=== PATIENT | male | born 1940 | race Caucasian/White ===

== ENCOUNTER 2021-11-11 08:00 | Inpatient (IN) ==
[2021-11-03 13:43] LABS: Appearance,Urine CLEAR (Clear); Bilirubin,Urine Negative (Negative); Color,Urine YELLOW; Culture Indicated,Urine No; Glucose,Urine (UA) Negative (Negative); Ketones,Urine Negative (Negative); Leukocyte Esterase,Urine Negative /uL (Negative); Mucus,Urine FEW /hpf; Nitrate,Urine Negative (Negative); Protein,Urine Negative (Negative); Specific Gravity,Urine 1.006 (1.000-1.035); Urine Blood 0.03 mg/dL (Negative); Urine RBC 3 /hpf (0-3); Urine Squamous Epithelial Cell 0 /hpf (0-4); Urine Transitional Epi Cells < 1 /hpf (0-2); Urine WBC 2 /hpf (0-4); Urobilinogen,Urine Negative
[2021-11-03 14:18] LABS: Basophils # (Auto) 0.03 K/mcL (0.00-0.30); Basophils % (Auto) 0.5 % (0.0-2.0); Eosinophils # (Auto) 0.12 K/mcL (0.00-0.70); Eosinophils % (Auto) 1.8 % (0.0-7.0); Hematocrit 46.9 % (40.1-51.0); Hemoglobin 15.9 g/dL (13.7-17.5); Lymphocytes # (Auto) 1.51 K/mcL (1.50-4.80); Lymphocytes % (Auto) 22.9 % (15.5-49.0); Mean Cell Volume 91.6 fL (80.0-100.0); Mean Corpuscular HGB Conc 33.9 g/dL (31.0-36.0); Mean Platelet Volume 9.5 fL (7.4-10.4); Monocytes # (Auto) 0.73 K/mcL (0.10-0.90); Monocytes % (Auto) 11.1 % (1.0-12.0); Neutrophils % (Auto) 63.5 % (38.0-78.0); Platelet Count 174 K/mcL (140-440); RBC 5.12 M/mcL (4.63-6.08); Red Cell Distribution Width 13.3 % (11.5-14.5); WBC 6.6 K/mcL (4.5-11.0)
[2021-11-03 14:34] LABS: INR 1.2 (0.9-1.1); Partial Thromboplastin Time 41.6 sec (20.0-37.0)
[2021-11-03 14:41] LABS: Blood Urea Nitrogen 13 mg/dL (8-23); Calcium 9.4 mg/dL (8.6-10.4); Carbon Dioxide 27 mmol/L (22-30); Chloride 99 mmol/L (96-108); Glomerular Filtration Rate 62; Glucose 110 mg/dL (70-105)
--- NOTE | 2021-11-04 10:15 | EKG ---
[facility] Test Date: 2021-11-03 Pat Name: Jose Guadalupe Mims Department: MEDR Room: Gender: Male Rn Transport: : 1940 Requested By: Oscar Song Order Number: [id number] Reading MD: Judd Najera Measurements Intervals Froid Rate: 90 P: GA: QRS: -72 QRSD: 88 T: 5 QT: 493 QTc: 604 Interpretive Statements Atrial fibrillation Ventricular premature complex Inferior infarct, old Consider anterior infarct Prolonged QT interval Electronically Signed On 11-04-2021 10:15:18 PDT by Judd Najera /[id number]
[~2021-11-11 08:00] MED LIST: IPRATROPIUM/ALBUTEROL 3 ML AMPUL.NEB NEB PRN; SCOPOLAMINE 1 PATCH PATCH TOPICAL PRN; cefTRIAXone 1 GM VIAL IV SCH
--- OUTSIDE RECORDS SUMMARY | 2021-11-11 08:42 | External Medical Summary | Continuity of Care Document ---
:1940 Author Organization [facility] Care Team Providers Name Role Phone [facility] Unavailable Unavailable Problems Combined list of problems from Department of Defense and [facility] facilities. It does not include entries that were removed or entered in error. Problem Status Onset Problem Date of Comments Source Date Type Resolution Stricture of esophagus Active Condition May 21, [facility] 2020 Entered CLINIC By: EMILY LOPEZ Comment: 04/2020 yogi F/U 06/2020May 24, 2020 Entered By: EMILY LOPEZ Comment: esophageal erosions and yeast also treated , Allergic rhinitis Active Condition [facility] 020 CLINIC Cervical arthritis Active Condition [facility] 020 CLINIC Glaucoma Active Condition Feb 12, [facility] 2019 Entered CLINIC By: EMILY LOPEZ Comment: Dr Ferreira Hyperlipidemia [place] [facility]20 CLINIC Hypertension Active Condition [facility] [place] 020 CLINIC Obstructive sleep apnea Active Condition Feb 12, [facility] of adult 2019 Entered CLINIC By: EMILY LOPEZ Comment: C pap through [place] and equipment currently Chronic obstructive Active Condition [facility] lung disease 010 CLINIC Actinic keratosis Active Condition Am bulatory (SNOMED CT Pharmacy )(Confirmed) Allergic rhinitis * Active Condition Ambulatory (ICD-9-CM Pharmacy 477.9)(Confirmed) Bilateral hearing loss Active Condition Ambulatory (SNOMED CT Pharmacy [id number])(Confirmed) Degeneration of lumbar Active Condition Ambulatory intervertebral Pharm acy disc(Confirmed) Sebaceous Active Condition Ambulatory cyst(Confirmed) Phar parris Left hip Active Condition Ambulatory pain(Confirmed) Phar parris Hypercholesterolemia(Co Active Condition Ambulatory nfirmed) Pharmacy Hypertension(Confirmed) Active Condition Ambulatory Pharmacy Urethral Active Condition Ambulatory cancer(Confirmed) Ph armacy Osteoarthrosis Active Condition Ambul atory involving the knee P harmacy (ICD-9-CM 715.98)(Confirmed) Platelet count below Active Condition Ambulatory reference range (SNOMED Pharmacy [place] [id number])(Confirmed) COPD with Active Condition Ambulatory emphysema(Confirmed) Pharmacy Actinic keratosis Active Condition [facility] (SNOMED CT [id number]) [facility] Allergic rhinitis * Active Condition [facility] (ICD-9-CM 477.9) [facility] Atrial fibrillation Active Condition [facility] Bilateral hearing loss Active Condition [facility] (SNOMED CT [id number]) [facility] Cardiomyopathy Active Condition [facility] COPD Active Condition [facility] Degeneration of lumbar Active Condition [facility] intervertebral disc CLINIC Dysphagia Active Condition [facility] Health Maintenance Active Condition [facility] (ICD-9-CM V65.9) [facility] Hypercholesterolemia Active Condition [facility] Hypertension Active Condition [facility] Inguinal hernia [facility] Osteoarthritis Active Condition [facility] Osteoarthrosis Active Condition [facility] involving the knee [facility] (ICD-9-CM 715.98) Pain in right hip joint Active Condition [facility] Pain of left shoulder Active Condition [facility] joint [facility] Pain of right shoulder Active Condition [facility] joint [facility] Platelet count below Active Condition [facility] reference range (SNOMED AFF [facility] CT [id number]) Rash Active Condition [facility] Sebaceous cyst Active Condition [facility] Diagnosis: ICD-10-CM active Diagnosis [facility] Z71.9 Counseling, CL INIC unspecifiedwith Provider Comments: Counseling,Unspec Diagnosis: ICD-10-CM active Diagnosis MODESTA Zuñiga Z02.89 Encounter for [place] other administrative [facility] examinationswith Provider Comments: Encounter for other Administrative Examinations Diagnosis: ICD-10-CM active Diagnosis MODESTA Zuñiga I10 Essential (primary) [place] hypertensionwith [facility] C Provider Comments: Hypertension (SCT [id number]) Diagnosis: ICD-10-CM active Diagnosis [facility] M51.36 Other CLINIC intervertebral disc degeneration, lumbar regionwith Provider Comments: Degeneration of lumbar intervertebral disc (SCT [id number]) Diagnosis: ICD-10-CM active Diagnosis [facility] G62.9 Polyneuropathy, CLINIC unspecifiedwith Provider Comments: Polyneuropathy, unspecified Diagnosis: ICD-10-CM active Diagnosis MODESTA Zuñiga Z51.81 Encounter for [place] therapeutic drug level [facility] monitoringwith Provider Comments: Encounter for Therapeutic Drug Level Monitoring Diagnosis: ICD-10-CM active Diagnosis [facility] R68.89 Other general CLINIC symptoms and signswith Provider Comments: General Symptoms & Signs Diagnosis: ICD-10-CM active Diagnosis MODESTA Zuñiga G47.33 Obstructive W [place] sleep apnea (adult) [facility] (pediatric)with Provider Comments: Obstructive sleep apnea of adult (SCT [id number]) Diagnosis: ICD-10-CM active Diagnosis [facility] Z71.89 Other specified CLINIC counselingwith Provider Comments: Counseling,Oth Specified Diagnosis: ICD-10-CM active Diagnosis [facility] R21 Rash and other C LINIC nonspecific skin eruptionwith Provider Comments: Rash (SNOMED CT [id number]) Diagnosis: ICD-10-CM active Diagnosis MODESTA Zuñiga G47.30 Sleep apnea, [place] unspecifiedwith [facility] Provider Comments: Sleep Apnea, unspecified Diagnosis: ICD-10-CM active Diagnosis MODESTA Zuñiga M54.5 Low back painwith [place] Provider Comments: Low [facility] Back Pain Diagnosis: ICD-10-CM active Diagnosis [place] M25.551 Pain in right CLINIC hipwith Provider Comments: Pain in right hip joint ([facility] [id number]) Diagnosis: ICD-10-CM active Diagnosis [facility] I48.91 Unspecified C LINIC atrial fibrillationwith Provider Comments: Diagnosis: ICD-10-CM active Diagnosis [facility] [place] M25.512 Pain in left CLINIC shoulderwith Provider Comments: Pain of left shoulder joint ([facility] [id number]) Diagnosis: ICD-10-CM active Diagnosis [facility] I10 Essential (primary) CLINIC hypertensionwith Provider Comments: Essential (Primary) Hypertension Diagnosis: ICD-10-CM active Diagnosis [facility] K40.90 Unil inguinal CLINIC hernia, w/o obst or gangr, not spcf as recurwith Provider Comments: Inguinal hernia (SNOMED CT [id number]) Diagnosis: ICD-10-CM active Diagnosis [facility] R10.30 Lower abdominal CLINIC pain, unspecifiedwith Provider Comments: Lower Abdominal Pain, unspecified Medications Combined list of outpatient medications from Department of Defense and [facility] Affairs facilities. Medications provided include 1) outpatient medications from the last 15 months, and 2) patient-reported medications. Medication Details Route Status Patient Prescription Prescription Last Ordering Order Source Instructions Expires Number Dispense Provider Date Date albuterol Complet 05/18/2021 Amb ulat 90 mcg/inh See dose instructions in com ments, # 25.5 g, 2 total refill(s), Acute, BRANDI [Not filled] ed ory inhalation Pharmac aerosol y ALBUTEROL Inhala Complet 02/22/2020 Am bulat 90MCG Inhale, every 6 hr, INHALE 2 PUFFS BY MOUTH EVERY 6 HOURS NEEDED, 0 total refill(s) tion ed ory ([facility]-F) (breat Pharmac 200D ORAL he in) y INHL ALBUTEROL INHALE 2 INHALA 05/21/2021 [id number] S[facility] TH,JUN 24/ [place] SO4 PUFFS BY TION 1 ION E 2020 N [facility] 90MCG/ACTUA MOUTH CLINIC T ([facility]-F) FOUR INHL,ORAL,6 TIMES A .7GM DAY NEEDED FOR BREATHIN G, WHEEZING , SHORTNES S OF BREATH apixaban 5 Oral Ordered Ambulat mg oral 5 MG BY MOUTH TWICE A DAY, O ral, BID, # 180 tab(s), 3 total refill(s), Maintenance, 5 MG BY MOUTH TWICE A DAY Oral BID, Pharmacy: [facility] [Federal Rx: #180 last filled 10/04/21] (given ory tablet by Pharmac mouth) y apixaban 5 Discont 09/25/2021 Am bulat mg tablet 5 MG BY MOUTH TWICE A DAY, # 180 EA, 3 total refill(s), Hard Stop, BRANDI [Not active] inued ory Pharmac y APIXABAN TAKE ONE ORAL DISCONT 09/27/2021 [id number] [place] 09/26/ JONATHA 5MG TAB TABLET INUE 1 ,LOY 2020 N M. BY MOUTH MENA VAZQUEZ TWICE A PHARM D GHT DAY FOR [facility] STROKE PREVENTI ON APIXABAN TAKE ONE ORAL DISCONT 10/17/2020 [id number] ROBER CHAIDEZ 09/24/ JONATHA 5MG TAB TABLET INUE 1 KAREN 2020 N M. BY MOUTH GEORGE TWICE A GHT DAY FOR [facility] 21 DAYS TO PREVENT BLOOD CLOTS APIXABAN TAKE ONE ORAL DISCONT 10/19/2020 [id number] LOPEZKoby AR 09/20/ [place] 5MG TAB TABLET INUE 1 ION E 2020 N [facility] BY MOUTH CLINIC TWICE A DAY FOR STROKE PREVENTI ON APIXABAN TAKE ONE ORAL DISCONT 03/21/2022 [id number] CONNIEKoby AR 04/17/ [place] 5MG TAB TABLET INUED 1 ION E 2020 N [facility] BY MOUTH CLINIC TWICE A DAY FOR STROKE PREVENTI ON atorvastati Oral Discont 09/25/2021 A mbulat n 40 mg 40 MG, Oral, Daily, # 90 EA, 2 total ref ill(s), Acute, BRANDI [Not active] (given inued ory oral tablet by Pharmac mouth) y atorvastati Oral Ordered Ambula t n 40 mg 40 MG, Oral, Daily, # 90 tab (s), 3 total refill(s), Maintenance, 40 MG Oral Daily, Pharmacy: [facility] [Federal Rx: #90 last filled 10/01/21] (given ory oral tablet by Pharmac mouth) y atorvastati Complet 01/06/2021 A mbulat n 40 mg Legacy Prescription, # 90 EA , 2 total refill(s), Hard Stop, BRANDI [Federal Rx: #90 last filled 03/18/20] ed ory tablet Pharmac y ATORVASTATI TAKE ONE ORAL DISCONT 03/16/2021 [id number] [facility],JUL 05/ [place] N CA 40MG TABLET INUE 1 ION E 2019 N [facility] TAB BY MOUTH CLINIC EVERY DAY FOR CHOLESTE ROL ATORVASTATI TAKE ONE ORAL DISCONT 04/11/2022 [id number] DUSTIN LOPEZ 04/11/ [place] N CA 40MG TABLET INUED 2 ION E 2020 N VA TAB BY MOUTH CLINIC EVERY DAY FOR CHOLESTE ROL ATORVASTATI Oral Discont 01/08/2020 A mbulat N CALCIUM Oral, every day at bedtime, TAKE 1 TABLET BY MOUTH AT BEDTIME FOR CHOLESTEROL, 0 total refill(s), Physician Stop (given inued ory 40MG TAB by Pharmac mouth) y ATORVASTATI Oral Complet 02/22/2020 A mbulat N CALCIUM 40 mg, Oral, every day at be dtime, TAKE ONE-HALF TABLET BY MOUTH AT BEDTIME FOR CHOLESTEROL, 0 total refill(s) (given ed ory 80MG TAB by Pharmac mouth) y BETAMETHASO APPLY TOPICA DISCONT 02/19/2022 [id number] LOPEZ, JUL 03/ JUANITA NE THIN L INUED 1 ION E 2020 N VA DIPROPIONAT FILM TO CLINIC E 0.05% AFFECTED CREAM,TOP AREA TWICE A DAY TO LEG FOR RASH betamethaso Ordered 02/16/2022 A mbulat ne See dose instructions in com ments, # 45 g, 3 total refill(s), Acute, BRANDI [Federal Rx: #45 last filled 02/21/21] ory dipropionat Pharmac e 0.05% y topical cream BUDESONIDE INHALE 2 INHALA DISCONT 07/10/2022 [id number] [facility],JUN 26/ Departm 160/GLYCOPY INHALATI TION INUED 2 ION E 2021 ent o f R ONS BY 9/FORMOTER MOUTH s 4.8MCG/ACT TWICE A [facility] INHL,ORAL,1 DAY FOR 0.7GM BREATHIN G / COPD - REPLACES TRELEGY BUDESONIDE INHALE 2 INHALA DISCONT 07/10/2022 [id number] [facility],JUN 26/ JONATHA 160/GLYCOPY INHALATI TION INUED 2 ION E 2021 N M. R ONS BY GEORGE 9/FORMOTER MOUTH GHT 4.8MCG/ACT TWICE A [facility] INHL,ORAL,1 DAY FOR 0.7GM BREATHIN G/COPD - REPLACES TRELEGY BUDESONIDE Inhala Complet 02/22/2020 A mbulat 80/FORMOTER Inhale, every 12 hr, INHALE 2 PUFFS BY MOUTH EVERY 12 HOURS RINSE MOUTH WITH WATER AND SPIT AFTER EVERY DOSE. SHAKE WELL (5 SECONDS) BEFORE EACH USE., 0 total refill(s) tion ed ory 4.5MCG 120D (breat Pharmac INH he in) y budesonide/ Discont 09/25/2021 A mbulat formoterol/ See dose instructions in com ments, # 32.1 g, 3 total refill(s), Acute, BRANDI [Not active] inued ory glycopyrrol Pharmac ate 160 y mcg-4.8 mcg-9 mcg/inh inhalation aerosol CEPHALEXIN TAKE 3 ORAL DISCONT 10/24/2020 [id number] ZA RODRIGUEZ 09/26/ KYLER 250MG CAP CAPSULES INUED 1 REGINA NOEL 2020 N M. (750 MG) WAINWRI BY MOUTH GHT TWICE A [facility] DAY FOR INFECTIO N cetirizine Oral Ordered Ambulat 10 mg oral 10 MG, Oral, Daily, # 90 tab (s), 3 total refill(s), Maintenance, 10 MG Oral Daily, Pharmacy: [facility] [Federal Rx: #90 last filled 11/02/21] (given ory tablet by Pharmac mouth) y cetirizine Oral Discont 09/25/2021 Am bulat 10 mg 10 MG, Oral, Daily, # 90 EA, 2 total refill(s), Hard Stop, BRANDI [Not active] (given inued ory tablet by Pharmac mouth) y CETIRIZINE Oral Discont 01/11/2019 Am bulat HCL 10MG 10 mg, Oral, every day at [facility], TAKE ONE TABLET BY MOUTH AT BEDTIME, 0 total refill(s), Physician Stop (given inued ory TAB by Pharmac mouth) y CETIRIZINE TAKE ONE ORAL DISCONT 02/13/2021 [id number] DUSTIN LOPEZ 02/12/ [place] HCL 10MG TABLET INUE 1 ION E 2019 N [facility] TAB BY MOUTH CLINIC EVERY DAY FOR ALLERGIE S CETIRIZINE TAKE ONE ORAL DISCONT 01/11/2022 [id number] S MITDUSTIN Ellis 01/28/ [place] HCL 10MG TABLET INUED 2 ION E 2020 N [facility] TAB BY MOUTH CLINIC EVERY DAY FOR ALLERGIE S CHOLECALCIF TAKE ONE ORAL ACTIVE DUSTIN LOPEZ 05/13/ [place] SAM 25MCG TABLET ION E 2020 N [facility] (1,000UNIT) BY MOUTH CLINI C TAB EVERY DAY CLOTRIMAZOL APPLY TOPICA ACTIVE CONNIEJUL 03/ L [place] E 1% THIN L ION E 2020 N [facility] CREAM,TOP FILM TO CLINIC AFFECTED AREA TWICE A DAY CLOTRIMAZOL APPLY TOPICA DISCONT 02/19/2022 [id number] LOPEZ, JUL 03/ [place] E 1% SPARINGL L INUED 1 ION E 2020 N [facility] CREAM,TOP Y TO CLINIC AFFECTED AREA TWICE A DAY FOR FUNGAL RASH clotrimazol Discont 09/25/2021 A mbulat e 1% See dose instructions in com ments, # 90 g, 3 total refill(s), Acute, BRANDI [Not active] inued ory topical Pharmac cream y ezetimibe Oral Ordered Ambulat 10 mg oral 1 tab(s), Oral, Daily, # 90 tab(s), 3 total refill(s), Maintenance, 1 tab(s) Oral Daily, Pharmacy: [facility] [Federal Rx: #90 last filled 11/02/21] (given ory tablet by Pharmac mouth) y ezetimibe Discont 09/25/2021 Amb ulat 10 mg See dose instructions in com ments, # 90 EA, 2 total refill(s), Hard Stop, BRANDI [Not active] inued ory tablet Pharmac y EZETIMIBE TAKE ONE ORAL DISCONT 02/19/2022 [id number] LOPEZ, JUL 03/ [place] 10MG TAB TABLET INUED 2 ION E 2020 N [facility] BY MOUTH CLINIC EVERY DAY FOR TRIGLYCE RIDES flutic/umec Inhala Ordered 09/30/2022 Ambulat lid/vilant See Rx Instructions, # 60 EA , 3 total refill(s), Hard Stop, BRANDI [Federal Rx: #60 last filled 10/01/21] tion ory 100-62.5-25 (breat Pharmac mcg inh he in) y (60EA) FLUTICASONE INHALE INHALA 06/27/[id number] [facility] TH,JUN 26/ [place] 100/UMECLID ONE TION 2 ION E 2020 N [facility] INIUM INHALATI CLINIC 62.5/VILANT ON BY SAM MOUTH 25MCG/ACTUA EVERY T INH,30 MORNING FOR COPD. RINSE MOUTH AFTER USE fluticasone Complet 06/24/2021 A mbulat /umeclidini See dose instructions in [employer], # 180 EA, 0 total refill(s), Acute, BRANDI [Not filled] ed ory um/vilanter Pharmac ol 100 y mcg-62.5 mcg-25 mcg/inh inhalation powder gabapentin Discont 09/23/2021 Am bulat 100 mg oral See dose instructions in com ments, # 102 EA, 3 total refill(s), Acute, BRANDI [Not active] inued ory capsule Pharmac y GABAPENTIN TAKE ONE ORAL DISCONT 02/23/2022 [id number] LOPEZ ,JUL 04/ [place] 100MG CAP CAPSULE INUED 1 ION E 2020 N [facility] BY MOUTH CLINIC TWICE A DAY FOR 7 DAYS, THEN TAKE TWO CAPSULES TWICE A DAY FOR 7 DAYS, THEN TAKE THREE CAPSULES TWICE A DAY - INCREASE TOLERATE D DAY AND OR NIGHT FOR NERVE PAIN GABAPENTIN TAKE ONE ORAL DISCONT 03/15/2022 [id number] LOPEZ ,JUL 04/ [place] 100MG CAP CAPSULE INUED 1 ION E 2020 N [facility] BY MOUTH CLINIC AT BEDTIME FOR 3 DAYS, THEN TAKE ONE CAPSULE TWICE A DAY FOR 3 DAYS, THEN TAKE TWO CAPSULES AT BEDTIME FOR 3 DAYS, AND TAKE ONE CAPSULE EVERY DAY FOR 3 DAYS, THEN TAKE TWO CAPSULES TWICE A DAY - INCREASE TOLERATE D DAY AND OR NIGHT FOR NERVE PAIN hydroCHLORO Oral Ordered Ambula t thiazide 25 25 MG, Oral, Daily, # 90 tab (s), 3 total refill(s), Maintenance, 25 MG Oral Daily, Pharmacy: [facility] [Federal Rx: #90 last filled 11/05/21] (given ory mg oral by Pharmac tablet mouth) y hydroCHLORO Oral Discont 09/25/2021 A mbulat thiazide 25 25 MG, Oral, Daily, # 90 EA, 3 total refill(s), Hard Stop, BRANDI [Not active] (given inued ory mg tablet by Pharmac mouth) y HYDROCHLORO Oral Discont 01/27/2019 A mbulat THIAZIDE 25 mg, Oral, Daily, TAKE ONE TABLET BY MOUTH EVERY DAY, 0 total refill(s), Physician Stop (given inued ory 25MG TAB by Pharmac mouth) y HYDROCHLORO Oral Complet 02/22/2020 A mbulat THIAZIDE 25 mg, Oral, Daily, TAKE ONE TABLET BY MOUTH EVERY DAY (CHOICE), 0 total refill(s) (given ed ory 25MG TAB by Pharmac mouth) y HYDROCHLORO TAKE ONE ORAL DISCONT 05/10/2021 [id number] S MITH,JUN 24/ [place] THIAZIDE TABLET INUE 1 ION E 2020 N [facility] 25MG TAB BY MOUTH CLINIC EVERY DAY (WATER PILL) HYDROCHLORO TAKE ONE ORAL DISCONT 04/15/2022 [id number] LOPEZ,DUSTIN 05/10/ [place] THIAZIDE TABLET INUED 2 ION E 2021 N VA 25MG TAB BY MOUTH CLINIC EVERY DAY (WATER PILL) inhaler Complet 08/18/2020 Ambul at spacer See dose instructions in com ments, # 1 EA, 0 total refill(s), Acute, BRANDI [Not filled] ed ory ([facility] r plus z y stat av) LIDOCAINE APPLY 1 TRANSD DISCONT 11/10/2021 [id number] LOPEZ, JUN 30/ [place] 5% PATCH PATCH TO ERMAL INUED 1 ION E 2020 N [facility] SKIN CLINIC EVERY DAY (FOR 12 HOURS ON, FOLLOWED BY 12 HOURS OFF) FOR PAIN lidocaine Complet 11/07/2021 Amb ulat 5% topical 1 PATCH TO SKIN, Daily, # 60 EA, 3 total refill(s), Acute, BRANDI [Federal Rx: #60 last filled 11/15/20] ed ory film Pharmac y losartan 50 Oral Discont 08/15/2021 A mbulat mg oral 50 MG, Oral, Daily, # 90 tab (s), 3 total refill(s), Maintenance, 50 MG Oral Daily, Pharmacy: [facility] [Not active] (given inued ory tablet by Pharmac mouth) y losartan 50 Oral Ordered Ambula t mg oral 50 MG, Oral, Daily, take one tablet by mouth every day., # 90 tab(s), 3 total refill(s), Maintenance, 50 MG Oral Daily,Instr:take one tablet by mouth every day., Pharmacy: [facility] [Federal Rx: #90 last filled 10/18/21] (given ory tablet by Pharmac mouth) y losartan 50 Oral Discont 08/13/2021 A mbulat mg tablet 50 MG, Oral, Daily, # 90 EA, 1 total refill(s), Hard Stop, BRANDI [Not active] (given inued ory by Pharmac mouth) y LOSARTAN TAKE ONE ORAL DISCONT 11/07/2021 [id number] CONNIE,Koby AR 11/07/ [place] 50MG TAB TABLET INUED 2 ION E 2020 N [facility] BY MOUTH CLINIC EVERY DAY MAGNESIUM TAKE ONE ORAL ACTIVE LOPEZ,JUL 03/ L [place] OXIDE 420MG TABLET ION E 2019 N VA TAB BY MOUTH CLINIC EVERY DAY MULTIVITAMI TAKE ONE ORAL ACTIVE LOPEZ,JUL 03/ [place] NS CAP/TAB TABLET ION E 2019 N [facility] BY MOUTH CLINIC EVERY DAY OMEPRAZOLE TAKE ONE ORAL DISCONT 07/25/2021 [id number] CONNIE ,JUN 27/ [place] 20MG CAP,EC CAPSULE INUED 2 ION E 2020 N [facility] BY MOUTH CLINIC EVERY DAY FOR STOMACH ACID, TAKE ONE-HALF HOUR PRIOR TO BREAKFAS T OMEPRAZOLE TAKE ONE ORAL DISCONT 07/02/2022 [id number] S MITRhonda,JUN 27/ JONATHA 20MG CAP,EC CAPSULE INUED 2 ION E 2021 N M. BY MOUTH GEORGE EVERY GHT DAY FOR [facility] STOMACH ACID, TAKE ONE-HALF HOUR PRIOR TO BREAKFAS T OMEPRAZOLE TAKE 1 ORAL ACTIVE CONNIE,JUL 04/ RON [place] 40MG CAP,EC CAPSULE ION E 2020 N [facility] BY MOUTH CLINIC TWICE A DAY omeprazole Oral Ordered 06/29/2022 Am richard DODD 20 mg 20 MG, Oral, Daily, # 90 EA, 3 total refill(s), Hard Stop, BRANDI [Federal Rx: #90 last filled 11/04/21] (given ory capsule by Pharmac mouth) y POTASSIUM TAKE ONE ORAL ACTIVE [facility] ONATHA 99MG TAB TABLET ,LOY 2020 N M. BY MOUTH MENA VAZQUEZ EVERY PHARM D GHT DAY [facility] SPIRONOLACT Oral Complet 02/22/2020 A mbulat ONE 25MG 25 mg, Oral, TAKE ONE TABLET BY MOUTH TWICE WEEKLY TAKE WITH FOOD OR MILK(CHOICE), 0 total refill(s) (given ed ory TAB by Pharmac mouth) y SPIRONOLACT Oral Discont 11/20/2016 A mbulat ONE 25MG 25 mg, Oral, Daily, TAKE ONE TABLET BY MOUTH EVERY DAY TAKE WITH FOOD OR MILK(CHOICE), 0 total refill(s), Physician Stop (given inued ory TAB by Pharmac mouth) y tamsulosin Discont 09/25/2021 Am bulat 0.4 mg oral 30 EA, TAKE 1 CAPSULE BY NATASHA TH ONCE DAILY AT BEDTIME, 0 total refill(s), Soft Stop, Combat [place] inued ory capsule Pharmac y tamsulosin Oral Ordered Ambulat 0.4 mg oral 1 cap(s), Oral, Daily, 30 EA , TAKE 1 CAPSULE BY MOUTH ONCE DAILY AT BEDTIME, # 90 cap(s), 3 total refill(s), Maintenance, 1 cap(s) Oral Daily,Instr:30 EA, TAKE 1 CAPSULE BY MOUTH ONCE DAILY AT BEDTIME, (given ory capsule Pharmacy: [facility] [Federal Rx: #90 by Pharmac mouth) y terazosin 5 Complet 01/06/2021 A mbulat mg capsule [facility] Prescription, # 90 EA , 2 total refill(s), Hard Stop, BRANDI [Federal Rx: #90 last filled 03/18/20] ed ory Pharmac y TERAZOSIN Oral Discont 01/08/2020 Amb ulat HCL 5MG CAP 5 mg, Oral, every day at bed time, TAKE ONE CAPSULE BY MOUTH AT BEDTIME, 0 total refill(s), Physician Stop (given inued ory by Pharmac mouth) y TERAZOSIN Oral Complet 02/22/2020 Amb ulat HCL 5MG CAP 5 mg, Oral, every day at bed time, TAKE ONE CAPSULE BY MOUTH AT BEDTIME (CHOICE), 0 total refill(s) (given ed ory by Pharmac mouth) y Timolol Ordered Ambulat Maleate 15 mL, INSTILL 1 DROP INTO E ACH EYE IN THE MORNING, 0 total refill(s), Soft Stop, Combat Call[place] ory (Eqv-Timopt Pharmac ic) 0.5% y ophthalmic solution TIMOLOL INSTILL EACH ACTIVE LOPEZ,DUSTIN 02/12/ JC STO MALEATE 1 DROP EYE ION E 2020 N [facility] 0.5% IN EACH CLINIC SOLN,OPH EYE EVERY DAY TIMOLOL INSTILL RIGHT ACTIVE ADRIANA HUSSEIN 10/08/ [facility]NSON -GR MALEATE 1 DROP EYE JUAN RAMON C 2010 ANDSTAF 0.5% IN RIGHT F [facility] SOLN,OPH EYE TWICE A DAY TIOTROPIUM Inhala Discont 08/19/2018 A mbulat 18MCG INHL 18 mcg, Inhale, Daily, INHAL E ONE CAPSULE BY MOUTH EVERY DAY (INHALE CONTENTS OF 1 CAPSULE VIA 2 ORAL INHALATIONS; DO NOT SWALLOW CAPSULE: MAX 1 CAPSULE IN 24 HOURS)., 0 total refill(s), Physician Stop tion inued ory CAP 30 (breat Pharmac he in) y TIOTROPIUM Inhala Complet 02/22/2020 A mbulat 18MCG INHL 18 mcg, Inhale, Daily, INHAL E ONE CAPSULE BY MOUTH EVERY DAY (INHALE CONTENTS OF 1 CAPSULE VIA 2 ORAL INHALATIONS; DO NOT SWALLOW CAPSULE: MAX 1 CAPSULE IN 24 HOURS).(CHOICE), 0 total refill(s) tion ed ory CAP 30 (breat Pharmac he in) y traMADol 50 Oral Ordered Ambula t mg oral 2 tab(s), Oral, BID, # 112 t ab(s), 3 total refill(s), Maintenance, 2 tab(s) Oral BID, Pharmacy: [facility] [Federal Rx: #112 last filled 10/01/21] (given ory tablet by Pharmac mouth) y traMADol 50 Complet 09/12/2021 A mbulat mg oral See dose instructions in com ments, # 112 EA, 2 total refill(s), Acute, BRANDI [Federal Rx: #112 last filled 07/14/21] ed ory tablet Pharmac y traMADol 50 Oral Discont 09/28/2021 A mbulat mg oral 2 tab(s), Oral, BID, # 112 t ab(s), 3 total refill(s), Maintenance, 2 tab(s) Oral BID, Pharmacy: [facility] [Not active] (given inued ory tablet by Pharmac mouth) y TRAMADOL TAKE TWO ORAL DISCONT 03/20/2021 [id number] Koby LOPEZ AR 02/19/ [place] HCL 50MG TABLETS INUE 1 ION E 2020 N [facility] TAB BY MOUTH CLINIC FOUR TIMES A DAY NEEDED SHORT FILL FOR PAIN TRAMADOL TAKE TWO ORAL DISCONT 09/18/2021 [id number] Koby LOPEZ AR 03/19/ [place] HCL 50MG TABLETS INUED 2 ION E 2020 N [facility] TAB BY MOUTH CLINIC TWICE A DAY NEEDED FOR PAIN TRELEGY Oral Discont 01/27/2019 Ambul at [facility] Oral, every morning, INHALE 1 INHALATION BY MOUTH EVERY MORNING (AFTER EACH DOSE, RINSE MOUTH WITH WATER AND SPIT OUT WITHOUT SWALLOWING)(MARIE/ELIZABETH 11/11), 0 total refill(s), Physician Stop (given inued ory 100/62.5/25 by Pharmac MCG INH 30D mouth) y valsartan Complet 07/26/2020 Amb ulat 160 mg oral [facility], # 90 EA , 3 total refill(s), Acute, BRANDI [Federal Rx: #90 last filled 07/28/19] ed ory tablet Pharmac y VALSARTAN Oral Discont 09/23/2017 Amb ulat 160MG TAB 80 mg, Oral, Daily, TAKE ONE -HALF TABLET BY MOUTH EVERY DAY (RU/KS 12/04) (CHOICE), 0 total refill(s), Physician Stop (given inued ory by Pharmac mouth) y VALSARTAN Oral Discont 07/07/2018 Amb ulat 320MG TAB 320 mg, Oral, Daily, TAKE ON E TABLET BY ORALLY EVERY DAY, 0 total refill(s), Physician Stop (given inued ory by Pharmac mouth) y zzMOMETASON Inhala Complet 02/22/2020 Ambulat E TWISTHALR Inhale, BID, INHALE 1 PUFF B Y MOUTH TWICE A DAY INHALE RAPIDLY AND DEEPLY. RINSE MOUTH AFTER USE.DISCARD 45 DAYS AFTER OPENING(CHOICE), 0 total refill(s) tion ed ory 0.24GM 60 (breat Pharmac DOSE he in) y Allergies, Adverse Reactions, Alerts Combined list of allergies from Department of Defense and Veterans Affairs facilities. It does not include entries that were removed or entered in error. Substance Category Reaction Severity Reaction Status Date Comments S ource type Reported ATROVENT Propensity Propensity active MODESTA to adverse to adverse 0 M. reactions reactions WAIN [place] to drug to drug T [facility] (finding) (finding) FLONASE Propensity Propensity active MODESTA to adverse to adverse 0 M. reactions reactions [place] to drug to drug T [facility] (finding) (finding) LISINOPRIL Propensity Propensity active JOHNSON-GRAN to adverse to adverse 1 DS TAFF reactions reactions [facility] to drug to drug (finding) (finding) lisinopril Drug <not Drug Active Ambul ator allergy entered> allergy y Pharmacy Immunizations Combined list of available immunizations from the Department of Defense and Veterans Affairs facilities. Immunization Series Date Administered Site Reaction Lot CVX Drug St atus Comments Source Given By Number Code Drop Board Man COVID-19 3 complet MUNIR NATHA (PFIZER), 2020 ed N M. MRNA, LNP-S, W AINWRI PF, 30 GHT MCG/0.3 ML VAM C DOSE INFLUENZA, complet JONATHA UNSPECIFIED 2020 ed N M. FORMULATION WA INWRI GHT [facility] COVID-19 2 complet MUNIR NATHA (PFIZER), 2020 ed N M. MRNA, LNP-S, W AINWRI PF, 30 GHT MCG/0.3 ML VAM C DOSE COVID-19 1 complet MUNIR NATHA ([employer]ocity), 2020 ed N M. MRNA, LNP-S, W AINWRI PF, 30 GHT MCG/0.3 ML VAM C DOSE INFLUENZA, complet JONATHA UNSPECIFIED 2019 ed N M. FORMULATION WA INWRI GHT [facility] FLU,3 YRS complet M DANIELLE-GR (HISTORICAL) 2010 ed A NDSTAF F [facility] INFLUENZA, complet JOHNSON-GR SEASONAL, 2010 ed ANDS TAF INJECTABLE, F [facility] PRESERVATIVE FREE influenza, complet influe nza Ambulat seasonal, 2010 ed , ory injectable-pf season al, Pharmac injectabl y e-pf influenza complet influen za Ambulat virus 2010 ed virus ory vaccine, vaccine, Ph [facility] inactivated inactiva t y ed FLU,3 YRS complet [facility] e JOHNSON-GR (HISTORICAL) 2009 ed A NDSTAF F [facility] influenza complet Result Ambulat virus 2009 ed Comment: ory vaccine, [facility] Ph armac inactivated y FLU,3 YRS complet [facility] JOHNSON-GR (HISTORICAL) 2009 ed A NDSTAF F [facility] Td(adult) complet Td(adul t) Ambulat unspecified 2009 ed unspecif i ory formulation ed Ph [facility] formulati y on TD(ADULT) 11/22/ 139 complet M DANIELLE-GR UNSPECIFIED 2009 ed AN DSTAF FORMULATION F [facility] pneumococcal complet pneu mococ Ambulat vaccine, 2009 ed memo ory unspecified vaccine, Pharmac unspecifi y ed PNEUMOCOCCAL complet JOHNSON-GR (HISTORICAL) 2009 ed A NDSTAF F [facility] Results Combined list of recent chemistry, hematology and other laboratory results from Department of Defense and Veterans Affairs, ranging from 15 months to all on record, depending upon the facility. Order Results Value Reference Date Interpretation Specimen Commen ts Source Name Range Hematolo Neutrophil 63.9 % 44.0 - 06/08 N Ambu lator gy % Auto 74.0 /2021 y Pharmacy Hematolo Lymphocyte 22.1 % 15.0 - 06/08 N Ambu lator gy % Auto 42.0 /2021 y Pharmacy Hematolo Monocyte % 12.0 % 4.0 - 13.0 06/08 N A mbulator gy Auto /2021 y Pharmacy Hematolo Eosinophil 1.5 % 0.0 - 7.0 06/08 N Am bulator gy % Auto /2021 y Pharmacy Hematolo Basophil % 0.3 % 0.0 - 2.0 06/08 N Am bulator gy Auto /2021 y Pharmacy Hematolo Imm. 0.2 % 0.0 - 0.9 06/08 N Ambul ator gy Granulocyt /2021 y e % Pharmacy Hematolo Neutro 3.88 1.20 - 06/08 N Ambulat or gy Absolute K/mcL 7.00 /2021 y Pharmacy Hematolo Lymph 1.34 0.60 - 06/08 N Ambulat or gy Absolute K/mcL 3.40 /2021 y Pharmacy Hematolo [place] 0.73 0.20 - 06/08 N Ambulat or gy Absolute K/mcL 1.00 /2021 y Pharmacy Hematolo Eos 0.09 0.00 - 06/08 N Ambulat or gy Absolute K/mcL 0.50 /2021 y Pharmacy Hematolo Baso 0.02 0.00 - 06/08 N Ambulat or gy Absolute K/mcL 0.20 /2021 y Pharmacy Hematolo Imm. 0.01 0.00 - 06/08 N Ambulat or gy Granulocyt 10^3/uL 0.15964 /2022 y e Absolute Pharm acy Chemistr LDL Direct 79 mg/dL 0 - 129 06/08 N Amb ulator y /2021 y Pharmacy Chemistr ProBNP 428 0 - 124 06/08 H Result Ambulat or y pg/mL /2021 Comment: y High doses Pharm acy of Biotin supplements (>5 mg/day) may falsely decrease result. Test specimens should be collected at least 8 hours after the last ingestion of high dose biotin. Chemistr Vitamin 474 232 - 1245 06/08 N Result Ambu lator y B12 pg/mL /2021 Comment: y High doses Pharm acy of Biotin supplements (>5 mg/day) may falsely increase result. Test specimens should be collected at least 8 hrs after last ingestion of high dose biotin. Hematolo WBC 6.1 3.0 - 10.6 06/08 N Ambu lator gy K/mcL /2021 y Pharmacy Hematolo RBC 4.94 3.86 - 06/08 N Ambulat or gy x10^6/mc 5.72850 /2021 y L Pharmacy Hematolo Hemoglobin 16.0 11.8 - 06/08 N Ambu lator gy g/dL 17.1 /2021 y Pharmacy Hematolo Hematocrit 45.5 % 36.0 - 06/08 N Ambu lator gy 51.0 /2021 y Pharmacy Hematolo MCV 92.1 fL 81.0 - 06/08 N Ambulat or gy 102.0 /2021 y Pharmacy Hematolo MCH 32.4 pg 27.0 - 06/08 H Ambulat or gy 31.0 /2021 y Pharmacy Hematolo MCHC 35.2 32.0 - 06/08 N Ambulat or gy g/dL 36.0 /2021 y Pharmacy Hematolo RDW CV 12.8 % 11.2 - 06/08 N Ambulat or gy 16.2 /2021 y Pharmacy Hematolo Platelets 171 150 - 400 06/08 N Amb ulator gy K/mcL /2021 y Pharmacy Chemistr Hemoglobin 6.2 % 0.0 - 5.6 06/08 H Am bulator y A1c /2021 y Pharmacy Chemistr Cholestero 160 06/08 N Ambu lator y l Total mg/dL /2021 y Pharmacy Chemistr HDL 45 mg/dL 06/08 N Ambula tor y Cholestero /2021 y l Pharmacy Chemistr Triglyceri 239 06/08 H Ambu lator y chadwick mg/dL /2021 y Pharmacy Chemistr Non-HDL 115 06/08 N Ambulat or y Cholestero mg/dL /2021 y l Pharmacy Chemistr Ur Creat 34.0 40.0 - / L Ambula tor y mg/dL 278.0 /2021 y Pharmacy Chemistr Ur 1.3 06/08 Ambulat or y Microalbum mg/dL /2021 y in Pharmacy Chemistr Ur 38.2 0.0 - 30.0 06/08 H Ambu lator y Microalb/U mg/gCr /2021 y r Creat Pharmacy Ratio Chemistr Vitamin D 34 ng/mL 30 - 100 /08 N Result Amb ulator y 25 [place] /2021 Comment: y High doses Pharm acy of Biotin supplements (>5 mg/day) may falsely increase result. Test specimens should be collected at least 8 hrs after last ingestion of high dose biotin. Chemistr PSA Total 1.030 0.000 - 08 N Ambul ator y ng/mL 4.000 /2021 y Pharmacy Chemistr TSH 4.170 0.300 - /08 N Ambulat or y m[iU]/mL 4.250 /2021 y Pharmacy Urinalys UA Glucose Negative 10/01 N Amb ulator is (10/01/21 8:11 AM) /2021 Pharmacy Urinalys UA Protein Negative 10/01 N Amb ulator is (10/01/21 8:11 AM) /2021 y Pharmacy [facility] UA Bili Negative 10/01 N Ambula tor is (10/01/21 8:11 AM) /2021 y Pharmacy Ur[facility]ys UA Normal 10/01 N Ambulat or is Urobilinog (10/01/21 8:11 AM) /2021 en Pharmacy Urinalys UA pH 6.5 10/01 N Ambulat or is (10/01/21 8:11 AM) /2021 y Pharmacy Urinalys UA Blood Negative 10/01 N Ambul ator is (10/01/21 8:11 AM) /2021 y Pharmacy Ur[facility] UA Ketones Negative 10/01 N Amb ulator is (10/01/21 8:11 AM) /2021 y Pharmacy Ur[facility] UA Nitrite Negative 10/01 N Amb ulator is (10/01/21 8:11 AM) /2021 Pharmacy Ur[facility] UA Leuk Negative 10/01 N Ambula tor is Esterase (10/01/21 8:11 AM) /2021 Pharmacy [facility] UA Clarity Clear 10/01 N Ambu lator is (10/01/21 8:11 AM) /2021 Pharmacy Ur[facility] UA Spec 1.005 1.003 - 10/01 N Ambulat or is Central 1.030 /2021 Pharmacy Urinalys UA Color Colorless 10/01 N Ambu lator is (10/01/21 8:11 AM) /2021 Pharmacy Ur[facility]ys UA RBC 1 /HPF 0 - 3 08 N Ambulat or is /2021 Pharmacy Urinalys UA WBC 3 /HPF 0 - 4 08 N Ambulat or is /2021 Pharmacy Urinalys UA None 10/01 N Ambulat or is Bacteria (10/01/21 8:11 AM) /2021 Pharmacy Urinalys UA Epi <1 /HPF 0 - 4 10/01 N Ambulat or is Squam /2021 Pharmacy [place] CODEINE <25 0 - 24 04/11 Specimen Type: U RINE LEWISTON OPIATE [MASS/VOLU /2020 Comment: 711 7 [facility]IN[facility] PANEL ME] IN Ordering Provid er: EMILY LOPEZ WITH URINE Report Released Date/Time: Mar 18, 2021 10:09 PM NALOXONE Reporting Lab: MODESTA Zuñiga [address] [address] Performing Lab: MDOESTA Zuñiga [facility] ; [place] [address] GA MORPHINE <25 0 - 24 04/11 Specimen Type: URINE LEWISTON OPIATE [PRESENCE] /2020 Comment: 711 7 [facility] PANEL IN URINE Ordering Provi tate: EMILY LOPEZ WITH Report Released Date/Time: Mar 18, 2021 10:09 PM NALOXONE Reporting Lab: MODESTA Zuñiga [address] [address] Performing Lab: MODESTA Zuñiga [facility] ; [place] [address] GA OXYCODONE <25 0 - 24 04/11 Specimen Type: URINE LEWISTON OPIATE [PRESENCE] /2020 Comment: 711 7 [facility] PANEL IN URINE Ordering Provi tate: EMILY LOPEZ WITH Report Released Date/Time: Mar 18, 2021 10:09 PM NALOXONE Reporting Lab: MODESTA KobyYaquelin [address] CENTER[facility] [address] Performing Lab: MODESTA KobyYaquelin [facility] ; [place] [address] GA OXYMORPHON <25 0 - 24 04/11 Specimen Type : URINE LEWISTON OPIATE E /2020 Comment: 7117 V A CLINIC PANEL [MASS/VOLU Ordering Pro vider: EMILY LOPEZ WITH ME] IN Report Released Date/Time: Mar 18, 2021 10:09 PM NALOXONE URINE BY Reporting Lab : MODESTA KobyYaquelin [address] [address] RY METHOD Performing La b: MODESTA Zuñiga [facility] ; [place] [address] GA HYDROCODON <25 0 - 24 04/11 Specimen Type : URINE LEWISTON OPIATE E /2020 Comment: 71 V A CLINIC PANEL [PRESENCE] Ordering Pro vider: EMILY LOPEZ WITH IN URINE Report Release d Date/Time: Mar 18, 2021 10:09 PM NALOXONE Reporting Lab: MODESTA KobyYaquelin [address] [address] Performing Lab: MODESTA KobyYaquelin [facility] ; [place] [address] GA HYDROMORPH <25 0 - 24 04/11 Specimen Type : URINE LEWISTON OPIATE ONE /2020 Comment: 71 V A CLINIC PANEL [PRESENCE] Ordering Pro vider: EMILY LOPEZ WITH IN URINE Report Release d Date/Time: Mar 18, 2021 10:09 PM NALOXONE Reporting Lab: MODESTA KobyYaquelin [address] [address] Performing Lab: MODESTA Zuñiga [facility] ; [place] [address] GA NALOXONE <10 0 - 9 04/11 Specimen Type: URINE LEWISTON OPIATE [MASS/VOLU /2020 Comment: 711 7 [facility] CLINIC PANEL ME] IN Ordering Provid er: EMILY LOPEZ WITH URINE BY Report Release d Date/Time: Mar 18, 2021 10:09 PM NALOXONE CONFIRMATO Reporting L ab: MODESTA Zuñiga [facility] RY METHOD [address] [facility] [address] Performing Lab: MODESTA Zuñiga [facility] ; [place] [address] GA 6-MONOACET <10 0 - 9 04/11 Specimen Type : URINE LEWISTON OPIATE YLMORPHINE /2020 Comment: 71 7 [facility] CLINIC PANEL (6-CURTIS) Ordering Provid er: EMILY LOPEZ WITH [MASS/VOLU Report Relea sed Date/Time: Mar 18, 2021 10:09 PM NALOXONE ME] IN Reporting Lab: MODESTA Zuñiga [facility] URINE BY [address] [facility] [address] CONFIRMATO Performing L ab: MODESTA Zuñiga [facility] RY METHOD ; [place] [address] GA NOROXYCODO <25 0 - 24 04/11 Specimen Type : URINE LEWISTON OPIATE NE /2020 Comment: 7117 V A CLINIC PANEL [MASS/VOLU Ordering Pro vider: EMILY LOPEZ WITH ME] IN Report Released Date/Time: Mar 18, 2021 10:09 PM NALOXONE URINE BY Reporting Lab : MODESTA Zuñiga [facility] CONFIRMATO [address] [facility] [address] RY METHOD Performing La b: MODESTA Zuñiga [facility] ; [place] [address] GA NORHYDROCO <50 0 - 49 04/11 Specimen Type : URINE LEWISTON OPIATE DONE /2020 Comment: 7117 V A CLINIC PANEL [MASS/VOLU Ordering Pro vider: EMILY LOPEZ WITH ME] IN Report Released Date/Time: Mar 18, 2021 10:09 PM NALOXONE URINE BY Reporting Lab : MODESTA Zuñiga [facility] CONFIRMATO [address] [facility] [address] RY METHOD Performing La b: MODESTA Zuñiga [facility] ; [place] [address] VA TRAMADOL 249 0 - 99 12/17 H Specimen Type: URINE LEWISTON OPIATE [MASS/VOLU /2020 Comment: 711 7 [facility] CLINIC PANEL ME] IN Ordering Provid er: EMILY LOPEZ WITH URINE Report Released Date/Time: Mar 18, 2021 10:09 PM NALOXONE Reporting Lab: MODESTA Zuñiga [address]WRTALLAHAS[facility] MEM[facility]ALTHCAREZeynep [facility] [address] Performing Lab: MODESTA Zuñiga [facility] ; [place] [address] VA MEPERIDINE <100 0 - 99 12/ Specimen Type : URINE LEWISTON OPIATE [MASS/VOLU /2020 Comment: 711 7 GA CLINIC PANEL ME] IN Ordering Provid er: EMILY LOPEZ WITH URINE BY Report Release d Date/Time: Mar 18, 2021 10:09 PM NALOXONE CONFIRMATO Reporting L ab: MODESTA Zuñiga [facility] RY METHOD [address] [facility] [address] Performing Lab: MODESTA Zuñiga [facility] ; [place] [address] VA NOROXYMORP <50 0 - 49 12/17 Specimen Type : URINE LEWISTON OPIATE Comment: 7117 V A CLINIC PANEL [MASS/VOLU Ordering Pro vider: EMILY LOPEZ WITH ME] IN Report Released Date/Time: Mar 18, 2021 10:09 PM NALOXONE URINE BY Reporting Lab : MODESTA Zuñiga [facility] CONFIRMATO [address] [facility] [address] RY METHOD Performing La b: MODESTA Zuñiga [facility] ; [place] [address] VA TAPENTADOL <50 0 - 49 12 Specimen Type : URINE LEWISTON OPIATE [MASS/VOLU /2020 Comment: 711 7 GA CLINIC PANEL ME] IN Ordering Provid er: EMILY LOPEZ WITH URINE BY Report Release d Date/Time: Mar 18, 2021 10:09 PM NALOXONE CONFIRMATO Reporting L ab: MODESTA KobyYaquelin [facility] RY METHOD [address] [facility] [address] Performing Lab: MODESTA Zuñiga [facility] ; [place] [address] GA TAPENTADOL <100 0 - 99 04/11 Specimen Type : URINE LEWISTON OPIATE -S /2020 Comment: 7117 V A CLINIC PANEL Ordering Provid er: EMILY LOPEZ WITH Report Released Date/Time: Mar 18, 2021 10:09 PM NALOXONE Reporting Lab: MODESTA Zuñiga [address] [address] Performing Lab: MODESTA Zuñiga [facility] ; [place] [address] GA ZOLPIDEM <20 0 - 19 04/11 Specimen Type: URINE LEWISTON OPIATE [MASS/VOLU /2020 Comment: 711 7 [place] CLINIC PANEL ME] IN Ordering Provid er: EMILY LOPEZ WITH URINE BY Report Release d Date/Time: Mar 18, 2021 10:09 PM NALOXONE CONFIRMATO Reporting L ab: MODESTA Zuñiga [facility] RY METHOD [address] [place] [address] Performing Lab: MODESTA Zuñiga [facility] ; [place] [address] EXPANDED CREATININE 44.2 40 - 278 04/11 Specimen Ty pe: URINE LEWISTON URINE [MASS/VOLU /2020 Comment: The se drug screen results are presumptive only. For unexpected results, confirmatory testing is available if requested in a timely manner. Results are to be used for medical purposes only. Uri [facility] DRUG ME] IN ne creatinine de lues <20 mg/dL should be considered a dilute sample. CREATININE, URINE reference ranges apply to first morning void. SCREEN URINE Ordering Provid er: EMILY LOPEZ Report Released Date/Time: Mar 18, 2021 10:09 PM Reporting Lab: MODESTA Zuñiga [address] [address] Performing Lab: MODESTA Zuñiga [address] [place] [facility] [address] EXPANDED AMPHETAMIN 0 04/11 Specimen Typ e: URINE LEWISTON URINE ES Comment: These drug screen results are presumptive only. For unexpected results, confirmatory testing is available if requested in a timely manner. Results are to be used for medical purposes only. Uri [facility] DRUG [PRESENCE] ne creatinine values <20 mg/dL should be considered a dilute sample. CREATININE, URINE reference ranges apply to first morning void. SCREEN IN URINE Ordering Provi tate: EMILY LOPEZ BY SCREEN Report [facility] ed Date/Time: Mar 18, 2021 10:09 PM METHOD Reporting Lab: MODESTA Zuñiga [address] [place] [facility] [address] Performing Lab: MODESTA Zuñiga [address] [place] [facility] [address] EXPANDED BARBITURAT 0 04/11 Specimen Typ e: URINE LEWISTON URINE Comment: These drug screen results are presumptive only. For unexpected results, confirmatory testing is available if requested in a timely manner. Results are to be used for medical purposes only. Uri [facility] DRUG [PRESENCE] ne creatinine values <20 mg/dL should be considered a dilute sample. CREATININE, URINE reference ranges apply to first morning void. SCREEN IN URINE Ordering Provi tate: EMILY LOPEZ BY SCREEN Report [facility] ed Date/Time: Mar 18, 2021 10:09 PM METHOD Reporting Lab: MODESTA Zuñiga [address] [place] [facility] [address] Performing Lab: MODESTA WhalenYaquelin [address] [place] [facility] [address] EXPANDED BENZODIAZE 0 04/11 Specimen Typ e: URINE [place] URINE [place] Comment: These drug screen results are presumptive only. For unexpected results, confirmatory testing is available if requested in a timely manner. Results are to be used for medical purposes only. Uri [facility] DRUG [PRESENCE] ne creatinine values <20 mg/dL should be considered a dilute sample. CREATININE, URINE reference ranges apply to first morning void. SCREEN IN URINE Ordering Provi tate: EMILY LOPEZ Zeynep BY SCREEN Report Rele ed Date/Time: Mar 18, 2021 10:09 PM METHOD Reporting Lab: MODESTA [address]Yaquelin [address] [place] [facility] [address] Performing Lab: MODESTA WhalenYaquelin [address] [place] [id number] EXPANDED CANNABINOI 18 04/11 Specimen Typ e: URINE LEWISTON URINE DS Comment: These drug screen results are presumptive only. For unexpected results, confirmatory testing is available if requested in a timely manner. Results are to be used for medical purposes only. Uri [facility] [PRESENCE] ne creatinine values <20 mg/dL should be considered a dilute sample. CREATININE, URINE reference ranges apply to first morning void. SCREEN IN URINE Ordering Provi tate: EMILY LOPEZ Zeynep BY SCREEN Report [facility] ed Date/Time: Mar 18, 2021 10:09 PM METHOD Reporting Lab: MODESTA MYaquelin [address] [place] [facility] [address] Performing Lab: MODESTA MYaquelin [address] [place] [facility] [address] EXPANDED BENZOYLECG 10 04/11 Specimen Typ e: URINE [place]ON URINE ONINE Comment: These drug screen results are presumptive only. For unexpected results, confirmatory testing is available if requested in a timely manner. Results are to be used for medical purposes only. Uri [facility] DRUG [PRESENCE] ne creatinine values <20 mg/dL should be considered a dilute sample. CREATININE, URINE reference ranges apply to first morning void. SCREEN IN URINE Ordering Provi tate: EMILY LOPEZ Zeynep BY SCREEN Report [facility] ed Date/Time: Mar 18, 2021 10:09 PM METHOD Reporting Lab: MODESTA KobyYaquelin [address] [place] [phone] Performing Lab: MODESTA KobyYaquelin [address] [place] [phone] EXPANDED METHADONE 0 04/11 Specimen Type : URINE LEWISTON URINE [PRESENCE] /2020 Comment: The se drug screen results are presumptive only. For unexpected results, confirmatory testing is available if requested in a timely manner. Results are to be used for medical purposes only. Uri [facility] IN URINE ne creatinine v alues <20 mg/dL should be considered a dilute sample. CREATININE, URINE reference ranges apply to first morning void. SCREEN BY SCREEN Ordering Prov ider: EMILY LOPEZ Report Released Date/Time: Mar 18, 2021 10:09 PM Reporting Lab: MODESTA [address]Yaquelin [address] [place] [facility] [address] Performing Lab: MODESTA KobyYaquelin [address] [place] [facility] [address] EXPANDED 2-ETHYLIDE 0 04/11 Specimen Typ e: URINE AC URINE NE-1,5-DIM /2020 Comment: The se drug screen results are presumptive only. For unexpected results, confirmatory testing is available if requested in a timely manner. Results are to be used for medical purposes only. Uri [facility] DRUG ETHYL-3,3- ne creatinine values <20 mg/dL should be considered a dilute sample. CREATININE, URINE reference ranges apply to first morning void. SCREEN DIPHENYLPY Ordering Pro vider: EMILY LOPEZ RROLIDINE Report Releas ed Date/Time: Mar 18, 2021 10:09 PM (EDDP) Reporting Lab: MODESTA KobyYaquelin [facility] [[facility]] [address] [place] [address] [place] [facility] [address] IN URINE Performing Lab : MODESTA KobyYaquelin [address] [place] [facility] [address] EXPANDED OPIATES 32 04/11 Specimen Type: URINE AC URINE [PRESENCE] /2020 Comment: The se drug screen results are presumptive only. For unexpected results, confirmatory testing is available if requested in a timely manner. Results are to be used for medical purposes only. Uri [facility] IN URINE ne creatinine v alues <20 mg/dL should be considered a dilute sample. CREATININE, URINE reference ranges apply to first morning void. SCREEN BY SCREEN Ordering Prov ider: EMILY LOPEZ Report Released Date/Time: Mar 18, 2021 10:09 PM Reporting Lab: MODESTA KobyYaquelin [address] [place] [facility] [address] Performing Lab: MODESTA Zuñiga [address] [place] [facility] [address] EXPANDED OXYCODONE 0 04/11 Specimen Type : URINE LEWISTON URINE [PRESENCE] /2020 Comment: The se drug screen results are presumptive only. For unexpected results, confirmatory testing is available if requested in a timely manner. Results are to be used for medical purposes only. Uri [facility] DRUG IN URINE ne creatinine v alues <20 mg/dL should be considered a dilute sample. CREATININE, URINE reference ranges apply to first morning void. SCREEN BY SCREEN Ordering Prov ider: EMILY LOPEZ METHOD Report Released Date/Time: Mar 18, 2021 10:09 PM Reporting Lab: MODESTA KobyYaquelin [address] [place] [facility] [address] Performing Lab: MODESTA [address]Yaquelin [address] [facility] [address] EXPANDED PHENCYCLID 0 04/11 Specimen Typ e: URINE LEWISTON URINE INE /2020 Comment: These drug screen results are presumptive only. For unexpected results, confirmatory testing is available if requested in a timely manner. Results are to be used for medical purposes only. Uri [facility] DRUG [PRESENCE] ne creatinine values <20 mg/dL should be considered a dilute sample. CREATININE, URINE reference ranges apply to first morning void. SCREEN IN URINE Ordering Provi tate: EMILY LOPEZ BY SCREEN Report [facility] Date/Time: Mar 18, 2021 10:09 PM METHOD Reporting Lab: MODESTA KobyYaquelin [address] [place] [facility] [address] Performing Lab: MODESTA Zuñiga [address] [facility] [address] HEMOGLOB HEMOGLOBIN 5.9 0 - 5.6 10 H Specimen Typ e: BLOOD LEWISTON IN A1C A1C/HEMOGL /2020 Comment: Tar get A1C values should be individualized. Better understanding of A1C test result accuracy is essential if clinicians are to interpret results for Veterans, and discuss treatment options thr [facility] OBIN.TOTAL ough the proc ess of Shared Decision Making. For questions regarding the performance characteristics of this test, providers should contact the main laboratory. Patients should contact their healthcare provider. IN BLOOD Ordering Provi tate: EMILY LOPEZ Report Released Date/Time: Feb 05, 2021 04:30 PM Reporting Lab: MODESTA KobyYaquelin [address] [place] [phone] Performing Lab: MODESTA KobyYaquelin [address] [place] [phone] MAGNESIU MAGNESIUM 1.8 1.6 - 2.6 02/11 Specimen Ty pe: BLOOD LEWISTON M [MASS/VOLU /2020 No comment en tered. [facility] ME] IN Ordering Provid er: EMILY LOPEZ SERUM OR Report Release d Date/Time: Feb 05, 2021 04:30 PM PLASMA Reporting Lab: MODESTA KobyYaquelin [address] [place] [phone] Performing Lab: MODESTA KobyYaquelin [address] [place] [phone] VITAMIN 25-HYDROXY 37.9 30.0 - 100 02/11 Specimen T ype: SERUM LEWISTON D VITAMIN D3 /2020 Comment: Hig h doses of Biotin supplements (>5 mg/day) may falsely increase Vitamin B-12, Vitamin D (25OH), Free T4, and Folate results. Test specimens should be collected at least 8 hrs after [facility] (25-HYDR [MASS/VOLU st ingestion of high dose biotin. LDL Direct Adult Reference Range: Optimal <100 mg/dL Near optimal/above optimal 100-129 mg/dL Borderline high 130-159 mg/dL High 160-189 mg/dL Very High 190 mg/d OXY) ME] IN L Note that non- fasting results may be slightly lower than fasting results. SERUM OR Ordering Provi tate: EMILY LOEPZ PLASMA Report Released Date/Time: Feb 05, 2021 04:30 PM Reporting Lab: MODESTA KobyYaquelin [address] [place] [phone] Performing Lab: MODESTA Zuñiga [address] [place] [phone] COMPREHE GLUCOSE 111 71 - 109 02/11 H Specimen Type: SERUM LEWISTON NSIVE [MASS/VOLU /2020 Comment: Hig h doses of Biotin supplements (>5 mg/day) may falsely increase Vitamin B-12, Vitamin D (25OH), Free T4, and Folate results. Test specimens should be collected at least 8 hrs after la [facility] METABOLI ME] IN st ingestion of high dose biotin. LDL Direct Adult Reference Range: Optimal <100 mg/dL Near optimal/above optimal 100-129 mg/dL Borderline high 130-159 mg/dL High 160-189 mg/dL Very High 190 mg/d C PANEL SERUM OR L Note that non -fasting results may be slightly lower than fasting results. PLASMA Ordering Provid er: EMILY LOPEZ Report Released Date/Time: Feb 05, 2021 04:30 PM Reporting Lab: MODESTA Zuñiga [address] [place] [phone] Performing Lab: MODESTA Zuñiga [address] [place] [phone] COMPREHE UREA 12 7 - 23 02/11 Specimen Type: SERUM LEWISTON NSIVE NITROGEN Comment: High doses of Biotin supplements (>5 mg/day) may falsely increase Vitamin B-12, Vitamin D (25OH), Free T4, and Folate results. Test specimens should be collected at least 8 hrs after [facility] METABOLI [MASS/VOLU st ingestion of high dose biotin. LDL Direct Adult Reference Range: Optimal <100 mg/dL Near optimal/above optimal 100-129 mg/dL Borderline high 130-159 mg/dL High 160-189 mg/dL Very High 190 mg/d C PANEL ME] IN L Note that non- fasting results may be slightly lower than fasting results. SERUM OR Ordering Provi tate: EMILY LOPEZ PLASMA Report Released Date/Time: Feb 05, 2021 04:30 PM Reporting Lab: MODESTA Zuñiga [address] [place] [phone] Performing Lab: MODESTA Zuñiga [address] [place] [phone] COMPREHE CREATININE 1.1 .7 - 1.2 02/11 Specimen Ty pe: SERUM LEWISTON NSIVE [MASS/VOLU /2020 Comment: Hig h doses of Biotin supplements (>5 mg/day) may falsely increase Vitamin B-12, Vitamin D (25OH), Free T4, and Folate results. Test specimens should be collected at least 8 hrs after [facility] METABOLI ME] IN st ingestion of high dose biotin. LDL Direct Adult Reference Range: Optimal <100 mg/dL Near optimal/above optimal 100-129 mg/dL Borderline high 130-159 mg/dL High 160-189 mg/dL Very High 190 mg/d C PANEL SERUM OR L Note that non -fasting results may be slightly lower than fasting results. PLASMA Ordering Provid er: EMILY LOPEZ Report Released Date/Time: Feb 05, 2021 04:30 PM Reporting Lab: MODESTA Zuñiga [address] [place] [phone] Performing Lab: MODESTA Zuñiga [address] [place] [phone] COMPREHE SODIUM 141 131 - 142 02/11 Specimen Type : SERUM LEWISTON NSIVE [MOLES/VOL /2020 Comment: Hig h doses of Biotin supplements (>5 mg/day) may falsely increase Vitamin B-12, Vitamin D (25OH), Free T4, and Folate results. Test specimens should be collected at least [facility] st ingestion of high dose biotin. LDL Direct Adult Reference Range: Optimal <100 mg/dL Near optimal/above optimal 100-129 mg/dL Borderline high 130-159 mg/dL High 160-189 mg/dL Very High 190 mg/d C PANEL SERUM OR L Note that non -fasting results may be slightly lower than fasting results. PLASMA Ordering Provid er: EMILY LOPEZ Report Released Date/Time: Feb 05, 2021 04:30 PM Reporting Lab: MODESTA Zuñiga [address]eban [place] [phone] Performing Lab: MODESTA Zuñiga [address] [place] [phone] COMPREHE POTASSIUM 3.8 3.6 - 5.4 02/11 Specimen Ty pe: SERUM LEWISTON NSIVE [MOLES/VOL /2020 Comment: Hig h doses of Biotin supplements (>5 mg/day) may falsely increase Vitamin B-12, Vitamin D (25OH), Free T4, and Folate results. Test specimens should be collected at least 8 hrs after la [facility] METABOLI UME] IN st ingestion of high dose biotin. LDL Direct Adult Reference Range: Optimal <100 mg/dL Near optimal/above optimal 100-129 mg/dL Borderline high 130-159 mg/dL High 160-189 mg/dL Very High 190 mg/d C PANEL SERUM OR L Note that non -fasting results may be slightly lower than fasting results. PLASMA Ordering Provid er: EMILY LOPEZ Report Released Date/Time: Feb 05, 2021 04:30 PM Reporting Lab: MODESTA [place]INWRELIZAB[place] [address] [address] [place] [phone] Performing Lab: MODESTA Zuñiga [address] [place] [phone] COMPREHE CHLORIDE 100 95 - 108 02/11 Specimen Type : SERUM LEWISTON NSIVE [MOLES/VOL /2020 Comment: Hig h doses of Biotin supplements (>5 mg/day) may falsely increase Vitamin B-12, Vitamin D (25OH), Free T4, and Folate results. Test specimens should be collected at least 8 hrs after [facility] METABOLI UME] IN st ingestion of high dose biotin. LDL Direct Adult Reference Range: Optimal <100 mg/dL Near optimal/above optimal 100-129 mg/dL Borderline high 130-159 mg/dL High 160-189 mg/dL Very High 190 mg/d C PANEL SERUM OR L Note that non -fasting results may be slightly lower than fasting results. PLASMA Ordering Provid er: EMILY LOPEZ Report Released Date/Time: Feb 05, 2021 04:30 PM Reporting Lab: MOEDSTA [place]KAYLA [place] [address] [place] [phone] Performing Lab: MODESTA Zuñiga [address] [place] [phone] COMPREHE CARBON 30 21 - 32 02/11 Specimen Type: SERUM LEWISKAYLENE NSIVE DIOXIDE, /2020 Comment: High doses of Biotin supplements (>5 mg/day) may falsely increase Vitamin B-12, Vitamin D (25OH), Free T4, and Folate results. Test specimens should be collected at least 8 hrs after [facility] METABOL TOTAL st ingestion of high dose biotin. LDL Direct Adult Reference Range: Optimal <100 mg/dL Near optimal/above optimal 100-129 mg/dL Borderline high 130-159 mg/dL High 160-189 mg/dL Very High 190 mg/d C PANEL [MOLES/VOL L Note that n on-fasting results may be slightly lower than fasting results. UME] IN Ordering Provid er: EMILY LOPEZ SERUM OR Report Release d Date/Time: Feb 05, 2021 04:30 PM PLASMA Reporting Lab: MODESTA BARRETO[address] [place] [phone] Performing Lab: MODESTA Zuñiga [address] [place] [phone] COMPREHE CALCIUM 8.9 8.4 - 10.5 02/11 Specimen Typ e: SERUM AC NSIVE [MASS/VOLU /2020 Comment: Hig h doses of Biotin supplements (>5 mg/day) may falsely increase Vitamin B-12, Vitamin D (25OH), Free T4, and Folate results. Test specimens should be collected at least 8 hrs after [facility] METABOLI ME] IN st ingestion of high dose biotin. LDL Direct Adult Reference Range: Optimal <100 mg/dL Near optimal/above optimal 100-129 mg/dL Borderline high 130-159 mg/dL High 160-189 mg/dL Very High 190 mg/d C PANEL SERUM OR L Note that non -fasting results may be slightly lower than fasting results. PLASMA Ordering Provid er: EMILY LOPEZ Report Released Date/Time: Feb 05, 2021 04:30 PM Reporting Lab: MODESTA [address] [place] [phone] Performing Lab: MODESTA Zuñiga [address] [place] [phone] COMPREHE PROTEIN 7.0 5.8 - 7.9 02/11 Specimen Type : SERUM LEWISTON NSIVE [MASS/VOLU /2020 Comment: Hig h doses of Biotin supplements (>5 mg/day) may falsely increase Vitamin B-12, Vitamin D (25OH), Free T4, and Folate results. Test specimens should be collected at least 8 hrs after [facility] METABOLI ME] IN st ingestion of high dose biotin. LDL Direct Adult Reference Range: Optimal <100 mg/dL Near optimal/above optimal 100-129 mg/dL Borderline high 130-159 mg/dL High 160-189 mg/dL Very High 190 mg/d C PANEL SERUM OR L Note that non -fasting results may be slightly lower than fasting results. PLASMA Ordering Provid er: EMILY LOPEZ Report Released Date/Time: Feb 05, 2021 04:30 PM Reporting Lab: MODESTA [address]RETO[address] [place] [phone] Performing Lab: MODESTA Zuñiga [address] [place] [phone] COMPREHE ALBUMIN 4.4 3.8 - 5.2 02/11 Specimen Type : SERUM LEWISTON NSIVE [MASS/VOLU /2020 Comment: Hig h doses of Biotin supplements (>5 mg/day) may falsely increase Vitamin B-12, Vitamin D (25OH), Free T4, and Folate results. Test specimens should be collected at least 8 hrs [facility] IN st ingestion of high dose biotin. LDL Direct Adult Reference Range: Optimal <100 mg/dL Near optimal/above optimal 100-129 mg/dL Borderline high 130-159 mg/dL High 160-189 mg/dL Very High 190 mg/d C PANEL SERUM OR L Note that non -fasting results may be slightly lower than fasting results. PLASMA Ordering Provid er: EMILY LOPEZ Report Released Date/Time: Feb 05, 2021 04:30 PM Reporting Lab: MODESTA [address] [place] [phone] Performing Lab: MODESTA Zuñiga [address] [phone] COMPREHE GLOBULIN 2.6 1.5 - 3.2 02/11 Specimen Typ e: SERUM LEWISTON NSIVE [MASS/VOLU /2020 Comment: Hig h doses of Biotin supplements (>5 mg/day) may falsely increase Vitamin B-12, Vitamin D (25OH), Free T4, and Folate results. Test specimens should be collected at least 8 hrs after [facility] METABOLI ME] IN st ingestion of high dose biotin. LDL Direct Adult Reference Range: Optimal <100 mg/dL Near optimal/above optimal 100-129 mg/dL Borderline high 130-159 mg/dL High 160-189 mg/dL Very High 190 mg/d C PANEL SERUM L Note that non- fasting results may be slightly lower than fasting results. Ordering Provid er: EMILY LOPEZ Report Released Date/Time: Feb 05, 2021 04:30 PM Reporting Lab: MODESTA Zuñiga [address] MOIRAZeynep [facility] [phone] Performing Lab: MODESTA Zuñiga [address] [place] [phone] COMPREHE ASPARTATE 24 14 - 44 02/11 Specimen Type : SERUM LEWISTON NSIVE AMINOTRANS /2020 Comment: Hig h doses of Biotin supplements (>5 mg/day) may falsely increase Vitamin B-12, Vitamin D (25OH), Free T4, and Folate results. Test specimens should be collected at least 8 hrs after [facility] METABOLI FERASE st ingestion of high dose biotin. LDL Direct Adult Reference Range: Optimal <100 mg/dL Near optimal/above optimal 100-129 mg/dL Borderline high 130-159 mg/dL High 160-189 mg/dL Very High 190 mg/d C PANEL [ENZYMATIC L Note that n on-fasting results may be slightly lower than fasting results. ACTIVITY/V Ordering Pro vider: EMILY LOPEZ] IN Report Releas ed Date/Time: Feb 05, 2021 04:30 PM SERUM OR Reporting Lab: MODESTA Zuñiga [address] [facility] AILYN [facility] [phone] Performing Lab: MODESTA Zuñiga [address] [facility] [place] [phone] COMPREHE ALANINE 36 9 - 57 02/11 Specimen Type: SERUM LEWISTON NSIVE AMINOTRANS /2020 Comment: Hig h doses of Biotin supplements (>5 mg/day) may falsely increase Vitamin B-12, Vitamin D (25OH), Free T4, and Folate results. Test specimens should be collected at least 8 hrs after [facility] METABOLI FERASE st ingestion of high dose biotin. LDL Direct Adult Reference Range: Optimal <100 mg/dL Near optimal/above optimal 100-129 mg/dL Borderline high 130-159 mg/dL High 160-189 mg/dL Very High 190 mg/d C PANEL [ENZYMATIC L Note that n on-fasting results may be slightly lower than fasting results. ACTIVITY/V Ordering Pro vider: EMILY LOPEZ] IN Report Releas ed Date/Time: Feb 05, 2021 04:30 PM SERUM OR Reporting Lab: MODESTA Zuñiga [facility] PLASMA [facility] [phone] Performing Lab: MODESTA Zuñiga [address] [place] [phone] COMPREHE ALKALINE 148 45 - 129 02/11 H Specimen Type : SERUM AC NSIVE PHOSPHATAS /2020 Comment: Hig h doses of Biotin supplements (>5 mg/day) may falsely increase Vitamin B-12, Vitamin D (25OH), Free T4, and Folate results. Test specimens should be collected at least 8 hrs after [facility] METABOLI E st ingestion of high dose biotin. LDL Direct Adult Reference Range: Optimal <100 mg/dL Near optimal/above optimal 100-129 mg/dL Borderline high 130-159 mg/dL High 160-189 mg/dL Very High 190 mg/d C PANEL [ENZYMATIC L Note that n on-fasting results may be slightly lower than fasting results. ACTIVITY/V Ordering Pro vider: EMILY LOPEZ] IN Report Releas ed Date/Time: Feb 05, 2021 04:30 PM SERUM OR Reporting Lab: MODESTA Zuñiga [facility] PLAS[place] [phone] Performing Lab: MODESTA Zuñiga [address] [place] [phone] COMPREHE BILIRUBIN. 0.9 0.2 - 1.3 02/11 Specimen T ype: SERUM AC NSIVE TOTAL /2020 Comment: High d oses of Biotin supplements (>5 mg/day) may falsely increase Vitamin B-12, Vitamin D (25OH), Free T4, and Folate results. Test specimens should be collected at least 8 hrs after [facility] METABOLI [MASS/VOLU st ingestion of high dose biotin. LDL Direct Adult Reference Range: Optimal <100 mg/dL Near optimal/above optimal 100-129 mg/dL Borderline high 130-159 mg/dL High 160-189 mg/dL Very High 190 mg/d C PANEL ME] IN L Note that non- fasting results may be slightly lower than fasting results. SERUM OR Ordering Provi tate: EMILY LOPEZ Report Released Date/Time: Feb 05, 2021 04:30 PM Reporting Lab: MODESTA Zuñiga [address] BaccaratZeynep [employer] [facility] [phone] Performing Lab: MODESTA Zuñiga [address] [place] [facility] [phone] COMPREHE GLOMERULAR 64.2 60 02/11 Specimen Typ e: SERUM AC NSIVE FILTRATION /2020 Comment: Hig h doses of Biotin supplements (>5 mg/day) may falsely increase Vitamin B-12, Vitamin D (25OH), Free T4, and Folate results. Test specimens should be collected at least 8 hrs after [facility] METABOLI RATE/1.73 st ingestion of high dose biotin. LDL Direct Adult Reference Range: Optimal <100 mg/dL Near optimal/above optimal 100-129 mg/dL Borderline high 130-159 mg/dL High 160-189 mg/dL Very High 190 mg/d C PANEL SQ L Note that non- fasting results may be slightly lower than fasting results. CLIFF Ordering Pro vider: EMILY LOPEZ [VOLUME Report Releas ed Date/Time: Feb 05, 2021 04:30 PM RATE/AREA] Reporting La b: MODESTA Zuñiga [facility] IN SERUM [facility] [address] [facility] [phone] OR PLASMA Performing La b: MODESTA Zuñiga [facility] BY [facility] D [employer] [facility] [phone] CREATININE -BASED FORMULA (MDRD) COMPREHE ANION GAP 15 7 - 21 02/11 Specimen Type : SERUM LEWISTON NSIVE 4 IN SERUM /2020 Comment: Hig h doses of Biotin supplements (>5 mg/day) may falsely increase Vitamin B-12, Vitamin D (25OH), Free T4, and Folate results. Test specimens should be collected at least 8 hrs after [facility] OR PLASMA st ingestion of high dose biotin. LDL Direct Adult Reference Range: Optimal <100 mg/dL Near optimal/above optimal 100-129 mg/dL Borderline high 130-159 mg/dL High 160-189 mg/dL Very High 190 mg/d C PANEL L Note that non- fasting results may be slightly lower than fasting results. Ordering Provid er: EMILY LOPEZ Report Released Date/Time: Feb 05, 2021 04:30 PM Reporting Lab: MODESTA Zuñiga [address] [place] [facility] [phone] Performing Lab: MODESTA Zuñiga [address] [place] [facility] [phone] COMPREHE GLOMERULAR 63 90 02/11 L Specimen Typ e: SERUM LEWISKAYLENE NSIVE FILTRATION /2020 Comment: Hig h doses of Biotin supplements (>5 mg/day) may falsely increase Vitamin B-12, Vitamin D (25OH), Free T4, and Folate results. Test specimens should be collected at least 8 hrs after [facility] METABOLI RATE/1.73 st ingestion of high dose biotin. LDL Direct Adult Reference Range: Optimal <100 mg/dL Near optimal/above optimal 100-129 mg/dL Borderline high 130-159 mg/dL High 160-189 mg/dL Very High 190 mg/d C PANEL SQ L Note that non- fasting results may be slightly lower than fasting results. CLIFF Ordering Pro vider: EMILY LOPEZ [VOLUME Report Releas ed Date/Time: Feb 05, 2021 04:30 PM RATE/AREA] Reporting La b: MODESTA Zuñiga [facility] IN SERUM, [address] [place] [phone] PLASMA OR Performing La b: MODESTA Zuñiga [facility] BLOOD BY [address] [place] [phone] CREATININE -BASED FORMULA (CKD-EPI) CBC & LEUKOCYTES 6.9 3.0 - 10.6 02/11 Specimen T ype: BLOOD AC ORDONEZOLO [#/VOLUME] /2020 No comment e ntered. [facility] GY (WITH IN BLOOD Ordering Prov ider: EMILY LOPEZ) BY Report Released Date/Time: Feb 05, 2021 04:30 PM AUTOMATED Reporting Lab : MODESTA Zuñiga [facility] COUNT [address] [place] [facility] [address] Performing Lab: MODESTA Zuñiga [address] [facility] AILYN F[place]ER [facility] [phone] CBC & ERYTHROCYT 5.17 3.86 - 02/11 Specimen Type : BLOOD LEWISKAYLENE MORPHOLO ES 5.70 /2020 No comment ente red. [facility] GY (WITH [#/VOLUME] Ordering Pr ovider: EMILY LOPEZ) IN BLOOD Report Release d Date/Time: Feb 05, 2021 04:30 PM BY Reporting Lab: MODESTA Zuñiga [facility] AUTOMATED [address] [facility] [address] COUNT Performing Lab: MODESTA Zuñiga [address] [place] [facility] [phone] CBC & HEMOGLOBIN 16.7 11.8 - 02/11 Specimen Type : BLOOD AC MORPHOLO [MASS/VOLU 17.1 /2020 No comment e ntered. [facility] GY (WITH ME] IN Ordering Provi tate: EMILY LOPEZ) BLOOD Report Released Date/Time: Feb 05, 2021 04:30 PM Reporting Lab: MODESTA Zuñiga [address] [facility] [address] Performing Lab: MODESTA Zuñiga [address] [facility] AILYN FOSTER [facility] [address] CBC & HEMATOCRIT 47.0 36 - 51 02/11 Specimen Type : BLOOD LEWISTON MORPHOLO [VOLUME /2020 No comment ente red. [facility] GY (WITH FRACTION] Ordering Pro vider: EMILY LOPEZ DIFF) OF BLOOD Report Release d Date/Time: Feb 05, 2021 04:30 PM BY Reporting Lab: MODESTA Zuñiga [place] [address] [place] [phone] COUNT Performing Lab: MODESTA Zuñiga [place] [address] [place] [phone] CBC & MCV 90.9 81 - 102 02/11 Specimen Type: BLOOD AC ORDONEZOLO [ENTITIC /2020 No comment ent ered. [facility] GY (WITH VOLUME] BY Ordering Pr ovider: EMILY LOPEZ DIFF) AUTOMATED Report Releas ed Date/Time: Feb 05, 2021 04:30 PM COUNT Reporting Lab: MODESTA Zuñiga [address] [place] [phone] Performing Lab: MODESTA Zuñiga [address] [place] [phone] CBC & MCH 32.3 27 - 31 02/11 H Specimen Type: B WILNER ORDONEZOLO [ENTITIC /2020 No comment ent ered. [facility] GY (WITH MASS] BY Ordering Prov ider: EMILY LOPEZ E DIFF) AUTOMATED Report Releas ed Date/Time: Feb 05, 2021 04:30 PM COUNT Reporting Lab: MODESTA Zuñiga [address] [place] [phone] Performing Lab: MODESTA Zuñiga [address] [place] [phone] CBC & MCHC 35.5 32 - 36 02/11 Specimen Type: B WILNER ORDONEZOLO [MASS/VOLU /2020 No comment e ntered. [facility] GY (WITH ME] BY Ordering Provi tate: NIKOLE LOPEZON E DIFF) AUTOMATED Report Releas ed Date/Time: Feb 05, 2021 04:30 PM COUNT Reporting Lab: MODESTA Zuñiga [address] [place] [phone] Performing Lab: MODESTA Zuñiga [address] [place] [phone] CBC & PLATELETS 187 150 - 400 02/11 Specimen Typ e: BLOOD AC ALLAN [#/VOLUME] No comment e ntered. [facility] GY (WITH IN BLOOD Ordering Prov ider: EMILY LOPEZ DIFF) BY Report Released Date/Time: Feb 05, 2021 04:30 PM AUTOMATED Reporting Lab : MODESTA Zuñiga [facility] COUNT [address] [facility] [facility] [address] Performing Lab: MODESTA Zuñiga [address] [facility] [phone] CBC & ERYTHROCYT 13.3 11.2 - 02/11 Specimen Type : BLOOD AC MORPHOLO E 16.2 No comment ente red. [facility] GY (WITH DISTRIBUTI Ordering Pr ovider: EMILY LOPEZ DIFF) ON WIDTH Report Release d Date/Time: Feb 05, 2021 04:30 PM [RATIO] BY Reporting La b: MODESTA Zuñiga [facility] AUTOMATED [address] [facility] [facility] [place] [address] COUNT Performing Lab: MODESTA Zuñiga [address]ASCENS[address] [facility] [place] [address] CBC & NEUTROPHIL 68.3 44 - 74 02/11 Specimen Type : BLOOD AC MORPHOLO S/ No comment ente red. [facility] GY (WITH LEUKOCYTES Ordering Pr ovider: EMILY LOPEZ DIFF) IN BLOOD Report Release d Date/Time: Feb 05, 2021 04:30 PM BY Reporting Lab: MODESTA Zuñiga [facility] AUTOMATED [address] [facility] [address] COUNT Performing Lab: MODESTA Zuñiga [address]ASCENS[address] [facility] [place] [address] CBC & LYMPHOCYTE 19.3 15 - 42 02/11 Specimen Type : BLOOD AC MORPHOLO S/ No comment ente red. [facility] GY (WITH LEUKOCYTES Ordering Pr ovider: EMILY LOPEZ DIFF) IN BLOOD Report Release d Date/Time: Feb 05, 2021 04:30 PM BY Reporting Lab: MODESTA Zuñiga [facility] AUTOMATED [address] [place] [phone] COUNT Performing Lab: MODESTA uZñiga [address] [phone] CBC & MONOCYTES/ 10.1 4 - 13 02/11 Specimen Type : BLOOD LEWISTON MORPHOLO No comment ente red. [facility] GY (WITH LEUKOCYTES Ordering Pr ovider: EMILY LOPEZ DIFF) IN BLOOD Report Release d Date/Time: Feb 05, 2021 04:30 PM BY Reporting Lab: MODESTA Zuñiga [facility] AUTOMATED [address] [place] [phone] COUNT Performing Lab: MODESTA Zuñiga [address] [address] CBC & EOSINOPHIL 1.6 0 - 7 02/11 Specimen Type : BLOOD [place] MORPHOLO S/ No comment ente red. [facility] GY (WITH LEUKOCYTES Ordering Pr ovider: EMILY LOPEZ DIFF) IN BLOOD Report Release d Date/Time: Feb 05, 2021 04:30 PM BY Reporting Lab: MODESTA Zuñiga [facility] AUTOMATED [address] [place] [phone] COUNT Performing Lab: MODESTA Zuñiga [address] [address] CBC & BASOPHILS/ 0.4 0 - 2 02/11 Specimen Type : BLOOD [place] MORPHOLO No comment ente red. [facility] GY (WITH LEUKOCYTES Ordering Pr ovider: EMILY LOPEZ DIFF) IN BLOOD Report Release d Date/Time: Feb 05, 2021 04:30 PM BY Reporting Lab: MODESTA Zuñiga [facility] AUTOMATED [facility] [address] COUNT Performing Lab: MODESTA Zuñiga [address] [facility] [address] CBC & NEUTROPHIL 4.7 1.2 - 7.0 02/11 Specimen Ty pe: BLOOD [place] MORPHOLO No comment ente red. [facility] GY (WITH [#/VOLUME] Ordering Pr ovider: LOPEZEMILY DIFF) IN BLOOD Report Release d Date/Time: Feb 05, 2021 04:30 PM BY Reporting Lab: MODESTA Zuñiga [facility] AUTOMATED [address] [place] [phone] COUNT Performing Lab: MODESTA Zuñiga [address] [facility] AILYN FOSTER [facility] [phone] CBC & LYMPHOCYTE 1.3 0.6 - 3.4 02/11 Specimen Ty pe: BLOOD [place] MORPHOLO S No comment ente red. [facility] GY (WITH [#/VOLUME] Ordering Pr ovider: EMILY LOPEZ E DIFF) IN BLOOD Report Release d Date/Time: Feb 05, 2021 04:30 PM BY Reporting Lab: MODESTA Zuñiga [facility] AUTOMATED [address] [place] [phone] COUNT Performing Lab: MODESTA Zuñiga [address] [facility] [address] CBC & MONOCYTES 0.7 0.2 - 1.0 02/11 Specimen Typ e: BLOOD [place] MORPHOLO [#/VOLUME] /2020 No comment e ntered. [facility] GY (WITH IN BLOOD Ordering Prov ider: EMILY LOPEZ DIFF) BY Report Released Date/Time: Feb 05, 2021 04:30 PM AUTOMATED Reporting Lab : MODESTA Zuñiga [address] [facility] [address] Performing Lab: MODESTA Zuñiga [address] [facility] [address] CBC & EOSINOPHIL 0.1 0.0 - 0.5 02/11 Specimen Ty pe: BLOOD [place] MORPHOLO S No comment ente red. [facility] GY (WITH [#/VOLUME] Ordering Pr ovider: EMILY LOPEZ DIFF) IN BLOOD Report Release d Date/Time: Feb 05, 2021 04:30 PM BY Reporting Lab: MODESTA Zuñiga [facility] AUTOMATED [facility] [address] COUNT Performing Lab: MODESTA Zuñiga [address] [place] [id number] CBC & BASOPHILS 0.0 0.0 - 0.2 02/11 Specimen Typ e: BLOOD AC MORPHOLO [#/VOLUME] /2020 No comment e ntered. [facility] GY (WITH IN BLOOD Ordering Prov ider: LOPEZNIKOLEEMILY E DIFF) BY Report Released Date/Time: Feb 05, 2021 04:30 PM AUTOMATED Reporting Lab : MODESTA Zuñiga [facility] COUNT [address] [place] [id number] Performing Lab: MODESTA Zuñiga [facility] [address] [place] [phone] CBC & IMMATURE 0.3 0 - 0.9 02/11 Specimen Type: BLOOD AC MORPHOLO GRANULOCYT /2020 No comment e ntered. [facility] GY (WITH ES/100 Ordering Provi tate: LOPEZEMILY E DIFF) LEUKOCYTES Report Relea sed Date/Time: Feb 05, 2021 04:30 PM IN BLOOD Reporting Lab: MODESTA Zuñiga [facility] BY [address] [place] [id number] AUTOMATED Performing La b: MODESTA Zuñiga [facility] COUNT [address] [place] [phone] CBC & IMMATURE 0.02 0 - 0.07 02/11 Specimen Type: BLOOD AC MORPHOLO GRANULOCYT /2020 No comment e ntered. [facility] GY (WITH ES Ordering Provi tate: LOPEZ,EMILY E DIFF) [#/VOLUME] Report Relea sed Date/Time: Feb 05, 2021 04:30 PM IN BLOOD Reporting Lab: MODESTA Zuñiga [facility] BY [address] [place] [phone] AUTOMATED Performing La b: MODESTA Zuñiga [facility] COUNT [address] [place] [phone] THYROID THYROTROPI 3.77 0.300 - 02/11 Specimen Type : SERUM [place] STIMULAT N 4.25 Comment: High doses of Biotin supplements (>5 mg/day) may falsely increase Vitamin B-12, Vitamin D (25OH), Free T4, and Folate results. Test specimens should be collected at least 8 hrs after [facility] ING [UNITS/VOL st ingestion of high dose biotin. LDL Direct Adult Reference Range: Optimal <100 mg/dL Near optimal/above optimal 100-129 mg/dL Borderline high 130-159 mg/dL High 160-189 mg/dL Very High 190 mg/d HORMONE UME] IN L Note that non- fasting results may be slightly lower than fasting results. SERUM OR Ordering Provi tate: EMILY LOPEZ PLASMA Report Released Date/Time: Feb 05, 2021 04:30 PM Reporting Lab: MODESTA GARCES[address] [place] [id number] Performing Lab: MODESTA ANN[address] [place] [id number] LIPID CHOLESTERO 188 <199 - 199 02/11 Specimen T ype: SERUM [place] PANEL L Comment: High d oses of Biotin supplements (>5 mg/day) may falsely increase Vitamin B-12, Vitamin D (25OH), Free T4, and Folate results. Test specimens should be collected at least 8 hrs after [facility] [MASS/VOLU st ingestion of high dose biotin. LDL Direct Adult Reference Range: Optimal <100 mg/dL Near optimal/above optimal 100-129 mg/dL Borderline high 130-159 mg/dL High 160-189 mg/dL Very High 190 mg/d ME] IN L Note that non- fasting results may be slightly lower than fasting results. SERUM OR Ordering Provi tate: EMILY LOPEZ PLASMA Report Released Date/Time: Feb 05, 2021 04:30 PM Reporting Lab: MODESTA [address] [place] [id number] Performing Lab: MODESTA [address] [phone] LIPID TRIGLYCERI 238 <149 - 149 10 H Specimen T ype: SERUM [place] PANEL DE Comment: High d oses of Biotin supplements (>5 mg/day) may falsely increase Vitamin B-12, Vitamin D (25OH), Free T4, and Folate results. Test specimens [facility] ingestion of high dose biotin. LDL Direct Adult Reference Range: Optimal <100 mg/dL Near optimal/above optimal 100-129 mg/dL Borderline high 130-159 mg/dL High 160-189 mg/dL Very High 190 mg/d ME] IN L Note that non- fasting results may be slightly lower than fasting results. SERUM OR Ordering Provi tate: EMILY LOPEZ PLASMA Report Released Date/Time: Feb 05, 2021 04:30 PM Reporting Lab: MODESTA Zuñiga [address] [place] [phone] Performing Lab: MODESTA Zuñiga [address] [place] [id number] LIPID CHOLESTERO 47 40 02/11 Specimen Type : SERUM [place] PANEL L IN HDL Comment: High doses of Biotin supplements (>5 mg/day) may falsely increase Vitamin B-12, Vitamin D (25OH), Free T4, and Folate results. Test specimens should be collected at least [facility] [[facility]VOLU st ingestion of high dose biotin. LDL Direct Adult Reference Range: Optimal <100 mg/dL Near optimal/above optimal 100-129 mg/dL Borderline high 130-159 mg/dL High 160-189 mg/dL Very High 190 mg/d ME] IN L Note that non- fasting results may be slightly lower than fasting results. SERUM OR Ordering Provi tate: EMILY LOPEZ PLASMA Report Released Date/Time: Feb 05, 2021 04:30 PM Reporting Lab: MOEDSTA Zuñiga [address] [place] [phone] Performing Lab: MODESTA Zuñiga [address] [place] [phone] LIPID CHOLESTERO 141 <130 - 130 02/11 Specimen T ype: SERUM [place] PANEL L NON HDL Comment: High doses of Biotin supplements (>5 mg/day) may falsely increase Vitamin B-12, Vitamin D (25OH), Free T4, and Folate results. Test specimens should be collected at least [facility] [[facility]VOLU st ingestion of high dose biotin. LDL Direct Adult Reference Range: Optimal <100 mg/dL Near optimal/above optimal 100-129 mg/dL Borderline high 130-159 mg/dL High 160-189 mg/dL Very High 190 mg/d ME] IN L Note that non- fasting results may be slightly lower than fasting results. SERUM OR Ordering Provi tate: EMILY LOPEZ Report Released Date/Time: Feb 05, 2021 04:30 PM Reporting Lab: MODESTA Zuñiga [address] AILYN [facility] [address] Performing Lab: MODESTA Zuñiga [address] [facility] [address] LIPID CHOLESTERO 94 0 - 129 02/11 Specimen Type : SERUM [place] PANEL L IN LDL /2020 Comment: High doses of Biotin supplements (>5 mg/day) may falsely increase Vitamin B-12, Vitamin D (25OH), Free T4, and Folate results. Test specimens should be collected at least 8 hrs after [facility] [MASS/VOLU st ingestion of high dose biotin. LDL Direct Adult Reference Range: Optimal <100 mg/dL Near optimal/above optimal 100-129 mg/dL Borderline high 130-159 mg/dL High 160-189 mg/dL Very High 190 mg/d ME] IN L Note that non- fasting results may be slightly lower than fasting results. SERUM OR Ordering Provi tate: EMILY LOPEZ PLASMA BY Report Releas ed Date/Time: Feb 05, 2021 04:30 PM DIRECT Reporting Lab: MODESTA Zuñiga [address] AILYN [facility] [address] Performing Lab: MODESTA Zuñiga [address] [facility] [address] VITAMIN COBALAMIN 694 232 - 1245 02/11 Specimen Ty pe: SERUM [place] B-12 (VITAMIN /2020 Comment: High doses of Biotin supplements (>5 mg/day) may falsely increase Vitamin B-12, Vitamin D (25OH), Free T4, and Folate results. Test specimens should be collected at least 8 hrs after last ingestion of high dose biotin. [facility] B12) Ordering Provid er: EMILY LOPEZ [MASS/VOLU Report Relea sed Date/Time: Feb 05, 2021 04:30 PM PR] IN Reporting Lab: MODESTA Zuñiga [facility] SERUM OR [address] KRISTIN [facility] [phone] PLASMA Performing Lab: MODESTA Zuñiga [facility] [address] RIVZeynep [place]ER [facility] [phone] Vital Signs Combined list of inpatient and outpatient Vital Signs from Department of Defense and Veterans Affairs, ranging from 12 months to all on record, depending upon the facility. Vital Sign Value Date Comments Source Systolic Blood Pressure 100mm[Hg] 10/12/2013 [facility] 14:51:56 Diastolic Blood Pressure 64mm[Hg] 10/12/2013 [facility] 14:51:56 Systolic Blood Pressure 118mm[Hg] 10/12/2011 [facility] 16:49:26 Diastolic Blood Pressure 70mm[Hg] 10/12/2011 [facility] 16:49:26 Systolic Blood Pressure 146mm[Hg] 06/26/2020 [facility] 19:42:01 Diastolic Blood Pressure 80mm[Hg] 06/26/2020 [facility] 19:42:01 Systolic Blood Pressure 186mm[Hg] 12/07/2013 [facility] 22:30:55 Diastolic Blood Pressure 102mm[Hg] 12/07/2013 [facility] 22:30:55 Systolic Blood Pressure 110mm[Hg] 10/12/2012 [facility] 15:43:01 Diastolic Blood Pressure 70mm[Hg] 10/12/2012 [facility] 15:43:01 Systolic Blood Pressure 126mm[Hg] 09/10/2014 [facility] 15:23:14 Diastolic Blood Pressure 80mm[Hg] 09/10/2014 [facility] 15:23:14 Systolic Blood Pressure 121mm[Hg] 09/25/2021 [facility] 18:35:00 Diastolic Blood Pressure 80mm[Hg] 09/25/2021 [facility] 18:35:00 Mean Arterial Pressure, 94mm[Hg] 09/25/2021 [facility] Cuff 18:35:00 Peripheral Pulse Rate 92bpm 09/25/2021 [facility] 18:35:00 Respiratory Rate 16br/min 09/25/2021 [facility] 18:35:00 Temperature Temporal 36.8Cel 09/25/2021 [facility] Ar[facility] 18:35:00 BP Site 09/25/2021 [facility] 18:35:00 Blood Pressure Manual 09/25/2021 [facility] 18:35:00 Systolic Blood Pressure 154mm[Hg] 06/26/2020 [facility] 19:35:16 Diastolic Blood Pressure 88mm[Hg] 06/26/2020 [facility] 19:35:16 Systolic Blood Pressure 130mm[Hg] 06/26/2020 [facility] 20:34:22 Diastolic Blood Pressure 80mm[Hg] 06/26/2020 [facility] 20:34:22 Systolic Blood Pressure 147mm[Hg] 02/13/2020 [facility] 15:49:49 Diastolic Blood Pressure 77mm[Hg] 02/13/2020 [facility] 15:49:49 SYSTOLIC BLOOD PRESSURE 128 02/18/2021 [facility] 14:14:38 DIASTOLIC BLOOD PRESSURE 87 02/18/2021 [facility] 14:14:38 PULSE OXIMETRY 93% 02/18/2021 [facility] 14:14:38 WEIGHT 195 02/18/2021 [facility] 14:14:38 BMI 32kg/m2 02/18/2021 [facility] 14:14:38 PAIN 4 02/18/2021 [facility] 14:14:38 HEIGHT 66 02/18/2021 [facility] 14:14:38 TEMPERATURE 97.9 02/18/2021 [facility] 14:14:38 PULSE 87 02/18/2021 [facility] 14:14:38 RESPIRATION 16 02/18/2021 [facility] 14:14:38 Encounters Combined list of: 1) Encounters from Department of Veterans Affairs facilities going back up to the last 18 months, not all VA inpatient encounters are included; 2) Encounters from the Department of Defense facilities going back up to 280 months. Location Location Encounter Encounter Reason Attending ADM DC Stat us Disposition Source Details Type Number For Provider Date Date Visit Outpatient 32209-805/14 ADDY VESTA Encounter [id number] N Yogesh VAZQUEZ [facility] Outpatient 13910-705/14 [facility] Encounter [id number] N Yogesh [facility] Outpatient 47447-8 NIKOLE Marroquin 05/20 [place] Encounter [id number] is: ON N [place] 4 ICD-10- CLINIC CM I10 Essenti al (primar y) hyperte nsion<b r/>with Provide r Comment s: Hyperte nsion ([facility] [id number] 3) Outpatient 11659-3.05/29 ADDY [facility] Encounter [id number] N Yogesh [facility] Outpatient 21224-606/04 ADDY [facility] Encounter [id number] /2021 N Yogesh [facility] Outpatient 47907-206/14 [facility]DY [facility] Encounter [id number] N Yogesh [facility] Outpatient 86187-5 RADHA ANDERSON 06/14 JONATHA Encounter [id number] LD C [facility] 773[facility]6 MARGARETH [place] 06/14 J ONATHA PHONE CALL [id number] is: N N M. 5-10 MIN ICD-10- IDINWRI [facility] G47.33 [facility] Obstruc tive sleep apnea (adult) (pediat virgil)
with Provide r Comment s: Obstruc tive sleep apnea of adult ([facility] [id number]) Outpatient 68999-0.06/19 ADDY [facility] Encounter [id number] N Yogesh [facility] Outpatient 91491-1.06/20 [facility] Encounter [id number] N Yogesh [facility] Outpatient 13416-706/20 [facility] Encounter [id number] N Yogesh [facility] OFFICE O/P 25768-4 NIKOLE Marroquin 06/26 [facility] [id number] is: ON N [place] 20-29 MIN 6 ICD-10- CLINIC CM R10.30 Lower abdomin al pain, unspeci fied
with Provide r Comment s: Lower Abdomin al Pain, unspeci fied Outpatient 46280-9.07/02 ADDY [facility] Encounter [id number] N Yogesh [facility] Outpatient 77187-2.07/02 ADDY [facility] Encounter [id number] N Yogesh [facility] Outpatient 41332-5.07/03 ADDY [facility] Encounter [id number] N Yogesh ANNMAINEIzzy [facility] Outpatient 17179-5.07/03 [facility] Encounter [id number] N Yogesh BARRETOJAROCHO [facility] Outpatient 84626-2.07/03 [facility]DY [facility] Encounter [id number] /2021 N Yogesh ANNMAINEIzzy [facility] Outpatient 99421-8.07/03 [facility] Encounter [id number] N Yogesh [facility] Outpatient 64194-3.07/05 ADDY [facility] Encounter [id number] N Yogesh [facility] HC PRO 11709-3. Diagnos MARGARETH LIANG 07/08 J ONATHA PHONE CALL [id number] is: N N M. 5-10 MIN ICD-10- WAINWRI CM T G47.33 [facility] Obstruc tive sleep apnea (adult) (pediat virgil)
with Provide r Comment s: Obstruc tive sleep apnea of adult ([facility] 2830417 144117) Outpatient 38112-3.68 07/11 ADDY VE[facility] Encounter [id number] N Yogesh BARRETOJAROCHO T [facility] Outpatient 11564-0.07/12 ADDY [facility] Encounter [id number] N Yogesh BAR[facility]TOJAROCHO [facility] Outpatient 08402-707/18 ADDY [facility] Encounter [id number] N Yogesh [facility]Z [facility] Outpatient 82345-207/19 ADDY [facility] Encounter [id number] N Yogesh [facility] CPAP FULL Sen CONNIENIKOLE 07/22 JONATHA FACE MASK [id number] is: ON N Yogesh ICD-10- WAINWRI CM T G47.30 [facility] Sleep apnea, unspeci fied
with Provide r Comment s: Sleep Apnea, unspeci fied Outpatient 27513-307/22 ADDY [facility] Encounter [id number] N Yogesh [facility] Outpatient 45568-9 NIKOLE Marroquin 07/24 [place] Encounter [id number] is: [place] N [place] 0 ICD-10- CLINIC CM K40.90 Unil inguina l hernia, w/o obst or gangr, not spcf as recur<b r/>with Provide r Comment s: Inguina l hernia ([facility]OMED CT 1411812 00) [id number] N Yogesh [facility] OFFICE O/P NIKOLE Marroquin 08/07 [place] EST MOD [id number] is: ON N [place] 30-39 MIN 1 ICD-10- CLINIC CM I10 Essenti al (primar y) hyperte nsion<b r/>with Provide r Comment s: Essenti al (Primar y) Hyperte nsion Outpatient 04124-408/16 ADDY [facility] Encounter [id number] N Yogesh VAZQUEZ T [facility] Outpatient 28059-708/21 ADDY [facility] Encounter [id number] N Yogesh [facility] Outpatient 26591-308/30 [facility] Encounter [id number] N Yogesh [facility] Outpatient 91164-1 NIKOLE Marroquin 09/02 [place] Encounter [id number] is: ON N [place] 0 ICD-10- CLINIC CM M25.512 Pain in left shoulde r
w ith Provide r Comment s: Pain of left shoulde r joint ([facility] [id number]) Outpatient 58916-6.09/05 ADDY [facility] Encounter [id number] N Yogesh BARRETOJAROCHO [facility] HC PRO 97691-3. Diagnos RUCHERT,SH 09/05 [place] PHONE CALL [id number] is: ANE R /2020 N [place] 5-10 MIN 7 ICD-10- CLINIC CM R68.89 Other general symptom s and signs<b r/>with Provide r Comment s: General Symptom s & Signs Outpatient 99975-409/06 ADDY [facility] Encounter [id number] /2021 N Yogesh BARRETOJAROCHO [facility] Outpatient 08497-509/13 ADDY [facility] Encounter [id number] Suri [facility] 06056-309/13 [facility]DY [facility] Encounter [id number] [facility] Out[facility] 07799-7.68 09/16 ADDY [facility] Encounter [id number] [facility] Out[facility] 66828-9..9 09/17 PATH [facility] Encounter [id number] [facility] Outpatient 84812-0.09/17 ADDY [facility] Encounter [id number] Suri Yogesh BARRETOJAROCHO [facility] Outpatient 23635-7.09/17 ADDY [facility] Encounter [id number] Suri [facility] Out[facility] 42939-4.09/17 ADDY [facility] Encounter [id number] /2021 Suri Yogesh [facility] Outpatient 45510-209/17 ADDY [facility] Encounter [id number] Suri [facility]og[facility] Out[facility] 04582-6.09/17 [facility] Encounter [id number] Suri KobyYaquelin [facility] 20651-5 FAWN, 09/17 JONATHA Encounter [id number] MARITO R /2020 N Yogesh [facility] Outpatient 84615-0.09/18 [facility] Encounter [id number] N Yogesh BARRETOJAROCHO [facility] OFFICE O/P 24128-0.68 Diagnos NIKOLE LOPEZ 09/19 [place] EST LOW [id number] is: ON E /2020 N [place] 20-29 MIN 6 ICD-10- CLINIC CM I48.91 Unspeci fied atrial fibrill ation<b r/>with Provide r Comment s: Outpatient 21597-109/24 ADDY [facility] Encounter [id number] N Yogesh [facility] Outpatient 43882-3.09/24 ADDY [facility] Encounter [id number] N Yogesh [facility] Outpatient 68811-209/24 ADDY [facility] Encounter [id number] N Yogesh BARRETOJAROCHO [facility] OFFICE O/P 62112-7. 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
with Provide r Comment s: Hedge Fund Manager ing,Uns pec HC PRO 55420-8. Diagnos DOUGLAS, 09/24 J ONATHA PHONE CALL [id number] is: LOY /2020 N M . 21-30 MIN ICD-10- MENA [facility] CM [facility] D [facility] Z51.81 [facility]<br/ >with Provide r Comment s: Encount er for Therape utic Drug Level Monitor ing Outpatient 95158-009/24 ADDY [facility] Encounter [id number] N Yogesh [facility] HC PRO 84743-4. Diagnos AZUL,MARGARETH 09/26 J ONATHA PHONE CALL [id number] is: N M N M. 5-10 MIN ICD-10- ESTEVANINESAU [facility] G47.33 [facility] Obstruc tive sleep apnea (adult) (pediat virgil)
with Provide r Comment s: Obstruc tive sleep apnea of adult ([facility]CT 7752921 200889) [facility] 48222-209/[facility] [id number] N Yogesh ANNMAINEIzzy T [facility] Outpatient 98214-910/08 [facility] [id number] N Yogesh [facility] CPAP FULL NIKOLE Marroquin 10/09 JONATHA FACE MASK [id number] is: ON N M. ICD-10- WAINWRI [facility] G47.30 [facility] Sleep apnea, unspeci fied
with Provide r Comment s: Sleep Apnea, unspeci fied Outpatient 39400-910/12 [facility] Encounter [id number] N Yogesh [facility] 11/[facility] [id number] N Yogesh MILIIzzy [facility] PRO DEEPA Gonzalez 11/05 Zane BUCIO PHONE CALL [id number] is: LAUREN N M . 11-20 MIN ICD-10- WAINWRI [facility] Z51.81 [facility] Encount er for therape utic drug level monitor ing<br/ >with Provide r Comment s: Encount er for Therape utic Drug Level Monitor ing Outpatient 11/05 [facility] Encounter [id number] N Ygoesh BARRETOEMANUELIzzy [facility] OFFICE O/P NIKOLE Marroquin 11/06 [place] EST MOD [id number] is: ON N [place] 30-39 MIN 03 ICD-10- CLINIC CM M25.551 Pain in right hip<br/ >with Provide r Comment s: Pain in right hip joint (SCT 6645460 [id number] 2) Outpatient 11/07 [facility] Encounter [id number] /2021 N Yogesh [facility]Z [facility] Outpatient 69521-8.68 11/12 [facility] Encounter [id number] N Yogesh [facility] TENS FOUR 36543-8. NIKOLE Marroquin 11/12 KYLER LEAD [id number] is: ON Suri Zuñiga ICD-10- ESTEVANINWRI [place] M54.5 [facility] Low back pain
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
with Provide r Comment s: Hedge Fund Manager ing,Uns pec Outpatient 70187-8.11/13 ADDY VESTA Encounter [id number] N Yogesh [facility] Outpatient 94144-3.11/15 ADDY VESTA Encounter [id number] /2021 N Yogesh [facility] Outpatient 06354-9.11/27 ADDY VESTA Encounter [id number] N Yogesh [facility] HC PRO 30276-1. Diagnos SABAS ARECHIGA 11/27 L [place] PHONE CALL [id number] is: I S /2020 N [facility] 5-10 MIN 72 ICD-10- CLINIC CM Z71.89 Other specifi ed general counselor ing<br/ >with Provide r Comment s: Hedge Fund Manager ing,Oth Specifi ed Outpatient 63702-0.11/27 ADDY VESTA Encounter [id number] N Yogesh [facility] Outpatient 13009-5.12/02 ADDY VESTA Encounter [id number] N Yogesh [facility] Outpatient 44110-312/02 ADDY VESTA Encounter [id number] N Yogesh GARCESI T [facility] HC PRO 74797-5 Diagnos SABAS ARECHIGA 12/02 L [place] PHONE CALL [id number] is: I S /2020 N [facility] 5-10 MIN 17 ICD-10- CLINIC CM Z71.89 Other specifi ed general counselor ing<br/ >with Provide r Comment s: Hedge Fund Manager ing,Oth Specifi ed Outpatient 26313-412/02 ADDY VESTA Encounter [id number] N Yogesh [facility] HC PRO Diagnos MARGARETH LIANG 12/04 J ONATHA PHONE CALL [id number] is: N M /2020 N M. 5-10 MIN ICD-10- WAINWRI CM GHT G47.33 [facility] Obstruc tive sleep apnea (adult) (pediat virgil)
with Provide r Comment s: Obstruc tive sleep apnea of adult ([facility] [id number]) CPAP FULL NIKOLE Marroquin 12/09 JONATHA FACE MASK [id number] is: ON E N M. ICD-10- WAINWRI CM GHT G47.30 [facility] Sleep apnea, unspeci fied
with Provide r Comment s: Sleep Apnea, unspeci fied Outpatient 09944-112/11 [facility]DY [facility] Encounter [id number] N Yogesh [facility] Outpatient 75335-612/11 ADDY [facility] Encounter [id number] N Yogesh GARCESI T [facility] Outpatient 20972-312/16 ADDY [facility] Encounter [id number] N Yogesh [facility] Outpatient 20669-212/16 ADDY [facility] Encounter [id number] N Yogesh VAZQUEZ T [facility] Outpatient 27697-612/17 ADDY [facility] Encounter [id number] N Yogesh [facility] Outpatient 98059-3.68 12/21 ADDY [facility] Encounter [id number] Suri [facility] Outpatient 93745-2.68 12/23 ADDY [facility] Encounter [id number] Suri [facility] Outpatient 39180-6.68 12/25 ADDY [facility] Encounter [id number] Suri [facility] Outpatient 51498-9.68 01/06 ADDY [facility] Encounter [id number] Suri [facility] Outpatient 79883-5.68 01/06 ADDY [facility] Encounter [id number] Suri [facility] Outpatient 44325-9.68 01/08 ADDY [facility] Encounter [id number] Suri [facility] Outpatient 72515-6. 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 (SCT 5911164 6) Outpatient 87324-9.68 01/13 ADDY [facility] Encounter [id number] Suri [facility] Outpatient 67710-6.68 01/24 ADDY [facility] Encounter [id number] Suri [facility] Outpatient 57868-8.68 01/28 ADDY [facility] Encounter [id number] Suri [facility] Outpatient 63959-9.68 01/29 ADDY [facility] Encounter [id number] Suri [facility] Outpatient 49848-6.68 01/29 ADDY [facility] Encounter [id number] Suri [facility] Outpatient 92760-1.68 02/06 ADDY [facility] Encounter [id number] Suri [facility] OFFICE O/P Diagnos NIKOLE LOPEZ 02/18 [place] EST MOD [id number] is: ON E N [place] 30-39 MIN 13 ICD-10- CLINIC CM R21 Rash and other nonspec ific skin eruptio n
w ith Provide r Comment s: Rash (SNOMED CT 4743879 03) Outpatient 14777-102/24 ADDY [facility] Encounter [id number] N Yogesh [facility]patient 60266-702/28 [id number] [facility] SABAS ARECHIGA 03/03 [place] PHONE CALL [id number] is: I S /2020 N [place] 11-20 MIN 12 ICD-10- CLINIC CM Z71.89 Other specifi ed general counselor ing<br/ >with Provide r Comment s: Hedge Fund Manager ing,Oth Specifi ed [facility]patient 03[facility] [id number] N Yogesh [facility] Outpatient 88388-603/14 ADDY [facility] Encounter [id number] N Yogesh [facility] HC PRO Diagnos MAIRALexi,SH 03/14 [place] PHONE CALL [id number] is: ANE R /2020 N [place] 5-10 MIN 98 ICD-10- CLINIC CM R68.89 Other general symptom s and signs<b r/>with Provide r Comment s: General Symptom s & Signs Outpatient 54268-003/14 ADDY [facility] Encounter [id number] N Yogesh [facility] Outpatient 58478-903/14 ADDY [facility] Encounter [id number] N Yogesh [facility] Outpatient 90743-803/18 ADDY [facility] Encounter [id number] N Yogesh [facility] HC PRO 60761-2 Diagnos MARGARETH LIANG 04/01 J ONATHA PHONE CALL [id number] is: N M /2020 N M. 5-10 MIN ICD-10- WAINWRI CM GHT G47.33 [facility] Obstruc tive sleep apnea (adult) (pediat virgil)
with Provide r Comment s: Obstruc tive sleep apnea of adult (SCT 7222915 721037) Outpatient 91057-904/04 ADDY [facility] Encounter [id number] /2021 N Yogesh GEORGE T [facility] Outpatient 49714-904/09 ADDY [facility] Encounter [id number] /2021 N Yogesh GEORGE T [facility] HC PRO 65546-9 Diagnos YUVAL HART 04/09 L JEREMIAHISTDarin PHONE CALL [id number] is: FANY A N [place] 11-20 MIN 74 ICD-10- CLINIC CM R68.89 Other general symptom s and signs<b r/>with Provide r Comment s: General Symptom s & [place] [address]-7 Diagnos DEEPA QUINONEZ 04/10 JONATHA DIG [id number] is: HLEY N N M. ASSMT&MGMT ICD-10- WAINWRI 5-10 CM GHT Z51.81 [facility] Encount er for therape utic drug level monitor ing<br/ >with Provide r Comment s: Encount er for Therape utic Drug Level Monitor ing Outpatient 99296-4 Diagnos NIKOLE LOPEZ 04/14 [place] Encounter [id number] is: ON E N [place] 09 ICD-10- CLINIC CM G62.9 Polyneu ropathy , unspeci fied
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 30-39 MIN ICD-10- WAINWRI CM [facility] al (primar y) hyperte nsion<b r/>with Provide r Comment s: Hyperte nsion (SCT 3412758 3) Outpatient Sen EGANKoby 06/04 JONATHA Encounter [id number] is: UNEQUITA M N M. ICD-10- WAINWRI CM T Z02.89 [facility]<b r/>[facility] Provide r 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
with Provide r Comment s: Hedge Fund Manager ing,Uns pec Outpatient 07/09 ADDY [facility] Encounter [id number] /2022 Suri CONRAD [facility] Outside [id number] 08/11 08/11 68 Documentat /2021 Jonatha ion Only suri saavedra [facility] Outside [id number] 08/26 08/26 687 Documentat /2021 Jonatha ion Only suri saavedra [facility] Outside [id number] 09/24 09/24 687 Documentat /2021 Jonatha ion Only suri saavedra [facility] Between [id number] 09/27 09/26 Discharge 687 Visit /2021 Disposition: Jonatha Home or Self suri conrad [facility] [id number] 10/03 [employer] Case Managem ent Procedures Combined list of: 1) Procedures from [facility] facilities going back up to the last 18 months, not all [place] non-surgical procedures are included; 2) All procedures from the Department of [facility] facilities. Procedure Procedure Type Code Date Perfomer Comments Sourc e COLONOSCOPY, Colonoscopy, 20[address] NEG Ambu latory FLEXIBLE; flexible, proximal 9 P harmacy DIAGNOSTIC, to splenic INCLUDING flexure; COLLECTION OF diagnostic, with SPECIMEN(S) BY or without BRUSHING OR collection of WASHING, WHEN specimen(s) by PERFORMED brushing or (SEPARATE washing, with or PROCEDURE) without colon decompression (separate procedure) Social History Combined list of available smoking, tobacco, and other social [facility] Social History Type Response Date Comment Source Tobacco smoking status VA-TOBACCO FORMER 02/18/2021 [facility] NHIS USER History of tobacco use [place]-TOBACCO QUIT 15 02/18/2021 [facility] YRS OR MORE History of tobacco use [place]-TOBACCO FORMER 02/13/2020 [facility] USER History of tobacco use TOBACCO SCREEN 09/10/2014 [facility] COMPLETED History of tobacco use LIFETIME NON-USER OF 10/12/2011 [facility] TOBACCO History of tobacco use TOBACCO SCREEN 11/22/2009 [facility] COMPLE[facility]ED Former-cigarette user Former-cigarette user Ambulatory Pharmacy Cigarette use:. 42 Cigarette use:. 42 Stopped cigarettes Stopped cigarettes age:. Never-other age:. Never-other tobacco user (not tobacco user (not cigarettes) Other cigarettes) Other Tobacco use:. Tobacco use:. Assessment and Plan Combined list of future care activities from [facility] and [facility] facilities (e.g., assessment and plan notes, appointments, orders, and referrals). Additional future care activities may be listed in the Plan of Care section. Result Assessment and Plan Date Source Assessment and Plan Extracted from:Title: Office Clinic Note Ambulatory Pharmacy Author: Emily Lopez NP Date: 09/25/21 1.Urethral cancer surgery 11/11/2021 2.COPD with emphysema Continue current meds 3.Left hip pain tramadol refill mild OA and effusion, ortho re ferred to pain clinic 4.Degeneration of lumbar intervertebral disc spacer and decompression L2-3surgery by pain clinic pain improved 08/03 [facility] - [facility] - Ordered -- 09/25/2021 11:23:29 PDT , 09/25/2021 11:23:29 PDT, ER/Urology Mass FU pid 09/25/21 per Callao Extracted from:Title: NESSU Float PCP - right ur eteral mass Author: Meredith Lopez PA-C Date: 08/14/21 1.Ureteral mass - Urgent urology consult ap proved with Dr. Lu. He has an appt with Dr. Maier on 08/26/2021 at 11:15am who works in Dr. Lu's office - EGD/colonoscopy orders gonzáles bmitted on 08/13/2021. Pt is waiting for orders to be processed to get them scheduled - ER precautions given 2.Abnormal finding on imaging - see #1 -Callao was appreciative of call and verbalize d understanding of plan. (X) Medication reconciliati on completed and current list of medication includes new, existing and discontinued orders. ( ) The /caregiver/family member general counselor ed regarding reason for new medication prescribed, risks/benefits, and pote ntial side effects. The [place]ao/caregiver/family member indicated under standing and was given an opportunity to ask questions ( ) Medication reconciliation was not completed /no medication changes Actual time spent interacting with the patient: 15 min Time spent on medical decision making and coord ination of care: 5 min Future Appointments Appointment Date: 01/12/2022 10:15:00 AM Scheduled Provider: Location: [address] [place] [address] Appointment Type: Community Care - Outpatient Appointment Date: 03/20/2022 10:15:00 AM Scheduled Provider: Location: [facility] Lab Appointment Type: Lab Visit Appointment Date: 03/27/2022 01:00:00 PM Scheduled Provider: Emily Lopez NP Location: [facility] PC Appointment Type: PC Established Patient Future Scheduled TestsLabora toryVitamin D 25 Hydroxy Level 10/02/21Vitamin D 25 Hydroxy Level 10/02/21Hemoglobin A1c 10/02/21Hemoglobin A1c 10/02/21Pro B-Type Natriuretic Peptide (ProBNP) 10/02/21Pro B-Type Natri uretic Peptide (ProBNP) Urinalysis with Microscopic and Culture if Indicated 10/02/21Prostate Specific Antigen 10/02/21Prostate Specific Antigen 10/02/21Microalbumin Panel, Urine 10/02/21Microalbumin Pane l, Urine 10/02/21CBC w/ Diff CBC w/ Diff 10/02/21Comprehensive Metabolic Panel 10/02/21Comprehensive Metabolic Panel 10/02/21Comprehensive Metabolic Panel 10/02/21Lipid Panel 10/02/21Lipid Panel 10/02/21Magnesi um Level 10/02/21Magnesium Lev el 10/02/21Thyroid Stimulating Hormone 10/02/21Vitamin B12 Level 10/02/21Vitamin B12 Level 10/02/21Patient CareFollow Up - [facility] 02/23/22Follow Up - [facility] 03/27/22ReferralAmbulatory Referral - [place] 08/17/21Ambulatory Referral - [place] 08/17/21 Plan of Care List of future care activities from [facility] Veterans Affairs facilities. Additional future care activities may be listed in the Assessment and Plan section. Date/Time Care Activity Care Activity Detail Facility 02/16/2022 AMBULATORY - MEDICINE AMBULATORY - MEDICINE [facility] Functional Status Combined list of recent functional and cognitive assessments recorded at [facility] ([place] Functional [place] Measurement (FIM) Scale: 1 = Total Assistance (Subject = 0% +), 2 = Maximal Assistance (Subject = 25% +), 3 = Moderate Assistance (Subject = 50% +), 4 = Mi nimal Assistance (Subject = 75% +), 5 = Supervision, 6 = Modified [place] (Device), 7 = Complete [place] (Timely, Safely). Assessment Source Assessment Type Assessment Assessment Assessmen t Date/Time Skill Score Details No data available for this section
--- OUTSIDE RECORDS SUMMARY | 2021-11-11 08:44 | External Medical Summary | Encounter Summary ---
:[address] [facility] Address [address] [place] [id number] Care Team Providers Name Role Phone EMILY ROSALES Primary Care Provider Unavailable Insurance Providers: All historical and current Section Date Range: From patient's date of to the date document was created.This section includes the names of all active insurance providers for the patient. Insurance Type of Plan Start of End of Group Member Insurance Policy P atient's Provider Coverage Name Policy Policy Number ID Provider's Shanks's Relationship Coverage Coverage Telephone Name to Policy Number Shanks BC OF PREFERRED UNIVE Jan 24, [id number] [phone] DEREK NN, PATIENT [place] [facility] [id number] JAYLA ORGANIZAT OF ION (PPO) [place] [id number] Oct 24, [id number] MARILYNNALEX, PATIENT [facility] [id number] JAYLA CAREMARK PRESCRIPT [id number] Apr 26, [id number] [phone] MARILYNNKoby SANTOS, PATIENT [id number] ION 9 [phone] JAYLA CAREMARK PRESCRIPT [id number] Apr 26, [id number] [phone] MARILYNNKoby SANTOS, PATIENT [id number] ION 9 [phone] JAYLA MEDICARE MEDICARE PART Jun 24, PART A [id number] [phone] TOBI, PATIENT (WNR) (M) A 2004 [id number] JAYLA MEDICARE MEDICARE PART Jun 24, PART B [id number] [phone] TOBI, PATIENT (WNR) (M) B [id number] [facility] MEDICARE MEDICARE PART Jun 24, PART A [id number] TOBI, PATIENT (WNR) (M) A 2004 64A [id number] JAYLA MEDICARE MEDICARE PART Jun 24, PART B [id number] TOBI, PATIENT (WNR) (M) B 2004 64A [id number] JAYLA MARTINS RETIREE TANK Oct 24, [id number] TOBI, PATIENT BS UDWW [facility] 2002 [id number] [facility] [place] ST RX PRESCRIPT [id number] Apr 26, [id number] [phone] MARILYNN JOHNSON, PATIENT SERVICES [place] [address] [phone] [id number] [facility] Selected Encounter This section includes the information on record at [place] for the Encounter. Date/Time Encounter Type Encounter Reason Provider Source Description Apr 14, 2021 Outpatient TELEPHONE PRIMARY ICD-10-CM G62.9 DARSHAN ROSALES 09:00 AM Encounter CARE Polyneuropathy, E unspecified with Provider Comments: Polyneuropathy, unspecified IHE Encounter Template Text not used by [place] Assessments - Encounter Diagnoses This section includes the primary and secondary diagnoses documented for the Encounter. Date/Time Primary/Secondary Diagnosis Name Provider Source Diagnosis Apr 14, 2021 PRIMARY Polyneuropathy, EMILY ROSALES A 09:00 AM unspecified CLINIC Apr 14, 2021 SECONDARY Essential EMILY ROSALES [place] 09:00 AM (primary) CLINIC hypertension Plan of Treatment: Future Appointments (+ 6 months) and Future Tests (+/- 45 days) The Plan of Treatment section includes future care activities for the patient from all [place] treatmentfacilities. This section includes future appointments and future orders which are active, pending orscheduled.Future Appointments This section includes appointments that were scheduled to occur 6 months from the date of the Encounter, up to a maximum of 20 appointments. The data comes from all [place] treatment facilities. Appointment Date/Time Appointment Type Appointment Facili ty Name May 15, 2021 12:30 PM AMBULATORY - MEDICINE [facility] Jun 19, 2021 07:30 AM AMBULATORY - NONE [facility] Jul 07, 2021 09:00 AM AMBULATORY - NONE [facility] Jul 07, 2021 03:00 PM AMBULATORY - MEDICINE [facility] Jul 22, 2021 03:00 PM AMBULATORY - NONE [facility] Sep 29, 2021 09:00 AM AMBULATORY - NONE [facility] Active, Pending, and Scheduled Orders This section includes a listing of several types of active, pending, and scheduled orders, including clinic medications orders, diagnostic test orders, procedure orders and consult orders; where the start date of the order is 45 days before the date of the Encounter or 45 days after the date of the Encounter. The data comes from all [place] treatment facilities. Test Date/Time Test Type Test Details Facility Name Mar 18, 2021 09:53 PM Consult Order [facility] Hadoop Analyst's Choice Lab Results: +/- 30 days of the encounter This section includes the Chemistry and Hematology Lab Results on record with [facility] for the patient. Radiology Reports and Pathology Reports are provided separately, in subsequent sections.Lab Results This section contains the Chemistry/Hematology Results that were resulted 30 days before or 30 daysafter the date of the Encounter. Date/Time Source Result Type Result - Unit Interpretation Reference Range Comment Apr 11, 2021 10:53 [facility] OPIATE PANEL WITH Spec imen Type: URINE AM NALOXONE Comment: [id number] Ordering Provid er: EMILY ROSALES Report Released Date/Time: Mar 18, 2021 10:09 PM Reporting Lab: [facility] [address] [place] [address] Performing Lab: [facility] ; [place] [id number] CODEINE <25 ng/mL 0-24 MORPHINE <25 ng/mL 0-24 OXYCODONE <25 ng/mL 0-24 OXYMORPHONE <25 ng/mL 0-24 HYDROCODONE <25 ng/mL 0-24 HYDROMORPHONE <25 ng/mL 0-24 NALOXONE,URINE <10 ng/mL 0-9 6-ACETYLMORPHINE <10 ng/mL 0-9 NOROXYCODONE <25 ng/mL 0-24 NORHYDROCODONE <50 ng/mL 0-49 TRAMADOL 249 ng/mL H 0-99 MEPERIDINE <100 ng/mL 0-99 NOROXYMORPHONE <50 ng/mL 0-49 TAPENTADOL <50 ng/mL 0-49 TAPENTADOL-S <100 ng/mL 0-99 ZOLPIDEM <20 ng/mL 0-19 Apr 11, 2021 10:53 [facility] EXPANDED URINE DRUG Speci men Type: URINE AM SCREEN Comment: These drug screen results are presumptive only. For unexpected results, confirmatory testing is available if requested in a timely manner. Results are to be used for medical purposes only. Uri ne creatinine va lues <20 mg/dL should be considered a dilute sample. CREATININE, URINE reference ranges apply to first morning void. Ordering Provid er: EMILY ROSALES Report Released Date/Time: Mar 18, 2021 10:09 PM Reporting Lab: [facility] [address] [place] [address] Performing Lab: [facility] [address] [place] [address] CREATININE, URINE 44.2 mg/dL 40-278 AMPHETAMINES/METHAMPHETAMINES SCREEN 0 NEG BARBITURATES SCREEN 0 NEG BENZODIAZEPINES SCREEN 0 NEG CANNABINOIDS SCREEN 18 NEG COCAINE SCREEN 10 NEG METHADONE SCREEN 0 NEG METHADONE METABOLITE (EDDP) SCREEN 0 NEG OPIATES SCREEN 32 NEG OXYCODONE SCREEN 0 NEG PHENCYCLIDINE (PCP) SCREEN 0 NEG Social History: Smoking Status (Most current) and Tobacco Use (All prior to encounter date) This section includes the most current, and the historical, smoking and tobacco-related health factors from the [place] facility where the Encounter took place.Current Smoking Status This section includes the most current smoking, or tobacco-related health factor, from the [place] facility where the Encounter took place. Date/Time Current Smoking Status Comment Facility Feb 18, 2021 02:00 PM VA-TOBACCO FORMER USER [facility] Tobacco Use History This section includes a history of the smoking, or tobacco- related health factors, that were collected on or before the date of the Encounter. The data comes from the [place] facility where the Encounter took place. Date/Time Smoking Status/Tobacco Use Comment [facility] Feb 18, 2021 02:00 PM MI-TOBACCO QUIT 15 YRS OR MORE [facility] Feb 13, 2020 09:00 AM MI-TOBACCO FORMER USER [facility] Feb 13, 2020 09:00 AM VA-TOBACCO QUIT 15 YRS OR MORE [facility] Encounter Notes: All associated encounter notes This section contains the clinical notes associated to the Encounter. Date/Time Encounter Note(s) Provider Source Apr 14, 2021 09:00 AM TELEPHONE ENCOUNTER NOTE: EMILY ROSALES [facility] LOCAL TITLE: TELEPHONE NOTE STANDARD TITLE: TELEPHONE ENCOUNTER NOTE DATE OF NOTE: APR 14, 2021@09:00 ENTRY DATE: APR 16, 2021@21:13:08 AUTHOR: EMILY ROSALES EXP COSIGNER: URGENCY: STATUS: COMPLETED TELEPHONE NOTE Has ADDENDA JAYLA BRITTON is a 80 year old MALE. Patient identification is confirmed by full name , date of and social security number prior to interview and examinati on. tele visit Allergies: ATROVENT, FLONASE CC: Telephone visit HPI/PMH: 80 year old MALE [place] C/O Past Surgical History: C/O dizzyness after taking tramadol and gabapentin together after having seond steriond injeciton for back with leg numbness an d pain following, but overall has helped pain. The combination may have caused the dizzyness. BP 124 P 89 during episode. sensitive to gabapentin in past during day even low dose but helps neuropathy pain most at hs. BPs today 163/118 and 148/103 1 hr after meds 13 0 /98 153/109 P 88 today. Noted increased anxiety toda y on phone which can elevate BP. Having mild dyspnea with COPD Bps losartan 50mg and HCTZ 25mg. BPs usually controlled 120s Active Outpatient Medications (including Suppli es): Active Outpatient Medications Status 1) ALBUTEROL 90MCG (CFC-F) 200D ORAL INHL INHALE 2 PUFFS ACTIVE BY MOUTH FOUR TIMES A DAY NEEDED FOR BREATHI NG, WHEEZING, SHORTNESS OF BREATH 2) APIXABAN 5MG TAB TAKE ONE TABLET BY MOUTH TWI CE A DAY ACTIVE FOR STROKE PREVENTION 3) ATORVASTATIN CALCIUM 40MG TAB TAKE ONE TABLET BY ACTIVE MOUTH EVERY DAY FOR CHOLESTEROL 4) BETAMETHASONE DIPROPIONATE 0.05% CREAM APPLY THIN ACTIVE FILM TO AFFECTED AREA TWICE A DAY TO LEG FOR RA SH 5) CETIRIZINE HCL 10MG TAB TAKE ONE TABLET BY MO UT ACTIVE EVERY DAY FOR ALLERGIES 6) CLOTRIMAZOLE 1% TOP CREAM APPLY SPARINGLY TO AFFECTED ACTIVE AREA TWICE A DAY FOR FUNGAL RASH 7) EZETIMIBE 10MG TAB TAKE ONE TABLET BY MOUTH E VERY DAY ACTIVE FOR TRIGLYCERIDES 8) GABAPENTIN 100MG CAP TAKE ONE CAPSULE BY MOUT H AT HOLD BEDTIME FOR 3 DAYS, THEN TAKE ONE CAPSULE TWICE A DAY FOR 3 DAYS, THEN TAKE TWO CAPSULES AT BEDTI ME FOR 3 DAYS, AND TAKE ONE CAPSULE EVERY DAY FOR 3 DAYS, THEN TAKE TWO CAPSULES TWICE A DAY - INCR EASE TOLERATED DAY AND OR NIGHT FOR NERVE PAIN 9) HYDROCHLOROTHIAZIDE 25MG TAB TAKE ONE TABLET BY MOUTH ACTIVE (S) EVERY DAY (WATER PILL) 10) LIDOCAINE 5% PATCH APPLY 1 PATCH TO SKIN EMRE RY DAY ACTIVE (FOR 12 HOURS ON, FOLLOWED BY 12 HOURS OFF) FOR PAIN 11) LOSARTAN POTASSIUM 50MG TAB TAKE ONE TABLET BY MOUTH ACTIVE EVERY DAY 12) OMEPRAZOLE 20MG EC CAP TAKE ONE CAPSULE BY M OUTH ACTIVE EVERY DAY FOR STOMACH ACID, TAKE ONE-HALF HOUR PRIOR TO BREAKFAST 13) TRAMADOL HCL 50MG TAB TAKE TWO TABLETS BY MO [facility] TWICE ACTIVE A DAY NEEDED FOR PAIN 14) TRELEGY ELLIPTA 100/62.5/25MCG INH 30D INHAL E ONE ACTIVE INHALATION BY MOUTH EVERY MORNING FOR COPD. RIN SE MOUTH AFTER USE Active Non-VA Medications Status 1) Non-VA CHOLECALCIF 25MCG (D3-1,000UNIT) TAB 2 5MCG BY ACTIVE MOUTH EVERY DAY 2) Non-VA CLOTRIMAZOLE 1% TOP CREAM THIN FILM TO ACTIVE AFFECTED AREA TWICE A DAY 3) Non-VA MAGNESIUM OXIDE 420MG TAB 420MG BY NATASHA TH EVERY ACTIVE DAY 4) Non-VA MULTIVITAMIN CAP/TAB 1 TABLET BY MOUTH EVERY ACTIVE DAY 5) Non-VA OMEPRAZOLE 40MG EC CAP 40MG BY MOUTH T GIANCARLO A ACTIVE DAY 6) Non-VA POTASSIUM CITRATE 99MG 99MG BY MOUTH E VERY DAY ACTIVE 7) Non-VA TIMOLOL MALEATE 0.5% OPH SOLN 1 DROP E ACH EYE ACTIVE EVERY DAY 21 Total Medications Notes: Medication reconciliation was completed at this visit. Active Problem Rash R21. 02/22/2021 EMILY ROSALES Rash R21. 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, Onset 05/24/2020 S EMILY OCHOA Pain of right shoulder joint M25.51 05/13/2020 S EMILY OCHOA Dysphagia R13.10 02/15/2020 EMILY ROSALES Chronic obstructive lung disease J4 02/13/2020 S EMILY OCHOA Cervical arthritis M54.2, Onset 02/15/2020 S EMILY OCHOA Obstructive sleep apnea of adult G4 02/13/2020 S EMILY OCHOA Hyperlipidemia E78.5, Onset 02/13/2020 S EMILY OCHOA Allergic rhinitis J30.9, Onset 02/13/2020 S EMILY OCHOA Hypertension I10., Onset 04/26/2019 02/13/2020 S EMILY OCHOA Glaucoma R69., Onset 04/26/2019 02/13/2020 EMILY ROSALES ROS: Constitutional: No fever, chills, sweats or jules ght loss. HEENT: No changes in vision or hearing, no head aches. MINIATURE SET BUILDER: No chronic headaches, dizziness of faintin g spells. CVS: No chest pain, no orthopnea or leg edema Resp: No SOB, no chronic cough or phlegm, no he moptysis GI: No chronic diarrhea or constipation, colono scopy: see reminder : No frequency, urgency, hesitancy, dysuria, hematuria or incontinence. MUSK:neuropathy burning pain lower legs and fee t Neuro: No loss of sensation, numbness, tremors or weakness. Psychiatric: anxiety. Assessment and Plan: Lower leg neuropathy gabapen tin 200mg at HS only not day. Can decrease to 100mg at hs if SE dizzyness. HTN take BP /P 2 hr after meds I reviewed patient's plan of care with p atfranny who verbalized understanding of recommendations and any/all changes as detailed in plan above. I have reviewed all imported/copied information, recent labs and radiology reports and it is up to date, accurate and relev ant to today's visit. I reviewed medication list with patient, it is u p to date as of this appointment, The above was discussed with the who states understanding and agreement with current plan. Questions sought and answered . Total time in direct care/ counseling Patient F/U 1 months pain mgt /martha/ Emily FIGUEROA Nurse Practitioner Signed: 04/16/2021 21:29 04/16/2021 ADDENDUM STATUS: COMPLETED 30 min visit /martha/ Emily FIGUEROA Nurse Practitioner Signed: 04/16/2021 21:30 Receipt Acknowledged By: 04/17/2021 11:26 /es/ Carlito SHIPLEY ADVANCED INSPECTOR MATERIALS AND PROCESSES 04/17/2021 ADDENDUM STATUS: COMPLETED Call placed to . Appointment scheduled. /martha/ Carlito SHIPLEY ADVANCED INSPECTOR MATERIALS AND PROCESSES Signed: 04/17/2021 11:30
--- OUTSIDE RECORDS SUMMARY | 2021-11-11 08:44 | External Medical Summary | Encounter Summary ---
:1940 Author Organization [facility] Address [address] [place] [address] Care Team Providers Name Role Phone EMILY [...] Shanks BC OF PREFERRED UNIVE Jan 24, [id number] [phone] DEREK NN, PATIENT [place] PROVIDER RSITY [id number] JAYLA ORGANIZAT OF ION (PPO) [place] [id number] Oct 24, [id number] MARILYNNALEX, PATIENT [facility] [id number] 5258 JAYLA CAREMARK PRESCRIPT [id number] Apr 26, [id number] [phone] MARILYNNKoby SANTOS, PATIENT [id number] ION 9 [phone] JAYLA CAREMARK PRESCRIPT [id number] Apr 26, [id number] [phone] KITTY SANTOS, PATIENT [id number] ION 9 [phone] JAYLA MEDICARE MEDICARE PART Jun 24, PART A [id number] TOBI, PATIENT (WNR) (M) A 2004 [id number] JAYLA MEDICARE MEDICARE PART Jun 24, PART B [id number] TOBI, PATIENT (WNR) (M) B 2004 [id number] JAYLA MEDICARE MEDICARE PART Jun 24, PART A [id number] TOBI, PATIENT (WNR) (M) A 2004 64A 8431 JAYLA MEDICARE MEDICARE PART Jun 24, PART B [id number] TOBI, PATIENT (WNR) (M) B 2004 64A 8431 JAYLA MARTINS RETIREE WASHI Oct 24, [id number] [phone] TOBI, PATIENT BS UDWW [facility] 2002 7 [id number] [facility] [place] ST RX PRESCRIPT [id number] Apr 26, [id number] [phone] MARILYNN JOHNSON, PATIENT SERVICES [place] [address] [phone] JAYLA Selected Encounter This section includes the information on record at [place] for the Encounter. Date/Time Encounter Type Encounter Description Reason Provider Source Apr 09, 2021 09:28 Outpatient Encounter [facility] AM CONSULT IHE Encounter Template Text not used by PA Plan of Treatment: Future Appointments (+ 6 months) and Future Tests (+/- 45 days) The Plan of Treatment section includes future care activities for the patient from all [place] treatmentfacilities. This section includes future appointments and future orders which are active, pending orscheduled.Future Appointments This section includes appointments that were scheduled to occur 6 months from the date of the Encounter, up to a maximum of 20 appointments. The data comes from all [place] treatment facilities. Appointment Date/Time Appointment Type Appointment Facili ty Name Apr 11, 2021 11:00 AM AMBULATORY - MEDICINE [facility] Apr 14, 2021 09:00 AM AMBULATORY - MEDICINE [facility] May 15, 2021 12:30 PM AMBULATORY - MEDICINE [facility] Jun 19, 2021 07:30 AM AMBULATORY - NONE [facility] Jul 07, 2021 09:00 AM AMBULATORY - NONE [facility] Jul 07, 2021 03:00 PM AMBULATORY - MEDICINE [facility] Jul 22, 2021 03:00 PM AMBULATORY - NONE [facility] Sep 29, 2021 09:00 AM AMBULATORY - NONE [facility] Active, Pending, and Scheduled Orders This section includes a listing of several types of active, pending, and scheduled orders, including clinic medications orders, diagnostic test orders, procedure orders and consult orders; where the start date of the order is 45 days before the date of the Encounter or 45 days after the date of the Encounter. The data comes from all [place] treatment facilities. Test Date/Time Test Type Test Details Facility Name Mar 18, 2021 09:53 PM Consult Order [facility] Hvac Design Engineer's Choice Lab Results: +/- 30 days of the encounter This section includes the Chemistry and Hematology Lab Results on record with [place] for the patient. Radiology Reports and Pathology Reports are provided separately, in subsequent sections.Lab Results This section contains the Chemistry/Hematology Results that were resulted 30 days before or 30 daysafter the date of the Encounter. Date/Time Source Result Type Result - Unit Interpretation Reference Range Comment Apr 11, 2021 10:53 [facility] OPIATE PANEL WITH Spec imen Type: URINE AM NALOXONE Comment: [id number] Ordering Provid er: EMILY ROSALES Report Released Date/Time: Mar 18, 2021 10:09 PM Reporting Lab: [facility] [address] [address] Performing Lab: [facility] Zu[facility] ; [place] [id number] CODEINE <25 ng/mL 0-24 MORPHINE <25 ng/mL [...] <20 ng/mL 0-19 Apr 11, 2021 10:53 [facility] EXPANDED URINE DRUG Speci men Type: URINE [...] 2021 10:09 PM Reporting Lab: [facility] [address] [place] [address] Performing Lab: [facility] [address] [place] [address] CREATININE, URINE 44.2 mg/dL 40-278 AMPHETAMINES/METHAMPHETAMINES SCREEN 0 NEG BARBITURATES SCREEN 0 NEG BENZODIAZEPINES SCREEN 0 NEG CANNABINOIDS SCREEN 18 NEG COCAINE SCREEN 10 NEG METHADONE SCREEN 0 NEG METHADONE METABOLITE (EDDP) SCREEN 0 NEG OPIATES SCREEN 32 NEG OXYCODONE SCREEN 0 NEG PHENCYCLIDINE (PCP) SCREEN 0 NEG Encounter Notes: All associated encounter notes This section contains the clinical notes associated to the Encounter. Date/Time Encounter Note(s) Provider Source Apr 09, 2021 09:28 AM ADMINISTRATIVE NOTE: EMY MALIN [facility] TITLE: ADMINISTRATIVE NOTE [facility] STANDARD TITLE: ADMINISTRATIVE NOTE DATE OF NOTE: APR 09, 2021@09:28 ENTRY DATE: APR 09, 2021@09:28:18 AUTHOR: EMY MALIN EXP COSIGNER: URGENCY: STATUS: COMPLETED [place]hall is having elevated b lood pressure and dizziness. It was 167/120 today at 9am. He is requesting a c/b from nurse . /martha/ EMY MALIN ADVANCED LABOR UNION BUSINESS REPRESENTATIVE Signed: 04/09/2021 09:31 Receipt Acknowledged By: * AWAITING SIGNATURE * DAVID HART
--- OUTSIDE RECORDS SUMMARY | 2021-11-11 08:44 | External Medical Summary | Encounter Summary ---
:1940 Author Organization [facility] Address [address] [place] [address] Care Team Providers Name Role Phone EMILY [...] Shanks BC OF PREFERRED UNIVE Jan 24, [id number] [phone] DEREK NN, PATIENT [place] PROVIDER RSITY [id number] [phone] JAYLA ORGANIZAT OF ION (PPO) [place] [id number] Oct 24, [id number] [phone] MARILYNNALEX, PATIENT [facility] 200256 5258 JAYLA CAREMARK PRESCRIPT [id number] Apr 26, [id number] [phone] MARILYNNKoby SANTOS, PATIENT [id number] ION 9 [id number] JAYLA CAREMARK PRESCRIPT [id number] Apr 26, [id number] [phone] KITTY SANTOS, PATIENT [id number] ION 9 2013 82 550 JAYLA MEDICARE MEDICARE PART Jun 24, PART A [id number] [phone] TOBI, PATIENT (WNR) (M) A 2004 [id number] JAYLA MEDICARE MEDICARE PART Jun 24, PART B [id number] TOBI, PATIENT (WNR) (M) B 2004 [id number] 1213 JAYLA MEDICARE MEDICARE PART Jun 24, PART A [id number] TOBI, PATIENT (WNR) (M) A 2004 64A 8431 JAYLA MEDICARE MEDICARE PART Jun 24, PART B [id number] TOBI, PATIENT (WNR) (M) B 2004 64A 8431 JAYLA MARTINS RETIREE WASHI Oct 24, [id number] [phone] TOBI, PATIENT BS UDWW [facility] 2002 7 [id number] [facility] ME [facility] RX PRESCRIPT [id number] Apr 26, [id number] [phone] MARILYNN JOHNSON, PATIENT SERVICES [place] [address] 2012 [id number] [phone] JAYLA Selected Encounter This section includes the information on record at [place] for the Encounter. Date/Time Encounter Type Encounter Description Reason Provider Source Apr 23, 2021 12:00 Outpatient Encounter COMMUNITY CARE PM CONSULT IHE Encounter Template Text not used by [place] Plan of Treatment: Future Appointments (+ 6 months) and Future Tests (+/- 45 days) The Plan of Treatment section includes future care activities for the patient from all [place] treatmentfacilities. This section includes future appointments and future orders which are active, pending orscheduled.Future Appointments This section includes appointments that were scheduled to occur 6 months from the date of the Encounter, up to a maximum of 20 appointments. The data comes from all [place] treatment facilities. Appointment Date/Time Appointment Type Appointment Facili ty Name May 15, 2021 12:30 PM AMBULATORY - MEDICINE [facility] Jun 19, 2021 07:30 AM AMBULATORY - NONE [facility] GARCES [facility] Jul 07, 2021 09:00 AM AMBULATORY - NONE [facility] Jul 07, 2021 03:00 PM AMBULATORY - MEDICINE [facility] Jul 22, 2021 03:00 PM AMBULATORY - NONE [facility] Sep 29, 2021 09:00 AM AMBULATORY - NONE [facility] Active, Pending, and Scheduled Orders This section includes a listing of several types of active, pending, and scheduled orders, including clinic medications orders, diagnostic test orders, procedure orders and consult orders; where the start date of the order is 45 days before the date of the Encounter or 45 days after the date of the Encounter. The data comes from all [place] treatment facilities. Test Date/Time Test Type Test Details Facility Name Mar 18, 2021 09:53 PM Consult Order COMMUNITY CARE-WW [facility] Cons [employer] [facility] Lab Results: +/- 30 days of [...] Reference Range Comment Apr 11, 2021 10:53 [facility] OPIATE PANEL WITH Spec imen Type: URINE AM NALOXONE Comment: [id number] Ordering Provid er: EMILY ROSALES Report Released Date/Time: Mar 18, 2021 10:09 PM Reporting Lab: [facility] [address]ARCES[address] [address] Performing [facility]: [facility] ; [place] [address] CODEINE <25 ng/mL 0-24 MORPHINE <25 ng/mL [...] <20 ng/mL 0-19 Apr 11, 2021 10:53 [facility] EXPANDED URINE DRUG Speci men Type: URINE [...] 2021 10:09 PM Reporting Lab: MODESTA VIVEROS [address] [place] [address] Performing Lab: MODESTA VIVEROS [address] [place] [address] CREATININE, URINE 44.2 mg/dL 40-278 AMPHETAMINES/METHAMPHETAMINES SCREEN [...] Encounter. Date/Time Encounter Note(s) Provider Source Apr 23, 2021 12:00 PM NONVA CONSULT: [place] KOEHLER [place] LOCAL TITLE: COMMUNITY CARE-CONSULT RESULT NOTE [facility] STANDARD TITLE: NONVA CONSULT DATE OF NOTE: APR 23, 2021@12:00 ENTRY DATE: JUN 05, 2021@16:58:52 AUTHOR: C[place]AND KOEHLER EXP COSIGNER: URGENCY: STATUS: COMPLETED The following Non VA Care consult has been compl eted. See scanned document for report. NON VA Care Consult Results [facility] EVALUATION SKYLER GRACE MD DOS: 04/23/2021 /martha/ [place] KOEHLER CONTRACT SCANNER-ISSU Signed: 06/05/2021 16:59
--- OUTSIDE RECORDS SUMMARY | 2021-11-11 08:44 | External Medical Summary | Encounter Summary ---
:1940 Author Organization [facility] Address [address] [place] [address] Care Team Providers Name Role Phone EMILY [...] Shanks BC OF PREFERRED UNIVE Jan 24, [id number] [phone] MARILYNNADRIANA NN, PATIENT [place] [facility] 2017 [id number] [phone] JAYLA ORGANIZAT OF ION (PPO) [facility] [place] [id number] Oct 24, [id number] [phone] MARILYNNALEX, PATIENT [facility] 200256 5258 JAYLA CAREMARK PRESCRIPT [id number] Apr 26, [id number] [phone] KITTY SANTOS, PATIENT [id number] ION 9 [id number] JAYLA CAREMARK PRESCRIPT [id number] Apr 26, [id number] [phone] KITTY SANTOS, PATIENT [id number] ION 9 2013 82 550 JAYLA MEDICARE MEDICARE PART Jun 24, PART A [id number] [phone] TOBI, PATIENT (WNR) (M) A 2004 [id number] 1213 JAYLA MEDICARE MEDICARE PART Jun 24, PART B [id number] [phone] TOBI, PATIENT (WNR) (M) B 2004 [id number] 1213 JAYLA MEDICARE MEDICARE PART Jun 24, PART A [id number] TOBI, PATIENT (WNR) (M) A 2004 64A 8431 JAYLA MEDICARE MEDICARE PART Jun 24, PART B [id number] TOBI, PATIENT (WNR) (M) B 2004 64A 8431 JAYLA MARTINS RETIREE WASHI Oct 24, [id number] [phone] TOBI, PATIENT BS UDWW [facility] 2002 7 [id number] [facility] RX PRESCRIPT [id number] Apr 26, [id number] [phone] MARILYNN JOHNSON, PATIENT SERVICES [place] [address] 2012 [id number] [place] Selected Encounter This section includes the information on record at [place] for the Encounter. Date/Time Encounter Type Encounter Reason Provider Source Description May 18, 2021 OFFICE O/P EST PRIMARY ICD-10-CM I10 EMILY ROSALES 03:27 PM MOD 30-39 MIN CARE/MEDICINE Essential E (primary) hypertension with Provider Comments: Hypertension ([facility] [id number]) IHE Encounter Template Text not used by [place] Assessments - Encounter Diagnoses This section includes the primary and secondary diagnoses documented for the Encounter. Date/Time Primary/Secondary Diagnosis Name Provider Source Diagnosis May 18, 2021 PRIMARY Essential (primary) EMILY ROSALES. 03:27 PM hypertension E [facility] May 18, 2021 SECONDARY Other EMILY ROSALES. 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 This section includes future appointments and future orders which are active, pending orscheduled.Future Appointments This section includes appointments that were scheduled to occur 6 months from the date of the Encounter, up to a maximum of 20 appointments. The data comes from all [place] treatment facilities. Appointment Date/Time Appointment Type Appointment Facili ty Name Jun 19, 2021 07:30 AM AMBULATORY - NONE [facility] Jul 07, 2021 09:00 AM AMBULATORY - NONE [facility] Jul 07, 2021 03:00 PM AMBULATORY - MEDICINE [facility] Jul 22, 2021 03:00 PM AMBULATORY - NONE [facility] G[facility] Sep 29, 2021 09:00 AM AMBULATORY - NONE [facility] Encounter Notes: All associated encounter notes This section contains the clinical notes associated to the Encounter. Date/Time Encounter Note(s) Provider Source May 15, 2021 12:30 PM TELEPHONE ENCOUNTER NOTE: EMILY ROSALES [facility] LOCAL TITLE: TELEPHONE NOTE STANDARD TITLE: TELEPHONE ENCOUNTER NOTE DATE OF NOTE: MAY 15, 2021@12:30 ENTRY DATE: MAY 18, 2021@15:29:27 AUTHOR: EMILY ROSALES EXP COSIGNER: URGENCY: STATUS: COMPLETED TELEPHONE NOTE Has ADDENDA JAYLA BRITTON is a 80 year old MALE. Patient identification is confirmed by full name , date of and social security number prior to interview and examinati on. Hand washing is completed prior to interview and examination. Allergies: ATROVENT, FLONASE CC: Follow-up, Telephone visit HPI/PMH: 80 year old MALE C/O Hypertension blood pressure pulse 120/83, 96 143/86, 74 121/8467 127/94, 90 118/83, 64 Lumbar degeneration surgery planned by Dr. Enciso ers for spacer 05/29/2021 Pain 5/10 sleeping better with gabapentin 100mg at hs past week complains of tingling in legs wt jan 2021 195 now 191 Active Outpatient Medications (including Supplie s): Active Outpatient Medications Status 1) ALBUTEROL 90MCG [...] ONE TABLET BY MOUTH ACTIVE EVERY DAY (WATER PILL) 10) LIDOCAINE 5% PATCH APPLY 1 PATCH TO SKIN EMRE RY DAY ACTIVE (FOR 12 HOURS ON, FOLLOWED BY 12 HOURS OFF) FOR PAIN 11) [place]AN POTASSIUM 50MG TAB TAKE ONE TABLET BY MOUTH ACTIVE EVERY DAY 12) OMEPRAZOLE 20MG EC CAP TAKE ONE CAPSULE BY M OUT ACTIVE EVERY DAY FOR STOMACH ACID, TAKE ONE-HALF HOUR PRIOR TO BREAKFAST 13) TRAMADOL HCL 50MG TAB TAKE TWO TABLETS BY MO [facility] TWICE ACTIVE A DAY NEEDED FOR PAIN [...] 40MG EC CAP 40MG BY MOUTH T WICE A ACTIVE DAY 6) Non-VA POTASSIUM CITRATE [...] in vision or hearing, no head aches. [employer]: No chronic headaches, dizziness of faintin g spells. CVS: No chest pain, no orthopnea or leg edema Resp: No SOB, no chronic cough or phlegm, no he moptysis GI: No chronic diarrhea or constipation, colono scopy: see reminder : No frequency, urgency, hesitancy, dysuria, hematuria or incontinence. MUSK: Lumbar degeneration Neuro: No loss of sensation, numbness, tremors or weakness. Psychiatric: No changes in mood, depression or anxiety. Reproductive: ED, penile lesions, masses or discharge,testicu lar or scrotal tenderness or masses, hernia or STDs Assessment and Plan: Hypertension controlled continue current meds Lumbar degeneration lumbar surgery 05/29/2021 Dr. Schultz F/U 01/2022 I reviewed patient's plan of care with p jeremy who verbalized understanding of recommendations and any/all changes as detailed in plan above. I have reviewed all imported/copied information, recent labs and radiology reports and it is up to date, accurate and relev ant to today's visit. I reviewed medication list with patient, it is u p to date as of this appointment, a printed copy will be givento the patient/caregiver and the patient/caregiver understood my instructions. The above was discussed with the who states understanding and agreement with current plan. Questions sought and answered . Total time in direct care/ counseling Patient /martha/ Emily FIGUEROA Nurse Practitioner Signed: 05/18/2021 15:41 05/18/2021 ADDENDUM STATUS: COMPLETED 30-minute visit /martha/ Emily FIGUEROA Nurse Practitioner Signed: 05/18/2021 15:42 Receipt Acknowledged By: * AWAITING SIGNATURE * GAURI SHIPLEY
--- OUTSIDE RECORDS SUMMARY | 2021-11-11 08:44 | External Medical Summary | Encounter Summary ---
:1940 Author Organization [facility] Address [address] [place] [address] Support Name Relationship Address Phone ERNIE BRITTON Unavailable [address] [facility] [phone] [place] [address] ERNIE BRITTON Unavailable [address] [place] [phone] [place] [address] Insurance Providers: All historical and current Section [...] Name to Policy Number Shanks BC OF [facility] Jan 24, [id number] [phone] DEREK NN, PATIENT [place] PROVIDER [facility] [id number] JAYLA ORGANIZAT OF ION (PPO) [facility] [place] [id number] Oct 24, [id number] TOBI, PATIENT [facility] 2002 7 [id number] JAYLA CAREMARK PRESCRIPT [id number] Apr 26, [id number] [phone] MARILYNNKoby SANTOS, PATIENT [id number] ION 9 [id number] JAYLA CAREMARK PRESCRIPT [id number] Apr 26, [id number] [phone] MARILYNNKoby SANTOS, PATIENT [id number] ION 9 2013 82 550 JAYLA MEDICARE MEDICARE PART Jun 24, PART A [id number] TOBI, PATIENT (WNR) (M) A 2004 [id number] JAYLA MEDICARE MEDICARE PART Jun 24, PART B [id number] MARILYNNALEX, PATIENT (WNR) (M) B 2004 [id number] 1213 [place] MEDICARE MEDICARE PART Jun 24, PART A [id number] TOBI, PATIENT (WNR) (M) A 2004 64A 8431 JAYLA MEDICARE MEDICARE PART Jun 24, PART B [id number] TOBI, PATIENT (WNR) (M) B 2004 64A 8431 JAYLA MARTINS RETIREE TANK Oct 24, [id number] TOBI, PATIENT BS UDWW [facility] 2002 7 [id number] [facility] RE* [place] ST RX PRESCRIPT [id number] Apr 26, [id number] [phone] MARILYNN JOHNSON, PATIENT SERVICES [place] [address] 2012 7 [id number] 1 JAYLA Selected Encounter This section includes the information on record at [place] for the Encounter. Date/Time Encounter Type Encounter Description Reason Provider Source May 09, 2021 10:04 Outpatient Encounter COMMUNITY CARE AM CONSULT IHE Encounter Template Text not used by [place] Plan of Treatment: Future Appointments (+ 6 months) and Future Tests (+/- 45 days) The Plan of Treatment section includes future care activities for the patient from all [place] treatmentfacilities. This section includes future appointments and future orders which are active, pending orscheduled.Future Appointments This section includes appointments that were scheduled to occur 6 months from the date of the Encounter, up to a maximum of 20 appointments. The data comes from all [place] treatment facilities. Appointment Date/Time Appointment Type Appointment Facili ty Name May 15, 2021 12:30 PM AMBULATORY - MEDICINE [facility] Jun 19, 2021 07:30 AM AMBULATORY - NONE [facility] Jul 07, 2021 09:00 AM AMBULATORY - NONE [facility] Jul 07, 2021 03:00 PM AMBULATORY - MEDICINE [facility] Jul 22, 2021 03:00 PM AMBULATORY - NONE [facility] G[facility] Sep 29, 2021 09:00 AM AMBULATORY - NONE [facility] Lab Results: +/- 30 days of the encounter This section includes the Chemistry and Hematology Lab Results on record with [place] for the patient. Radiology Reports and Pathology Reports are provided separately, in subsequent sections.Lab Results This section contains the Chemistry/Hematology Results that were resulted 30 days before or 30 daysafter the date of the Encounter. Date/Time Source Result Type Result - Unit Interpretation Reference Range Comment Apr 11, 2021 10:53 [facility] OPIATE PANEL WITH Spec imen Type: URINE AM NALOXONE Comment: [id number] Ordering Provid er: EMILY ROSALES Report Released Date/Time: Mar 18, 2021 10:09 PM Reporting Lab: MODESTA Zuñiga [address] [place] [address] Performing Lab: MODESTA Zuñiga [facility] ; [place] [address] CODEINE <25 0-24 MORPHINE <25 0-24 OXYCODONE <25 0-24 OXYMORPHONE <25 0-24 HYDROCODONE <25 0-24 HYDROMORPHONE <25 0-24 NALOXONE,URINE <10 0-9 6-ACETYLMORPHINE <10 0-9 NOROXYCODONE <25 0-24 NORHYDROCODONE <50 0-49 TRAMADOL 249 H 0-99 MEPERIDINE <100 0-99 NOROXYMORPHONE <50 0-49 TAPENTADOL <50 0-49 TAPENTADOL-S <100 0-99 ZOLPIDEM <20 0-19 Apr 11, 2021 10:53 [facility] EXPANDED URINE DRUG Speci men [...] 18, 2021 10:09 PM Reporting Lab: MODESTA GARCES[address] [place] [address] Performing Lab: MODESTA ANN[address] [place] [address] CREATININE, URINE 44.2 40-278 AMPHETAMINES/METHAMPHETAMINES SCREEN 0 NEG BARBITURATES SCREEN [...] Encounter. Date/Time Encounter Note(s) Provider Source May 09, 2021 10:04 AM INFECTIOUS DISEASE RISK ASSESSMENT SCR EENING NOTE: GUSTAVO ROGERS LOCAL TITLE: SCREENING COVID [facility] STANDARD TITLE: INFECTIOUS DISEASE RISK ASSESSME NT SCREENING NOT DATE OF NOTE: MAY 09, 2021@10:04 ENTRY DATE: MAY 09, 2021@10:04:44 AUTHOR: GUSTAVO ROGERS EXP COSIGNER: URGENCY: STATUS: COMPLETED Coronavirus Disease 2019 (COVID-19) Screen The patient was asked if in the last 14 days the y have had new onset of any COVID-19 symptoms. They report the following: No symptoms Within the past 14 days, the patient reports no exposure to someone with a febrile/respiratory illness or someone with a kn own or suspected case of COVID-19 (within 6 feet for > 15 minutes). Result: Screen is negative. /martha/ GUSTAVO ROGERS MSA Signed: 05/09/2021 10:05
--- OUTSIDE RECORDS SUMMARY | 2021-11-11 08:44 | External Medical Summary | Encounter Summary ---
:1940 Author Organization [facility] Address [address] [place] [address] Care Team Providers Name Role Phone EMILY [...] Shanks BC OF PREFERRED UNIVE Jan 24, [id number] [phone] DEREK NN, PATIENT [place] PROVIDER RSITY [id number] [phone] JAYLA ORGANIZAT OF ION (PPO) [place] BC OF [place] [address] Oct 24, [id number] MARILYNNALEX, PATIENT [facility] 200256 5258 JAYLA CAREMARK PRESCRIPT [id number] Apr 26, [id number] [phone] MARILYNNKoby SANOTS, PATIENT [id number] ION 9 [id number] JAYLA CAREMARK PRESCRIPT [id number] Apr 26, [id number] [phone] KITTY SANTOS, PATIENT [id number] ION 9 2013 82 550 JAYLA MEDICARE MEDICARE PART Jun 24, PART A [id number] TOBI, PATIENT (WNR) (M) A 2004 [id number] 1213 JAYLA MEDICARE MEDICARE PART Jun 24, PART B [id number] TOBI, PATIENT (WNR) (M) B 2004 [id number] 1213 JAYLA MEDICARE MEDICARE PART Jun 24, PART A [id number] TOBI, PATIENT (WNR) (M) A 2004 64A 8431 JAYLA MEDICARE MEDICARE PART Jun 24, PART B [id number] TOBI, PATIENT (WNR) (M) B 2004 64A 8431 JAYLA MARTINS RETIREE WASHI Oct 24, [id number] TOBI, PATIENT BS UDWW [facility] [id number] [facility] [place] [facility] RX PRESCRIPT Apr 26, [id number] [phone] MARILYNN JOHNSON, PATIENT SERVICES [place] [address] 2012 7 [id number] 1 JAYLA Selected Encounter This section includes the information on record at [place] for the Encounter. Date/Time Encounter Type Encounter Description Reason Provider Source Jan 08, 2021 09:35 Outpatient Encounter COMMUNITY CARE AM CONSULT IHE Encounter Template Text not used by [place] Plan of Treatment: Future Appointments (+ 6 months) and Future Tests (+/- 45 days) The Plan of Treatment section includes future care activities for the patient from all [place] treatmentfacilities. This section includes future appointments and future orders which are active, pending orscheduled.Future Appointments This section includes appointments that were scheduled to occur 6 months from the date of the Encounter, up to a maximum of 20 appointments. The data comes from all [place] treatment facilities. Appointment Date/Time Appointment Type Appointment Facili ty Name Feb 11, 2021 08:30 AM AMBULATORY - MEDICINE [facility] Feb 18, 2021 02:00 PM AMBULATORY - MEDICINE [facility] Feb 26, 2021 10:10 AM AMBULATORY - NONE [facility] GARCES [facility] Mar 03, 2021 11:15 AM AMBULATORY - MEDICINE [facility] Mar 05, 2021 02:30 PM AMBULATORY - NONE [facility]STA GARCES [facility] Mar 14, 2021 03:45 PM AMBULATORY - MEDICINE [facility] Apr 09, 2021 11:00 AM AMBULATORY - MEDICINE [facility] Apr 11, 2021 11:00 AM AMBULATORY - MEDICINE [facility] Apr 14, 2021 09:00 AM AMBULATORY - MEDICINE [facility] May 15, 2021 12:30 PM AMBULATORY - MEDICINE [facility] Jun 19, 2021 07:30 AM AMBULATORY - NONE MODE[facility] GARCES [facility] Jul 07, 2021 09:00 AM AMBULATORY - NONE MO[facility]STA GARCES [facility] Jul 07, 2021 03:00 PM AMBULATORY - MEDICINE [facility] IC Encounter Notes: All associated encounter notes This section contains the clinical notes associated to the Encounter. Date/Time Encounter Note(s) Provider Source Jan 08, 2021 09:35 AM ADMINISTRATIVE NOTE: RONN SWEENEY LOCAL TITLE: ADMINISTRATIVE NOTE [facility] STANDARD TITLE: ADMINISTRATIVE NOTE DATE OF NOTE: JAN 08, 2021@09:35 ENTRY DATE: JAN 08, 2021@09:35:34 AUTHOR: RONN SWEENEY EXP COSIGNER: URGENCY: STATUS: COMPLETED Spoke to scheduled tele lab and 6mnth fo llow up /es/ RONN SWEENEY MSA Signed: 01/08/2021 09:36
--- OUTSIDE RECORDS SUMMARY | 2021-11-11 08:44 | External Medical Summary | Encounter Summary ---
:[address] [facility] Address [address] [place] [address] Care Team Providers Name Role Phone EMILY [...] Shanks BC OF PREFERRED UNIVE Jan 24, [id number] [phone] DEREK NN, PATIENT [place] PROVIDER RSITY [id number] [phone] JAYLA ORGANIZAT OF ION (PPO) [place] [id number] Oct 24, [id number] [phone] MARILYNNALEX, PATIENT [facility] 200256 5258 JAYLA CAREMARK PRESCRIPT [id number] Apr 26, [id number] [phone] MARILYNNKoby SANTOS, PATIENT [id number] ION 9 2013 520 550 JAYLA CAREMARK PRESCRIPT [id number] Apr 26, [id number] [phone] KITTY SANTOS, PATIENT [id number] ION 9 2013 82 550 JAYLA MEDICARE MEDICARE PART Jun 24, PART A [id number] TOBI, PATIENT (WNR) (M) A 2004 [id number] 1213 JAYLA MEDICARE MEDICARE PART Jun 24, PART B [id number] [phone] TOBI, PATIENT (WNR) (M) B 2004 [id number] 1213 JAYLA MEDICARE MEDICARE PART Jun 24, PART A [id number] TOBI, PATIENT (WNR) (M) A 2004 64A 8431 JAYLA MEDICARE MEDICARE PART Jun 24, PART B [id number] TOBI, PATIENT (WNR) (M) B 2004 64A 8431 JAYLA MARTINS RETIREE WASHI Oct 24, [id number] [phone] TOBI, PATIENT BS UDWW [facility] 2002 7 [id number] [facility] [place] ST RX PRESCRIPT [id number] Apr 26, [id number] [phone] MARILYNN JOHNSON, PATIENT SERVICES [place] [address] 2012 7 [id number] 1 JAYLA Selected Encounter This section includes the information on record at [place] for the Encounter. Date/Time Encounter Type Encounter Reason Provider Source Description Jun 04, 2021 Outpatient TELEPHONE/MEDICI ICD-10-CM Z02.89 BEN EGAN 01:05 PM Encounter NE Encounter for other PRECIOUS [place] administrative examinations with Provider Comments: Encounter for other Administrative Examinations IHE Encounter Template Text not used by [place] Assessments - Encounter Diagnoses This section includes the primary and secondary diagnoses documented for the Encounter. Date/Time Primary/Secondary Diagnosis Name Provider Source Diagnosis Jun 04, 2021 PRIMARY Encounter for other JESSICA EGAN 01:05 PM administrative PRECIOUS [facility] examinations Plan of Treatment: Future Appointments (+ 6 months) and Future Tests (+/- 45 days) The Plan of Treatment section includes future care activities for the patient from all [place] treatmentfacilities. This section includes future appointments and future orders which are active, pending orscheduled.Future Appointments This section includes appointments that were scheduled to occur 6 months from the date of the Encounter, up to a maximum of 20 appointments. The data comes from all [place] treatment facilities. Appointment Date/Time Appointment Type Appointment Facili ty Name Jun 19, 2021 07:30 AM AMBULATORY - NONE [facility] Jul 07, 2021 09:00 AM AMBULATORY - NONE [facility] Jul 07, 2021 03:00 PM AMBULAT[facility] - MEDICINE [facility] Jul 22, 2021 03:00 PM AMBULATORY - NONE [facility] Sep 29, 2021 09:00 AM AMBULATORY - NONE [facility] Active, Pending, and Scheduled Orders This section includes a listing of several types of active, pending, and scheduled orders, including clinic medications orders, diagnostic test orders, procedure orders and consult orders; where the start date of the order is 45 days before the date of the Encounter or 45 days after the date of the Encounter. The data comes from all [place] treatment facilities. Test Date/Time Test Type Test Details Facility Name Jul 07, 2021 11:09 PM Consult Order [facility] Cons Handkerchief Folder[facility] Choice [facility] Encounter Notes: All associated encounter notes This section contains the clinical notes associated to the Encounter. Date/Time Encounter Note(s) Provider Source Jun 04, 2021 01:05 PM PULMONARY NOTE: EVELIO EGAN LOCAL TITLE: SLEEP CLINIC NOTE M [facility] STANDARD TITLE: PULMONARY NOTE DATE OF NOTE: JUN 04, 2021@13:05 ENTRY DATE: JUN 04, 2021@13:05:21 AUTHOR: EVELIO EGAN EXP COSIGNER: URGENCY: STATUS: COMPLETED SUBJECT: TENISHA Patient left a message with concerns of his C pa p card needing to be read. I called back the patient to get clarity on his co ncern. Patient states he normally gets a printout and would like one teodoro use he had neck surgery and feels his mask is making his head hurt. I asked when the last time was, he had a new mask because it sounds like maybe he has ove r tightened it. he states his mask is new and then shared the information about undergoing neck surgery. So, I verified with him that he wo uld like a printout because he wants to make sure he is getting adequate therapy after this s urgery. patient then asked if he could also get a new mask just in case this is an issu e I sent in the request for a new mask and to have his c pap reading mailed to his [place] address on file. /martha/ EVELIO EGAN Medical Director [employer] ([employer] ) Signed: 06/04/2021 13:13
--- OUTSIDE RECORDS SUMMARY | 2021-11-11 08:44 | External Medical Summary | Encounter Summary ---
:1940 Author Organization [facility] Address [address] [place] [address] Care Team Providers Name Role Phone EMILY [...] Shanks BC OF PREFERRED UNIVE Jan 24, [id number] [phone] DEREK NN, PATIENT [place] PROVIDER [facility] [id number] JAYLA ORGANIZAT OF ION (PPO) [place] [id number] Oct 24, [id number] [phone] MARILYNNALEX, PATIENT [facility] [phone] JAYLA CAREMARK PRESCRIPT [id number] Apr 26, [id number] [phone] MARILYNNKoby SANTOS, PATIENT [id number] ION 9 2013 [id number] 550 JAYLA CAREMARK PRESCRIPT [id number] Apr 26, [id number] [phone] MARILYNNKoby SANTOS, PATIENT [id number] ION 9 2013 82 550 JAYLA MEDICARE MEDICARE PART Jun 24, PART A [id number] [phone] TOBI, PATIENT (WNR) (M) A 2004 [id number] 1213 JAYLA MEDICARE MEDICARE PART Jun 24, PART B [id number] [phone] TOBI, PATIENT (WNR) (M) B 2004 [id number] 1213 [place] MEDICARE MEDICARE PART Jun 24, PART A [id number] TOBI, PATIENT (WNR) (M) A 2004 64A 8431 JAYLA MEDICARE MEDICARE PART Jun 24, PART B [id number] TOBI, PATIENT (WNR) (M) B 2004 64A 8431 JAYLA MARTINS RETIREE MICHELEI Oct 24, [id number] [phone] TOBI, PATIENT BS UDWW [facility] 2002 7 [id number] [facility]* [place] ST RX PRESCRIPT [id number] Apr 26, [id number] [phone] MARILYNN JOHNSON, PATIENT SERVICES [place] [address] 2012 7 [id number] 1 [place] Selected Encounter This section includes the information on record at [place] for the Encounter. Date/Time Encounter Type Encounter Reason Provider Source Description May 15, 2021 Outpatient TELEPHONE ICD-10-CM M51.36 EMILY ROSALES 12:30 PM Encounter PRIMARY CARE Other E intervertebral disc degeneration, lumbar region with Provider Comments: Degeneration of lumbar intervertebral disc (SCT [id number]) IHE Encounter Template Text not used by [place] Assessments - Encounter Diagnoses This section includes the primary and secondary diagnoses documented for the Encounter. Date/Time Primary/Secondary Diagnosis Name Provider Source Diagnosis May 15, 2021 PRIMARY Other intervertebral EMILY ROSALES [facility] 12:30 PM disc degeneration, CLINIC lumbar region May 15, 2021 SECONDARY Essential (primary) EMILY ROSALES ON [place] 12:30 PM hypertension CLINIC Plan of Treatment: Future Appointments (+ 6 months) and Future Tests (+/- 45 days) The Plan of Treatment section includes future care activities for the patient from all [place] treatmentfacilities. This section includes future appointments and future orders which are active, pending orscheduled.Future Appointments This section includes appointments that were scheduled to occur 6 months from the date of the Encounter, up to a maximum of 20 appointments. The data comes from all [place] treatment facilities. Appointment Date/Time Appointment Type Appointment Facili ty Name Jun 19, 2021 07:30 AM AMBULATORY - NONE [facility] Jul 07, 2021 09:00 AM AMBULATORY - NONE [facility] Jul 07, 2021 03:00 PM AMBULATORY - MEDICINE [facility] Jul 22, 2021 03:00 PM AMBULATORY - NONE [facility] Sep 29, 2021 09:00 AM AMBULATORY - NONE [facility] Social History: Smoking Status (Most current) and Tobacco Use (All prior to encounter date) This section includes the most current, and the historical, smoking and tobacco-related health factors from the [place] facility where the Encounter took place.Current Smoking Status This section includes the most current smoking, or tobacco-related health factor, from the [place] facility where the Encounter took place. Date/Time Current Smoking Status Comment Facility Feb 18, 2021 02:00 PM VA-TOBACCO FORMER USER [facility] Tobacco Use History This section includes a history of the smoking, or tobacco- related health factors, that were collected on or before the date of the Encounter. The data comes from the [place] facility where the Encounter took place. Date/Time Smoking Status/Tobacco Use Comment Diamond mathew Feb 18, 2021 02:00 PM [place]-TOBACCO QUIT 15 YRS OR MORE [facility] Feb 13, 2020 09:00 AM VA-TOBACCO FORMER USER [facility] Feb 13, 2020 09:00 AM AR-TOBACCO QUIT 15 YRS OR MORE [facility]
--- OUTSIDE RECORDS SUMMARY | 2021-11-11 08:44 | External Medical Summary | Encounter Summary ---
:1940 Author Organization Department [facility] Address [address] [place] [address] Care Team Providers Name Role Phone EMILY [...] Shanks BC OF PREFERRED UNIVE Jan 24, [id number] [phone] DEREK NN, PATIENT [place] PROVIDER RSITY [phone] JAYLA ORGANIZAT OF ION (PPO) [place] [id number] Oct 24, [id number] [phone] MARILYNNALEX, PATIENT [facility] 200256 5258 JAYLA CAREMARK PRESCRIPT [id number] Apr 26, [id number] [phone] MARILYNNKoby SANTOS, PATIENT [id number] ION 9 2013 520 550 JAYLA CAREMARK PRESCRIPT [id number] Apr 26, [id number] [phone] MARILYNNKoby SANTOS, PATIENT [id number] ION 9 2013 82 550 JAYLA MEDICARE MEDICARE PART Jun 24, PART A [id number] [phone] TOBI, PATIENT (WNR) (M) A 2004 [id number] 1213 JAYLA MEDICARE MEDICARE PART Jun 24, PART B [id number] [phone] TOBI, PATIENT (WNR) (M) B 2004 [id number] 1213 JAYLA MEDICARE MEDICARE PART Jun 24, PART A [id number] TOBI, PATIENT (WNR) (M) A 2004 64A 8431 JAYLA MEDICARE MEDICARE PART Jun 24, PART B [id number] TOBI, PATIENT (WNR) (M) B 2004 64A 8431 JAYLA MARTINS RETIREE WASHI Oct 24, [id number] [phone] TOBI, PATIENT BS UDWW [facility] 2002 7 [id number] [facility] RX PRESCRIPT [id number] Apr 26, [id number] [phone] MARILYNN JOHNSON, PATIENT SERVICES [place] [address] 2012 7 [id number] 1 JAYLA Selected Encounter This section includes the information on record at [place] for the Encounter. Date/Time Encounter Type Encounter Description Reason Provider Source Apr 28, 2021 09:24 Outpatient Encounter PRIMARY CARE/MEDICINE AM IHE Encounter Template Text not used by [place] Plan of Treatment: Future Appointments (+ 6 months) and Future Tests (+/- 45 days) The Plan of Treatment section includes future care activities for the patient from all [place] treatmentfacilities. This section includes future appointments and future orders which are active, pending orscheduled.Future Appointments This section includes appointments that were scheduled to occur 6 months from the date of the Encounter, up to a maximum of 20 appointments. The data comes from all [place] treatment facilities. Appointment Date/Time Appointment Type Appointment Facili ty Name May 15, 2021 12:30 PM AMBULATORY - MEDICINE [facility] Jun 19, 2021 07:30 AM AMBULATORY - NONE [facility] Jul 07, 2021 09:00 AM AMBULATORY - NONE [facility] Jul 07, 2021 03:00 PM AMBULATORY - MEDICINE [facility] Jul 22, 2021 03:00 PM AMBULATORY - NONE [facility] Sep 29, 2021 09:00 AM AMBULATORY - NONE [facility] Active, Pending, and Scheduled Orders This section includes a listing of several types of active, pending, and scheduled orders, including clinic medications orders, diagnostic test orders, procedure orders and consult orders; where the start date of the order is 45 days before the date of the Encounter or 45 days after the date of the Encounter. The data comes from all [place] treatment facilities. Test Date/Time Test Type Test Details Facility Name Mar 18, 2021 09:53 PM Consult Order [facility] Cons [facility] Production Line As[employer] Choice Lab Results: +/- 30 days of [...] Reference Range Comment Apr 11, 2021 10:53 [facility] OPIATE PANEL WITH Spec imen Type: URINE AM NALOXONE Comment: [id number] Ordering Provid er: EMILY ROSALES Report Released Date/Time: Mar 18, 2021 10:09 PM Reporting Lab: [facility] [address] [place] [address] Performing Lab: [facility] ; [place] [address] CODEINE <25 ng/mL 0-24 MORPHINE <25 ng/mL [...] <20 ng/mL 0-19 Apr 11, 2021 10:53 [facility] EXPANDED URINE DRUG Speci men Type: URINE AM SCREEN Comment: These drug screen results are presumptive only. For unexpected results, confirmatory testing is available if requested in a timely manner. Results are to be used for medical purposes only. Uri ne creatinine sd lues <20 mg/dL should be considered a dilute sample. CREATININE, URINE reference ranges apply to first morning void. Ordering Provid er: EMILY ROSALES Report Released Date/Time: Mar 18, 2021 10:09 PM Reporting Lab: [facility] GARCES[address] [place] [address] Performing Lab: [facility] Zuñiga [place] [place] [address] CREATININE, URINE 44.2 mg/dL 40-278 AMPHETAMINES/METHAMPHETAMINES SCREEN [...] Encounter. Date/Time Encounter Note(s) Provider Source Apr 28, 2021 09:24 AM NONVA RE[facility] LOC[facility] TITLE: NON-VA REPORT OTHER STANDARD TITLE: NONVA REPORT DATE OF NOTE: APR 28, 2021@09:24 ENTRY DATE: APR 28, 2021@09:25:03 AUTHOR: GEORGI JACK EXP COSIGNER: URGENCY: STATUS: COMPLETED [place] Disability License Plates and Placard form completed by Team Jordan Provider. Original mailed to Patient. Copy kept on file. /martha/ GEORGI JACK LPN Signed: 04/28/2021 09:26
--- OUTSIDE RECORDS SUMMARY | 2021-11-11 08:44 | External Medical Summary | Encounter Summary ---
:1940 Author Organization [facility] Address [address] [place] [address] Care Team Providers Name Role Phone EMILY [...] Shanks BC OF PREFERRED UNIVE Jan 24, [id number] [phone] DEREK NN, PATIENT [place] [facility] [phone] JAYLA ORGANIZAT OF ION (PPO) [place] 16397 Oct 24, [id number] [phone] MARILYNNALEX, PATIENT [facility] 200256 5258 JAYLA CAREMARK PRESCRIPT [id number] Apr 26, [id number] [phone] MARILYNNKoby SANTOS, PATIENT [id number] ION 9 2013 520 550 JAYLA CAREMARK PRESCRIPT [id number] Apr 26, [id number] [phone] MARILYNNKoby SANTOS, PATIENT [id number] ION 9 2013 82 550 JAYLA MEDICARE MEDICARE PART Jun 24, PART A [id number] TOBI, PATIENT (WNR) (M) A 2004 [id number] 1213 JAYLA MEDICARE MEDICARE PART Jun 24, PART B [id number] TOBI, PATIENT (WNR) (M) B 2004 [id number] 1213 [place] MEDICARE MEDICARE PART Jun 24, PART A [id number] TOBI, PATIENT (WNR) (M) A 2004 64A 8431 JAYLA MEDICARE MEDICARE PART Jun 24, PART B [id number] TOBI, PATIENT (WNR) (M) B 2004 64A 8431 JAYLA MARTINS RETIREE MICHELEI Oct 24, [id number] TOBI, PATIENT BS UDWW [facility] 2002 7 [id number] [facility] [place] ST RX PRESCRIPT [id number] Apr 26, [id number] [phone] MARILYNN JOHNSON, PATIENT SERVICES [place] [address] 2012 7 [id number] 1 [place] Selected Encounter This section includes the information on record at [place] for the Encounter. Date/Time Encounter Type Encounter Reason Provider Source Description Apr 09, 2021 HC PRO PHONE TELEPHONE PRIMARY ICD-10-CM DAVID HART 11:00 AM CALL 11-20 MIN CARE R68.89 Other A general symptoms and signs with Provider Comments: General Symptoms & Signs IHE Encounter Template Text not used by [place] Assessments - Encounter Diagnoses This section includes the primary and secondary diagnoses documented for the Encounter. Date/Time Primary/Secondary Diagnosis Name Provider Source Diagnosis Apr 09, 2021 PRIMARY Other general DAVID HART [facility] 11:00 AM symptoms and signs A CLINIC Apr 09, 2021 SECONDARY Persons DAVID HART [facility] 11:00 AM encountering health A CLINIC services in oth circumstances Plan of Treatment: Future Appointments (+ 6 months) and Future Tests (+/- 45 days) The Plan of Treatment section includes future care activities for the patient from all [place] treatmentfacilities. This section includes future appointments and future orders which are active, pending orscheduled.Future Appointments This section includes appointments that were scheduled to occur 6 months from the date of the Encounter, up to a maximum of 20 appointments. The data comes from all [place] treatment facilities. Appointment Date/Time Appointment Type Appointment Facili ty Name Apr 11, 2021 11:00 AM AMBULATORY - MEDICINE [facility] Apr 14, 2021 09:00 AM AMBULATORY - MEDICINE [facility] May 15, 2021 12:30 PM AMBULATORY - MEDICINE [facility] Jun 19, 2021 07:30 AM AMBULATORY - NONE [facility] Jul 07, 2021 09:00 AM AMBULATORY - NONE [facility] Jul 07, 2021 03:00 PM AMBULATORY - MEDICINE [facility] IC Jul 22, 2021 03:00 PM [facility] Sep 29, 2021 09:00 AM [facility] Active, Pending, and Scheduled Orders This section includes a listing of several types of active, pending, and scheduled orders, including clinic medications orders, diagnostic test orders, procedure orders and consult orders; where the start date of the order is 45 days before the date of the Encounter or 45 days after the date of the Encounter. The data comes from all [place] treatment facilities. Test Date/Time Test Type Test Details Facility Name Mar 18, 2021 09:53 PM Consult Order [facility] Leather [facility] Lab Results: +/- 30 days of [...] Range Comment Apr 11, 2021 10:53 [facility] OPIATE PANEL WITH Spec imen Type: URINE AM NALOXONE Comment: [id number] Ordering Provid er: EMILY ROSALES Report Released Date/Time: Mar 18, 2021 10:09 PM Reporting Lab: [facility] Zuñiga [address] [place] [address] Performing Lab: [facility] Zuñiga [facility] ; [place] [id number] CODEINE <25 ng/mL 0-24 MORPHINE <25 ng/mL [...] <20 ng/mL 0-19 Apr 11, 2021 10:53 [facility] EXPANDED URINE DRUG Speci men Type: [...] 2021 10:09 PM Reporting Lab: [facility] [address] [place] [address] Performing Lab: [facility] [address] [place] [address] CREATININE, URINE 44.2 mg/dL 40-278 AMPHETAMINES/METHAMPHETAMINES SCREEN [...] smoking and tobacco-related health factors from the [place] facility where the Encounter took place.Current Smoking Status This section includes the most current smoking, or tobacco-related health factor, from the [place] facility where the Encounter took place. Date/Time Current Smoking Status Comment Facility Feb 18, 2021 02:00 PM [place]-TOBACCO FORMER USER [facility] Tobacco Use History This section includes a history of the smoking, or tobacco- related health factors, that were collected on or before the date of the Encounter. The data comes from the [place] facility where the Encounter took place. Date/Time Smoking Status/Tobacco Use Comment [facility] Feb 18, 2021 02:00 PM VA-TOBACCO QUIT 15 YRS OR MORE [facility] Feb 13, 2020 09:00 AM VA-TOBACCO FORMER USER [facility] Feb 13, 2020 09:00 AM [place]-TOBACCO QUIT 15 YRS OR MORE [facility] Encounter Notes: All associated encounter notes This section contains the clinical notes associated to the Encounter. Date/Time Encounter Note(s) Provider Source Apr 09, 2021 11:28 AM TEAM TELEPHONE ENCOUNTER NOTE: ANH HART [facility] LOCAL TITLE: CARE MANAGEMENT TELEPHONE NOTE STANDARD TITLE: TEAM TELEPHONE ENCOUNTER NOTE DATE OF NOTE: APR 09, 2021@11:28 ENTRY DATE: APR 09, 2021@11:28:41 AUTHOR: DAVID HART EXP COSIGNER: URGENCY: STATUS: COMPLETED S: See Administrative note B: Called back. Lorimor identified by kj henderson name and . A: Asked to recheck his blood pressure w martin I had him on the phone, and it was 124/98 with a heart rate of 89. Veter an states that the dizziness had subsided. Lorimor denies black/bloody stools , fever, nausea, vomiting, diarrhea, weakness arms or legs, facial droop, s lurred speech. states that he had received two inj ections in his back for pain. The pain is now almost completely gone, but last night he had some numb ness in his leg so he took gabapentin and tramadol whic he has not taken in a while, and he feels that taking both of those togethe r caused the dizziness. would like Emily to be aware of the above. R: Forwarding to [facility] provider for natalie mcfarlane /martha/ DAVID HART RN Signed: 04/09/2021 11:32 Receipt Acknowledged By: * AWAITING SIGNATURE * EMILY ROSALES
--- OUTSIDE RECORDS SUMMARY | 2021-11-11 08:44 | External Medical Summary | Encounter Summary ---
:1940 Author Organization Department [facility] rs Address [address] [place] [address] Care Team Providers Name Role Phone EMILY [...] Shanks BC OF PREFERRED UNIVE Jan 24, [id number] [phone] MARILYNNADRIANA NN, PATIENT [place] PROVIDER RSITY [phone] [id number] [phone] JAYLA ORGANIZAT OF ION (PPO) [place] [id number] Oct 24, [id number] [phone] MARILYNNALEX, PATIENT [facility] 200256 5258 JAYLA CAREMARK PRESCRIPT [id number] Apr 26, [id number] [phone] MARILYNNKoby SANTOS, PATIENT [id number] ION 9 [phone] JAYLA CAREMARK PRESCRIPT [id number] Apr 26, [id number] [phone] KITTY SANTOS, PATIENT [id number] ION 9 2013 [id number] 550 JAYLA MEDICARE MEDICARE PART Jun 24, PART A [id number] TOBI, PATIENT (WNR) (M) A 2004 [id number] 1213 JAYLA MEDICARE MEDICARE PART Jun 24, PART B [id number] [phone] TOBI, PATIENT (WNR) (M) B 2004 [id number] 1213 JAYLA MEDICARE MEDICARE PART Jun 24, PART A [id number] TOBI, PATIENT (WNR) (M) A 2004 64A 8431 JAYLA MEDICARE MEDICARE PART Jun 24, PART B [id number] TOBI, PATIENT (WNR) (M) B 2004 64A 8431 JAYLA MARTINS RETIREE WASHI Oct 24, [id number] TOBI, PATIENT BS UDWW [facility] 2002 [id number] [facility] [place] [facility] RX PRESCRIPT [id number] Apr 26, [id number] [phone] MARILYNN JOHNSON, PATIENT SERVICES [place] [address] 2012 [id number] [place] Selected Encounter This section includes the information on record at [place] for the Encounter. Date/Time Encounter Type Encounter Reason Provider Source Description Apr 10, 2021 [facility]P [facility] ICD-10-CM Z51.81 Zofia QUINONEZ 11:50 AM ASSMT&MGMT 5-10 Encounter for N therapeutic drug level monitoring with Provider Comments: Encounter for Therapeutic Drug Level Monitoring IHE Encounter Template Text not used by [place] Assessments - Encounter Diagnoses This section includes the primary and secondary diagnoses documented for the Encounter. Date/Time Primary/Secondary Diagnosis Name Provider Source Diagnosis Apr 10, 2021 PRIMARY Encounter for CHRISTIN QUINONEZ 11:57 AM therapeutic drug [facility] level monitoring Apr 10, 2021 SECONDARY computer terminal operator (current) CHRISTIN QUINONEZ 11:57 AM use of [facility] anticoagulants Apr 10, 2021 SECONDARY Unspecified atrial CHRISTIN QUINONEZ 11:57 AM fibrillation Y [facility] Plan of Treatment: Future Appointments (+ 6 months) and Future Tests (+/- 45 days) The Plan of Treatment section includes future care activities for the patient from all [place] treatmentfacilities. This section includes future appointments and future orders which are active, pending orscheduled.Future Appointments This section includes appointments that were scheduled to occur 6 months from the date of the Encounter, up to a maximum of 20 appointments. The data comes from all [place] treatment facilities. Appointment Date/Time Appointment Type Appointment Facili ty Name Apr 11, 2021 11:00 AM AMBULATORY - MEDICINE [facility] Apr 14, 2021 09:00 AM AMBULATORY - MEDICINE [facility] May 15, 2021 12:30 PM AMBULATORY - MEDICINE [facility] Jun 19, 2021 07:30 AM AMBULATORY - NONE MODESTA Zuñiga [facility] Jul 07, 2021 09:00 AM AMBULATORY - NONE MODESTA GARCES [facility] Jul 07, 2021 03:00 PM AMBULATORY - MEDICINE [facility] Jul 22, 2021 03:00 PM AMBULATORY - NONE MODESTA Zuñiga [facility] Sep 29, 2021 09:00 AM AMBULATORY - NONE MODESTA Zuñiga [facility] Active, Pending, and Scheduled Orders This section includes a listing of several types of active, pending, and scheduled orders, including clinic medications orders, diagnostic test orders, procedure orders and consult orders; where the start date of the order is 45 days before the date of the Encounter or 45 days after the date of the Encounter. The data comes from all [place] treatment facilities. Test Date/Time Test Type Test Details Facility Name Mar 18, 2021 09:53 PM Consult Order [facility] Outside Medical Sales Representative's Choice Lab Results: +/- 30 days of [...] Reference Range Comment Apr 11, 2021 10:53 [facility] OPIATE PANEL WITH Spec imen Type: URINE AM NALOXONE Comment: [id number] Ordering Provid er: EMILY ROSALES Report Released Date/Time: Mar 18, 2021 10:09 PM Reporting Lab: [facility] [address] [address] Performing Lab: MODESTA VIVEROS [facility] ; [place] [id number] CODEINE <25 ng/mL 0-24 MORPHINE <25 ng/mL [...] <20 ng/mL 0-19 Apr 11, 2021 10:53 [facility] EXPANDED URINE DRUG Speci [...] 18, 2021 10:09 PM Reporting Lab: MODESTA GARCES[address] [address] Performing Lab: MODESTA Zuñiga [address] [address] CREATININE, URINE 44.2 mg/dL 40-278 AMPHETAMINES/METHAMPHETAMINES SCREEN [...] Encounter. Date/Time Encounter Note(s) Provider Source Apr 10, 2021 11:50 AM E & M OF ANTICOAGULATION NOTE: INNA QUINONEZ LOCAL TITLE: ANTICOAGULATION NOTE [facility] STANDARD TITLE: E & M OF ANTICOAGULATION NOTE DATE OF NOTE: APR 10, 2021@11:50 ENTRY DATE: APR 10, 2021@11:50:48 AUTHOR: GUTSAVO QUINONEZ EXP COSIGNER: URGENCY: STATUS: COMPLETED CHART REVIEW: DOAC MONITORING - RISK BENEFIT ASS ESSMENT SUBJECTIVE: Drug: Apixaban 5 mg twice daily Indication: Atrial Fibrillation/Flutter Hypertension ------ 1 point Age greater than 75 ------ 2 points CHADS2-VASc Score (range 0-9): 3 HAS-BLED Age > 65 -------1 point Score: 1 Anticipated duration of anticoagulant therapy: Indefinite/extended (no anticipated stop date) Patient identified as needing review for the fernanda mejiasing: Risk/benefit assessment OBJECTIVE: Active VA and non-VA medication lists, perti nent laboratory tests (i.e., H/H, Plts, SCr, LFTs, Anti-Xa, etc), rec ent progress notes, and other pertinent objective data were sarah lovett Height: 66 in [167.6 cm] (02/18/2021 14:14) Weight: 195 lb [88.6 kg] (02/18/2021 14:14) BMI: 31* ==CBC LAST 3== Collection DT Spec WBC RBC HGB HCT MCV MCH MCHC 02/11/2021 08:20 BLOOD 6.9 5.17 16.7 47.0 90.9 32.3 H 35.5 02/01/2020 11:32 BLOOD 8.1 4.90 15.5 46.4 94.7 31.6 H 33.4 Collection DT Spec PLT RDW % NEUT % LYMPH % MONO % EOS % BASO 02/11/2021 08:20 BLOOD 187 13.3 68.3 19.3 10.1 1.6 0.4 02/01/2020 11:32 BLOOD 144 L 13.7 72.9 16.3 9.1 1.4 0.1 ==CREATININE LAST 3== Collection DT Spec CREAT,S a 02/11/2021 08:20 SERUM 1.1 b 02/01/2020 11:32 SERUM 1.0 ==LIVER PROFILE LAST 3== Collection DT Spec AST ALT ALP TBIL a 02/11/2021 08:20 SERUM 24 36 148 H 0.9 b 02/01/2020 11:32 SERUM 20 47 107 1.0 ASSESSMENT/PLAN: - Anticoagulation indicated for stroke prevention secondary to AF in accordance with AHA/ACC AF 2019 guidance and [facility] PB DOAC CFU - Labs: HGB/HCT/PLT, renal/hepatic function stab le. - Labs due: Creatinine 07/2021 and CBC 01/2022 - Drug Interaction: no clinically significant in teractions with apixaban - Alcohol use screen Mental Health Test: Alcohol Use Disorders Identification Test - Consumption 02/18/2021@14:00 scale: Tota l - raw score: 0, - Fall risk screen negative 02/18/21 - Adherence: 30-day supply last refilled 1 Anticoagulant periodic risk/benefit assessment: A periodic assessment of perceived risk and rosy efit of anticoagulation therapy will include (at a minimum) a review of adherence to therapy and monitoring (with an evaluation of time in thera peutic range (TTR) for patients prescribed warfarin); risk of bleeding and thrombosis including any significant changes to these risks; rev iew for changes in parameters that may affect agent selection or dosing (i.e., renal a nd/or liver function); and changes in general health, frailty, fall risk, and other possibly relevant considerations. Periodic risk/benefit assessment performed: The benefits of continued anticoagulation thera py are felt to outweigh the risks. For ongoing monitoring, a population-based appro ach will be used to ensure safety, adherence to therapy, and appropriatenes s of prescribing. Periodic risk/benefit assessments will be performed as ne cessary. Chart review: 7 minutes Clinical Reminders Done Today PBM PharmD Pharmacotherapy Rem V8: ASSESSMENT AND PLAN: ANTICOAGULATION THERAPY DIRECT ORAL ANTICOAGULANT (DOAC) MANAGEMENT Medication monitoring, no dosage change require d, continue to monitor and assess /martha/ GUSTAVO QUINONEZ ANTICOAGULATION CLINICAL PHARMACIST PROVIDER Signed: 04/10/2021 11:57
--- OUTSIDE RECORDS SUMMARY | 2021-11-11 08:45 | External Medical Summary | Encounter Summary ---
:1940 Author Organization Department [facility] Address [address] [place] [address] Care Team Providers Name Role Phone EMILY LOPEZ Primary Care Provider Unavailable Insurance Providers: All [...] Shanks BC OF PREFERRED UNIVE Jan 24, [id number] [phone] DEREK NN, PATIENT [place] PROVIDER RSITY [id number] [phone] JAYLA ORGANIZAT OF ION (PPO) [place] [id number] Oct 24, [id number] [phone] MARILYNNALEX, PATIENT [facility] [phone] JAYLA CAREMARK PRESCRIPT [id number] Apr 26, [id number] [phone] MARILYNNKoby SANOTS, PATIENT [id number] ION 9 [phone] JAYLA CAREMARK PRESCRIPT [id number] Apr 26, [id number] [phone] MARILYNNKoby SANTOS, PATIENT [id number] ION 9 2013 [id number] 550 JAYLA MEDICARE MEDICARE PART Jun 24, PART A [id number] [phone] TOBI, PATIENT (WNR) (M) A 2004 [id number] 1213 JAYLA MEDICARE MEDICARE PART Jun 24, PART B [id number] [phone] TOBI, PATIENT (WNR) (M) B 2004 [id number] 1213 JAYLA MEDICARE MEDICARE PART Jun 24, PART A [id number] TOBI, PATIENT (WNR) (M) A 2004 64A 8431 JAYLA MEDICARE MEDICARE PART Jun 24, PART B [id number] TOBI, PATIENT (WNR) (M) B 2004 64A 8431 JAYLA MARTINS RETIREE WASHI Oct 24, [id number] [phone] TOBI, PATIENT BS UDWW [facility] 2002 7 [id number] [facility] [address] RX PRESCRIPT Apr 26, [id number] [phone] MARILYNN JOHNSON, PATIENT SERVICES [place] [address] 2012 [phone] [id number] JAYLA Selected Encounter This section includes the information on record at [place] for the Encounter. Date/Time Encounter Type Encounter Description Reason Provider Source Mar 18, 2021 09:53 Outpatient Encounter PRIMARY CARE/MEDICINE PM IHE Encounter Template Text not used by [...] Appointment Type Appointment Facili ty Name Apr 09, 2021 11:00 AM AMBULATORY - MEDICINE [facility] Apr 11, 2021 11:00 AM AMBULATORY - MEDICINE [facility] Apr 14, 2021 09:00 AM AMBULATORY - MEDICINE [facility] May 15, 2021 12:30 PM AMBULATORY - MEDICINE [facility] Jun 19, 2021 07:30 AM AMBULATORY - NONE MODESTA GARCES [facility] Jul 07, 2021 09:00 AM AMBULATORY - NONE MODESTA GARCES [facility] Jul 07, 2021 03:00 PM AMBULATORY - MEDICINE [facility] Jul 22, 2021 03:00 PM AMBULATORY - NONE MODESTA GARCES [facility] Active, Pending, and Scheduled Orders This section includes a listing of several types of active, pending, and scheduled orders, including clinic medications orders, diagnostic test orders, procedure orders and consult orders; where the start date of the order is 45 days before the date of the Encounter or 45 days after the date of the Encounter. The data comes from all [place] treatment facilities. Test Date/Time Test Type Test Details Facility Name Mar 18, 2021 09:53 PM Consult Order [facility] Cons [facility] Aviation Tactical Readiness Officer's Choice Lab Results: +/- 30 days of [...] Reference Range Comment Apr 11, 2021 10:53 [facility] OPIATE PANEL WITH Spec imen Type: URINE AM NALOXONE Comment: [id number] Ordering Provid er: EMILY LOPEZ Report Released Date/Time: Mar 18, 2021 10:09 PM Reporting Lab: MODESTA VIVEROS [address] [place] [address] Performing Lab: MODESTA Zuñiga [facility] ; [place] [address] CODEINE <25 ng/mL 0-24 MORPHINE <25 ng/mL [...] ng/mL 0-19 Apr 11, 2021 10:53 [facility] EXPANDED URINE DRUG Speci men Type: [...] first morning void. Ordering Provid er: EMILY LOPEZ Report Released Date/Time: Mar 18, 2021 10:09 PM Reporting Lab: MODESTA Zuñiga [address] [place] [address] Performing Lab: MODESTA Zuñiga [address] [address] CREATININE, URINE 44.2 mg/dL 40-278 AMPHETAMINES/METHAMPHETAMINES SCREEN [...] the Encounter. Date/Time Encounter Note(s) Provider Source Mar 18, 2021 09:57 PM ACCOUNTING OF DISCLOSURES NOTE: NIKOLE LOPEZ [facility] LOCAL TITLE: [facility] PRESCRIPTION DRUG MONITORING PROGRAM NOTE STANDARD TITLE: ACCOUNTING OF DISCLOSURES NOTE DATE OF NOTE: MAR 18, 2021@21:57:48 ENTRY DATE: MAR 18, 2021@21:57:48 AUTHOR: EMILY LOPEZ EXP COSIGNER: URGENCY: STATUS: COMPLETED This PDMP query was submitted by Emily Lopez. The clinical justification for this PDMP query i s to review controlled substances prescribed outside of the [place], and any additional information that may become available, as an important compo nent of standard clinical care, and in accordance with [facility] policy. Patient information was shared with the PDMP [employer]. No prescription(s) for controlled substances out side the [facility] were found in the last 90 days. /martha/ Emily Lopez ELEVATOR DISPATCHER Nurse Practitioner Signed: 03/18/2021 21:59 Mar 18, 2021 09:56 PM ACCOUNTING OF DISCLOSURES NOTE: NIKOLE LOPEZ [facility] LOCAL TITLE: [facility] PRESCRIPTION DRUG MONITORING PROGRAM NOTE STANDARD TITLE: ACCOUNTING OF DISCLOSURES NOTE DATE OF NOTE: MAR 18, 2021@21:56:10 ENTRY DATE: MAR 18, 2021@21:56:10 AUTHOR: EMILY LOPEZ EXP COSIGNER: URGENCY: STATUS: COMPLETED This PDMP query was submitted by Emily Lopez. The clinical justification for this PDMP query i s to review controlled substances prescribed outside of the [facility], and any additional information that may become available, as an important compo nent of standard clinical care, and in accordance with [facility] policy. Patient information was shared with the PDMP [employer]olfo [employer] Robert Lee. No prescription(s) for controlled substances out side the [facility] were found in the last 90 days. /martha/ Emily Lopez ELEVATOR DISPATCHER Nurse Practitioner Signed: 03/18/2021 21:58
--- OUTSIDE RECORDS SUMMARY | 2021-11-11 08:45 | External Medical Summary | Encounter Summary ---
:1940 Author Organization [facility] Address [address] [place] [address] Support Name Relationship Address Phone ERNIE BRITTON Unavailable [address] [facility] [phone] [place] [address] ERNIE BRITTON Unavailable [address] [place] [phone] [place] [address] Insurance Providers: All historical and current Section Date Range: From patient's date of to the date document was created.This section includes the names of all active insurance providers for the patient. Insurance Type of Plan Start of End of Group Member Insurance Policy P atient's Provider Coverage Name Policy Policy Number ID Provider's Shansk's Relationship Coverage Coverage Telephone Name to Policy Number Shanks BC OF [facility] UNIVE Jan 24, [id number] [phone] DEREK NN, PATIENT [place] PROVIDER [facility] [id number] JAYLA ORGANIZAT OF ION (PPO) [facility] [place]IREE [id number] Oct 24, [id number] TOBI, PATIENT [facility] 2002 7 [id number] JAYLA CAREMARK PRESCRIPT [id number] Apr 26, [id number] [phone] MARILYNNKoby SANTOS, PATIENT [id number] ION 9 [phone] JAYLA CAREMARK PRESCRIPT [id number] Apr 26, [id number] [phone] MARILYNNKoby SANTOS, PATIENT [id number] ION 9 2013 82 550 JAYLA MEDICARE MEDICARE PART Jun 24, PART A [id number] TOBI, PATIENT (WNR) (M) A 2004 [id number] JAYLA MEDICARE MEDICARE PART Jun 24, PART B [id number] MARILYNNALEX, PATIENT (WNR) (M) B 2004 [id number] [id number] [place] MEDICARE MEDICARE PART Jun 24, PART A [id number] TOBI, PATIENT (WNR) (M) A 2004 64A 8431 JAYLA MEDICARE MEDICARE PART Jun 24, PART B [id number] TOBI, PATIENT (WNR) (M) B 2004 64A 8431 JAYLA MARTINS RETIREE TANK Oct 24, [id number] TOBI, PATIENT BS UDWW [facility] 2002 7 [id number] [facility] RE* [facility] RX PRESCRIPT [id number] Apr 26, [id number] [phone] MARILYNN JOHNSON, PATIENT SERVICES [place] [address] 2012 [id number] JAYLA Selected Encounter This section includes the information on record at [place] for the Encounter. Date/Time Encounter Type Encounter Reason Provider Source Description Apr 01, 2021 HC PRO PHONE TELEPHONE/MEDICIN ICD-10-CM G47.33 JOSE ANGEL LIANG 10:01 AM CALL 5-10 MIN E Obstructive sleep apnea (adult) (pediatric) with Provider Comments: Obstructive sleep apnea of adult ([facility] [phone]) IHE Encounter Template Text not used by [place] Assessments - Encounter Diagnoses This section includes the primary and secondary diagnoses documented for the Encounter. Date/Time Primary/Secondary Diagnosis Name Provider Source Diagnosis Apr 01, 2021 PRIMARY Obstructive sleep NATIVIDAD LIANG 10:01 AM apnea (adult) [facility] (pediatric) Plan of Treatment: Future Appointments (+ 6 months) and Future Tests (+/- 45 days) The Plan of Treatment section includes future care activities for the patient from all [place] treatmentfacilities. This section includes future appointments and future orders which are active, pending orscheduled.Future Appointments This section includes appointments that were scheduled to occur 6 months from the date of the Encounter, up to a maximum of 20 appointments. The data comes from all [place] treatment facilities. Appointment Date/Time Appointment Type Appointment Facili ty Name Apr 09, 2021 11:00 AM AMBULATORY - MEDICINE [facility] IC Apr 11, 2021 11:00 AM AMBULATORY - MEDICINE [facility] IC Apr 14, 2021 09:00 AM AMBULATORY - MEDICINE [facility] IC May 15, 2021 12:30 PM AMBULATORY - MEDICINE [facility] IC Jun 19, 2021 07:30 AM AMBULATORY - NONE MODESTA GARCES [facility] Jul 07, 2021 09:00 AM AMBULATORY - NONE MODESTA M. MILI [facility] Jul 07, 2021 03:00 PM AMBULATORY - MEDICINE [facility] IC Jul 22, 2021 03:00 PM AMBULATORY - NONE MODESTA M. MILI [facility] Sep 29, 2021 09:00 AM AMBULATORY - NONE MODESTA Yogesh GARCES [facility] Active, Pending, and Scheduled Orders This section includes a listing of several types of active, pending, and scheduled orders, including clinic medications orders, diagnostic test orders, procedure orders and consult orders; where the start date of the order is 45 days before the date of the Encounter or 45 days after the date of the Encounter. The data comes from all [place] treatment facilities. Test Date/Time Test Type Test Details Facility Name Mar 18, 2021 09:53 PM Consult Order [facility] Senior It Auditor's Choice Lab Results: +/- 30 days of [...] Reference Range Comment Apr 11, 2021 10:53 [facility] OPIATE PANEL WITH Spec imen Type: URINE AM NALOXONE Comment: [id number] Ordering Provid er: EMILY ROSALES Report Released Date/Time: Mar 18, 2021 10:09 PM Reporting Lab: MODESTA [address] [address] Performing Lab: MODESTA [facility]EN [place] ; [place] [address] CODEINE <25 0-24 MORPHINE <25 0-24 OXYCODONE <25 0-24 OXYMORPHONE <25 0-24 HYDROCODONE <25 0-24 HYDROMORPHONE <25 0-24 NALOXONE,URINE <10 0-9 6-ACETYLMORPHINE <10 0-9 NOROXYCODONE <25 0-24 NORHYDROCODONE <50 0-49 TRAMADOL 249 H 0-99 MEPERIDINE <100 0-99 NOROXYMORPHONE <50 0-49 TAPENTADOL <50 0-49 TAPENTADOL-S <100 0-99 ZOLPIDEM <20 0-19 Apr 11, 2021 10:53 [facility] EXPANDED URINE DRUG Speci men Type: [...] 2021 10:09 PM Reporting Lab: MODESTA VIVEROS [place] [address] [place] [address] Performing Lab: MODESTA VIVEROS [place] [address] [place] [address] CREATININE, URINE 44.2 40-278 AMPHETAMINES/METHAMPHETAMINES SCREEN 0 [...] Encounter. Date/Time Encounter Note(s) Provider Source Apr 01, 2021 10:01 AM RESPIRATORY THERAPY EDUCATION NOTE: NATIVIDAD LIANG LOCAL TITLE: RESPIRATORY SUPPLIES [facility] STANDARD TITLE: RESPIRATORY THERAPY EDUCATION NO TE DATE OF NOTE: APR 01, 2021@10:01 ENTRY DATE: APR 01, 2021@10:01:58 AUTHOR: NATIVIDAD LIANG EXP COSIGNER: URGENCY: STATUS: COMPLETED Airtouch FFM and humidair tub sent via [facility] /martha/ NATIVIDAD LIANG COMMUNITY EDUCATION SPECIALIST Registered Respiratory Therapist Signed: 04/01/2021 10:02
--- OUTSIDE RECORDS SUMMARY | 2021-11-11 08:45 | External Medical Summary | Encounter Summary ---
:1940 Author Organization Department [facility] Address [address] [place] [address] Care Team Providers Name Role Phone EMILY [...] Shanks BC OF PREFERRED UNIVE Jan 24, [id number] [phone] DEREK NN, PATIENT [place] PROVIDER RSITY [id number] [phone] JAYLA ORGANIZAT OF ION (PPO) [place] 6[address]93 Oct 24, [id number] [phone] MARILYNNALEX, PATIENT [facility] 200256 5258 JAYLA CAREMARK PRESCRIPT [id number] Apr 26, [id number] [phone] MARILYNNKoby SANTOS, PATIENT [id number] ION 9 2013 520 550 JAYLA CAREMARK PRESCRIPT [id number] Apr 26, [id number] [phone] MARILYNNKoby SANTOS, PATIENT [id number] ION 9 2013 82 550 JAYLA MEDICARE MEDICARE PART Jun 24, PART A [id number] TOBI, PATIENT (WNR) (M) A 2004 [id number] 1213 JAYLA MEDICARE MEDICARE PART Jun 24, PART B [id number] TOBI, PATIENT (WNR) (M) B 2004 [id number] 1213 JAYLA MEDICARE MEDICARE PART Jun 24, PART A [id number] TOBI, PATIENT (WNR) (M) A 2004 64A 8431 JAYLA MEDICARE MEDICARE PART Jun 24, PART B [id number] TOBI, PATIENT (WNR) (M) B 2004 64A 8431 JAYLA MARTINS RETIREE WASHI Oct 24, [id number] OTBI, PATIENT BS UDWW [facility] [id number] [facility]* ID ST RX PRESCRIPT Apr 26, [id number] [phone] MARILYNN JOHNSON, PATIENT SERVICES [place] [address] 2012 7 [id number] 1 JAYLA Selected Encounter This section includes the information on record at [place] for the Encounter. Date/Time Encounter Type Encounter Description Reason Provider Source Apr 04, 2021 08:37 Outpatient Encounter PRIMARY CARE/MEDICINE AM IHE Encounter Template Text not used by [place] Plan of Treatment: Future Appointments (+ 6 months) and Future Tests (+/- 45 days) The Plan of Treatment section includes future care activities for the patient from all [place] treatmentfacilities. This section includes future appointments and future orders which are active, pending orscheduled.Future Appointments This section includes appointments that were scheduled to occur 6 months from the date of the Encounter, up to a maximum of 20 appointments. The data comes from all [place] treatment facilities. Appointment Date/Time Appointment Type Appointment Facili ty Name Apr 09, 2021 11:00 AM AMBULATORY - MEDICINE [facility] Apr 11, 2021 11:00 AM AMBULATORY - MEDICINE [facility] Apr 14, 2021 09:00 AM AMBULATORY - MEDICINE [facility] May 15, 2021 12:30 PM AMBULATORY - MEDICINE [facility] Jun 19, 2021 07:30 AM AMBULATORY - NONE [facility] Jul 07, 2021 09:00 AM AMBULATORY - NONE [facility] Jul 07, 2021 03:00 PM AMBULATORY - MEDICINE [facility] Jul 22, 2021 03:00 PM AMBULATORY - NONE [facility] Sep 29, 2021 09:00 AM AMBULATORY - NONE [facility] Active, Pending, and Scheduled Orders This section includes a listing of several types of active, pending, and scheduled orders, including clinic medications orders, diagnostic test orders, procedure orders and consult orders; where the start date of the order is 45 days before the date of the Encounter or 45 days after the date of the Encounter. The data comes from all [place] treatment facilities. Test Date/Time Test Type Test Details Facility Name Mar 18, 2021 09:53 PM Consult Order [facility] [employer] [place] Business Analyst's Choice Lab Results: +/- 30 days of the encounter This section includes the Chemistry and Hematology Lab Results on record with [place] for the patient. Radiology Reports and Pathology Reports are provided separately, in subsequent sections.Lab Results This section contains the Chemistry/Hematology Results that were resulted 30 days before or 30 daysafter the date of the Encounter. Date/Time Source Result Type Result - Unit Interpretation Reference Range Comment Apr 11, 2021 10:53 [facility] OPIATE PANEL WITH Spec imen Type: URINE AM NALOXONE Comment: [id number] Ordering Provid er: EMILY ROSALES Report Released Date/Time: Mar 18, 2021 10:09 PM Reporting Lab: MODESTA VIVEROS [address] [place] [id number] Performing Lab: MODESTA Zuñiga [facility] ; [place] [address] CODEINE <25 ng/mL 0-24 MORPHINE <25 ng/mL [...] <20 ng/mL 0-19 Apr 11, 2021 10:53 [facility] EXPANDED URINE DRUG Speci men Type: [...] 18, 2021 10:09 PM Reporting Lab: MODESTA GARCES[address] [place] [id number] Performing Lab: MODESTA GARCES[address] [place] [id number] CREATININE, URINE 44.2 mg/dL 40-278 AMPHETAMINES/METHAMPHETAMINES SCREEN [...] Encounter. Date/Time Encounter Note(s) Provider Source Apr 04, 2021 08:37 AM TELEPHONE ENCOUNTER NOTE: LUDWIG LEUNG [facility] LOCAL TITLE: TELEPHONE NOTE STANDARD TITLE: TELEPHONE ENCOUNTER NOTE DATE OF NOTE: APR 04, 2021@08:37 ENTRY DATE: APR 04, 2021@08:37:25 AUTHOR: LUDWIG LEUNG EXP COSIGNER: URGENCY: STATUS: COMPLETED TELEPHONE NOTE Has ADDENDA Patient Generic Voicemail left on ce phone for pt to pickle pumper signed disability papers. Envelope left at restaurant front manager for pt to pickle pumper. /martha/ LUDWIG GONZALES/Silvio Signed: 04/04/2021 08:38 04/04/2021 ADDENDUM STATUS: COMPLETED presented to [facility] to pickle pumper paperwork and he states that [facility] will be submitting a RFS to continue physical th erapy. /martha/ EMY MALIN ADVANCED DOOR CLAMPER Signed: 04/04/2021 09:06 Receipt Acknowledged By: * AWAITING SIGNATURE * LINN ARECHIGA * AWAITING SIGNATURE * LUDWIG LEUNG
--- OUTSIDE RECORDS SUMMARY | 2021-11-11 08:45 | External Medical Summary | Encounter Summary ---
:1940 Author Organization [facility] Address [address] [place] [address] Care Team Providers Name Role Phone EMILY [...] Shanks BC OF PREFERRED UNIVE Jan 24, [id number] [phone] DEREK NN, PATIENT [place] PROVIDER RSITY [phone] 0 JAYLA ORGANIZAT OF ION (PPO) [place] 30240 Oct 24, [id number] [phone] MARILYNNALEX, PATIENT [facility] 200256 5258 JAYLA CAREMARK PRESCRIPT [id number] Apr 26, [id number] [phone] MARILYNNKoby SANTOS, PATIENT [id number] ION 9 2013 [id number] 550 JAYLA CAREMARK PRESCRIPT [id number] Apr 26, [id number] [phone] KITTY SANTOS, PATIENT [id number] ION 9 2013 82 550 JAYLA MEDICARE MEDICARE PART Jun 24, PART A [id number] TOBI, PATIENT (WNR) (M) A 2004 [id number] 1213 JAYLA MEDICARE MEDICARE PART Jun 24, PART B [id number] TOBI, PATIENT (WNR) (M) B 2004 [id number] 1213 JAYLA MEDICARE MEDICARE PART Jun 24, PART A [id number] TOBI, PATIENT (WNR) (M) A 2004 64A 8431 JAYLA MEDICARE MEDICARE PART Jun 24, PART B [id number] TOBI, PATIENT (WNR) (M) B 2004 64A 8431 JAYLA MARTINS RETIREE WASHI Oct 24, [id number] TOBI, PATIENT BS UDWW [facility] 2002 7 [id number] [facility]* [place] ST RX PRESCRIPT [id number] Apr 26, [id number] [phone] MARILYNN JOHNSON, PATIENT SERVICES [place] [address] 2012 7 [id number] 1 JAYLA Selected Encounter This section includes the information on record at [place] for the Encounter. Date/Time Encounter Type Encounter Description Reason Provider Source Mar 14, 2021 09:22 Outpatient Encounter COMMUNITY CARE AM CONSULT IHE Encounter Template Text not used by [place] Plan of Treatment: Future Appointments (+ 6 months) and Future Tests (+/- 45 days) The Plan of Treatment section includes future care activities for the patient from all [place] treatmentfacilities. This section includes future appointments and future orders which are active, pending orscheduled.Future Appointments This section includes appointments that were scheduled to occur 6 months from the date of the Encounter, up to a maximum of 20 appointments. The data comes from all [place] treatment facilities. Appointment Date/Time Appointment Type Appointment Facili ty Name Apr 09, 2021 11:00 AM AMBULATORY - MEDICINE [facility] Apr 11, 2021 11:00 AM AMBULATORY - MEDICINE [facility] Apr 14, 2021 09:00 AM AMBULATORY - MEDICINE [facility] May 15, 2021 12:30 PM AMBULATORY - MEDICINE [facility] Jun 19, 2021 07:30 AM AMBULATORY - NONE MODESTA GARCES [facility] Jul 07, 2021 09:00 AM AMBULATORY - NONE MODESTA GARCES [facility] Jul 07, 2021 03:00 PM AMBULATORY - MEDICINE [facility] Jul 22, 2021 03:00 PM AMBULATORY - NONE MODESTA GARCES [facility] Active, Pending, and Scheduled Orders This section includes a listing of several types of active, pending, and scheduled orders, including clinic medications orders, diagnostic test orders, procedure orders and consult orders; where the start date of the order is 45 days before the date of the Encounter or 45 days after the date of the Encounter. The data comes from all [place] treatment facilities. Test Date/Time Test Type Test Details Facility Name Mar 18, 2021 09:53 PM Consult Order [facility] Real Property Evaluator's Choice Lab Results: +/- 30 days of [...] Reference Range Comment Apr 11, 2021 10:53 [facility] OPIATE PANEL WITH Spec imen Type: URINE AM NALOXONE Comment: [id number] Ordering Provid er: EMILY ROSALES Report Released Date/Time: Mar 18, 2021 10:09 PM Reporting Lab: MODESTA VIVEROS [address] [place] [address] Performing Lab: MODESTA Zuñiga [facility] ; [place] [address] CODEINE <25 ng/mL 0-24 MORPHINE <25 ng/mL [...] <20 ng/mL 0-19 Apr 11, 2021 10:53 [facility] EXPANDED URINE DRUG Speci men Type: URINE [...] 2021 10:09 PM Reporting Lab: MODESTA VIVEROS [address] [place] [address] Performing Lab: MODESTA VIVEROS [address] [place] [address] CREATININE, URINE 44.2 mg/dL 40-278 AMPHETAMINES/METHAMPHETAMINES SCREEN [...] Encounter. Date/Time Encounter Note(s) Provider Source Mar 14, 2021 09:22 AM ADMINISTRATIVE NOTE: RAINE DEE [facility] LOCAL TITLE: TELEPHONE CONTACT CALL CENTER [facility] STANDARD TITLE: ADMINISTRATIVE NOTE DATE OF NOTE: MAR 14, 2021@09:22:55 ENTRY DATE: MAR 14, 2021@09:25:48 AUTHOR: RAINE DEE EXP COSIGNER: URGENCY: STATUS: COMPLETED The following identifiers were used to verify th is patient: . SSN. The patient, JAYLA BRITTON ([id number] ) called the call center. Contact Type of call: V20 PACT MSG. Comments: The is requesting a call back to discuss "anxiety and a nervous stomach that I am having about all the pain I am experie ncing and whether or not to take GABAPENTIN." Author: RAINE DEE Evaluation/Management Code: HC PRO PHONE CALL 5- 10 MIN ([phone]). Starting at: 03/14/2021 @ 9:22:55 AM Ending at: 03/14/2021 @ 9:24:36 AM Length: 1 minutes. Caller Area: V20 [address] [place] [address] Chief Complaint: Not applicable to call. Caller Response: V20 RETURN CALL Caller/ verbalize understanding; leonor dgmartha message. Patient's Email Address: Class Code: Other specified counseling. /martha/ RAINE DEE/EDUARDO Glue Reel Operator Signed: 03/14/2021 09:25 Receipt Acknowledged By: * AWAITING SIGNATURE * LINN ARECHIGA
--- OUTSIDE RECORDS SUMMARY | 2021-11-11 08:45 | External Medical Summary | Encounter Summary ---
:1940 Author Organization [facility] Address [address] [place] [address] Care Team Providers Name Role Phone EMILY [...] Shanks BC OF PREFERRED UNIVE Jan 24, [id number] [phone] DEREK NN, PATIENT [place] [facility] [phone] 0 JAYLA ORGANIZAT OF ION (PPO) [place] 83673 Oct 24, [id number] [phone] MARILYNNALEX, PATIENT [facility] 200256 5258 JAYLA CAREMARK PRESCRIPT [id number] Apr 26, [id number] [phone] MARILYNNKoby SANTOS, PATIENT [id number] ION 9 2013 520 550 JAYLA CAREMARK PRESCRIPT [id number] Apr 26, [id number] [phone] MARILYNNKoby SANTOS, PATIENT [id number] ION 9 2013 82 550 JAYLA MEDICARE MEDICARE PART Jun 24, PART A [id number] TOBI, PATIENT (WNR) (M) A 2004 [id number] 1213 JAYLA MEDICARE MEDICARE PART Jun 24, PART B [id number] TOBI, PATIENT (WNR) (M) B 2004 [id number] 1213 [place] MEDICARE MEDICARE PART Jun 24, PART A [id number] TOBI, PATIENT (WNR) (M) A 2004 64A 8431 JAYLA MEDICARE MEDICARE PART Jun 24, PART B [id number] TOBI, PATIENT (WNR) (M) B 2004 64A 8431 JAYLA MARTINS RETIREZeynep FU Oct 24, [id number] TOBI, PATIENT BS UDWW [facility] 2002 7 [id number] [facility]* [place] ST RX PRESCRIPT [id number] Apr 26, [id number] [phone] MARILYNN JOHNSON, PATIENT SERVICES [place] [address] 2012 7 [id number] 1 [place] Selected Encounter This section includes the information on record at [place] for the Encounter. Date/Time Encounter Type Encounter Reason Provider Source Description Mar 14, 2021 PRO PHONE TELEPHONE PRIMARY ICD-10-CM [facility] 03:45 PM CALL 5-10 MIN CARE R68.89 Other R general symptoms and signs with Provider Comments: General Symptoms & Signs IHE Encounter Template Text not used by [place] Assessments - Encounter Diagnoses This section includes the primary and secondary diagnoses documented for the Encounter. Date/Time Primary/Secondary Diagnosis Name Provider Source Diagnosis Mar 14, 2021 PRIMARY Other general ANGELA VILLEDA [facility] 03:45 PM symptoms and CLINIC signs Plan of Treatment: Future Appointments (+ 6 months) and Future Tests (+/- 45 days) The Plan of Treatment section includes future care activities for the patient from all [place] treatmentfacilities. This section includes future appointments and future orders which are active, pending orscheduled.Future Appointments This section includes appointments that were scheduled to occur 6 months from the date of the Encounter, up to a maximum of 20 appointments. The data comes from all [place] treatment facilities. Appointment Date/Time Appointment Type Appointment Facili ty Name Apr 09, 2021 11:00 AM AMBULATORY - MEDICINE [facility] Apr 11, 2021 11:00 AM AMBULATORY - MEDICINE [facility] Apr 14, 2021 09:00 AM AMBULATORY - MEDICINE [facility] May 15, 2021 12:30 PM AMBULATORY - MEDICINE [facility] Jun 19, 2021 07:30 AM AMBULATORY - NONE [facility] GARCES [facility] Jul 07, 2021 09:00 AM AMBULATORY - NONE [facility] GARC[facility] Jul 07, 2021 03:00 PM AMBULATORY - MEDICINE [facility] Jul 22, 2021 03:00 PM AMBULATORY - NONE [facility] GARCES [facility] Active, Pending, and Scheduled Orders This section includes a listing of several types of active, pending, and scheduled orders, including clinic medications orders, diagnostic test orders, procedure orders and consult orders; where the start date of the order is 45 days before the date of the Encounter or 45 days after the date of the Encounter. The data comes from all [place] treatment facilities. Test Date/Time Test Type Test Details Facility Name Mar 18, 2021 09:53 PM Consult Order [facility] Coat Operator Insulator's Choice Lab Results: +/- 30 days of the encounter This section includes the Chemistry and Hematology Lab Results on record with [place] for the patient. Radiology Reports and Pathology [...] 2021 10:09 PM Reporting Lab: MODESTA VIVEROS [address] [place] [address] Performing Lab: MODESTA Zuñiga [facility] ; [place] [address] CODEINE <25 ng/mL 0-24 MORPHINE <25 ng/mL [...] <20 ng/mL 0-19 Apr 11, 2021 10:53 [facility] EXPANDED URINE DRUG Speci men [...] 2021 10:09 PM Reporting Lab: MODESTA VIVEROS [place] [address] [place] [address] Performing Lab: MODESTA VIVEROS [address] [place] [address] CREATININE, URINE 44.2 mg/dL 40-278 AMPHETAMINES/METHAMPHETAMINES SCREEN [...] smoking and tobacco-related health factors from the [place] facility where the Encounter took place.Current Smoking Status This section includes the most current smoking, or tobacco-related health factor, from the [place] facility where the Encounter took place. Date/Time Current Smoking Status Comment Facility Feb 18, 2021 02:00 PM [place]-TOBAC[place] FORMER USER [facility] Tobacco Use History This section includes a history of the smoking, or tobacco- related health factors, that were collected on or before the date of the Encounter. The data comes from the [place] facility where the Encounter took place. Date/Time Smoking Status/Tobacco Use Comment [facility] Feb 18, 2021 02:00 PM [place] [address] [facility] Feb 13, 2020 09:00 AM [place] FORMER USER [facility] Feb 13, 2020 09:00 AM [place]-TOBACCO QUIT [address] [facility] Encounter Notes: All associated encounter notes This section contains the clinical notes associated to the Encounter. Date/Time Encounter Note(s) Provider Source Mar 14, 2021 03:44 PM TEAM TELEPHONE ENCOUNTER NOTE: YUVAL VILLEDA [facility] LOCAL TITLE: CARE MANAGEMENT TELEPHONE NOTE STANDARD TITLE: TEAM TELEPHONE ENCOUNTER NOTE DATE OF NOTE: MAR 14, 2021@15:44 ENTRY DATE: MAR 14, 2021@15:44:22 AUTHOR: ANGELA VILLEDA EXP COSIGNER: URGENCY: STATUS: COMPLETED CARE MANAGEMENT TELEPHONE NOTE Has ADDENDA S: call to pt and identified by name and . B: see Telephone contact note 03/14/21. A: Pt c/o ongoing nerve pain and stomach ache fo r a couple weeks. R: collaborated with PCP who advises pt to take prescribed gabapentin. Pt also request refill of tramadol. PCP notified via IM. PCP states via IM that she will call the pt to discuss today. Pt verbalizes unde rstanding and expresses appreciation. /martha/ ANGELA VILLEDA RN Signed: 03/14/2021 15:45 03/14/2021 ADDENDUM STATUS: COMPLETED T/C to vet ID name BD abd pa in mid upper abdomen intermittent and Low back pain with radiculopathy intermittent. Did not start g abapentin with concern SE. Lumbar degneration stenosis. Out of tramadol but is getting steriod injection wednesday [facility]. Told by ortho has bi lateral carpal tunnel and requsted EMG NCS worse on left numbness and pain to hands lower ext. Plan Lumbar deg Pain contract tramadol 100mg BID prn mail Gabapentin trial start night 100mg then 100mg BI D titrate up every 3 day to 300mg max BID. Can take night only if SE titrate for comfort without sedation. GERD 10 days omeprazole 40mg BID the resume 20mg and maalox prn Carpal tunnel NCS EMG /martha/ Emily FIGUEROA Nurse Practitioner Signed: 03/14/2021 16:19 03/18/2021 ADDENDUM STATUS: COMPLETED please set up lab for requried UDS with narcotic use /martha/ Emily FIGUEROA Nurse Practitioner Signed: 03/18/2021 22:11 Receipt Acknowledged By: 03/26/2021 14:30 /es/ D ALEC SHIPLEY MSA 03/26/2021 ADDENDUM STATUS: COMPLETED Call placed to . Non fasting lab appointm ent scheduled. /es/ D ALEC SHIPLEY MSA Signed: 03/26/2021 14:30
--- OUTSIDE RECORDS SUMMARY | 2021-11-11 08:46 | External Medical Summary | Encounter Summary ---
:[address] [facility] Address [address] [place] [id number] Care Team Providers Name Role Phone EMILY [...] Shanks BC OF PREFERRED UNIVE Jan 24, [id number] [phone] DEREK NN, PATIENT [place] PROVIDER RSITY [phone] 0 JAYLA ORGANIZAT OF ION (PPO) [place] [id number] Oct 24, [id number] [phone] MARILYNNALEX, PATIENT [facility] 200256 5258 JAYLA CAREMARK PRESCRIPT [id number] Apr 26, [id number] [phone] MARILYNNKoby SANTOS, PATIENT [id number] ION 9 2013 520 550 JAYLA CAREMARK PRESCRIPT [id number] Apr 26, [id number] [phone] MARILYNNKoby SANTOS, PATIENT [id number] ION 9 2013 82 550 JAYLA MEDICARE MEDICARE PART Jun 24, PART A [id number] TOBI, PATIENT (WNR) (M) A 2004 [id number] 1213 JAYLA MEDICARE MEDICARE PART Jun 24, PART B [id number] TOBI, PATIENT (WNR) (M) B 2004 [id number] 1213 JAYLA MEDICARE MEDICARE PART Jun 24, PART A [id number] TOBI, PATIENT (WNR) (M) A 2004 64A 8431 JAYLA MEDICARE MEDICARE PART Jun 24, PART B [id number] TOBI, PATIENT (WNR) (M) B 2004 64A 8431 JAYLA MARTINS RETIREE WASHI Oct 24, [id number] TOBI, PATIENT BS UDWW [facility] 2002 7 [id number] [facility]* [place] ST RX PRESCRIPT Apr 26, [id number] [phone] MARILYNN JOHNSON, PATIENT SERVICES [place] [address] 2012 7 [id number] 1 JAYLA Selected Encounter This section includes the information on record at [place] for the Encounter. Date/Time Encounter Type Encounter Description Reason Provider Source Mar 14, 2021 04:09 Outpatient Encounter EVENT (HISTORICAL) PM IHE Encounter Template Text not used by [place] Plan of Treatment: Future Appointments (+ 6 [...] 09, 2021 11:00 AM AMBULATORY - MEDICINE [facility] Apr 11, 2021 11:00 AM AMBULATORY - MEDICINE [facility] Apr 14, 2021 09:00 AM AMBULATORY - MEDICINE [facility] May 15, 2021 12:30 PM AMBULATORY - MEDICINE [facility] Jun 19, 2021 07:30 AM AMBULATORY - NONE [facility] Jul 07, 2021 09:00 AM AMBULATORY - NONE [facility]STA GARCES [facility] Jul 07, 2021 03:00 PM AMBULATORY - MEDICINE [facility] Jul 22, 2021 03:00 PM AMBULATORY - NONE MODESTA GARCES [facility] Active, Pending, and Scheduled Orders This [...] Mar 18, 2021 09:53 PM Consult Order [facility] [place] [place] Cons [facility] Office Agent's Choice Lab Results: +/- 30 days of [...] Reference Range Comment Apr 11, 2021 10:53 [facility] OPIATE PANEL WITH Spec imen Type: URINE AM NALOXONE Comment: [id number] Ordering Provid er: EMILY ROSALES Report Released Date/Time: Mar 18, 2021 10:09 PM Reporting Lab: MODESTA VIVEROS [address] [place] [address] Performing Lab: MODESTA Zuñiga [facility] ; [place] [address] CODEINE <25 ng/mL 0-24 MORPHINE <25 ng/mL [...] ng/mL 0-19 Apr 11, 2021 10:53 [facility] EXPANDED URINE DRUG Speci men Type: [...] 18, 2021 10:09 PM Reporting Lab: MODESTA GARCES[address] [address] Performing Lab: MODESTA VIVEROS [address] [address] CREATININE, URINE 44.2 mg/dL 40-278 AMPHETAMINES/METHAMPHETAMINES SCREEN 0 NEG BARBITURATES SCREEN 0 NEG BENZODIAZEPINES SCREEN 0 NEG CANNABINOIDS SCREEN 18 NEG COCAINE SCREEN 10 NEG METHADONE SCREEN 0 NEG METHADONE METABOLITE (EDDP) SCREEN 0 NEG OPIATES SCREEN 32 NEG OXYCODONE SCREEN 0 NEG PHENCYCLIDINE (PCP) SCREEN 0 NEG
--- OUTSIDE RECORDS SUMMARY | 2021-11-11 08:46 | External Medical Summary | Encounter Summary ---
:1940 Author Organization [facility] Address [address] [place] [address] Care Team Providers Name Role Phone EMILY ARNOLD Primary Care Provider Unavailable Insurance Providers: All [...] Shanks BC OF PREFERRED UNIVE Jan 24, [id number] [phone] DEREK NN, PATIENT [place] PROVIDER RSITY [id number] [phone] JAYLA ORGANIZAT OF ION (PPO) [place] [id number] Oct 24, [id number] [phone] MARILYNNALEX, PATIENT [facility] [phone] JAYLA CAREMARK PRESCRIPT [id number] Apr 26, [id number] [phone] MARILYNNKoby SANTOS, PATIENT [id number] ION 9 [id number] JAYLA CAREMARK PRESCRIPT [id number] Apr 26, [id number] [phone] KITTY SANTOS, PATIENT [id number] ION 9 2013 [id number] 550 JAYLA MEDICARE MEDICARE PART Jun 24, PART A [id number] [phone] TOBI, PATIENT (WNR) (M) A 2004 [id number] JAYLA MEDICARE MEDICARE PART Jun 24, PART B [id number] [phone] TOBI, PATIENT (WNR) (M) B 2004 [id number] JAYLA MEDICARE MEDICARE PART Jun 24, PART A [id number] [phone] TOBI, PATIENT (WNR) (M) A 2004 64A 8431 JAYLA MEDICARE MEDICARE PART Jun 24, PART B [id number] [phone] TOBI, PATIENT (WNR) (M) B 2004 64A [id number] JAYLA MARTINS RETIREE WASHI Oct 24, [id number] [phone] TOBI, PATIENT BS UDWW [facility] 2002 7 [id number] [facility] [place] [facility] RX PRESCRIPT [id number] Apr 26, [id number] [phone] MARILYNN JOHNSON, PATIENT SERVICES [place] [address] 2012 [id number] JAYLA Selected Encounter This section includes the information on record at [place] for the Encounter. Date/Time Encounter Type Encounter Description Reason Provider Source Feb 06, 2021 10:40 Outpatient Encounter [facility] AM CONSULT IHE Encounter Template Text not used by [place] Plan of Treatment: Future Appointments (+ 6 months) and Future Tests (+/- 45 days) The Plan of Treatment section includes future care activities for the patient from all [place] treatmentfacilities. This section includes future appointments and future orders which are active, pending orscheduled.Future Appointments This section includes appointments that were scheduled to occur 6 months from the date of the Encounter, up to a maximum of 20 appointments. The data comes from all [place] treatment facilities. Appointment Date/Time Appointment Type Appointment Facili ty Name Feb 11, 2021 08:30 AM AMBULATORY - MEDICINE [facility] Feb 18, 2021 02:00 PM AMBULATORY - MEDICINE [facility] Feb 26, 2021 10:10 AM AMBULATORY - NONE MODESTA GARCES [facility] Mar 03, 2021 11:15 AM AMBULATORY - MEDICINE [facility] Mar 05, 2021 02:30 PM AMBULATORY - NONE MODESTA GARCES [facility] Mar 14, 2021 03:45 PM AMBULATORY - MEDICINE [facility] Apr 09, 2021 11:00 AM AMBULATORY - MEDICINE [facility] Apr 11, 2021 11:00 AM AMBULATORY - MEDICINE [facility] Apr 14, 2021 09:00 AM AMBULATORY - MEDICINE [facility] May 15, 2021 12:30 PM AMBULATORY - MEDICINE [facility] Jun 19, 2021 07:30 AM AMBULATORY - NONE MODESTA Yogesh MILI [facility] Jul 07, 2021 09:00 AM AMBULATORY - NONE MODESTA GARCES [facility] Jul 07, 2021 03:00 PM AMBULATORY - MEDICINE [facility] Jul 22, 2021 03:00 PM AMBULATORY - NONE MODESTADINESH BARRETOESEMAINE [facility] Active, Pending, and Scheduled Orders This section includes a listing of several types of active, pending, and scheduled orders, including clinic medications orders, diagnostic test orders, procedure orders and consult orders; where the start date of the order is 45 days before the date of the Encounter or 45 days after the date of the Encounter. The data comes from all [place] treatment facilities. Test Date/Time Test Type Test Details Facility Name Mar 18, 2021 09:53 PM Consult Order [facility] Line Installation Supervisor's Choice Lab Results: +/- 30 days of the encounter This section includes the Chemistry and Hematology Lab Results on record with [place] for the patient. Radiology Reports and Pathology Reports are provided separately, in subsequent sections.Lab Results This section contains the Chemistry/Hematology Results that were resulted 30 days before or 30 daysafter the date of the Encounter. Date/Time Source Result Type Result - Unit Interpretation Reference Range Comment Feb 11, 2021 08:20 AM [facility] HEMOGLOBIN A1C Specim en Type: BLOOD Comment: Target A1C values should be individualized. Better understanding of A1C test result accuracy is essential if clinicians are to interpret results for Veterans, and discuss treatment options thr ough the process of Shared Decision Making. For questions regarding the performance characteristics of this test, providers should contact the main laboratory. Patients should contact their healthcare provider. Ordering Provid er: EMILY ARNOLD Report Released Date/Time: Feb 05, 2021 04:30 PM Reporting Lab: MODESTA VIVEROS [place] [address] [address] [address] Performing Lab: [facility] [place] [address] [address] [address] [address] HEMOGLOBIN A1C 5.9 H 0-5.6 Feb 11, 2021 08:20 AM [facility] MAGNESIUM Specim en Type: BLOOD No comment enter ed. Ordering Provid er: EMILY ARNOLD Report Released Date/Time: Feb 05, 2021 04:30 PM Reporting Lab: [place] [place] [address] [place] [address] Performing Lab: [place] [place] [address] [address] [address] MAGNESIUM 1.8 mg/dL 1.6-2.6 Feb 11, 2021 08:20 [facility] VITAMIN D (25-HYDROXY) Sp ecimen Type: SERUM AM Comment: High d oses of Biotin supplements (>5 mg/day) may falsely increase Vitamin B-12, Vitamin D (25OH), Free T4, and Folate results. Test specimens should be collected at least 8 hrs after last i ngestion of high dose biotin. LDL Direct Adult Reference Range: Optimal <100 mg/dL Near optimal/above optimal 100-129 mg/dL Borderline high 130-159 mg/dL High 160-189 mg/dL Very High 190 mg/dL Note t hat non-fasting results may be slightly lower than fasting results. Ordering Provid er: EMILY ARNOLD Report Released Date/Time: Feb 05, 2021 04:30 PM Reporting Lab: [facility] [place] [address] [address] [address] Performing Lab: MODESTA GARCES[address] [place] [address] VITAMIN D (25-HYDROXY) 37.9 ng/mL 30.0-1 00 Feb 11, 2021 [facility] COMPREHENSIVE METABOLIC Spec imen Type: SERUM 08:20 AM PANEL Comment: High d oses of Biotin supplements (>5 mg/day) may falsely increase Vitamin B-12, Vitamin D (25OH), Free T4, and Folate results. Test specimens should be collected at least 8 hrs after last i ngestion of high dose biotin. LDL Direct Adult Reference Range: Optimal <100 mg/dL Near optimal/above optimal 100-129 mg/dL Borderline high 130-159 mg/dL High 160-189 mg/dL Very High 190 mg/dL Note t hat non-fasting results may be slightly lower than fasting results. Ordering Provid er: EMILY ARNOLD Report Released Date/Time: Feb 05, 2021 04:30 PM Reporting Lab: MODESTA VIVEROS [place] [address] [place] [address] Performing Lab: MODESTA GARCES[address] [place] [address] GLUCOSE 111 mg/dL H 71-109 BUN/UREA (BLOOD UREA NITROGEN) 12 mg/dL 7-23 CREATININE, SERUM 1.1 mg/dL .7-1.2 SODIUM 141 mmol/L 131-142 POTASSIUM 3.8 mmol/L 3.6-5.4 CHLORIDE 100 mmol/L 95-108 CARBON DIOXIDE 30 mmol/L 21-32 CALCIUM 8.9 mg/dL 8.4-10.5 TOTAL PROTEIN 7.0 g/dL 5.8-7.9 ALBUMIN 4.4 g/dL 3.8-5.2 GLOBULIN 2.6 g/dL 1.5-3.2 AST/SGOT 24 U/L 14-44 ALT/SGPT 36 U/L 9-57 ALKALINE PHOSPHATASE 148 U/L H 45-129 TOTAL BILIRUBIN 0.9 mg/dL 0.2-1.3 GFR ESTIMATION 64.2 mL/min/{1.73_m2} >60 ANION GAP 15 mmol/L 7-21 GFR ESTIMATION (CKD-EPI) 63 mL/min/{1.73_m2} L >90 Feb 11, 2021 08:20 [facility] CBC & MORPHOLOGY (WITH Sp ecimen Type: BLOOD AM DIFF) No comment enter ed. Ordering Provid er: EMILY ARNOLD Report Released Date/Time: Feb 05, 2021 04:30 PM Reporting Lab: MODESTA GARCES[address] [place] [address] Performing Lab: [place] [place] [address] [place] [address] WBC (TOTAL WBC COUNT) 6.9 3.0-10.6 RBC 5.17 3.86-5.70 HEMOGLOBIN 16.7 g/dL 11.8-17.1 HCT 47.0 36-51 MCV 90.9 fL 81-102 MCH 32.3 pg H 27-31 MCHC 35.5 g/dL 32-36 PLT 187 150-400 RDW 13.3 11.2-16.2 NEUT % 68.3 44-74 LYMP % 19.3 15-42 MONO % 10.1 4-13 EOS % 1.6 0-7 BASO % 0.4 0-2 NEUTROPHILS, ABSOLUTE 4.7 1.2-7.0 LYMPHOCYTES, ABSOLUTE 1.3 0.6-3.4 MONOCYTES, ABSOLUTE 0.7 0.2-1.0 EOSINOPHILS, ABSOLUTE 0.1 0.0-0.5 BASOPHILS, ABSOLUTE 0.0 0.0-0.2 IMMATURE GRANULOCYTE % 0.3 0-0.9 IMMATURE GRANULOCYTES, ABSOLUTE 0.02 0-0.07 Feb 11, 2021 08:20 [facility] THYROID STIMULATING Speci men Type: SERUM AM HORMONE Comment: High d oses of Biotin supplements (>5 mg/day) may falsely increase Vitamin B-12, Vitamin D (25OH), Free T4, and Folate results. Test specimens should be collected at least 8 hrs after last i ngestion of high dose biotin. LDL Direct Adult Reference Range: Optimal <100 mg/dL Near optimal/above optimal 100-129 mg/dL Borderline high 130-159 mg/dL High 160-189 mg/dL Very High 190 mg/dL Note t hat non-fasting results may be slightly lower than fasting results. Ordering Provid er: EMILY ARNOLD Report Released Date/Time: Feb 05, 2021 04:30 PM Reporting Lab: MODESTA VIVEROS [address] [place] [address] Performing Lab: MODESTA GARCES[address] [place] [address] THYROID STIMULATING HORMONE 3.77 0. 300-4.25 Feb 11, 2021 08:20 AM [facility] LIPID PANEL Specim en Type: SERUM Comment: High d oses of Biotin supplements (>5 mg/day) may falsely increase Vitamin B-12, Vitamin D (25OH), Free T4, and Folate results. Test specimens should be collected at least 8 hrs after last i ngestion of high dose biotin. LDL Direct Adult Reference Range: Optimal <100 mg/dL Near optimal/above optimal 100-129 mg/dL Borderline high 130-159 mg/dL High 160-189 mg/dL Very High 190 mg/dL Note t hat non-fasting results may be slightly lower than fasting results. Ordering Provid er: EMILY ARNOLD Report Released Date/Time: Feb 05, 2021 04:30 PM Reporting Lab: MODESTA Zuñiga [address] [place] [address] Performing Lab: MODESTA Zuñiga [address] [address] CHOLESTEROL 188 mg/dL <199 TRIGLYCERIDE 238 mg/dL H <149 HDL CHOLESTEROL 47 mg/dL >40 NON-HDL CHOLESTEROL 141 mg/dL <130 LDL, DIRECT 94 mg/dL 0-129 Feb 11, 2021 08:20 AM [facility] VITAMIN B-12 Specim en Type: SERUM Comment: High d oses of Biotin supplements (>5 mg/day) may falsely increase Vitamin B-12, Vitamin D (25OH), Free T4, and Folate results. Test specimens should be collected at least 8 hrs after last ingestion of high dose biotin. Ordering Provid er: EMILY ARNOLD Report Released Date/Time: Feb 05, 2021 04:30 PM Reporting Lab: MODESTA Zuñiga [address] [address] Performing Lab: MODESTA Zuñiga [address] [address] VITAMIN B-12 694 pg/mL [phone] Encounter Notes: All associated encounter notes This section contains the clinical notes associated to the Encounter. Date/Time Encounter Note(s) Provider Source Feb 06, 2021 10:40 ADMINISTRATIVE NOTE: BETSEY CHAMBERS AM LOCAL TITLE: TELEPHONE CONTACT CALL CENTER [facility] [place] [facility] STANDARD TITLE: ADMINISTRATIVE NOTE DATE OF NOTE: FEB 06, 2021@10:40:32 ENTRY DATE: FEB 06, 2021@10:44:40 AUTHOR: BETSEY CHAMBERS EXP COSIGNER: URGENCY: STATUS: COMPLETED TELEPHONE CONTACT CALL CENTER ADMIN Has ADD ENDA The following identifiers were used to verify th is patient: . SSN. The patient, JAYLA BRITTON ([id number] ) called the call center. Contact Type of call: V20 PACT MSG. Comments: is requesting a c/b to discuss fatigue,Decrease of appetite, back pain. Decline NT. Thank You. Author: TELMA CHAMBERS Evaluation/Management Code: HC PRO PHONE CALL 5- 10 MIN ([id number]). Starting at: 02/06/2021 @ 10:40:32 AM Ending at: 02/06/2021 @ 10:42:44 AM Length: 2 minutes. Caller Area: [address] Chief Complaint: Not applicable to call. Caller Response: V20 RETURN CALL Caller/[place] verbalize understanding; acknowle dges message. Patient's Email Address: Class Code: Other specified counseling. /martha/ [facility] Signed: 02/06/2021 10:44 Receipt Acknowledged By: 02/06/2021 16:01 /martha/ LINN ARECHIGA RN 02/06/2021 ADDENDUM STATUS: COMPLETED call to vet states has had his 2 covid vaccines and just got his 3rd x 2 weeks ago and has had covid. has been having increased sto mach upset but its getting better. vet also states has noticed a rash on his legs advised to vet he is scheduled for an appt with yajaira arnold in about a week. vet states that will be fine and will come to inic then, will go to ER or urgent care if symptoms get worse. /martha/ LINN ARECHIGA RN Signed: 02/06/2021 16:07
--- OUTSIDE RECORDS SUMMARY | 2021-11-11 08:46 | External Medical Summary | Encounter Summary ---
:1939 Author Organization [facility] rs Address [address] [place] [address] Support Name Relationship Address Phone ERNIE BRITTON Unavailable [address] [facility] [phone] [facility] [place] [facility] [place] [address] ERNIE BRITTON Unavailable [address] [facility] [phone] [place] [address] Insurance Providers: All historical and current Section [...] Name to Policy Number Shanks BC OF [facility] UNIVE Jan 24, [id number] [phone] DEREK NN, PATIENT [place] PROVIDER [facility] [id number] JAYLA ORGANIZAT OF ION (PPO) [facility] [place] [id number] Oct 24, [id number] TOBI, PATIENT [facility] 2002 [id number] JAYLA CAREMARK PRESCRIPT [id number] Apr 26, [id number] [phone] KITTY SANTOS, PATIENT [id number] ION 9 2013 [id number] [phone] JAYLA CAREMARK PRESCRIPT [id number] Apr 26, [id number] [phone] MARILYNNKoby SANTOS, PATIENT [id number] ION 9 2013 [id number] JAYLA MEDICARE MEDICARE PART Jun 24, PART A [id number] TOBI, PATIENT (WNR) (M) A 2004 [id number] JAYLA MEDICARE MEDICARE PART Jun 24, PART B [id number] [phone] TOBI, PATIENT (WNR) (M) B 2004 [id number] [place] MEDICARE MEDICARE PART Jun 24, PART A [id number] TOBI, PATIENT (WNR) (M) A 2004 64A 8431 JAYLA MEDICARE MEDICARE PART Jun 24, PART B [id number] TOBI, PATIENT (WNR) (M) B 2004 64A 8431 JAYLA MARTINS RETIREE TANK Oct 24, [id number] TOBI, PATIENT BS UDWW [facility] 2002 7 [id number] [facility] RX PRESCRIPT [id number] Apr 26, [id number] [phone] MARILYNN JOHNSON, PATIENT SERVICES [place] [address] 2012 [id number] JAYLA Selected Encounter This section includes the information on record at [place] for the Encounter. Date/Time Encounter Type Encounter Description Reason Provider Source Jan 29, 2021 12:00 Outpatient Encounter EVENT (HISTORICAL) AM IHE Encounter Template Text not used [...] 11, 2021 08:30 AM AMBULATORY - MEDICINE [facility] Feb 18, 2021 02:00 PM AMBULATORY - MEDICINE [facility] Feb 26, 2021 10:10 AM AMBULATORY - NONE MODESTA GARCES [facility] Mar 03, 2021 11:15 AM AMBULATORY - MEDICINE [facility] Mar 05, 2021 02:30 PM AMBULATORY - NONE MODESTA GARCES [facility] Mar 14, 2021 03:45 PM AMBULATORY - MEDICINE [facility] Apr 09, 2021 11:00 AM AMBULATORY - MEDICINE [facility] Apr 11, 2021 11:00 AM AMBULATORY - MEDICINE [facility] Apr 14, 2021 09:00 AM AMBULATORY - MEDICINE [facility] May 15, 2021 12:30 PM AMBULATORY - MEDICINE [facility] Jun 19, 2021 07:30 AM AMBULATORY - NONE MODESTA GARCES [facility] Jul 07, 2021 09:00 AM AMBULATORY - NONE MODESTA GARCES [facility] Jul 07, 2021 03:00 PM AMBULATORY - MEDICINE [facility] Jul 22, 2021 03:00 PM AMBULATORY - NONE MODESTADINESH ANNMCLAREN [place] Lab Results: +/- 30 days of the [...] Range Comment Feb 11, 2021 08:20 AM [facility] HEMOGLOBIN A1C Specim en Type: BLOOD Comment: [...] their healthcare provider. Ordering Provid er: EMILY ROSALES Report Released Date/Time: Feb 05, 2021 04:30 PM Reporting Lab: MODESTA [address]ARCES[address] [place] [address] Performing Lab: MODESTA GARCES[address] [place] [address] HEMOGLOBIN A1C 5.9 H 0-5.6 Feb 11, 2021 08:20 AM [facility] MAGNESIUM Specim en Type: BLOOD No comment enter ed. Ordering Provid er: EMILY ROSALES Report Released Date/Time: Feb 05, 2021 04:30 PM Reporting Lab: MODESTA VIVEROS [address] [address] Performing Lab: MO[place]STA [place] [address] [place] [address] MAGNESIUM 1.8 1.6-2.6 Feb 11, 2021 08:20 [facility] VITAMIN D (25-HYDROXY) Sp ecimen Type: SERUM [...] than fasting results. Ordering Provid er: EMILY ROSALES Report Released Date/Time: Feb 05, 2021 04:30 PM Reporting Lab: MODESTA VIVEROS [place] [address] [address] [address] [address] Performing Lab: MODESTA VIVEROS [place] [address] [place] [address] VITAMIN D (25-HYDROXY) 37.9 30.0-10 0 Feb 11, 2021 [facility] COMPREHENSIVE METABOLIC Spec imen Type: SERUM 08:20 [...] than fasting results. Ordering Provid er: EMILY ROSALES Report Released Date/Time: Feb 05, 2021 04:30 PM Reporting Lab: MODESTA VIVEROS [place] [address] [place] [address] Performing Lab: MODESTA VIVEROS [place] [address] [place] [address] GLUCOSE 111 H 71-109 BUN/UREA (BLOOD UREA NITROGEN) 12 7-23 CREATININE, SERUM 1.1 .7-1.2 SODIUM 141 131-142 POTASSIUM 3.8 3.6-5.4 CHLORIDE 100 95-108 CARBON DIOXIDE 30 21-32 CALCIUM 8.9 8.4-10.5 TOTAL PROTEIN 7.0 5.8-7.9 ALBUMIN 4.4 3.8-5.2 GLOBULIN 2.6 1.5-3.2 AST/SGOT 24 14-44 ALT/SGPT 36 9-57 ALKALINE PHOSPHATASE 148 H 45-129 TOTAL BILIRUBIN 0.9 0.2-1.3 GFR ESTIMATION 64.2 >60 ANION GAP 15 7-21 GFR ESTIMATION (CKD-EPI) 63 L >90 Feb 11, 2021 08:20 [facility] CBC & MORPHOLOGY (WITH Sp ecimen Type: BLOOD AM DIFF) No comment enter ed. Ordering Provid er: EMILY ROSALES Report Released Date/Time: Feb 05, 2021 04:30 PM Reporting Lab: MODESTA VIVEROS [address] [address] Performing Lab: MODESTA VIVEROS [address] [address] WBC (TOTAL WBC COUNT) 6.9 3.0-10.6 RBC 5.17 3.86-5.70 HEMOGLOBIN 16.7 11.8-17.1 HCT 47.0 36-51 MCV 90.9 81-102 MCH 32.3 H 27-31 MCHC 35.5 32-36 PLT 187 150-400 RDW 13.3 11.2-16.2 NEUT % 68.3 44-74 LYMP % 19.3 15-42 MONO % 10.1 4-13 EOS % 1.6 0-7 BASO % 0.4 0-2 NEUTROPHILS, ABSOLUTE 4.7 1.2-7.0 LYMPHOCYTES, ABSOLUTE 1.3 0.6-3.4 MONOCYTES, ABSOLUTE 0.7 0.2-1.0 EOSINOPHILS, ABSOLUTE 0.1 0.0-0.5 BASOPHILS, ABSOLUTE 0.0 0.0-0.2 IMMATURE GRANULOCYTE % 0.3 0-0.9 IMMATURE GRANULOCYTES, ABSOLUTE 0.02 0-0.07 Feb 11, 2021 08:20 [facility] THYROID STIMULATING Speci men Type: SERUM AM [...] than fasting results. Ordering Provid er: EMILY ROSALES Report Released Date/Time: Feb 05, 2021 04:30 PM Reporting Lab: MODESTA VIVEROS [place] [address] [address] [address] Performing Lab: MODESTA VIVEROS [place] [address] [address] [address] THYROID STIMULATING HORMONE 3.77 0. 300-4.25 Feb 11, 2021 08:20 AM [facility] LIPID PANEL Specim en Type: SERUM Comment: [...] than fasting results. Ordering Provid er: EMILY ROSALES Report Released Date/Time: Feb 05, 2021 04:30 PM Reporting Lab: MODESTA VIVEROS [place] [address] [address] [address] Performing Lab: MODESTA VIVEROS [place] [address] [address] [address] CHOLESTEROL 188 <199 TRIGLYCERIDE 238 H <149 HDL CHOLESTEROL 47 >40 NON-HDL CHOLESTEROL 141 <130 LDL, DIRECT 94 0-129 Feb 11, 2021 08:20 AM [facility] VITAMIN B-12 Specim en Type: SERUM Comment: High d oses of Biotin supplements (>5 mg/day) may falsely increase Vitamin B-12, Vitamin D (25OH), Free T4, and Folate results. Test specimens should be collected at least 8 hrs after last ingestion of high dose biotin. Ordering Provid er: EMILY ROSALES Report Released Date/Time: Feb 05, 2021 04:30 PM Reporting Lab: MODESTA VIVEROS [address] [place] [address] Performing Lab: MODESTA VIVEROS [address] [place] [address] VITAMIN B-12 [phone]
--- OUTSIDE RECORDS SUMMARY | 2021-11-11 08:46 | External Medical Summary | Encounter Summary ---
:[address] [facility] Address [address] [place] [address] Care Team Providers Name Role Phone EMILY [...] Shanks BC OF PREFERRED UNIVE Jan 24, [id number] [phone] DEREK NN, [place]IENT [place] PROVIDER RSITY [phone] JAYLA ORGANIZAT OF ION (PPO) [place]REE [id number] Oct 24, [id number] [phone] MARILYNNALEX, PATIENT [facility] [id number] JAYLA CAREMARK PRESCRIPT [id number] Apr 26, [id number] [phone] MARILYNNKoby SANTOS, PATIENT [id number] ION 9 [phone] JAYLA CAREMARK PRESCRIPT [id number] Apr 26, [id number] [phone] MARILYNNKoby SANTSO, PATIENT [id number] ION 9 [phone] JAYLA MEDICARE MEDICARE PART Jun 24, PART A [id number] TOBI, PATIENT (WNR) (M) A [id number] JAYLA MEDICARE MEDICARE PART Jun 24, PART B [id number] TOBI, PATIENT (WNR) (M) B 2004 [id number] JAYLA MEDICARE MEDICARE PART Jun 24, PART A [id number] TOBI, PATIENT (WNR) (M) A 2004 [id number] [id number] JAYLA MEDICARE MEDICARE PART Jun 24, PART B [id number] TOBI, PATIENT (WNR) (M) B 2004 [id number] [id number] JAYLA MARTINS RETIREE WASHI Oct 24, [id number] TOBI, PATIENT BS UDWW [facility] 2002 [id number] [facility] [place] ST RX PRESCRIPT [id number] Apr 26, [id number] [phone] MARILYNN JOHNSON, PATIENT SERVICES [place] [id number] [phone] [place] Selected Encounter This section includes the information on record at [place] for the Encounter. Date/Time Encounter Type Encounter Reason Provider Source Description Feb 18, 2021 OFFICE O/P EST PRIMARY ICD-10-CM R21 EMILY LOPEZ 02:00 PM MOD 30-39 MIN CARE/MEDICINE Rash and other nonspecific skin eruption with Provider Comments: Rash (SNOMED CT [id number]) IHE Encounter Template Text not used by [place] Assessments - Encounter Diagnoses This section includes the primary and secondary diagnoses documented for the Encounter. 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, E CLIN[facility] lumbar region Feb 18, 2021 SECONDARY Pure hyperglyceridemia EMILY LOPEZ [place] 03:07 PM E CLINIC Plan of Treatment: Future Appointments (+ [...] Appointment Type Appointment Facili ty Name Feb 26, 2021 10:10 AM AMBULATORY - NONE MODESTA GARCES [facility] Mar 03, 2021 11:15 AM AMBULATORY - MEDICINE [facility] Mar 05, 2021 02:30 PM AMBULATORY - NONE MODESTA GARCES [facility] Mar 14, 2021 03:45 PM AMBULATORY - MEDICINE [facility] Apr 09, 2021 11:00 AM AMBULATORY - MEDICINE [facility] Apr 11, 2021 11:00 AM AMBULATORY - MEDICINE [facility] Apr 14, 2021 09:00 AM AMBULATORY - MEDICINE [facility] May 15, 2021 12:30 PM AMBULATORY - MEDICINE [facility] Jun 19, 2021 07:30 AM AMBULATORY - NONE MODESTA Zuñiga [facility] Jul 07, 2021 09:00 AM AMBULATORY - NONE MODESTA Zuñiga [facility] Jul 07, 2021 03:00 PM AMBULATORY - MEDICINE [facility] Jul 22, 2021 03:00 PM AMBULATORY - NONE MODESTA Zuñiga [facility] Active, Pending, and Scheduled Orders This [...] Mar 18, 2021 09:53 PM Consult Order [facility] Assistant Dean Of Students's Choice Lab Results: +/- 30 days of the encounter This section includes the Chemistry and Hematology Lab Results on record with [place] for the patient. Radiology Reports and Pathology Reports are provided separately, in subsequent sections.Lab Results This section contains the Chemistry/Hematology Results that were resulted 30 days before or 30 daysafter the date of the Encounter. Date/Time Source Result Type Result - Unit Interpretation Reference Range Comment Feb 11, 2021 08:20 AM [facility] HEMOGLOBIN A1C Specim en Type: BLOOD Comment: [...] their healthcare provider. Ordering Provid er: EMILY LOPEZ Report Released Date/Time: Feb 05, 2021 04:30 PM Reporting Lab: MODESTA VIVEROS [place] [address] [address] [address] Performing Lab: MO[facility] VIVEROS [place] [address] [address] [address] HEMOGLOBIN A1C 5.9 H 0-5.6 Feb 11, 2021 08:20 AM [facility] MAGNESIUM Specim en Type: BLOOD No comment enter ed. Ordering Provid er: EMILY LOPEZ Report Released Date/Time: Feb 05, 2021 04:30 PM Reporting Lab: [facility] VIVER[facility] [place] [address] [address] [address] Performing Lab: [place] [address] [address] [address] MAGNESIUM 1.8 mg/dL 1.6-2.6 Feb 11, 2021 08:20 [facility] VITAMIN D (25-HYDROXY) Sp ecimen Type: SERUM [...] 2021 04:30 PM Reporting Lab: MO[facility] VIVEROS [place] [address] [address] [address] Performing Lab: [place] [address] [address] [address] VITAMIN D (25-HYDROXY) 37.9 ng/mL 30.0-1 00 Feb 11, 2021 [facility] COMPREHENSIVE METABOLIC Spec imen Type: SERUM 08:20 [...] 2021 04:30 PM Reporting Lab: MODESTA VIVEROS [address] [place] [address] Performing Lab: MODESTA VIVEROS [address] [place] [address] GLUCOSE 111 mg/dL H 71-109 BUN/UREA (BLOOD [...] mL/min/{1.73_m2} L >90 Feb 11, 2021 08:20 [facility] CBC & MORPHOLOGY (WITH Sp ecimen Type: BLOOD AM DIFF) No comment enter ed. Ordering Provid er: EMILY LOPEZ Report Released Date/Time: Feb 05, 2021 04:30 PM Reporting Lab: [facility] [address] [place] [place] [address] Performing Lab: MODESTA BARRETO[address] [place] [address] WBC (TOTAL WBC COUNT) 6.9 3.0-10.6 RBC [...] ABSOLUTE 0.02 0-0.07 Feb 11, 2021 08:20 [facility] THYROID STIMULATING Speci men Type: SERUM AM [...] 05, 2021 04:30 PM Reporting Lab: MODESTA [address] [place] [address] Performing Lab: MODESTA Zuñiga [place] [facility] [address] [address] THYROID STIMULATING HORMONE 3.77 0. 300-4.25 Feb 11, 2021 08:20 AM [facility] LIPID PANEL Specim en Type: SERUM Comment: [...] 2021 04:30 PM Reporting Lab: MODESTA VIVEROS [place] [address] [address] [address] Performing Lab: [place] [address] [address] [address] CHOLESTEROL 188 mg/dL <199 TRIGLYCERIDE 238 mg/dL H <149 HDL CHOLESTEROL 47 mg/dL >40 NON-HDL CHOLESTEROL 141 mg/dL <130 LDL, DIRECT 94 mg/dL 0-129 Feb 11, 2021 08:20 AM [facility] VITAMIN B-12 Specim en Type: SERUM Comment: High d oses of Biotin supplements (>5 mg/day) may falsely increase Vitamin B-12, Vitamin D (25OH), Free T4, and Folate results. Test specimens should be collected at least 8 hrs after last ingestion of high dose biotin. Ordering Provid er: EMILY LOPEZ Report Released Date/Time: Feb 05, 2021 04:30 PM Reporting Lab: MODESTA VIVEROS [place] [address] [address] [address] Performing Lab: [place] [address] [address] [address] VITAMIN B-12 694 pg/mL 232-1245 Vital Signs: All taken on the encounter date This section contains inpatient and outpatient Vital Signs collected on the date of the Encounter. Date/Time Temperature Pulse Blood Respiratory SP02 Pain Height Weight Gallo dy Source Pressure Rate Mass Index Feb 18, 97.9 F 87 128/87 16 /min 93 % 4 66 in 195 lb 32 [facility] 2020 02:14 /min mm[Hg] [facility] Social History: Smoking Status (Most current) and Tobacco Use (All prior to encounter date) This section includes the most current, and the historical, smoking and tobacco-related health factors from the [place] facility where the Encounter took place.Current Smoking Status This section includes the most current smoking, or tobacco-related health factor, from the [place] facility where the Encounter took place. Date/Time Current Smoking Status Comment Facility Feb 18, 2021 02:00 PM [place]-TOBACCO FORMER USER [facility] Tobacco Use History This section includes a history of the smoking, or tobacco- related health factors, that were collected on or before the date of the Encounter. The data comes from the [facility] where the Encounter took place. Date/Time Smoking Status/Tobacco Use Comment [facility] Feb 18, 2021 02:00 PM [place]-TOBACCO QUIT 15 YRS OR MORE [facility] Feb 13, 2020 09:00 AM [place]-TOBACCO FORMER USER [facility] Feb 13, 2020 09:00 [facility] Encounter Notes: All associated encounter notes This section contains the clinical notes associated to the Encounter. Date/Time Encounter Note(s) Provider Source Feb 18, 2021 03:06 MEDICATION MGT NOTE: EMILY LOPEZ [facility] LOCAL TITLE: NON-VA MEDICATION - [place] STANDARD TITLE: MEDICATION MGT NOTE DATE OF NOTE: FEB 18, 2021@15:06 ENTRY DATE: FEB 18, 2021@15:06:32 AUTHOR: EMILY LOPEZ EXP COSIGNER: URGENCY: STATUS: COMPLETED [facility] [address] [place] [address] Today's Date: FEB 18, 2021 Name: MARILYNNTURNER JOHNSONOY Gabby : Jun Address: [address] [address] Allergy/ADR: ATROVENT, FLONASE CLOTRIMAZOLE 1% TOP CREAM Sig: APPLY THIN FILM TO AFFECTED AREA TWICE A D AY for rash antifungal Quantity:_30 Refills:__none ____yes ____ Substitution Permitted Dispense as Written /es/ Emily FIGUEROA Nurse Practitioner Signed: 02/18/2021 15:07 Feb 18, 2021 03:05 ADMINISTRATIVE NOTE: [facility] LOCAL TITLE: AFTER VISIT SUMMARY STANDARD TITLE: ADMINISTRATIVE NOTE DICT DATE: FEB 18, 2021@15:05:23 ENTRY DATE: OC T 2020@15:05:25 DICTATED BY: EMILY LOPEZ EXP COSIGNER: URGENCY: STATUS: COMPLETED The patient was provided with a copy of an after -visit summary at the conclusion of the visit. The after-visit summary includes information per taining to the patient's encounter, including diagnoses, vital signs, med ications, and new orders, as well as a list of any any upcoming appointmen ts and information regarding the patient's ongoing care. The patient's medications were reviewed with the patient by the provider and were provided to the patient as an updated l ist of medications. The patient was instructed to inform the provider of any medication changes or discrepancies that were noted. Otherwise, the patient was instructed to continue the medications as prescribed. A copy of the after-visit summary provided to [facility] patient is available in [employer]. SCANNED DOCUMENT SIGNATURE NOT REQUIRED Electronically Filed: 02/18/2021 by: Emily FIGUEROA Nurse Practitioner Feb 18, 2021 02:46 PRIMARY CARE E & M NOTE: EMILY LOPEZ [facility] PM LOCAL TITLE: PRIMARY CARE PROVIDER NOTE STANDARD TITLE: PRIMARY CARE E & M NOTE DATE OF NOTE: FEB 18, 2021@14:46 ENTRY DATE: FEB 18, 2021@14:46:05 AUTHOR: EMILY LOPEZ EXP COSIGNER: URGENCY: STATUS: COMPLETED FEB 18, 2021 Patient identification is confirmed by full name , date of and social security number prior to interview and examinati on. Hand washing is completed prior to interview and examination CC/HPI SUBJECTIVE: Alg[place] is a 80 year old MALE who pr esents with rash left lower leg stated 2 month ago now most of lower leg itchy trying mostly antiitch cream without benefit Left shoulder injection improved pain Keny 03/18/2021 for lumbar degeneration mild left lower back and bilteral thigh and right hip pain REVIEW OF SYSTEMS Constitutional: Denies: Fever, unexplained weight loss, chills, swollen gland, fatigue, weakness, or trouble sleeping. Cardiovascular: Denies: Chest pain, dyspnea, orthopnea, paroxys mal nocturnal dyspnea, palpitations, syncope, dizziness, or edema. Respiratory: Denies: shortness of breath, cough, hemoptysis, sputum production, painful breathing or wheezing. Gastrointestinal: Denies: Abdominal pain, nausea, vomiting, dysph agia, heartburn, diarrhea, constipation, changes in bowel habits, melena, o r hematochezia Genitourinary: Denies: Burning, frequency, hesitency, urgency, incontinence, or blood in urine. Musculoskeletal: C/O: pain 5-6/10 bilateral thigh and left low ba ck Skin: Denies: C/O: left lower leg rash Psychiatric: Denies: Depression, nervousness, stress, memory loss, SI/HI or mood swings Endocrine: Denies: Temperature intolerance, polyuria, poly dipsia, polyphagia, excessive sweating, or changes in hair or nails Hematologic: Denies: Bleeding, bruising, lymphadenopathy. 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, Onset 05/24/2020 S EMILY OCHOA Pain of right shoulder joint M25.51 05/13/2020 S EMILY OCHOA Dysphagia R13.10 02/15/2020 EMILY LOPEZ Chronic obstructive lung disease J4 02/13/2020 S EMILY OCHOA Cervical arthritis M54.2, Onset 02/15/2020 S EMILY OCHOA Obstructive sleep apnea of adult G4 02/13/2020 S EMILY OCHOA Hyperlipidemia E78.5, Onset 02/13/2020 S EMILY OCHOA Allergic rhinitis J30.9, Onset 02/13/2020 S EMILY OCHOA Hypertension I10., Onset 04/26/2019 02/13/2020 S EMILY OCHOA Glaucoma R69., Onset 04/26/2019 02/13/2020 EMILY LOPEZ Social History: Marital Status: Sexual Partners: Sexual Preference: ETOH:No Type & Frequency: Quit: Tobacco:No Type & Amount: Quit: OBJECTIVE: CURRENT VITAL: Temperature: 97.9 F [36.6 C] (02/18/2021 14:14) Respirations: 16 (02/18/2021 14:14) Pulse: 87 (02/18/2021 14:14) Blood Pressure: 128/87 (02/18/2021 14:14) Weight: 195 lb [88.6 kg] (02/18/2021 14:14) Height: 66 in [167.6 cm] (02/18/2021 14:14) BMI: BMI: 32 SAO2: 93% DATE: Jan@14:15:39 Pain: 4 (02/18/2021 14:14) GENERAL: Alert & oriented x 3, Well-developed, well-nour ished, and in no acute distress. RESPIRATORY: Clear to auscultation bilaterally. Normal respi ratory effort. No rales, rhonchi or wheezing. HEART: Regular rate and rhythm. Normal S1 and S2. No m urmurs, gallops, thrills, or rubs. ABDOMEN: Bowel sounds normal. No masses, organomegaly, g uarding or rigidity. Soft, non-tender, non-distended. No hernia. Negative for abdominal bruit. MUSCOLOSKELETAL Lower Extremity: Hip: Significant findings:bilateral pain right hip th ighs bilateral Back: Significant findings:low back pain with palp NEURO: Cranial nerves II-XII grossly intact. Strength equal and adequate bilaterally. Sensation to light touch intact. G ait normal. Deep tendon reflexes bilaterally symmetrical. PSYCH: Oriented to person, place, and time. Mood & aff ect normal. Recent and remote memory normal, judgment normal. SKIN: left lower leg pink round large circular rash d ry slight scaley diffuse red pink color MEDICATION RECONCILIATION: Active Outpatient Medications (including Supplie s): Active [...] ACTIVE MOUTH EVERY DAY FOR CHOLESTEROL 4) CETIRIZINE HCL 10MG TAB TAKE ONE TABLET BY MO [facility] ACTIVE EVERY DAY FOR ALLERGIES 5) HYDROCHLOROTHIAZIDE 25MG TAB TAKE ONE TABLET BY MOUTH ACTIVE EVERY DAY (WATER PILL) 6) LIDOCAINE 5% PATCH APPLY 1 PATCH TO SKIN EVER Y DAY ACTIVE (FOR 12 HOURS ON, FOLLOWED BY 12 HOURS OFF) FOR PAIN 7) [place]AN POTASSIUM 50MG TAB TAKE ONE TABLET B Y MOUTH ACTIVE EVERY DAY 8) OMEPRAZOLE 20MG EC CAP TAKE ONE CAPSULE BY MO UTH ACTIVE EVERY DAY FOR STOMACH ACID, TAKE ONE-HALF HOUR PRIOR TO BREAKFAST 9) TRELEGY ELLIPTA 100/62.5/25MCG INH 30D INHALE ONE ACTIVE INHALATION BY MOUTH EVERY MORNING FOR COPD. RIN SE MOUTH AFTER USE Pending Outpatient Medications Status 1) BETAMETHASONE DIPROPIONATE 0.05% CREAM APPLY THIN PENDING FILM TO AFFECTED AREA TWICE A DAY Active Non-VA Medications Status 1) Non-VA CHOLECALCIF 25MCG (D3-1,000UNIT) TAB 2 5MCG BY ACTIVE MOUTH EVERY DAY 2) Non-VA CLOTRIMAZOLE 1% TOP CREAM THIN FILM TO ACTIVE AFFECTED AREA TWICE A DAY 3) Non-VA MAGNESIUM OXIDE 420MG TAB 420MG BY NATASHA TH EVERY ACTIVE DAY 4) Non-VA MULTIVITAMIN CAP/TAB 1 TABLET BY MOUTH EVERY ACTIVE DAY 5) Non-VA POTASSIUM CITRATE 99MG 99MG BY MOUTH E VERY DAY ACTIVE 6) Non-VA TIMOLOL MALEATE 0.5% OPH SOLN 1 DROP E ACH EYE ACTIVE EVERY DAY 7) Non-VA TRAMADOL HCL 50MG TAB 100MG BY MOUTH F OUR ACTIVE TIMES A DAY NEEDED 17 Total Medications ALLERGIES: ATROVENT, FLONASE ASSESSMENT: Medication Reconciliation done and Med list/teac moshe document given to patient All recent labs and radiology reports were revie wed with the patient, copy of all labs provided and all questions answ ered. Patient demonstrated good understanding. Reviewed patient's life goals. Visit Diagnoses/Plan: rash clotrimazole cream trial betamethasone sterioid cream to be mailed sterio d cream add to fungal cream if not improving elevated tryglyceride exetamibe lumbar deg F/U [place] 03/18/2021 tylenol an short fill tramadol Ibprofen OTC 200 -400mg daily or twice daily Follow-up visit in 12 mo 35 min /es/ Emily FIGUEROA Nurse Practitioner Signed: 02/22/2021 11:46 Feb 18, 2021 02:15 PRIMARY CARE NURSING NOTE: LUDWIG LEUNG [facility] TITLE: BILLPOSTING SUPERVISOR NURSING NOTE (T) STANDARD TITLE: PRIMARY CARE NURSING NOTE DATE OF NOTE: FEB 18, 2021@14:15 ENTRY DATE: FEB 18, 2021@14:16 AUTHOR: LUDWIG LEUNG EXP COSIGNER: URGENCY: STATUS: COMPLETED Patient identification is confirmed by full name , date of and social security number prior to interview and examinati on. Hand washing is completed prior to interview and examination. Age:80 Height:66 in [167.6 cm] (02/18/2021 14:14) Weight:195 lb [88.6 kg] (02/18/2021 14:14) VITALS Temperature:97.9 F [36.6 C] (02/18/2021 14:14) BP:128/87 (02/18/2021 14:14) Pulse:87 (02/18/2021 14:14) Resp:16 (02/18/2021 14:14) SpO2:93% DATE: Jan@14:15:39; [X]On room air [ ]On L/min. 02 BMI:31* PAIN (scale 0-10):4 (02/18/2021 14:14) Is this pain level tolerable? Yes Pain Location:lower back, radiating down legs CC:annual visit, Koby Lopez is PCP Allergies/ADR: ATROVENT, FLONASE Allergy list correct (if no, update)? Yes Clinical Reminders Done Today COVID-19 Immunization: Pfizer COVID-19 Vaccine given previously Patient received a prior dose of the Pfizer COV ID-19 Vaccine. Date: January 24, 2021 Series: Series 3 Location: [facility] Advance Directive Education: Patient does not have advance directive. Forms given and instructed to fill out and return. Alcohol Use Screen (AUDIT-C): Alcohol Screen: SCREEN FOR ALCOHOL (AUDIT-C) An alcohol screening test (AUDIT-C) was negativ e (score=0). 1. How often did you have a drink containing al cohol in the past year? Never 2. How many drinks containing alcohol did you h ave on a typical day when you were drinking in the past year? Response not required due to responses to other questions. 3. How often did you have six or more drinks on one occasion in the past year? Response not required due to responses to other questions. Depression Screening: Perform PHQ-2 A PHQ-2 screen was performed. The score was 0 w hich is a negative screen for depression. Over the past two weeks, how often have you bee n bothered by the following problems? 1. Little interest or pleasure in doing things Not at all 2. Feeling down, depressed, or hopeless Not at all Fall Risk Screen and Evaluation: Have you fallen in the last year? No. Are you or your family concerned that you may f all? No. Does the patient appear to have gait, balance o r strength problems? No. The patient has screened negative for fall risk . Patient and family were educated on fall prevention. No other intervent ions needed at this time. Get Up & Go Normal. Has NOT had three or more f alls in a year OR one fall with emergency room visit. COMMENT: Healthy Living Discussion: Importance of healthy living for better health, especially being physically active and eating wisely, was communicated to romero Pazan. Not interested in any topic at this time. Veter an informed that these topics can be discussed at any time. Herpes Zoster (Shingles) Vaccine: Prior Herpes Zoster vaccination The patient has been vaccinated in the past but written documentation of vaccination is not available today. Patient instructed to obtain a written record o f the prior vaccine and bring it to the next appointment. Homelessness/Food Insecurity Screen: In the past 2 months, have you been living in s table housing that you own, rent, or stay in as part of a household? Y es - Living in stable housing. Are you worried or concerned that in the next 2 months you may NOT have stable housing that you own, rent, or stay in a s part of a household? No - Not worried about housing near future The reports the following: Within the past 12 months, you worried whether your food would run out before you got money to buy more. Never true Within the past 12 months, the food you bought just didn't last and you didn't have money to get more. Never true Influenza Immunization: The patient has received the seasonal influenza vaccine for the current season at another location. Date: January 24, 2021 Location: [facility] Learning Assessment: Ability to Learn: Patient indicates interest in learning. Learning Preferences/Potential Barriers: Patient prefers learning in a one to one, direc t instruction method. Patient is able to use the internet for learnin g/information. Are you registered for [employer]? No - Are you interested in registering? No If ' yes' please hand [employer] brochure. Degree of Understanding: /caregiver verbalized understanding of i nformation given. Primary Language and Language Preference: Maori Pneumococcal PPSV23 (Pneumovax): Prior pneumococcal vaccination The patient has been vaccinated in the past but written documentation of vaccination is not available today. Patient instructed to obtain a written record o f the prior vaccine and bring it to the next appointment. Relationship Health & Safety Screen: RELATIONSHIP HEALTH & SAFETY SCREEN ENVIRONMENTAL SAFETY CHECK: Screening is not completed at this time due to: Another adult is present. Tobacco Use Screening: The patient is a former tobacco user. The patient quit fifteen or more years ago. Travel and Symptom Screen: The patient indicated that they and their close contacts have not traveled outside of the [place] in the past 21 day s. The patient reports the following symptoms: No symptoms present The patient is not immunocompromised. The patient does not report having a history of Multi Drug Resistant Organism (MDRO) within the last five years. The patient does not report having been exposed to measles, chickenpox, or zoster in last 30 days. /martha/ LUDWIG GONZALES/Silvio Signed: 02/18/2021 14:21
--- OUTSIDE RECORDS SUMMARY | 2021-11-11 08:46 | External Medical Summary | Encounter Summary ---
:1940 [facility] [address] [place] [address] Care Team Providers Name Role Phone EMILY [...] Shanks BC OF PREFERRED UNIVE Jan 24, [id number] [phone] DEREK NN, PATIENT [place] PROVIDER RSITY [id number] [phone] JAYLA ORGANIZAT OF ION (PPO) [place]REE [id number] Oct 24, [id number] [phone] MARILYNNALEX, PATIENT [facility] [phone] JAYLA CAREMARK PRESCRIPT [id number] Apr 26, [id number] [phone] MARILYNNKoby SANTOS, PATIENT [id number] ION 9 [phone] JAYLA CAREMARK PRESCRIPT [id number] Apr 26, [id number] [phone] KITTY SANTOS, PATIENT [id number] ION 9 2013 [id number] JAYLA MEDICARE MEDICARE PART Jun 24, PART A [id number] [phone] TOBI, PATIENT (WNR) (M) A 2004 [id number] JAYLA MEDICARE MEDICARE PART Jun 24, PART B [id number] TOBI, PATIENT (WNR) (M) B 2004 [id number] JAYLA MEDICARE MEDICARE PART Jun 24, PART A [id number] TOBI, PATIENT (WNR) (M) A 2004 64A 8431 JAYLA MEDICARE MEDICARE PART Jun 24, PART B [id number] TOBI, PATIENT (WNR) (M) B 2004 64A [id number] JAYLA MARTINS RETIREE WASHI Oct 24, [id number] TOBI, PATIENT BS [facility] 2002 7 [id number] [facility] RX PRESCRIPT Apr 26, [id number] [phone] MARILYNN JOHNSON, PATIENT SERVICES [place] [id number] 2012 [id number] JAYLA Selected Encounter This section includes the information on record at [place] for the Encounter. Date/Time Encounter Type Encounter Description Reason Provider Source Feb 28, 2021 03:29 Outpatient Encounter COMMUNITY CARE PM CONSULT IHE Encounter Template Text not used by [place] Plan of Treatment: Future Appointments (+ 6 months) and Future Tests (+/- 45 days) The Plan of Treatment section includes future care activities for the patient from all [place] treatmentfacilities. This section includes future appointments and future orders which are active, pending orscheduled.Future Appointments This section includes appointments that were scheduled to occur 6 months from the date of the Encounter, up to a maximum of 20 appointments. The data comes from all [place] treatment facilities. Appointment Date/Time Appointment Type Appointment Facili ty Name Mar 03, 2021 11:15 AM AMBULATORY - MEDICINE [facility] Mar 05, 2021 02:30 PM AMBULATORY - NONE [facility] Mar 14, 2021 03:45 PM AMBULATORY - MEDICINE [facility] Apr 09, 2021 11:00 AM AMBULATORY - MEDICINE [facility] Apr 11, 2021 11:00 AM AMBULATORY - MEDICINE [facility] Apr 14, 2021 09:00 AM AMBULATORY - MEDICINE [facility] May 15, 2021 12:30 PM AMBULATORY - MEDICINE [facility] Jun 19, 2021 07:30 AM AMBULATORY - NONE [facility] Jul 07, 2021 09:00 AM AMBULATORY - NONE [facility] Jul 07, 2021 03:00 PM AMBULATORY - MEDICINE [facility] Jul 22, 2021 03:00 PM AMBULATORY - NONE [facility] Active, Pending, and Scheduled [...] the Encounter. The data comes from all [place] treatment facilities. Test Date/Time Test Type Test Details Facility Name Mar 18, 2021 09:53 PM Consult Order COMMUNITY CARE-EMG Cons [facility] Tie In Hand's Choice Lab Results: +/- 30 days of the encounter This section includes the Chemistry and Hematology Lab Results on record with [place] for the patient. Radiology Reports and Pathology Reports are provided separately, in subsequent sections.Lab Results This section contains the Chemistry/Hematology Results that were resulted 30 days before or 30 daysafter the date of the Encounter. Date/Time Source Result Type Result - Unit Interpretation Reference Range Comment Feb 11, 2021 08:20 AM [facility] HEMOGLOBIN A1C Specim en Type: BLOOD [...] 2021 04:30 PM Reporting Lab: [facility] [address] [place] [address] Performing Lab: [facility] [address] [place] [address] HEMOGLOBIN A1C 5.9 H 0-5.6 Feb 11, 2021 08:20 AM [facility] MAGNESIUM Specim en Type: BLOOD No comment enter ed. Ordering Provid er: EMILY ROSALES Report Released Date/Time: Feb 05, 2021 04:30 PM Reporting Lab: [facility] [place] [address] Performing Lab: [facility] [address] [place] [address] MAGNESIUM 1.8 mg/dL 1.6-2.6 Feb 11, 2021 08:20 [facility] VITAMIN D (25-HYDROXY) Sp ecimen Type: [...] 05, 2021 04:30 PM Reporting Lab: [place] [address] [address] [place] [address] Performing Lab: [facility] [place] [address] VITAMIN D (25-HYDROXY) 37.9 ng/mL 30.0-1 00 Feb 11, 2021 [facility] COMPREHENSIVE METABOLIC Spec imen Type: SERUM [...] 05, 2021 04:30 PM Reporting Lab: [place] [address] [address] [place] [address] Performing Lab: [facility] [place] [address] [place] [address] GLUCOSE 111 mg/dL H 71-109 BUN/UREA (BLOOD [...] mL/min/{1.73_m2} L >90 Feb 11, 2021 08:20 [facility] CBC & MORPHOLOGY (WITH Sp ecimen Type: BLOOD AM DIFF) No comment enter ed. Ordering Provid er: EMILY ROSALES Report Released Date/Time: Feb 05, 2021 04:30 PM Reporting Lab: [facility] [address] [place] [address] Performing Lab: [facility] [address] [address] WBC (TOTAL WBC COUNT) 6.9 3.0-10.6 RBC [...] ABSOLUTE 0.02 0-0.07 Feb 11, 2021 08:20 [facility] THYROID STIMULATING Speci men Type: SERUM [...] Feb 05, 2021 04:30 PM Reporting Lab: [facility] [address] [address] Performing Lab: [facility] [address] [address] THYROID STIMULATING HORMONE 3.77 0. 300-4.25 Feb 11, 2021 08:20 AM [facility] LIPID PANEL Specim en Type: SERUM [...] 05, 2021 04:30 PM Reporting Lab: [facility] [address]TOINWR[address] [place] [address] Performing Lab: [facility]ES[address] [place] [address] CHOLESTEROL 188 mg/dL <199 TRIGLYCERIDE 238 mg/dL H <149 HDL CHOLESTEROL 47 mg/dL >40 NON-HDL CHOLESTEROL 141 mg/dL <130 LDL, DIRECT 94 mg/dL 0-129 Feb 11, 2021 08:20 AM [facility] VITAMIN B-12 Specim en Type: SERUM Comment: High d oses of Biotin supplements (>5 mg/day) may falsely increase Vitamin B-12, Vitamin D (25OH), Free T4, and Folate results. Test specimens should be collected at least 8 hrs after last ingestion of high dose biotin. Ordering Provid er: EMILY ROSALES Report Released Date/Time: Feb 05, 2021 04:30 PM Reporting Lab: [facility] Zuñiga [address] [address] Performing Lab: [facility] Zuñiga [address] [place] [address] VITAMIN B-12 694 pg/mL [phone] Encounter Notes: All associated encounter notes This section contains the clinical notes associated to the Encounter. Date/Time Encounter Note(s) Provider Source Feb 28, 2021 03:29 PM ADMINISTRATIVE NOTE: MAU GUERRIER Yaquelin [place] LOCAL TITLE: TELEPHONE CONTACT CALL CENTER [facility] STANDARD TITLE: ADMINISTRATIVE NOTE DATE OF NOTE: FEB 28, 2021@15:29:34 ENTRY DATE: FEB 28, 2021@15:31:15 AUTHOR: MAU GUERRIER EXP COSIGNER: URGENCY: STATUS: COMPLETED The following identifiers were used to verify th is patient: . SSN. The patient, JAYLA BRITTON ([id number] ) called the call center. Contact Type of call: V20 PACT MSG. Comments: Candia is requesting a call back from [facility] to di omar referrals for back injections. Author: MAU GUERRIER Evaluation/Management Code: HC PRO PHONE CALL 5- 10 MIN ([id number]). Starting at: 02/28/2021 @ 3:29:34 PM Ending at: 02/28/2021 @ 3:30:33 PM Length: 0 minutes. Caller Area: [address] Chief Complaint: Not applicable to call. Caller Response: V20 RETURN CALL Patient's Email Address: Class Code: Other specified counseling. /martha/ MAU GUERRIER/[facility] Signed: 02/28/2021 15:31 Receipt Acknowledged By: * AWAITING SIGNATURE * LINN ARECHIGA
--- OUTSIDE RECORDS SUMMARY | 2021-11-11 08:46 | External Medical Summary | Encounter Summary ---
:1940 Author Organization [facility] Address [address] [place] [address] Care Team Providers Name Role Phone EMILY [...] Shanks BC OF PREFERRED UNIVE Jan 24, [id number] [phone] DEREK NN, PATIENT [place] PROVIDER RSITY [id number] [phone] JAYLA ORGANIZAT OF ION (PPO) [place] 98408 Oct 24, [id number] [phone] MARILYNNALEX, PATIENT [facility] [phone] JAYLA CAREMARK PRESCRIPT [id number] Apr 26, [id number] [phone] MARILYNNKoby SANTOS, PATIENT [id number] ION 9 [phone] JAYLA CAREMARK PRESCRIPT [id number] Apr 26, [id number] [phone] KITTY SANTOS, PATIENT [id number] ION 9 2013 82 550 JAYLA MEDICARE MEDICARE PART Jun 24, PART A [id number] TOBI, PATIENT (WNR) (M) A 2004 [id number] JAYLA MEDICARE MEDICARE PART Jun 24, PART B [id number] TOBI, PATIENT (WNR) (M) B 2004 [id number] 1213 JAYLA MEDICARE MEDICARE PART Jun 24, PART A [id number] TOBI, PATIENT (WNR) (M) A 2004 64A 8431 JAYLA MEDICARE MEDICARE PART Jun 24, PART B [id number] TOBI, PATIENT (WNR) (M) B 2004 64A 8431 JAYLA MARTINS RETIREE WASHI Oct 24, [id number] TOBI, PATIENT BS UDWW [facility] 2002 7 [id number] [facility] ST RX PRESCRIPT Apr 26, [id number] [phone] MARILYNN JOHNSON, PATIENT SERVICES [place] [id number] 2012 [id number] JAYLA Selected Encounter This section includes the information on record at [place] for the Encounter. Date/Time Encounter Type Encounter Description Reason Provider Source Mar 05, 2021 12:00 Outpatient Encounter COMMUNITY CARE PM CONSULT IHE Encounter Template Text not used by [place] Plan of Treatment: Future Appointments (+ 6 [...] Appointment Type Appointment Facili ty Name Mar 14, 2021 03:45 PM AMBULATORY - MEDICINE [facility] Apr 09, 2021 11:00 AM AMBULATORY - MEDICINE [facility] Apr 11, 2021 11:00 AM AMBULATORY - MEDICINE [facility] Apr 14, 2021 09:00 AM AMBULATORY - MEDICINE [facility] May 15, 2021 12:30 PM AMBULATORY - MEDICINE [facility] Jun 19, 2021 07:30 AM AMBULATORY - NONE [facility] Jul 07, 2021 09:00 AM AMBULATORY - NONE [facility] Jul 07, 2021 03:00 PM AMBULATORY - MEDICINE [facility] Jul 22, 2021 03:00 PM AMBULATORY - NONE [facility] Active, Pending, and Scheduled Orders This [...] Mar 18, 2021 09:53 PM Consult Order [facility] Polisher Numeral's Choice Lab Results: +/- 30 days of the encounter This section includes the Chemistry and Hematology Lab Results on record with [place] for the patient. Radiology Reports and Pathology Reports are provided separately, in subsequent sections.Lab Results This section contains the Chemistry/Hematology Results that were resulted 30 days before or 30 daysafter the date of the Encounter. Date/Time Source Result Type Result - Unit Interpretation Reference Range Comment Feb 11, 2021 08:20 AM [facility] HEMOGLOBIN A1C Specim en Type: BLOOD Comment: [...] 2021 04:30 PM Reporting Lab: [facility] [place] [address] [place] [address] Performing Lab: [facility] [place] [address] [place] [address] HEMOGLOBIN A1C 5.9 H 0-5.6 Feb 11, 2021 08:20 AM [facility] MAGNESIUM Specim en Type: BLOOD No comment enter ed. Ordering Provid er: EMILY ROSALES Report Released Date/Time: Feb 05, 2021 04:30 PM Reporting Lab: [facility] [place] [address] [place] [address] Performing Lab: [place] [place] [address] [place] [address] MAGNESIUM 1.8 mg/dL 1.6-2.6 Feb 11, 2021 08:20 [facility] VITAMIN D (25-HYDROXY) Sp ecimen Type: SERUM [...] 2021 04:30 PM Reporting Lab: [facility] [place] [address] [address] [address] Performing Lab: [facility] [place] [address] [address] [place] [address] VITAMIN D (25-HYDROXY) 37.9 ng/mL 30.0-1 00 Feb 11, 2021 [facility] COMPREHENSIVE METABOLIC Spec imen Type: SERUM 08:20 [...] 2021 04:30 PM Reporting Lab: [facility] [place] [address] [address] [place] [address] Performing Lab: [facility] [place] [address] [address] [place] [address] GLUCOSE 111 mg/dL H 71-109 BUN/UREA (BLOOD [...] mL/min/{1.73_m2} L >90 Feb 11, 2021 08:20 [facility] CBC & MORPHOLOGY (WITH Sp ecimen Type: BLOOD AM DIFF) No comment enter ed. Ordering Provid er: EMILY ROSALES Report Released Date/Time: Feb 05, 2021 04:30 PM Reporting Lab: [facility] [address] [place] [address] Performing Lab: [facility] [address] [place] [address] WBC (TOTAL WBC COUNT) 6.9 3.0-10.6 RBC [...] ABSOLUTE 0.02 0-0.07 Feb 11, 2021 08:20 [facility] THYROID STIMULATING Speci men Type: SERUM AM [...] 2021 04:30 PM Reporting Lab: [facility] [place] [address] [address] [place] [address] Performing Lab: [facility] [place] [address] [address] [place] [address] THYROID STIMULATING HORMONE 3.77 0. 300-4.25 Feb 11, 2021 08:20 AM [facility] LIPID PANEL Specim en Type: SERUM Comment: [...] 2021 04:30 PM Reporting Lab: [facility] [place] [address] [address] [place] [address] Performing Lab: [facility] M. [address] [place] [address] CHOLESTEROL 188 mg/dL <199 TRIGLYCERIDE 238 mg/dL H <149 HDL CHOLESTEROL 47 mg/dL >40 NON-HDL CHOLESTEROL 141 mg/dL <130 LDL, DIRECT 94 mg/dL 0-129 Feb 11, 2021 08:20 AM [facility] VITAMIN B-12 Specim en Type: SERUM Comment: High d oses of Biotin supplements (>5 mg/day) may falsely increase Vitamin B-12, Vitamin D (25OH), Free T4, and Folate results. Test specimens should be collected at least 8 hrs after last ingestion of high dose biotin. Ordering Provid er: EMILY ROSALES Report Released Date/Time: Feb 05, 2021 04:30 PM Reporting Lab: [facility] [address] [place] [address] Performing Lab: [facility] [address] [place] [address] VITAMIN B-12 694 pg/mL [phone] Encounter Notes: All associated encounter notes This section contains the clinical notes associated to the Encounter. Date/Time Encounter Note(s) Provider Source Mar 05, 2021 12:00 PM NONVA REPORT: TALI TIAN [facility] TITLE: NON-VA REPORT OTHER [facility] STANDARD TITLE: NONVA REPORT DATE OF NOTE: MAR 05, 2021@12:00 ENTRY DATE: APR 22, 2021@09:55:56 AUTHOR: TALI TIAN EXP COSIGNER: URGENCY: STATUS: COMPLETED See scanned report in [facility]. NON [facility] Care Consult Results [facility] SKYLER GRACE MD DOS: 03/05/21 See scanned report in [facility]. /martha/ TALI TIAN Signed: 04/22/2021 09:56
--- OUTSIDE RECORDS SUMMARY | 2021-11-11 08:46 | External Medical Summary | Encounter Summary ---
:1940 Author Organization [facility] Address [address] [place] [address] Care Team Providers Name Role Phone EMILY [...] Shanks BC OF PREFERRED UNIVE Jan 24, [id number] [phone] DEREK NN, PATIENT [place] [facility] [id number] [phone] JAYLA ORGANIZAT OF ION (PPO) [place] [id number] Oct 24, [id number] [phone] MARILYNNALEX, PATIENT [facility] [id number] 5258 JAYLA CAREMARK PRESCRIPT [id number] Apr 26, [id number] [phone] MARILYNNKoby SANTOS, PATIENT [id number] ION 9 2013 [id number] JAYLA CAREMARK PRESCRIPT [id number] Apr 26, [id number] [phone] MARILYNNKoby SANTOS, PATIENT [id number] ION 9 2013 82 550 JAYLA MEDICARE MEDICARE PART Jun 24, PART A [id number] TOBI, PATIENT (WNR) (M) A 2004 [id number] 1213 JAYLA MEDICARE MEDICARE PART Jun 24, PART B [id number] TOBI, PATIENT (WNR) (M) B 2004 [id number] 1213 [place] MEDICARE MEDICARE PART Jun 24, PART A [id number] TOBI, PATIENT (WNR) (M) A 2004 64A 8431 JAYLA MEDICARE MEDICARE PART Jun 24, PART B [id number] TOBI, PATIENT (WNR) (M) B 2004 64A 8431 JAYLA MARTINS RETIREZeynep FU Oct 24, [id number] [phone] TOBI, PATIENT BS UDWW [facility] 2002 7 [id number] [facility] [place] ST RX PRESCRIPT [id number] Apr 26, [id number] [phone] MARILYNN JOHNSON, PATIENT SERVICES [place] [address] 2012 [id number] [place] Selected Encounter This section includes the information on record at ID for the Encounter. Date/Time Encounter Type Encounter Reason Provider Source Description Mar 03, 2021 HC PRO PHONE TELEPHONE PRIMARY ICD-10-CM Z71.89 RD ARECHIGA 11:15 AM CALL 11-20 MIN CARE Other specified counseling with Provider Comments: Counseling,Oth Specified IHE Encounter Template Text not used by [place] Assessments - Encounter Diagnoses This section includes the primary and secondary diagnoses documented for the Encounter. Date/Time Primary/Secondary Diagnosis Name Provider Source Diagnosis Mar 03, 2021 PRIMARY Other specified LINN ARECHIGA [facility] 11:15 AM counseling CLINIC Plan of Treatment: Future Appointments (+ 6 months) and Future Tests (+/- 45 days) The Plan of Treatment section includes future care activities for the patient from all ID treatmentfacilities. This section includes future appointments and future orders which are active, pending orscheduled.Future Appointments This section includes appointments that were scheduled to occur 6 months from the date of the Encounter, up to a maximum of 20 appointments. The data comes from all ID treatment facilities. Appointment Date/Time Appointment Type Appointment Facili ty Name Mar 05, 2021 02:30 PM [facility] Mar 14, 2021 03:45 PM AMBULATORY - MEDICINE [facility] Apr 09, 2021 11:00 AM AMBULATORY - MEDICINE [facility] Apr 11, 2021 11:00 AM AMBULATORY - MEDICINE [facility] Apr 14, 2021 09:00 AM AMBULATORY - MEDICINE [facility] May 15, 2021 12:30 PM AMBULATORY - MEDICINE [facility] Jun 19, 2021 07:30 AM AMBULATORY - NONE MODESTA Yogesh MILI [facility] Jul 07, 2021 09:00 AM AMBULATORY - NONE MODESTA KobyYaquelin GARCES [facility] Jul 07, 2021 03:00 PM AMBULATORY - MEDICINE [facility] Jul 22, 2021 03:00 PM AMBULATORY - NONE MODESTADINESH BARRETOESEMAINE [facility] Active, Pending, and Scheduled Orders This section includes a listing of several types of active, pending, and scheduled orders, including clinic medications orders, diagnostic test orders, procedure orders and consult orders; where the start date of the order is 45 days before the date of the Encounter or 45 days after the date of the Encounter. The data comes from all ID treatment facilities. Test Date/Time Test Type Test Details Facility Name Mar 18, 2021 09:53 PM Consult Order [facility] Vert[employer] Architect's Choice Lab Results: +/- 30 days of the encounter This section includes the Chemistry and Hematology Lab Results on record with [place] for the patient. Radiology Reports and Pathology Reports are provided separately, in subsequent sections.Lab Results This section contains the Chemistry/Hematology Results that were resulted 30 days before or 30 daysafter the date of the Encounter. Date/Time Source Result Type Result - Unit Interpretation Reference Range Comment Feb 11, 2021 08:20 AM [facility] HEMOGLOBIN A1C Specim en Type: [...] 2021 04:30 PM Reporting Lab: MODESTA VIVEROS [place] [address] [place] [address] Performing Lab: [place] [address] [place] [address] HEMOGLOBIN A1C 5.9 H 0-5.6 Feb 11, 2021 08:20 AM [facility] MAGNESIUM Specim en Type: BLOOD No comment enter ed. Ordering Provid er: EMILY ROSALES Report Released Date/Time: Feb 05, 2021 04:30 PM Reporting Lab: [place]STA [place] [address] [place] [id number] Performing Lab: [place] [address] [place] [id number] MAGNESIUM 1.8 mg/dL 1.6-2.6 Feb 11, 2021 08:20 [facility] VITAMIN D (25-HYDROXY) Sp ecimen [...] 05, 2021 04:30 PM Reporting Lab: [place] [address] [place] [id number] Performing Lab: MODESTA ANN[address] [place] [id number] VITAMIN D (25-HYDROXY) 37.9 ng/mL 30.0-1 00 Feb 11, 2021 [facility] COMPREHENSIVE METABOLIC Spec imen Type: [...] 2021 04:30 PM Reporting Lab: MODESTA VIVEROS [place] [address] [place] [id number] Performing Lab: MO[place]STA [place] [address] [place] [id number] GLUCOSE 111 mg/dL H 71-109 BUN/UREA (BLOOD [...] mL/min/{1.73_m2} L >90 Feb 11, 2021 08:20 [facility] CBC & MORPHOLOGY (WITH Sp ecimen Type: BLOOD AM DIFF) No comment enter ed. Ordering Provid er: EMILY ROSALES Report Released Date/Time: Feb 05, 2021 04:30 PM Reporting Lab: MODESTA GARCES[address] [place] [id number] Performing Lab: MO[place]STA [place] [address] [place] [id number] WBC (TOTAL WBC COUNT) 6.9 3.0-10.6 RBC [...] ABSOLUTE 0.02 0-0.07 Feb 11, 2021 08:20 [facility] THYROID STIMULATING Speci men Type: [...] 2021 04:30 PM Reporting Lab: MODESTA VIVEROS [address] [place] [id number] Performing Lab: MODESTA GARCES[address] [place] [id number] THYROID STIMULATING HORMONE 3.77 0. 300-4.25 Feb 11, 2021 08:20 AM [facility] LIPID PANEL Specim en Type: [...] 05, 2021 04:30 PM Reporting Lab: [place] [address] [place] [address] Performing Lab: MO[place]STA [place] [address] [place] [address] CHOLESTEROL 188 mg/dL <199 TRIGLYCERIDE 238 mg/dL H <149 HDL CHOLESTEROL 47 mg/dL >40 NON-HDL CHOLESTEROL 141 mg/dL <130 LDL, DIRECT 94 mg/dL 0-129 Feb 11, 2021 08:20 AM [facility] VITAMIN B-12 Specim en Type: SERUM Comment: High d oses of Biotin supplements (>5 mg/day) may falsely increase Vitamin B-12, Vitamin D (25OH), Free T4, and Folate results. Test specimens should be collected at least 8 hrs after last ingestion of high dose biotin. Ordering Provid er: EMILY ROSALES Report Released Date/Time: Feb 05, 2021 04:30 PM Reporting Lab: MODESTA VIVEROS [place] [address] [place] [address] Performing Lab: MODESTA Zuñiga [address] [place] [address] VITAMIN B-12 694 pg/mL [phone] Social History: Smoking Status (Most current) and Tobacco Use (All prior to encounter date) This section includes the most current, and the historical, smoking and tobacco-related health factors from the ID facility where the Encounter took place.Current Smoking Status This section includes the most current smoking, or tobacco-related health factor, from the ID facility where the Encounter took place. Date/Time Current Smoking Status Comment Facility Feb 18, 2021 02:00 PM VA-TOBACCO FORMER USER [facility] Tobacco Use History This section includes a history of the smoking, or tobacco- related health factors, that were collected on or before the date of the Encounter. The data comes from the ID facility where the Encounter took place. Date/Time Smoking Status/Tobacco Use Comment Diamond padgett Feb 18, 2021 02:00 PM VA-TOBACCO QUIT 15 YRS OR MORE [facility] Feb 13, 2020 09:00 AM VA-TOBACCO FORMER USER [facility] Feb 13, 2020 09:00 AM ID-TOBACCO QUIT 15 YRS OR MORE [facility] Encounter Notes: All associated encounter notes This section contains the clinical notes associated to the Encounter. Date/Time Encounter Note(s) Provider Source Mar 03, 2021 11:22 AM TEAM TELEPHONE ENCOUNTER NOTE: LINN ARECHIGA [facility] LOCAL TITLE: CARE MANAGEMENT TELEPHONE NOTE STANDARD TITLE: TEAM TELEPHONE ENCOUNTER NOTE DATE OF NOTE: MAR 03, 2021@11:22 ENTRY DATE: MAR 03, 2021@11:22:51 AUTHOR: LINN ARECHIGA EXP COSIGNER: URGENCY: STATUS: COMPLETED see cc note per vet, has not been scheduled for pain clinic and is in a lot of pain, vet voices frustrations about this. noted consult fo r pain clinic placed november. noted vet had consult placed for CHRIS appiah and that appt was completed, states dr appiah also placed an order for him to go to pain clinic and no scheduling done yet. advised to contact [facility], num jose given. advised this RN would also send an email to [facility] for urgency to consult as is past 30 day s since ordered. vet appreciative fwd to pcp catalina per vet, is not going to take the gabapentin, states afraid of side effects but will take the tramadol. please DC gabapentin. /martha/ LINN ARECHIGA RN Signed: 03/03/2021 11:26 Receipt Acknowledged By: * AWAITING SIGNATURE * EMILY ROSALES
--- OUTSIDE RECORDS SUMMARY | 2021-11-11 08:46 | External Medical Summary | Encounter Summary ---
:[address] [facility] Address [address] [place] [address] Care Team Providers Name Role Phone EMILY [...] Shanks BC OF PREFERRED UNIVE Jan 24, [id number] [phone] DEREK NN, PATIENT [place] PROVIDER RSITY 2017 [id number] JAYLA ORGANIZAT OF ION (PPO) [place] 08600 Oct 24, [id number] [phone] MARILYNNALEX, PATIENT [facility] [id number] 5258 JAYLA CAREMARK PRESCRIPT [id number] Apr 26, [id number] [phone] MARILYNNKoby SANTOS, PATIENT [id number] ION 9 2013 [id number] JAYLA CAREMARK PRESCRIPT [id number] Apr 26, [id number] [phone] KITTY SANTOS, PATIENT [id number] ION 9 2013 82 550 JAYLA MEDICARE MEDICARE PART Jun 24, PART A [id number] TOBI, PATIENT (WNR) (M) A 2004 [id number] 1213 JAYLA MEDICARE MEDICARE PART Jun 24, PART B [id number] TOBI, PATIENT (WNR) (M) B 2004 [id number] 1213 JAYLA MEDICARE MEDICARE PART Jun 24, PART A [id number] TOBI, PATIENT (WNR) (M) A 2004 64A 8431 JAYLA MEDICARE MEDICARE PART Jun 24, PART B [id number] TOBI, PATIENT (WNR) (M) B 2004 64A 8431 JAYLA MARTINS RETIREE WASHI Oct 24, [id number] TOBI, PATIENT BS UDWW [facility] 2002 7 [id number] [facility] [place] RX PRESCRIPT Apr 26 [id number] [phone] MARILYNN JOHNSON, PATIENT SERVICES [place] [id number] 2012 [id number] 1 JAYLA Selected Encounter This section includes the information on record at [place] for the Encounter. Date/Time Encounter Type Encounter Description Reason Provider Source Feb 24, 2021 01:49 Outpatient Encounter COMMUNITY CARE PM CONSULT IHE [...] 10:10 AM AMBULATORY - NONE MODESTA GARCES [facility] Mar 03, 2021 11:15 AM AMBULATORY - MEDICINE [facility] IC Mar 05, 2021 02:30 PM AMBULATORY - NONE MODESTA GARCES [facility] Mar 14, 2021 03:45 PM AMBULATORY - MEDICINE [facility] Apr 09, 2021 11:00 AM AMBULATORY - MEDICINE [facility] Apr 11, 2021 11:00 AM AMBULATORY - MEDICINE [facility] Apr 14, 2021 09:00 AM AMBULATORY - MEDICINE [facility] May 15, 2021 12:30 PM AMBULATORY - MEDICINE [facility] Jun 19, 2021 07:30 AM AMBULATORY - NONE MODESTA GARCES [facility] Jul 07, 2021 09:00 AM AMBULATORY - NONE MODESTA GARCES [facility] Jul 07, 2021 03:00 PM AMBULATORY - MEDICINE [facility] Jul 22, 2021 03:00 PM AMBULATORY - NONE MODESTA GARCES [facility] Active, Pending, and Scheduled Orders This [...] Mar 18, 2021 09:53 PM Consult Order [facility] Water/Wastewater Project Manager's Choice Lab Results: +/- 30 days of the encounter This section includes the Chemistry and Hematology Lab Results on record with [place] for the patient. Radiology Reports and Pathology Reports are provided separately, in subsequent sections.Lab Results This section contains the Chemistry/Hematology Results that were resulted 30 days before or 30 daysafter the date of the Encounter. Date/Time Source Result Type Result - Unit Interpretation Reference Range Comment Feb 11, 2021 08:20 AM [facility] HEMOGLOBIN A1C Specim en Type: [...] 05, 2021 04:30 PM Reporting Lab: MODESTA [address]ARCES[address] [place] [address] Performing Lab: [place] [address] [place] [address] HEMOGLOBIN A1C 5.9 H 0-5.6 Feb 11, 2021 08:20 AM [facility] MAGNESIUM Specim en Type: BLOOD No comment enter ed. Ordering Provid er: EMILY ROSALES Report Released Date/Time: Feb 05, 2021 04:30 PM Reporting Lab: MODESTA [address]ARCES[address] [place] [address] Performing Lab: MO[place]STA [place] [address] [place] [address] MAGNESIUM 1.8 mg/dL 1.6-2.6 Feb 11, 2021 08:20 [facility] VITAMIN D (25-HYDROXY) Sp ecimen [...] 04:30 PM Reporting Lab: MO[place]STA [place] [address] [place] [address] Performing Lab: MODESTA [place] [address] [place] [address] VITAMIN D (25-HYDROXY) 37.9 ng/mL 30.0-1 00 Feb 11, 2021 [facility] COMPREHENSIVE METABOLIC Spec imen Type: [...] 04:30 PM Reporting Lab: MO[place]STA [place] [address] [place] [address] Performing Lab: MODESTA GARCES[address] [address] GLUCOSE 111 mg/dL H 71-109 BUN/UREA (BLOOD [...] mL/min/{1.73_m2} L >90 Feb 11, 2021 08:20 [facility] CBC & MORPHOLOGY (WITH Sp ecimen Type: BLOOD AM DIFF) No comment enter ed. Ordering Provid er: EMILY ROSALES Report Released Date/Time: Feb 05, 2021 04:30 PM Reporting Lab: MODESTA [address] [place] [address] Performing Lab: MODESTA Zuñiga [address] [place] [address] WBC (TOTAL WBC COUNT) 6.9 3.0-10.6 RBC [...] ABSOLUTE 0.02 0-0.07 Feb 11, 2021 08:20 [facility] THYROID STIMULATING Speci men Type: [...] 2021 04:30 PM Reporting Lab: MODESTA VIVEROS [address] [place] [address] Performing Lab: MODESTA VIVEROS [address] [place] [address] THYROID STIMULATING HORMONE 3.77 0. 300-4.25 Feb 11, 2021 08:20 AM [facility] LIPID PANEL Specim en Type: [...] 2021 04:30 PM Reporting Lab: MODESTA Zuñiga [address] [place] [address] Performing Lab: MODESTA Zuñiga [address] [place] [address] CHOLESTEROL 188 mg/dL <199 TRIGLYCERIDE 238 mg/dL H <149 HDL CHOLESTEROL 47 mg/dL >40 NON-HDL CHOLESTEROL 141 mg/dL <130 LDL, DIRECT 94 mg/dL 0-129 Feb 11, 2021 08:20 AM [facility] VITAMIN B-12 Specim en Type: SERUM Comment: High d oses of Biotin supplements (>5 mg/day) may falsely increase Vitamin B-12, Vitamin D (25OH), Free T4, and Folate results. Test specimens should be collected at least 8 hrs after last ingestion of high dose biotin. Ordering Provid er: EMILY ROSALES Report Released Date/Time: Feb 05, 2021 04:30 PM Reporting Lab: MODESTA Zuñiga [address] [place] [address] Performing Lab: MODESTA Zuñiga [address] [place] [address] VITAMIN B-12 694 pg/mL [phone] Encounter Notes: All associated encounter notes This section contains the clinical notes associated to the Encounter. Date/Time Encounter Note(s) Provider Source Feb 24, 2021 01:49 PM ADMINISTRATIVE NOTE: RONN SWEENEY LOCAL TITLE: ADMINISTRATIVE NOTE ON LICENSE OF [facility] STANDARD TITLE: ADMINISTRATIVE NOTE DATE OF NOTE: FEB 24, 2021@13:49 ENTRY DATE: FEB 24, 2021@13:49:21 AUTHOR: RONN SWEENEY EXP COSIGNER: URGENCY: STATUS: COMPLETED ADMINISTRATIVE NOTE Has ADDENDA requesting to fill r x for Timolol through [place] chart notes requested from [facility]. /martha/ RONN SWEENEY MSA Signed: 02/24/2021 13:51 Receipt Acknowledged By: 02/24/2021 14:28 /es/ LINN ARECHIGA RN 02/24/2021 ADDENDUM STATUS: COMPLETED fwd back to [facility] this rx is from optometry wh ich has to go through optometry. please call vet and assist with contact to [facility] optometry division. thanks /martha/ LINN ARECHIGA RN Signed: 02/24/2021 14:30 Receipt Acknowledged By: 02/25/2021 16:27 /martha/ RONN SWEENEY MSA 02/25/2021 ADDENDUM STATUS: COMPLETED spoke to notified him to contact jeffery abreu /martha/ RONN SWEENEY [facility] Signed: 02/25/2021 16:27
--- OUTSIDE RECORDS SUMMARY | 2021-11-11 08:46 | External Medical Summary | Encounter Summary ---
:[address] [facility] Address [address] [place] [address] Care Team Providers Name Role Phone EMILY [...] Shanks BC OF PREFERRED UNIVE Jan 24, [id number] [phone] DEREK NN, PATIENT [place] PROVIDER RSITY [id number] [phone] JAYLA ORGANIZAT OF ION (PPO) [place] 82727 Oct 24, [id number] [phone] MARILYNNALEX, PATIENT [facility] 200256 5258 JAYLA CAREMARK PRESCRIPT [id number] Apr 26, [id number] [phone] MARILYNNKoby SANTOS, PATIENT [id number] ION 9 2013 [id number] 550 JAYLA CAREMARK PRESCRIPT [id number] Apr 26, [id number] [phone] MARILYNNKoby SANTOS, PATIENT [id number] ION 9 2013 82 550 JAYLA MEDICARE MEDICARE PART Jun 24, PART A [id number] TOBI, PATIENT (WNR) (M) A 2004 [id number] 1213 JAYLA MEDICARE MEDICARE PART Jun 24, PART B [id number] TOBI, PATIENT (WNR) (M) B 2004 [id number] 1213 JAYLA MEDICARE MEDICARE PART Jun 24, PART A [id number] TOBI, PATIENT (WNR) (M) A 2004 64A 8431 JAYLA MEDICARE MEDICARE PART Jun 24, PART B [id number] TOBI, PATIENT (WNR) (M) B 2004 64A 8431 JAYLA MARTINS RETIREE WASHI Oct 24, [id number] TOBI, PATIENT BS UDWW [facility] 2002 7 [id number] [facility]* [place] ST RX PRESCRIPT Apr 26, [id number] [phone] MARILYNN JOHNSON, PATIENT SERVICES [place] [address] 2012 [id number] 1 JAYLA Selected Encounter This section includes the information on record at [place] for the Encounter. Date/Time Encounter Type Encounter Description Reason Provider Source Mar 14, 2021 03:57 Outpatient Encounter PRIMARY CARE/MEDICINE PM IHE Encounter Template Text not used by [place] Plan of Treatment: Future Appointments (+ 6 months) and Future Tests (+/- 45 days) The Plan of Treatment section includes future care activities for the patient from all [place] treatmentfacilities. This section includes future appointments and future orders which are active, pending orscheduled.Future Appointments This section includes appointments that were scheduled to occur 6 months from the date of the Encounter, up to a maximum of 20 appointments. The data comes from all [place] treatment facilities. Appointment Date/Time Appointment Type Appointment Facili ty Name Apr 09, 2021 11:00 AM AMBULATORY - MEDICINE [facility] Apr 11, 2021 11:00 AM AMBULATORY - MEDICINE [facility] Apr 14, 2021 09:00 AM AMBULATORY - MEDICINE [facility] May 15, 2021 12:30 PM AMBULATORY - MEDICINE [facility] Jun 19, 2021 07:30 AM AMBULATORY - NONE MODESTA GARCES [facility] Jul 07, 2021 09:00 AM AMBULATORY - NONE MODESTA GARCES [facility] Jul 07, 2021 03:00 PM AMBULATORY - MEDICINE [facility] Jul 22, 2021 03:00 PM AMBULATORY - NONE MODESTA GARCES [facility] Active, Pending, and [...] the Encounter. The data comes from all [place] treatment facilities. Test Date/Time Test Type Test Details Facility Name Mar 18, 2021 09:53 PM Consult Order [facility] Cons [facility] Meeting Manager's Choice Lab Results: +/- 30 days of the encounter This section includes the Chemistry and Hematology Lab Results on record with [place] for the patient. Radiology Reports and Pathology [...] 2021 10:09 PM Reporting Lab: MODESTA VIVEROS [address] [place] [address] Performing Lab: MODESTA Zuñiga [facility] ; [place] [address] CODEINE <25 ng/mL 0-24 MORPHINE <25 ng/mL [...] <20 ng/mL 0-19 Apr 11, 2021 10:53 [facility] EXPANDED URINE DRUG Speci men Type: URINE [...] 18, 2021 10:09 PM Reporting Lab: MODESTA [address] [place] [address] Performing Lab: MODESTA GARCES[address] [address] CREATININE, URINE 44.2 mg/dL 40-278 AMPHETAMINES/METHAMPHETAMINES SCREEN [...] Encounter Note(s) Provider Source Mar 14, 2021 04:02 PM MEDICATION MGT NOTE: EMILY ROSALES [facility] LOCAL TITLE: NON-[place] MEDICATION - [place] STANDARD TITLE: MEDICATION MGT NOTE DATE OF NOTE: MAR 14, 2021@16:02 ENTRY DATE: MAR 14, 2021@16:03:01 AUTHOR: EMILY ROSALES EXP COSIGNER: URGENCY: STATUS: COMPLETED [facility] [address] [place] [address] Today's Date: MAR 14, 2021 Name: MARILYNNTURNER JOHNSONOY Gabby : Jun Address: [address] [address] Allergy/ADR: ATROVENT, FLONASE OMEPRAZOLE 40MG EC CAP Sig: TAKE 1 CAPSULE BY MOUTH TWICE A DAY x10 days fax to erick cook with [employer] form Quantity:__20 Refills:__none yes _ Substitution Permitted Dispense as Written /martha/ Emily FIGUEROA Nurse Practitioner Signed: 03/14/2021 16:03 Receipt Acknowledged By: 03/14/2021 16:07 /es/ LUDWIG GONZALES/Silvio
--- OUTSIDE RECORDS SUMMARY | 2021-11-11 08:46 | External Medical Summary | Encounter Summary ---
:[address] [facility] Address [address] [place] [address] Care Team Providers Name Role Phone EMILY [...] Shanks BC OF PREFERRED UNIVE Jan 24, [id number] [phone] DEREK NN, PATIENT [place] PROVIDER RSITY [id number] [phone] JAYLA ORGANIZAT OF ION (PPO) [place] [id number] Oct 24, [id number] MARILYNNALEX, PATIENT [facility] [phone] JAYLA CAREMARK PRESCRIPT [id number] Apr 26, [id number] [phone] MARILYNNKoby SANTOS, PATIENT [id number] ION 9 2013 [id number] JAYLA CAREMARK PRESCRIPT [id number] Apr 26, [id number] [phone] MARILYNNKoby SANTOS, PATIENT [id number] ION 9 2013 [id number] 550 JAYLA MEDICARE MEDICARE PART Jun 24, PART A [id number] TOBI, PATIENT (WNR) (M) A 2004 [id number] JAYLA MEDICARE MEDICARE PART Jun 24, PART B [id number] TOBI, PATIENT (WNR) (M) B 2004 [id number] JAYLA MEDICARE MEDICARE PART Jun 24, PART A [id number] TOBI, PATIENT (WNR) (M) A 2004 64A [id number] JAYLA MEDICARE MEDICARE PART Jun 24, PART B [id number] TOBI, PATIENT (WNR) (M) B 2004 [id number] [id number] JAYLA MARTINS RETIREE WASHI Oct 24, [id number] TOBI, PATIENT BS UDWW [facility] 2002 [id number] [facility] RX PRESCRIPT Apr 26, [id number] [phone] MARILYNN JOHNSON, PATIENT SERVICES [place] [address] 2012 [id number] JAYLA Selected Encounter This section includes the information on record at [place] for the Encounter. Date/Time Encounter Type Encounter Description Reason Provider Source Jan 29, 2021 11:52 Outpatient Encounter PRIMARY CARE/MEDICINE AM IHE Encounter [...] 11, 2021 08:30 AM AMBULATORY - MEDICINE [facility] IC Feb 18, 2021 02:00 PM AMBULATORY - MEDICINE [facility] Feb 26, 2021 10:10 AM AMBULATORY - NONE MODESTA GARCES [facility] Mar 03, 2021 11:15 AM AMBULATORY - MEDICINE [facility] Mar 05, 2021 02:30 PM AMBULATORY - NONE MODESTA GARCES [facility] Mar 14, 2021 03:45 PM AMBULATORY - MEDICINE [facility] Apr 09, 2021 11:00 AM AMBULATORY - MEDICINE [facility] Apr 11, 2021 11:00 AM AMBULATORY - MEDICINE [facility] Apr 14, 2021 09:00 AM AMBULATORY - MEDICINE [facility] May 15, 2021 12:30 PM AMBULATORY - MEDICINE [facility] Jun 19, 2021 07:30 AM AMBULATORY - NONE MODESTA KobyYaquelin GARCES [facility] Jul 07, 2021 09:00 AM AMBULATORY - NONE MODESTA GARCES [facility] Jul 07, 2021 03:00 PM AMBULATORY - MEDICINE [facility] IC Jul 22, 2021 03:00 PM AMBULATORY - NONE MODESTA M. SETHMAINE [facility] Lab Results: +/- 30 days of the [...] Range Comment Feb 11, 2021 08:[address] [facility] HEMOGLOBIN A1C Specim en Type: BLOOD [...] 05, 2021 04:30 PM Reporting Lab: MODESTA IVVEROS [place] [address] [address] [address] Performing Lab: [place] [address] [place] [address] HEMOGLOBIN A1C 5.9 H 0-5.6 Feb 11, 2021 08:[address] [facility] MAGNESIUM Specim en Type: BLOOD No comment enter ed. Ordering Provid er: EMILY ROSALES Report Released Date/Time: Feb 05, 2021 04:30 PM Reporting Lab: MODESTA VIVEROS [place] [address] [place] [address] Performing Lab: MODESTA [address] [place] [address] MAGNESIUM 1.8 mg/dL 1.6-2.6 Feb 11, 2021 08:20 [facility] VITAMIN D (25-HYDROXY) Sp ecimen Type: [...] 2021 04:30 PM Reporting Lab: MODESTA VIVEROS [place] [address] [address] [address] Performing Lab: MODESTA VIVEROS [place] [address] [address] [address] VITAMIN D (25-HYDROXY) 37.9 ng/mL 30.0-1 00 Feb 11, 2021 [facility] COMPREHENSIVE METABOLIC Spec imen Type: SERUM [...] 2021 04:30 PM Reporting Lab: MODESTA VIVEROS [place] [address] [place] [address] Performing Lab: MODESTA VIVEROS [place] [address] [address] [address] GLUCOSE 111 mg/dL H 71-109 BUN/UREA (BLOOD [...] mL/min/{1.73_m2} L >90 Feb 11, 2021 08:20 [facility] CBC & MORPHOLOGY (WITH Sp ecimen Type: BLOOD AM DIFF) No comment enter ed. Ordering Provid er: EMILY ROSALES Report Released Date/Time: Feb 05, 2021 04:30 PM Reporting Lab: MODESTA VIVEROS [address] [place] [address] Performing Lab: MODESTA VIVEROS [address] [place] [address] WBC (TOTAL WBC COUNT) 6.9 3.0-10.6 RBC [...] ABSOLUTE 0.02 0-0.07 Feb 11, 2021 08:20 [facility] THYROID STIMULATING Speci men Type: SERUM [...] 2021 04:30 PM Reporting Lab: MODESTA VIVEROS [place] [address] [address] [address] Performing Lab: MODESTA VIVEROS [place] [address] [address] [address] THYROID STIMULATING HORMONE 3.77 0. 300-4.25 Feb 11, 2021 08:[address] [facility] LIPID PANEL Specim en Type: SERUM [...] 2021 04:30 PM Reporting Lab: MODESTA VIVEROS [place] [address] [address] [address] Performing Lab: MODESTA VIVEROS [place] [address] [address] [place] [address] CHOLESTEROL 188 mg/dL <199 TRIGLYCERIDE 238 mg/dL H <149 HDL CHOLESTEROL 47 mg/dL >40 NON-HDL CHOLESTEROL 141 mg/dL <130 LDL, DIRECT 94 mg/dL 0-129 Feb 11, 2021 08:[address] [facility] VITAMIN B-12 Specim en Type: SERUM Comment: High d oses of Biotin supplements (>5 mg/day) may falsely increase Vitamin B-12, Vitamin D (25OH), Free T4, and Folate results. Test specimens should be collected at least 8 hrs after last ingestion of high dose biotin. Ordering Provid er: EMILY ROSALES Report Released Date/Time: Feb 05, 2021 04:30 PM Reporting Lab: MODESTA VIVEROS [place] [address] [place] [address] Performing Lab: MODESTA VIVEROS [place] [address] [place] [address] VITAMIN B-12 694 pg/mL [phone] Encounter Notes: All associated encounter notes This section contains the clinical notes associated to the Encounter. Date/Time Encounter Note(s) Provider Source Jan 29, 2021 11:52 AM TELEPHONE ENCOUNTER NOTE: EMILY ROSALES [facility] LOCAL TITLE: TELEPHONE NOTE STANDARD TITLE: TELEPHONE ENCOUNTER NOTE DATE OF NOTE: JAN 29, 2021@11:52 ENTRY DATE: JAN 29, 2021@11:52:24 AUTHOR: EMILY ROSALES EXP COSIGNER: URGENCY: STATUS: COMPLETED Clinical Reminders Done Today Avg Risk Colorectal Cancer Screen: AVERAGE RISK colorectal cancer screening is due based on information available to this clinical reminder Patient could not tolerate further CRC evaluati on or treatment because of co-morbidities. I have discussed with the patie nt or guardian and we have made a shared decision against further screenin g and surveillance. Details: adv age Patient /es/ Emily FIGUEROA Nurse Practitioner Signed: 01/29/2021 11:54
--- OUTSIDE RECORDS SUMMARY | 2021-11-11 08:47 | External Medical Summary | Encounter Summary ---
:1940 Author Organization [facility] Address [address] [place] [address] Support Name Relationship Address Phone ERNIE BRITTON Unavailable [address] [facility] [phone] [place] [address] ERNIE BRITTON Unavailable [address] [place] [address] [phone] [place] [address] Insurance Providers: All historical and current Section [...] Name to Policy Number Shanks BC OF [facility] UNIVE Jan 24, [id number] [phone] DEREK NN, PATIENT [place] PROVIDER [facility] [id number] JAYLA ORGANIZAT OF ION (PPO) [facility] RETIREE [id number] Oct 24, [id number] TOBI, PATIENT [facility] 2002 [id number] JAYLA CAREMARK PRESCRIPT [id number] Apr 26, [id number] [phone] MARILYNNKoby SANTOS, PATIENT [id number] ION 9 2013 [id number] JAYLA CAREMARK PRESCRIPT [id number] Apr 26, [id number] [phone] MARILYNNKoby SANTOS, PATIENT [id number] ION 9 2013 [id number] 550 JAYLA MEDICARE MEDICARE PART Jun 24, PART A [id number] [id number] TOBI, PATIENT (WNR) (M) A 2004 [id number] JAYLA MEDICARE MEDICARE PART Jun 24, PART B [id number] MARILYNNALEX, PATIENT (WNR) (M) B 2004 [id number] [place] MEDICARE MEDICARE PART Jun 24, PART A [id number] TOBI, PATIENT (WNR) (M) A 2004 64A 8431 JAYLA MEDICARE MEDICARE PART Jun 24, PART B [id number] TOBI, PATIENT (WNR) (M) B 2004 64A 8431 JAYLA MARTINS RETIREE T[place] Oct 24, [id number] TOBI, PATIENT BS UDWW [facility] 2002 7 [id number] [facility] RE* [place] ST RX PRESCRIPT [id number] Apr 26, [id number] [phone] MARILYNN JOHNSON, PATIENT SERVICES [place] [address] 2012 [id number] 1 JAYLA Selected Encounter This section includes the information on record at [place] for the Encounter. Date/Time Encounter Type Encounter Description Reason Provider Source Jan 06, 2021 01:19 Outpatient Encounter COMMUNITY CARE PM CONSULT IHE Encounter Template Text not used by [place] Plan of Treatment: Future Appointments (+ 6 months) and Future Tests (+/- 45 days) The Plan of Treatment section includes future care activities for the patient from all [place] treatmentfacilities. This section includes future appointments and future orders which are active, pending orscheduled.Future Appointments This section includes appointments that were scheduled to occur 6 months from the date of the Encounter, up to a maximum of 20 appointments. The data comes from all [place] treatment facilities. Appointment Date/Time Appointment Type Appointment Facili ty Name Jan 08, 2021 03:30 PM AMBULATORY - MEDICINE [facility] Feb 11, 2021 08:30 AM AMBULATORY - MEDICINE [facility] Feb 18, 2021 02:00 PM AMBULATORY - MEDICINE [facility] Feb 26, 2021 10:10 AM AMBULATORY - NONE MODESTA GARCES [facility] Mar 03, 2021 11:15 AM AMBULATORY - MEDICINE [facility] Mar 05, 2021 02:30 PM AMBULATORY - NONE MODESTA GARCES [facility] Mar 14, 2021 03:45 PM AMBULATORY - MEDICINE [facility] Apr 09, 2021 11:00 AM AMBULATORY - MEDICINE [facility] Apr 11, 2021 11:00 AM AMBULATORY - MEDICINE [facility] Apr 14, 2021 09:00 AM AMBULATORY - MEDICINE [facility] May 15, 2021 12:30 PM AMBULATORY - MEDICINE [facility] Jun 19, 2021 07:30 AM AMBULATORY - NONE MODESTA GARCES [facility] Encounter Notes: All associated encounter notes This section contains the clinical notes associated to the Encounter. Date/Time Encounter Note(s) Provider Source Jan 06, 2021 01:19 PM NONVA CONSULT: IDALMIS BRIONES LOCAL TITLE: COMMUNITY CARE-CONSULT RESULT NOTE [facility] STANDARD TITLE: NONVA CONSULT DATE OF NOTE: JAN 06, 2021@13:19 ENTRY DATE: JAN 13, 2021@13:19:39 AUTHOR: IDALMIS BRIONES EXP COSIGNER: URGENCY: STATUS: COMPLETED The following Non VA Care consult has be en completed. See scanned document for report. NON VA Care Consult Results Audiology /es/ IDALMIS BRIONES CUT OFF TENDER GLASS Signed: 01/13/2021 13:20
--- OUTSIDE RECORDS SUMMARY | 2021-11-11 08:47 | External Medical Summary | Encounter Summary ---
:1940 Author Organization [facility] Address [address] [place] [address] Care Team Providers Name Role Phone EMILY [...] Shanks BC OF PREFERRED UNIVE Jan 24, [id number] [phone] DEREK NN, PATIENT [place] [facility] [id number] JAYLA ORGANIZAT OF ION (PPO) [place] [id number] Oct 24, [id number] MARILYNNALEX, PATIENT [facility] [id number] 5258 JAYLA CAREMARK PRESCRIPT [id number] Apr 26, [id number] [phone] MARILYNNKoby SANTOS, PATIENT [id number] ION 9 2013 [id number] JAYLA CAREMARK PRESCRIPT [id number] Apr 26, [id number] [phone] MARILYNNKoby SANTOS, PATIENT [id number] ION 9 2013 82 550 JAYLA MEDICARE MEDICARE PART Jun 24, PART A [id number] TOBI, PATIENT (WNR) (M) A 2004 [id number] JAYLA MEDICARE MEDICARE PART Jun 24, PART B [id number] TOBI, PATIENT (WNR) (M) B 2004 [id number] 1213 [place] MEDICARE MEDICARE PART Jun 24, PART A [id number] TOBI, PATIENT (WNR) (M) A 2004 64A 8431 JAYLA MEDICARE MEDICARE PART Jun 24, PART B [id number] TOBI, PATIENT (WNR) (M) B 2004 64A 8431 JAYLA MARTINS RETIREE [place] Oct 24, [id number] TOBI, PATIENT BS [facility] 2002 7 [id number] [facility] [place] ST RX PRESCRIPT Apr 26, [id number] [phone] MARILYNN JOHNSON, PATIENT SERVICES [place] [address] 2012 [id number] 1 [place] Selected Encounter This section includes the information on record at [place] for the Encounter. Date/Time Encounter Type Encounter Reason Provider Source Description Jan 08, 2021 Outpatient TELEPHONE ICD-10-CM M51.36 EMILY LOPEZ 03:30 PM Encounter PRIMARY CARE Other E intervertebral disc degeneration, lumbar region with Provider Comments: Degeneration of lumbar intervertebral disc ([facility] [id number]) IHE Encounter Template Text not used by [place] Assessments - Encounter Diagnoses This section includes the primary and secondary diagnoses documented for the Encounter. Date/Time Primary/Secondary Diagnosis Name Provider Source Diagnosis Jan 08, 2021 PRIMARY Other intervertebral EMILY LOPEZ [place] 03:30 PM disc degeneration, CLINIC lumbar region Jan 08, 2021 SECONDARY Pain in right hip EMILY LOPEZ [place] 03:30 PM CLINIC Plan of Treatment: Future Appointments (+ [...] 11, 2021 08:30 AM AMBULATORY - MEDICINE [facility] Feb 18, 2021 02:00 PM AMBULATORY - MEDICINE [facility] Feb 26, 2021 10:10 AM AMBULATORY - NONE MODESTA ANNWR [facility] Mar 03, 2021 11:15 AM AMBULATORY - MEDICINE [facility] Mar 05, 2021 02:30 PM AMBULATORY - NONE MODESTA ANNMAINE [facility] Mar 14, 2021 03:45 PM AMBULATORY - MEDICINE [facility] Apr 09, 2021 11:00 AM AMBULATORY - MEDICINE [facility] Apr 11, 2021 11:00 AM AMBULATORY - MEDICINE [facility] Apr 14, 2021 09:00 AM AMBULATORY - MEDICINE [facility] May 15, 2021 12:30 PM AMBULATORY - MEDICINE [facility] Jun 19, 2021 07:30 AM AMBULATORY - NONE MODESTA GARCES [facility] Jul 07, 2021 09:00 AM AMBULATORY - NONE MODESTA GARCES [facility] Jul 07, 2021 03:00 PM AMBULATORY - MEDICINE [facility] Social History: Smoking Status (Most current) and Tobacco Use (All prior to encounter date) This section includes the most current, and the historical, smoking and tobacco-related health factors from the [place] facility where the Encounter took place.Current Smoking Status This section includes the most current smoking, or tobacco-related health factor, from the [place] facility where the Encounter took place. Date/Time Current Smoking Status Comment Facility Feb 13, 2020 09:00 AM VA-TOBACCO FORMER USER [facility] Tobacco Use History This section includes a history of the smoking, or tobacco- related health factors, that were collected on or before the date of the Encounter. The data comes from the [place] facility where the Encounter took place. Date/Time Smoking Status/Tobacco Use Comment [facility] Feb 13, 2020 09:00 AM [place]-TOBACCO QUIT 15 YRS OR MORE [facility] Encounter Notes: All associated encounter notes This section contains the clinical notes associated to the Encounter. Date/Time Encounter Note(s) Provider Source Jan 12, 2021 02:20 PM ACCOUNTING OF DISCLOSURES NOTE: NIKOLE LOPEZ [facility] LOCAL TITLE: STATE PRESCRIPTION DRUG MONITORING PROGRAM NOTE STANDARD TITLE: ACCOUNTING OF DISCLOSURES NOTE DATE OF NOTE: JAN 12, 2021@14:20:35 ENTRY DATE: JAN 12, 2021@14:20:35 AUTHOR: EMILY LOPEZ EXP COSIGNER: URGENCY: STATUS: COMPLETED This PDMP query was submitted by Emily Lopez. The clinical justification for this PDMP query i s to review controlled substances prescribed outside of the [place], and any additional information that may become available, as an important compo nent of standard clinical care, and in accordance with [facility] policy. [facility] [place]. Prescription(s) filled outside the VA in the t 90 days are noted. However, they do not raise significan t safety concerns and do not influence the treatment plan at this time. lorazepam for imaging only /es/ Emily Lopez [facility] Nurse Practitioner Signed: 01/12/2021 14:20 Jan 12, 2021 02:18 PM MEDICATION MGT NOTE: EMILY LOPEZ [facility] LOCAL TITLE: NON-VA MEDICATION - [place] STANDARD TITLE: MEDICATION MGT NOTE DATE OF NOTE: JAN 12, 2021@14:18 ENTRY DATE: JAN 12, 2021@14:18:08 AUTHOR: EMILY LOPEZ EXP COSIGNER: URGENCY: STATUS: COMPLETED [facility] [address] [place] [address] Today's Date: JAN 12, 2021 Name: JAYLA BRITTON : Jun Address[address] [place] [address] Allergy/ADR: ATROVENT, FLONASE TRAMADOL HCL 50MG TAB Sig: TAKE one-two MOUTH FOUR TIMES A DAY NEE DED for pain Quantity:___24__ Refills:__none___ _ Substitution Permitted Dispense as Written [id number] fax to pharmacy of choice /martha/ Emily FIGUEROA Nurse Practitioner Signed: 01/12/2021 14:19 Receipt Acknowledged By: * AWAITING SIGNATURE * LINN ARECHIGA Jan 08, 2021 03:30 PM TELEPHONE [facility]NC[facility]TER [facility]LEPHONE NOTE STANDARD TITLE: TELEPHONE ENCOUNTER NOTE DATE OF NOTE: JAN 08, 2021@15:30 ENTRY DATE: JAN 12, 2021@14:06:57 AUTHOR: EMILY LOPEZ EXP COSIGNER: URGENCY: STATUS: COMPLETED JAN 12, 2021 Patient identification is confirmed by full name , date of and social security number prior to interview and examinati on. tele visit CC/HPI SUBJECTIVE: [place] is a 80 year old MALE who pr esents with tele visit Chief Complaint: Lumbar and hip pain mostly righ t previous history review Lumbar and Bilateral hip pain mostly right with right groin pain. Vet saw Dr Morin for left shoulde r and he recommended Dr Bustillo for lumbar spine 12/11/2020 [facility] MRI lumbar spine Impression significant multilev el degenerative changes are described most prominent at L2-3 level which is probably source of acute symptoms per radiology Right hip MRI impression mild edema at the super ior aspect no associated fracture likely degenerative, mild os teoarthritis, hip effusion, gluteus medius tendinosis, Left hip MRI showed no hip fracture, mild effus ion or fluid is present. Mild osteoarthritis. Gluteus medius tendinopathy significant right groin pain with lifting leg si t or standing, Pain radiates to right buttock, Pain started after putting leg over guard rale. Pain radiates to buttock with standing and continued pain mild 1-4/10 now sitt ing. Pain 4-5/10 at rest and 7- 8/10 no back pain. Also having pain down left leg and tingling to feet US 07/22/2020 [facility] showed right ingu inal hernia measuring 1.0x 1.3x 6cm no pulsating enrique l and contains mesenteric fat. Dr Jimenez evaluated and did no palpate a wlifredo ia REVIEW OF SYSTEMS Constitutional: Denies: Fever, unexplained weight loss, chills, swollen gland, fatigue, weakness, or trouble sleeping. Cardiovascular: Denies: Chest pain, dyspnea, orthopnea, paroxys mal nocturnal dyspnea, palpitations, syncope, dizziness, or edema. Respiratory: Denies: shortness of breath, cough, hemoptysis, sputum production, painful breathing or wheezing. Musculoskeletal: pauin as above Active Problem Atrial fibrillation I48.91 09/22/2020 NIKOLE [...] sleep apnea of adult G4 02/13/2020 S EMLIY OCHOA Hyperlipidemia E78.5, Onset 02/13/2020 S EMILY OCHOA Allergic rhinitis J30.9, Onset 02/13/2020 S EMILY OCHOA Hypertension I10., Onset 04/26/2019 02/13/2020 S EMILY OCHOA Glaucoma R69., Onset 04/26/2019 02/13/2020 EMILY LOPEZ MEDICATION RECONCILIATION: Active Outpatient Medications (including Supplie [...] 10MG TAB TAKE ONE TABLET BY MO UTH ACTIVE EVERY DAY FOR ALLERGIES 5) HYDROCHLOROTHIAZIDE [...] EC CAP TAKE ONE CAPSULE BY MO UT ACTIVE EVERY DAY FOR STOMACH ACID, TAKE ONE-HALF HOUR PRIOR TO BREAKFAST 9) TRELEGY ELLIPTA 100/62.5/25MCG INH 30D INHALE ONE ACTIVE INHALATION BY MOUTH EVERY MORNING FOR COPD. RIN SE MOUTH AFTER USE Pending Outpatient Medications Status 1) CETIRIZINE HCL 10MG TAB TAKE ONE TABLET BY MO UT PENDING EVERY DAY FOR ALLERGIES Active Non-VA Medications Status 1) Non-VA CHOLECALCIF 25MCG (D3-1,000UNIT) TAB 2 5MCG BY ACTIVE MOUTH EVERY DAY 2) Non-VA LORazePAM 0.5MG TAB 0.25 BY MOUTH ONCE ACTIVE 3) Non-VA MAGNESIUM OXIDE 420MG TAB 420MG BY NATASHA TH EVERY ACTIVE DAY 4) Non-VA MULTIVITAMIN CAP/TAB 1 TABLET BY MOUTH EVERY ACTIVE DAY 5) Non-VA POTASSIUM CITRATE 99MG 99MG BY MOUTH E VERY DAY ACTIVE 6) Non-VA TIMOLOL MALEATE 0.5% OPH SOLN 1 DROP E ACH EYE ACTIVE EVERY DAY 16 Total Medications ALLERGIES: ATROVENT, FLONASE ASSESSMENT: Medication Reconciliation done and Med list/teac moshe document given to patient All recent labs and radiology reports were revie wed with the patient, copy of all labs provided and all questions answ ered. Patient demonstrated good understanding. Reviewed patient's life goals. Visit Diagnoses/Plan:' Lumbar pain and right hip Orthopedic consult Urgent Dr Keny shen o rthopedics Tramadol short fill Follow-up visit in 02/18/2021 20 min /es/ Emily FIGUEROA Nurse Practitioner Signed: 01/12/2021 14:16
--- OUTSIDE RECORDS SUMMARY | 2021-11-11 08:47 | External Medical Summary | Encounter Summary ---
:1940 Author Organization [facility] Address [address] [place] [address] Care Team Providers Name Role Phone EMILY [...] Shanks BC OF PREFERRED UNIVE Jan 24, [id number] [phone] DEREK NN, PATIENT [place] PROVIDER RSITY [id number] [phone] JAYLA ORGANIZAT OF ION (PPO) [place] [facility] [place] [id number] Oct 24, [id number] MARILYNNALEX, PATIENT [facility] [phone] JAYLA CAREMARK PRESCRIPT [id number] Apr 26, [id number] [phone] MARILYNNKoby SANTOS, PATIENT [id number] ION 9 2013 [id number] JAYLA CAREMARK PRESCRIPT [id number] Apr 26, [id number] [phone] KITTY SANTOS, PATIENT [id number] ION 9 2013 [id number] JAYLA MEDICARE MEDICARE PART Jun 24, PART A [id number] TOBI, PATIENT (WNR) (M) A 2004 [id number] JAYLA MEDICARE MEDICARE PART Jun 24, PART B [id number] TOBI, PATIENT (WNR) (M) B 2004 [id number] 1213 JAYLA MEDICARE MEDICARE PART Jun 24, PART A [id number] TOBI, PATIENT (WNR) (M) A 2004 64A 8431 JAYLA MEDICARE MEDICARE PART Jun 24, PART B [id number] TOBI, PATIENT (WNR) (M) B 2004 64A [id number] JAYLA MARTINS RETIREE WASHI Oct 24, [id number] TOBI, PATIENT BS UDWW [facility] 2002 [id number] [facility] [place] ST RX PRESCRIPT Apr 26, [id number] [phone] MARILYNN JOHNSON, PATIENT SERVICES [place] [address] 2012 [id number] JAYLA Selected Encounter This section includes the information on record at [place] for the Encounter. Date/Time Encounter Type Encounter Description Reason Provider Source Jan 28, 2021 12:00 Outpatient Encounter COMMUNITY CARE PM CONSULT IHE Encounter Template Text not used by [place] Plan of Treatment: Future Appointments (+ 6 months) and Future Tests (+/- 45 days) The Plan of Treatment section includes future care activities for the patient from all [place] treatmentfacilities. This section includes future appointments and future orders which are active, pending orscheduled.Future Appointments This section includes appointments that were scheduled to occur 6 months from the date of the Encounter, up to a maximum of 20 appointments. The data comes from all [place] treatment facilities. Appointment Date/Time Appointment Type Appointment Facili ty Name Feb 11, 2021 08:30 AM AMBULATORY - MEDICINE [facility] Feb 18, 2021 02:00 PM AMBULATORY - MEDICINE [facility] Feb 26, 2021 10:10 AM AMBULATORY - NONE MODESTA GARCES [facility] Mar 03, 2021 11:15 AM AMBULATORY - MEDICINE [facility] Mar 05, 2021 02:30 PM AMBULATORY - NONE MODESTA GARCES [facility] Mar 14, 2021 03:45 PM AMBULATORY - MEDICINE [facility] Apr 09, 2021 11:00 AM AMBULATORY - MEDICINE [facility] Apr 11, 2021 11:00 AM AMBULATORY - MEDICINE [facility] Apr 14, 2021 09:00 AM AMBULATORY - MEDICINE [facility] May 15, 2021 12:30 PM AMBULATORY - MEDICINE [facility] Jun 19, 2021 07:30 AM AMBULATORY - NONE MODESTA GARCES [facility] Jul 07, 2021 09:00 AM AMBULATORY - NONE MODESTA GARCES [facility] Jul 07, 2021 03:00 PM AMBULATORY - MEDICINE [facility] IC Jul 22, 2021 03:00 PM AMBULATORY - NONE MODESTA Yogesh [facility] Lab Results: +/- 30 days of the encounter This section includes the Chemistry and Hematology Lab Results on record with [place] for the patient. Radiology Reports and Pathology Reports are provided separately, in subsequent sections.Lab Results This section contains the Chemistry/Hematology Results that were resulted 30 days before or 30 daysafter the date of the Encounter. Date/Time Source Result Type Result - Unit Interpretation Reference Range Comment Feb 11, 2021 08:20 AM [facility] HEMOGLOBIN A1C Specim en Type: BLOOD [...] 2021 04:30 PM Reporting Lab: MODESTA VIVEROS [place] [address] [place] [address] Performing Lab: [place] [address] [place] [address] HEMOGLOBIN A1C 5.9 H 0-5.6 Feb 11, 2021 08:20 AM [facility] MAGNESIUM Specim en Type: BLOOD No comment enter ed. Ordering Provid er: EMILY ROSALES Report Released Date/Time: Feb 05, 2021 04:30 PM Reporting Lab: MODESTA VIVEROS [place] [address] [place] [address] Performing Lab: [place] [address] [place] [address] MAGNESIUM 1.8 mg/dL 1.6-2.6 Feb 11, 2021 08:20 [facility] VITAMIN D (25-HYDROXY) Sp ecimen Type: [...] 2021 04:30 PM Reporting Lab: MODESTA VIVEROS [place] [address] [place] [address] Performing Lab: MO[facility]STA VIVEROS [place] [address] [place] [address] VITAMIN D (25-HYDROXY) 37.9 ng/mL 30.0-1 00 Feb 11, 2021 [facility] COMPREHENSIVE METABOLIC Spec imen Type: SERUM [...] 2021 04:30 PM Reporting Lab: MODESTA VIVEROS [place] [address] [place] [address] Performing Lab: MO[facility]STA VIVEROS [place] [address] [place] [address] GLUCOSE 111 mg/dL H 71-109 BUN/UREA (BLOOD [...] mL/min/{1.73_m2} L >90 Feb 11, 2021 08:20 [facility] CBC & MORPHOLOGY (WITH Sp ecimen Type: BLOOD AM DIFF) No comment enter ed. Ordering Provid er: EMILY ROSALES Report Released Date/Time: Feb 05, 2021 04:30 PM Reporting Lab: MODESTA VIVEROS [address] [place] [address] Performing Lab: MODESTA VIVEROS [address] [place] [address] WBC (TOTAL WBC COUNT) 6.9 3.0-10.6 RBC [...] ABSOLUTE 0.02 0-0.07 Feb 11, 2021 08:20 [facility] THYROID STIMULATING Speci men Type: SERUM [...] 2021 04:30 PM Reporting Lab: MODESTA VIVEROS [place] [address] [place] [address] Performing Lab: MODESTA VIVEROS [place] [address] [place] [address] THYROID STIMULATING HORMONE 3.77 0. 300-4.25 Feb 11, 2021 08:20 AM [facility] LIPID PANEL Specim en Type: SERUM [...] 2021 04:30 PM Reporting Lab: MODESTA VIVEROS [place] [address] [place] [address] Performing Lab: MODESTA VIVEROS [place] [address] [place] [address] CHOLESTEROL 188 mg/dL <199 TRIGLYCERIDE 238 mg/dL H <149 HDL CHOLESTEROL 47 mg/dL >40 NON-HDL CHOLESTEROL 141 mg/dL <130 LDL, DIRECT 94 mg/dL 0-129 Feb 11, 2021 08:20 AM [facility] VITAMIN B-12 Specim en Type: SERUM Comment: High d oses of Biotin supplements (>5 mg/day) may falsely increase Vitamin B-12, Vitamin D (25OH), Free T4, and Folate results. Test specimens should be collected at least 8 hrs after last ingestion of high dose biotin. Ordering Provid er: EMILY ROSALES Report Released Date/Time: Feb 05, 2021 04:30 PM Reporting Lab: MO[facility]STA VIVEROS [place] [address] [place] [address] Performing Lab: MODESTA VIVEROS [address] [place] [address] VITAMIN B-12 694 pg/mL [phone] Encounter Notes: All associated encounter notes This section contains the clinical notes associated to the Encounter. Date/Time Encounter Note(s) Provider Source Jan 28, 2021 12:49 PM NONVA CONSULT: KERRIE ANGUIANO LOCAL TITLE: COMMUNITY CARE-CONSULT RESULT NOTE [facility] STANDARD TITLE: NONVA CONSULT DATE OF NOTE: JAN 28, 2021@12:49 ENTRY DATE: FEB 10, 2021@12:50 AUTHOR: KERRIE ANGUIANO EXP COSIGNER: URGENCY: STATUS: COMPLETED The following Non VA Care consult has be en completed. See scanned document for report. NON VA Care Consult Results Audiology Comment: MER AUDIOLOGY /es/ G NICKO ANGUIANO Health Information [employer] Super[employer] Signed: 02/10/2021 12:50
--- OUTSIDE RECORDS SUMMARY | 2021-11-11 08:47 | External Medical Summary | Encounter Summary ---
:1940 Author Organization [facility] rs Address [address] [place] [address] Support Name Relationship Address Phone ERNIE BRITTON Unavailable [address] [facility] [phone] [place] [place] [place] [address] ERNIE BRITTON Carlito Unavailable [address] [facility] [phone] [place] [address] Insurance Providers: All historical and current Section [...] Name to Policy Number Shanks BC OF [facility] UNIVE Jan 24, [id number] [phone] DEREK NN, PATIENT [place] PROVIDER [facility] [id number] JAYLA ORGANIZAT OF ION (PPO) [facility] [id number] Oct 24, [id number] TOBI, PATIENT [facility] 2002 [id number] JAYLA CAREMARK PRESCRIPT [id number] Apr 26, [id number] [phone] MARILYNNKoby SANTOS, PATIENT [id number] ION 9 2013 [id number] JAYLA CAREMARK PRESCRIPT [id number] Apr 26, [id number] [phone] MARILYNNKoby SANTOS, PATIENT [id number] ION 9 2013 82 550 JAYLA MEDICARE MEDICARE PART Jun 24, PART B [id number] TOBI, PATIENT (WNR) (M) B 2004 [id number] [id number] JAYLA MEDICARE MEDICARE PART Jun 24, PART A [id number] TOBI, PATIENT (WNR) (M) A 2004 [id number] 1213 [place] MEDICARE MEDICARE PART Jun 24, PART A [id number] TOBI, PATIENT (WNR) (M) A 2004 64A 8431 JAYLA MEDICARE MEDICARE PART Jun 24, PART B [id number] TOBI, PATIENT (WNR) (M) B 2004 64A 8431 JAYLA MARTINS RETIREE TANK Oct 24, [id number] TOBI, PATIENT BS UDWW [facility] 2002 7 [id number] [facility]* [facility] RX PRESCRIPT [id number] Apr 26, [id number] [phone] MARILYNN JOHNSON, PATIENT SERVICES [place] [address] 2012 [id number] 1 JAYLA Selected Encounter This section includes the information on record at [place] for the Encounter. Date/Time Encounter Type Encounter Description Reason Provider Source Jan 24, 2021 12:00 Outpatient Encounter EVENT (HISTORICAL) AM IHE Encounter Template Text not used by [place] Plan of Treatment: Future Appointments (+ 6 [...] 11, 2021 08:30 AM AMBULATORY - MEDICINE [facility] Feb 18, 2021 02:00 PM AMBULATORY - MEDICINE [facility] Feb 26, 2021 10:10 AM AMBULATORY - NONE MODESTA GARCES [facility] Mar 03, 2021 11:15 AM AMBULATORY - MEDICINE [facility] Mar 05, 2021 02:30 PM AMBULATORY - NONE MODESTA GARCES [facility] Mar 14, 2021 03:45 PM AMBULATORY - MEDICINE [facility] Apr 09, 2021 11:00 AM AMBULATORY - MEDICINE [facility] Apr 11, 2021 11:00 AM AMBULATORY - MEDICINE [facility] Apr 14, 2021 09:00 AM AMBULATORY - MEDICINE [facility] May 15, 2021 12:30 PM AMBULATORY - MEDICINE [facility] Jun 19, 2021 07:30 AM AMBULATORY - NONE MO[facility]STA GARCES [facility] Jul 07, 2021 09:00 AM AMBULATORY - NONE MODESTA Yogesh [facility] Jul 07, 2021 03:00 PM AMBULATORY - MEDICINE [facility] IC Jul 22, 2021 03:00 PM [facility] Lab Results: +/- 30 days of the encounter This section includes the Chemistry and Hematology Lab Results on record with [place] for the patient. Radiology Reports and Pathology Reports are provided separately, in subsequent sections.Lab Results This section contains the Chemistry/Hematology Results that were resulted 30 days before or 30 daysafter the date of the Encounter. Date/Time Source Result Type Result - Unit Interpretation Reference Range Comment Feb 11, 2021 08:20 AM [facility] HEMOGLOBIN A1C Specim en Type: BLOOD Comment: [...] 2021 04:30 PM Reporting Lab: MODESTA VIVEROS [address] [place] [address] Performing Lab: MODESTA ANN[address] [place] [address] HEMOGLOBIN A1C 5.9 H 0-5.6 Feb 11, 2021 08:20 [facility] VITAMIN D (25-HYDROXY) Sp ecimen Type: SERUM [...] 2021 04:30 PM Reporting Lab: MODESTA VIVEROS [place] [address] [place] [address] Performing Lab: [place] [address] [place] [address] VITAMIN D (25-HYDROXY) 37.9 30.0-10 0 Feb 11, 2021 08:20 AM [facility] MAGNESIUM Specim en Type: BLOOD No comment enter ed. Ordering Provid er: EMILY ROSALES Report Released Date/Time: Feb 05, 2021 04:30 PM Reporting Lab: MO[facility]STA VIVEROS [place] [address] [place] [address] Performing Lab: [place] [address] [place] [address] MAGNESIUM 1.8 1.6-2.6 Feb 11, 2021 [facility] COMPREHENSIVE METABOLIC Spec imen Type: SERUM 08:20 [...] 2021 04:30 PM Reporting Lab: MODESTA VIVEROS [place] [address] [place] [address] Performing Lab: MODESTA VIVEROS [place] [address] [place] [address] GLUCOSE 111 H 71-109 BUN/UREA (BLOOD UREA [...] 63 L >90 Feb 11, 2021 08:20 [facility] THYROID STIMULATING Speci men Type: SERUM AM [...] 2021 04:30 PM Reporting Lab: MODESTA VIVEROS [place] [address] [place] [address] Performing Lab: MODESTA VIVEROS [place] [address] [place] [address] THYROID STIMULATING HORMONE 3.77 0. 300-4.25 Feb 11, 2021 08:20 [facility] CBC & MORPHOLOGY (WITH Sp ecimen Type: BLOOD AM DIFF) No comment enter ed. Ordering Provid er: EMILY ROSALES Report Released Date/Time: Feb 05, 2021 04:30 PM Reporting Lab: MODESTA VIVEROS [place] [address] [place] [address] Performing Lab: MODESTA VIVEROS [place] [address] [place] [address] WBC (TOTAL WBC COUNT) 6.9 3.0-10.6 RBC [...] ABSOLUTE 0.02 0-0.07 Feb 11, 2021 08:20 AM [facility] LIPID PANEL Specim en Type: SERUM Comment: [...] 2021 04:30 PM Reporting Lab: MODESTA VIVEROS [address] [place] [address] Performing Lab: MODESTA VIVEROS [address] [place] [address] CHOLESTEROL 188 <199 TRIGLYCERIDE 238 H <149 HDL CHOLESTEROL 47 >40 NON-HDL CHOLESTEROL 141 <130 LDL, DIRECT 94 0-129 Feb 11, 2021 08:20 AM [facility] VITAMIN B-12 Specim en Type: SERUM Comment: High d oses of Biotin supplements (>5 mg/day) may falsely increase Vitamin B-12, Vitamin D (25OH), Free T4, and Folate results. Test specimens should be collected at least 8 hrs after last ingestion of high dose biotin. Ordering Provid er: EMILY ROSALES Report Released Date/Time: Feb 05, 2021 04:30 PM Reporting Lab: MODESTA VIVEROS [address] [place] [address] Performing Lab: MODESTA VIVEROS [address] [address] VITAMIN B-12 [phone] Immunizations: All administered on the encounter date This section contains immunizations associated to the Encounter. Immunization Series Date Issued Reaction Comments COVID-19 (InfoAssure), MRNA, LNP-S, PF, 30 MCG/0.3 3 Jan 24, 2021 ML DOSE INFLUENZA, UNSPECIFIED FORMULATION Jan 24, 2021
--- OUTSIDE RECORDS SUMMARY | 2021-11-11 08:47 | External Medical Summary | Encounter Summary ---
:1940 Author Organization [facility] Address [address] [place] [address] Care Team Providers Name Role Phone EMILY [...] Shanks BC OF PREFERRED UNIVE Jan 24, [id number] [phone] DEREK NN, PATIENT [place] PROVIDER RSITY [id number] JAYLA ORGANIZAT OF ION (PPO) [place] [id number] Oct 24, [id number] MARILYNNALEX, PATIENT [facility] [id number] JAYLA CAREMARK PRESCRIPT [id number] Apr 26, [id number] [phone] MARILYNNKoby SANTOS, PATIENT [id number] ION 9 2013 [id number] JAYLA CAREMARK PRESCRIPT [id number] Apr 26, [id number] [phone] KITTY SANTOS, PATIENT [id number] ION 9 2013 [id number] 550 JAYLA MEDICARE MEDICARE PART Jun 24, PART A [id number] TOBI, PATIENT (WNR) (M) A 2004 [id number] JAYLA MEDICARE MEDICARE PART Jun 24, PART B [id number] TOBI, PATIENT (WNR) (M) B 2004 [id number] 1213 JAYLA MEDICARE MEDICARE PART Jun 24, PART A [id number] TOBI, PATIENT (WNR) (M) A 2004 64A 8431 JAYLA MEDICARE MEDICARE PART Jun 24, PART B [id number] TOBI, PATIENT (WNR) (M) B 2004 64A 8431 JAYLA MARTINS RETIREE WASHI Oct 24, [id number] TOBI, PATIENT BS UDWW [facility] 2002 [id number] [facility]* [place] ST RX PRESCRIPT Apr 26, [id number] [phone] MARILYNN JOHNSON, PATIENT SERVICES [place] [address] 2012 [id number] JAYLA Selected Encounter This section includes the information on record at [place] for the Encounter. Date/Time Encounter Type Encounter Description Reason Provider Source Jan 13, 2021 02:02 Outpatient Encounter COMMUNITY CARE PM CONSULT IHE [...] 11, 2021 08:30 AM AMBULATORY - MEDICINE [facility] Feb 18, 2021 02:00 PM AMBULATORY - MEDICINE [facility] Feb 26, 2021 10:10 AM AMBULATORY - NONE [facility] GARCES [facility] Mar 03, 2021 11:15 AM AMBULATORY - MEDICINE [facility] Mar 05, 2021 02:30 PM AMBULATORY - NONE MO[facility]STA GARCES [facility] Mar 14, 2021 03:45 PM AMBULATORY - MEDICINE [facility] Apr 09, 2021 11:00 AM AMBULATORY - MEDICINE [facility] Apr 11, 2021 11:00 AM AMBULATORY - MEDICINE [facility] Apr 14, 2021 09:00 AM AMBULATORY - MEDICINE [facility] May 15, 2021 12:30 PM AMBULATORY - MEDICINE [facility] Jun 19, 2021 07:30 AM AMBULATORY - NONE MODESTA GARCES [facility] Jul 07, 2021 09:00 AM AMBULATORY - NONE [facility] GARCES [facility] Jul 07, 2021 03:00 PM AMBULATORY - MEDICINE [facility] Lab Results: +/- 30 days of the [...] Comment Feb 11, 2021 08:[address] [facility] HEMOGLOBIN A1C Specim en Type: [...] 2021 04:30 PM Reporting Lab: MO[facility]STA VIVEROS [address] [place] [address] Performing Lab: MODESTA VIVEROS [place] [address] [place] [address] HEMOGLOBIN A1C 5.9 H 0-5.6 Feb 11, 2021 08:[address] [facility] MAGNESIUM Specim en Type: BLOOD No comment enter ed. Ordering Provid er: EMILY ROSALES Report Released Date/Time: Feb 05, 2021 04:30 PM Reporting Lab: MODESTA VIVEROS [place] [address] [place] [address] Performing Lab: MO[facility]STA VIVEROS [place] [address] [place] [address] MAGNESIUM 1.8 mg/dL 1.6-2.6 Feb 11, 2021 08:20 [facility] VITAMIN D (25-HYDROXY) Sp ecimen [...] 2021 04:30 PM Reporting Lab: MODESTA VIVEROS [place] [address] [place] [address] Performing Lab: MO[facility] VIVEROS [place] [address] [place] [address] VITAMIN D (25-HYDROXY) 37.9 ng/mL 30.0-1 00 Feb 11, 2021 [facility] COMPREHENSIVE METABOLIC Spec imen Type: [...] 2021 04:30 PM Reporting Lab: MODESTA VIVEROS [place] [address] [place] [address] Performing Lab: MO[facility]STA VIVEROS [place] [address] [place] [address] GLUCOSE 111 mg/dL H 71-109 BUN/UREA (BLOOD [...] L >90 Feb 11, 2021 08:20 [facility] CBC & MORPHOLOGY (WITH Sp ecimen Type: BLOOD AM DIFF) No comment enter ed. Ordering Provid er: EMILY ROSALES Report Released Date/Time: Feb 05, 2021 04:30 PM Reporting Lab: MODESTA VIVEROS [address] [place] [address] Performing Lab: MODESTA VIVEROS [address] [address] WBC (TOTAL WBC COUNT) 6.9 3.0-10.6 RBC [...] 0.02 0-0.07 Feb 11, 2021 08:20 [facility] THYROID STIMULATING Speci men Type: [...] 2021 04:30 PM Reporting Lab: MODESTA VIVEROS [place] [address] [place] [address] Performing Lab: MO[facility]STA VIVEROS [place] [address] [place] [address] THYROID STIMULATING HORMONE 3.77 0. 300-4.25 Feb 11, 2021 08:[address] [facility] LIPID PANEL Specim en Type: [...] 2021 04:30 PM Reporting Lab: MO[facility]STA VIVEROS [place] [address] [place] [address] Performing Lab: MO[facility] VIVEROS [place] [address] [place] [address] CHOLESTEROL 188 mg/dL <199 TRIGLYCERIDE 238 mg/dL H <149 HDL CHOLESTEROL 47 mg/dL >40 NON-HDL CHOLESTEROL 141 mg/dL <130 LDL, DIRECT 94 mg/dL 0-129 Feb 11, 2021 08:[address] [facility] VITAMIN B-12 Specim en Type: SERUM Comment: High d oses of Biotin supplements (>5 mg/day) may falsely increase Vitamin B-12, Vitamin D (25OH), Free T4, and Folate results. Test specimens should be collected at least 8 hrs after last ingestion of high dose biotin. Ordering Provid er: EMILY ROSALES Report Released Date/Time: Feb 05, 2021 04:30 PM Reporting Lab: MO[facility]STA VIVEROS [place] [address] [place] [address] Performing Lab: [facility] VIVEROS [place] [address] [place] [address] VITAMIN B-12 694 pg/mL [phone] Encounter Notes: All associated encounter notes This section contains the clinical notes associated to the Encounter. Date/Time Encounter Note(s) Provider Source Jan 13, 2021 02:02 PM ADMINISTRATIVE NOTE: FARHAT CHRISTENSEN LOCAL TITLE: TELEPHONE CONTACT CALL CENTER [facility] STANDARD TITLE: ADMINISTRATIVE NOTE DATE OF NOTE: JAN 13, 2021@14:02:46 ENTRY DATE: JAN 13, 2021@14:06:37 AUTHOR: FARHAT CHRISTENSEN EXP COSIGNER: URGENCY: STATUS: COMPLETED The following identifiers were used to verify th is patient: . SSN. The patient, JAYLA BRITTON ([id number] ) called the call center. Contact Type of call: V20 MISSED WARM TRANSFER. Comments: stated he was called by someone from the Clinic number and he was expecting C/B from NCM/PCP and request C/B to re solve. Author: FARHAT CHRISTENSEN Evaluation/Management Code: HC PRO PHONE CALL 5- 10 MIN ([id number]). Starting at: 01/13/2021 @ 2:02:46 PM Ending at: 01/13/2021 @ 2:06:06 PM Length: 3 minutes. Caller Area: [address] Chief Complaint: Not applicable to call. Caller Response: V20 RETURN CALL Caller/ verbalize understanding; acknowle dges message. Patient's Email Address: Class Code: Other specified counseling. /martha/ [facility] Signed: 01/13/2021 14:06 Receipt Acknowledged By: 01/13/2021 14:08 /es/ LINN ARECHIGA RN
--- OUTSIDE RECORDS SUMMARY | 2021-11-11 08:47 | External Medical Summary | Encounter Summary ---
:1940 Author Organization Department [facility] Address [address] [place] [address] Care Team Providers Name Role Phone ROSALES EMILY Primary Care Provider Unavailable Insurance Providers: All [...] Shanks BC OF PREFERRED UNIVE Jan 24, [id number] [phone] DEREK NN, PATIENT [place] [facility] [id number] [phone] JAYLA ORGANIZAT OF ION (PPO) [place] 57307 Oct 24, [id number] [phone] MARILYNNALEX, PATIENT [facility] 200256 5258 JAYLA CAREMARK PRESCRIPT [id number] Apr 26, [id number] [phone] KITTY SANTOS, PATIENT [id number] ION 9 [phone] JAYLA CAREMARK PRESCRIPT [id number] Apr 26, [id number] [phone] KITTY SANTOS, PATIENT [id number] ION 9 2013 82 550 JAYLA MEDICARE MEDICARE PART Jun 24, PART A [id number] [phone] TOBI, PATIENT (WNR) (M) A 2004 [id number] 1213 JAYLA MEDICARE MEDICARE PART Jun 24, PART B [id number] TOBI, PATIENT (WNR) (M) B 2004 [id number] 1213 JAYLA MEDICARE MEDICARE PART Jun 24, PART A [id number] TOBI, PATIENT (WNR) (M) A 2004 64A 8431 JAYLA MEDICARE MEDICARE PART Jun 24, PART B [id number] TOBI, PATIENT (WNR) (M) B 2004 64A 8431 JAYLA MARTINS RETIREE WASHI Oct 24, [id number] [phone] TOBI, PATIENT BS UDWW [facility] 2002 7 [id number] [facility] [place] ST RX PRESCRIPT [id number] Apr 26, [id number] [phone] MARILYNN JOHNSON, PATIENT SERVICES [place] [address] 2012 7 [id number] 1 [place] Selected Encounter This section includes the information on record at [place] for the Encounter. Date/Time Encounter Type Encounter Reason Provider Source Description Dec 09, 2020 CPAP FULL FACE PROSTHETICS/ORTHO ICD-10-CM G47.30 EMILY ROSALES 09:51 AM MASK TICS Sleep apnea, unspecified with Provider Comments: Sleep Apnea, unspecified IHE Encounter Template Text not used by [place] Assessments - Encounter Diagnoses This section includes the primary and secondary diagnoses documented for the Encounter. Date/Time Primary/Secondary Diagnosis Name Provider Source Diagnosis Jan 10, 2021 PRIMARY Sleep apnea, RICHARD TIDWELL 11:49 AM unspecified [facility] Plan of Treatment: Future Appointments (+ 6 months) and Future Tests (+/- 45 days) The Plan of Treatment section includes future care activities for the patient from all [place] treatmentfacilities. This section includes future appointments and future orders which are active, pending orscheduled.Future Appointments This section includes appointments that were scheduled to occur 6 months from the date of the Encounter, up to a maximum of 20 appointments. The data comes from all [place] treatment facilities. Appointment Date/Time Appointment Type Appointment Facili ty Name Dec 11, 2020 08:00 AM AMBULATORY - NONE [facility] Dec 17, 2020 08:30 AM AMBULATORY - NONE [facility] Dec 23, 2020 01:00 PM AMBULATORY - NONE [facility] Dec 25, 2020 12:20 PM AMBULATORY - NONE [facility] Jan 08, 2021 03:30 PM AMBULATORY - MEDICINE [facility] Feb 11, 2021 08:30 AM AMBULATORY - MEDICINE [facility] Feb 18, 2021 02:00 PM AMBULATORY - MEDICINE [facility] Feb 26, 2021 10:10 AM AMBULATORY - NONE [facility] Mar 03, 2021 11:15 AM AMBULATORY - MEDICINE [facility] Mar 05, 2021 02:30 PM AMBULATORY - NONE [facility] Mar 14, 2021 03:45 PM AMBULATORY - MEDICINE [facility] Apr 09, 2021 11:00 AM AMBULATORY - MEDICINE [facility] Apr 11, 2021 11:00 AM AMBULATORY - MEDICINE [facility] Apr 14, 2021 09:00 AM AMBULATORY - MEDICINE [facility] May 15, 2021 12:30 PM AMBULATORY - MEDICINE [facility]
--- OUTSIDE RECORDS SUMMARY | 2021-11-11 08:48 | External Medical Summary | Encounter Summary ---
:1939 Author Organization Department [facility] Address [address] [place] [address] Care Team Providers Name Role Phone EMILY [...] Shanks BC OF PREFERRED UNIVE Jan 24, [id number] [phone] DEREK NN, PATIENT [place] PROVIDER RSITY [phone] 0 JAYLA ORGANIZAT OF ION (PPO) [place] 287[address] Oct 24, [id number] [phone] MARILYNNALEX, PATIENT [facility] 200256 5258 JAYLA CAREMARK PRESCRIPT [id number] Apr 26, [id number] [phone] MARILYNNKoby SANTOS, PATIENT [id number] ION 9 [phone] JAYLA CAREMARK PRESCRIPT [id number] Apr 26, [id number] [phone] MARILYNNKoby SANTOS, PATIENT [id number] ION 9 2013 82 550 JAYLA MEDICARE MEDICARE PART Jun 24, PART A [id number] [phone] TOBI, PATIENT (WNR) (M) A 2004 [id number] 1213 JAYLA MEDICARE MEDICARE PART Jun 24, PART B [id number] TOBI, PATIENT (WNR) (M) B 2004 [id number] 1213 JAYLA MEDICARE MEDICARE PART Jun 24, PART A [id number] TOBI, PATIENT (WNR) (M) A 2004 64A 8431 JAYLA MEDICARE MEDICARE PART Jun 24, PART B [id number] TOBI, PATIENT (WNR) (M) B 2004 64A 8431 JAYLA MARTINS RETIREE WASHI Oct 24, [id number] TOBI, PATIENT BS UDWW [facility] 2002 7 [id number] [facility] RX PRESCRIPT Apr 26, [id number] [phone] MARILYNN JOHNSON, PATIENT SERVICES [place] [address] 2012 7 [id number] [place] Selected Encounter This section includes the information on record at [place] for the Encounter. Date/Time Encounter Type Encounter Description Reason Provider Source Dec 16, 2020 12:00 Outpatient Encounter EVENT (HISTORICAL) AM IHE Encounter Template Text not used by [place] Plan of Treatment: Future Appointments (+ 6 months) and Future Tests (+/- 45 days) The Plan of Treatment section includes future care activities for the patient from all [place] treatmentfacilities. This section includes future appointments and future orders which are active, pending orscheduled.Future Appointments This section includes appointments that were scheduled to occur 6 months from the date of the Encounter, up to a maximum of 20 appointments. The data comes from all [place] treatment facilities. Appointment Date/Time Appointment Type Appointment Facili ty Name Dec 17, 2020 08:30 AM AMBULATORY - NONE [facility] Dec 23, 2020 01:00 PM AMBULATORY - NONE [facility] Dec 25, 2020 12:20 PM AMBULATORY - NONE [facility] Jan 08, 2021 03:30 PM AMBULATORY - MEDICINE [facility] Feb 11, 2021 08:30 AM AMBULATORY - MEDICINE [facility] Feb 18, 2021 02:00 PM AMBULATORY - MEDICINE [facility] Feb 26, 2021 10:10 AM AMBULATORY - NONE [facility] Mar 03, 2021 11:15 AM AMBULATORY - MEDICINE [facility] Mar 05, 2021 02:30 PM AMBULATORY - NONE [facility] Mar 14, 2021 03:45 PM AMBULATORY - MEDICINE [facility] Apr 09, 2021 11:00 AM AMBULATORY - MEDICINE [facility] Apr 11, 2021 11:00 AM AMBULATORY - MEDICINE [facility] Apr 14, 2021 09:00 AM AMBULATORY - MEDICINE [facility] May 15, 2021 12:30 PM AMBULATORY - MEDICINE [facility]
--- OUTSIDE RECORDS SUMMARY | 2021-11-11 08:48 | External Medical Summary | Encounter Summary ---
:1939 Author Organization Department [facility] Address [address] [place] [address] Care Team Providers Name Role Phone CONNIE EMILY Primary Care Provider Unavailable Insurance Providers: [...] Shanks BC OF PREFERRED UNIVE Jan 24, [id number] [phone] DEREK NN, PATIENT [place] [facility] [phone] 0 JAYLA ORGANIZAT OF ION (PPO) [place] 63396 Oct 24, [id number] [phone] MARILYNNALEX, PATIENT [facility] 200256 5258 JAYLA CAREMARK PRESCRIPT [id number] Apr 26, [id number] [phone] KITTY SANTOS, PATIENT [id number] ION 9 [phone] JAYLA CAREMARK PRESCRIPT [id number] Apr 26, [id number] [phone] MARILYNNKoby SANTOS, PATIENT [id number] ION 9 2013 82 550 JAYLA MEDICARE MEDICARE PART Jun 24, PART A [id number] TOBI, PATIENT (WNR) (M) A 2004 [id number] 1213 JAYLA MEDICARE MEDICARE PART Jun 24, PART B [id number] [phone] TOBI, PATIENT (WNR) (M) B 2004 [id number] 1213 JAYLA MEDICARE MEDICARE PART Jun 24, PART A [id number] TOBI, PATIENT (WNR) (M) A 2004 64A 8431 JAYLA MEDICARE MEDICARE PART Jun 24, PART B [id number] TOBI, PATIENT (WNR) (M) B 2004 64A 8431 JAYLA MARTINS RETIREE WASHI Oct 24, [id number] [phone] TOBI, PATIENT BS UDWW [facility] 2002 7 [id number] [facility] [place] ST RX PRESCRIPT [id number] Apr 26, [id number] [phone] MARILYNN JOHNSON, PATIENT SERVICES [place] [address] 2012 7 [id number] JAYLA Selected Encounter This section includes the information on record at [place] for the Encounter. Date/Time Encounter Type Encounter Description Reason Provider Source Dec 21, 2020 04:56 Outpatient Encounter SUBSTANCE USE DISORDR PM GRP IHE Encounter Template Text not used by [place] Plan of Treatment: Future Appointments (+ 6 months) and Future Tests (+/- 45 days) The Plan of Treatment section includes future care activities for the patient from all [place] treatmentfacilities. This section includes future appointments and future orders which are active, pending orscheduled.Future Appointments This section includes appointments that were scheduled to occur 6 months from the date of the Encounter, up to a maximum of 20 appointments. The data comes from all [place] treatment facilities. Appointment Date/Time Appointment Type Appointment Facili ty Name Dec 23, 2020 01:00 PM AMBULATORY - NONE [facility] Dec 25, 2020 12:20 PM AMBULATORY - NONE [facility] Jan 08, 2021 03:30 PM AMBULATORY - MEDICINE [facility] Feb 11, 2021 08:30 AM AMBULATORY - MEDICINE [facility] Feb 18, 2021 02:00 PM AMBULATORY - MEDICINE [facility] Feb 26, 2021 10:10 AM AMBULATORY - NONE [facility] Mar 03, 2021 11:15 AM AMBULATORY - MEDICINE [facility] Mar 05, 2021 02:30 PM AMBULATORY - NONE [facility] Mar 14, 2021 03:45 PM AMBULATORY - MEDICINE [facility] Apr 09, 2021 11:00 AM AMBULATORY - MEDICINE [facility] Apr 11, 2021 11:00 AM AMBULATORY - MEDICINE [facility] Apr 14, 2021 09:00 AM AMBULATORY - MEDICINE [facility] May 15, 2021 12:30 PM AMBULATORY - MEDICINE [facility] Jun 19, 2021 07:30 AM AMBULATORY - NONE [facility] Zuñiga [facility] Encounter Notes: All associated encounter notes This section contains the clinical notes associated to the Encounter. Date/Time Encounter Note(s) Provider Source Dec 21, 2020 04:57 PM PHYSICIAN LETTERS: EMILY ROSALES [facility] LOCAL TITLE: PHYSICIAN LETTER STANDARD TITLE: PHYSICIAN LETTERS DATE OF NOTE: DEC 21, 2020@16:57 ENTRY DATE: DEC 21, 2020@16:57:27 AUTHOR: EMILY ROSALES COSIGNER: URGENCY: STATUS: COMPLETED PHYSICIAN LETTER Has ADDENDA [place] [facility] [address], [facility] [address] [place] [address] DEC 21, 2020 [facility]LA [facility]ITTON [address] [facility] [address] Dear JAYLA BRITTON: The results of your recent tests have been revie wed. The purpose of this letter is to share those results and the provide r's recommendations with you. MRI results Thoracic T12 wedge deformity approximately 50% l oss of disc height at the anterior aspect T11-12 moderate bone spur resulting in mild spin al stenosis and mild to moderate bilateral foraminal stenosis T12-L1 mild posterior disc bulge with mild spina l stenosis and moderate foraminal stenosis. L1-2 has mild posterior disc bulge with mild spi nal stenosis and moderate foraminal stenosis At the L2-3 level there is moderate moderate los s of disc height with a moderate posterior disc bulge and facet hypertro phy resulting in severe spinal stenosis and moderate bilateral foraminal stenosis. L3-4 mild posterior disc bulge facet hypertrophy with mild spinal stenosis and moderate foraminal stenosis and moderate to severe left foraminal stenosis. L4-5 mild posterior disc bulge with facet hypert rophy and mild spinal stenosis moderate to severe bilateral femoral st enosis L5-S1 mild posterior disc bulge without spinal s tenosis or foraminal stenosis.. Impression significant multilevel degenerati ve changes are described most prominent at Lumbar L2-3 level which is probably source of acute symptoms.. 12/11/2020. [facility] MRI cervical spine Mild to moderate disc bulging and mild to modera te stenosis multiple levels I will order the pain clinic for pain management of the cervical and lumbar spine. Left hip MRI showed no hip fracture, mild effusi on or fluid is present. Mild osteoarthritis. Gluteus medius tendinopathy Right hip MRI impression mild edema at the super ior aspect of a stimulant, no associated fracture likely degenerative, mild os teoarthritis, hip effusion, gluteus medius tendinosis, I have ordered an orthopedic consult for bilater al hip pain mostly right Thank you LIDIA Jennings [facility] [address], [facility] [address] [place] [address] /martha/ Emily FIGUEROA Nurse Practitioner Signed: 12/21/2020 17:47 Receipt Acknowledged By: 12/25/2020 08:20 /martha/ Carlito SHIPLEY MSA 12/25/2020 ADDENDUM STATUS: COMPLETED Printed. Placed in out going mail. /es/ D ALEC SHIPLEY MSA Signed: 12/25/2020 08:22
--- OUTSIDE RECORDS SUMMARY | 2021-11-11 08:48 | External Medical Summary | Encounter Summary ---
:1939 Author Organization Department [facility] Address [address] [place] [address] Care Team Providers Name Role Phone EMILY [...] Shanks BC OF PREFERRED UNIVE Jan 24, [id number] [phone] DEREK NN, PATIENT [place] PROVIDER RSITY [phone] 0 JAYLA ORGANIZAT OF ION (PPO) [place] 27[address] Oct 24, [id number] [phone] MARILYNNALEX, PATIENT [facility] 200256 5258 JAYLA CAREMARK PRESCRIPT [id number] Apr 26, [id number] [phone] MARILYNNKoby SANTOS, PATIENT [id number] ION 9 2013 520 550 JAYLA CAREMARK PRESCRIPT [id number] Apr 26, [id number] [phone] MARILYNNKoby SANTOS, PATIENT [id number] ION 9 2013 82 550 JAYLA MEDICARE MEDICARE PART Jun 24, PART A [id number] TOBI, PATIENT (WNR) (M) A 2004 [id number] 1213 JAYLA MEDICARE MEDICARE PART Jun 24, PART B [id number] TOBI, PATIENT (WNR) (M) B 2004 [id number] 1213 JAYLA MEDICARE MEDICARE PART Jun 24, PART A [id number] TOBI, PATIENT (WNR) (M) A 2004 64A 8431 JAYLA MEDICARE MEDICARE PART Jun 24, PART B [id number] TOBI, PATIENT (WNR) (M) B 2004 64A 8431 JAYLA MARTINS RETIREE WASHI Oct 24, [id number] TOBI, PATIENT BS UDWW [facility] 2002 7 [id number] [facility]* [facility] RX PRESCRIPT Apr 26, [id number] [phone] MARILYNN JOHNSON, PATIENT SERVICES [place] [address] 2012 7 [id number] 1 [place] Selected Encounter This section includes the information on record at [place] for the Encounter. Date/Time Encounter Type Encounter Description Reason Provider Source Dec 16, 2020 01:23 Outpatient Encounter PRIMARY CARE/MEDICINE PM IHE Encounter Template Text not used by [place] Plan of Treatment: Future Appointments (+ 6 months) and Future Tests (+/- 45 days) The Plan of Treatment section includes future care activities for the patient from all [place] treatmentfacilities. This section includes future appointments and future orders which are active, pending orscheduled.Future Appointments This section includes appointments that were scheduled to occur 6 months from the date of the Encounter, up to a maximum of 20 appointments. The data comes from all [place] treatment facilities. Appointment Date/Time Appointment Type Appointment Facili ty Name Dec 17, 2020 08:30 AM AMBULATORY - NONE [facility] Dec 23, 2020 01:00 PM AMBULATORY - NONE [facility] Dec 25, 2020 12:20 PM AMBULATORY - NONE [facility] Jan 08, 2021 03:30 PM AMBULATORY - MEDICINE [facility] Feb 11, 2021 08:30 AM AMBULATORY - MEDICINE [facility] Feb 18, 2021 02:00 PM AMBULATORY - MEDICINE [facility] Feb 26, 2021 10:10 AM AMBULATORY - NONE [facility] Mar 03, 2021 11:15 AM AMBULATORY - MEDICINE [facility] Mar 05, 2021 02:30 PM AMBULATORY - NONE [facility] Mar 14, 2021 03:45 PM AMBULATORY - MEDICINE [facility] Apr 09, 2021 11:00 AM AMBULATORY - MEDICINE [facility] Apr 11, 2021 11:00 AM AMBULATORY MEDICINE [facility] Apr 14, 2021 09:00 AM AMBULATORY [facility] May 15, 2021 12:30 PM AMBULATORY [facility] Encounter Notes: All associated encounter notes This section contains the clinical notes associated to the Encounter. Date/Time Encounter Note(s) Provider Source Dec 16, 2020 01:23 PM TELEPHONE ENCOUNTER NOTE: EMILY ROSALES [facility] LOCAL TITLE: TELEPHONE NOTE STANDARD TITLE: TELEPHONE ENCOUNTER NOTE DATE OF NOTE: DEC 16, 2020@13:23 ENTRY DATE: DEC 16, 2020@13:23:55 AUTHOR: EMILY ROSALES COSIGNER: URGENCY: STATUS: COMPLETED Clinical Reminders Done Today Colonoscopy GAP Reminder: Recommendations are needed in the clinical svitlana nder system following the patient's most recent colorectal cancer screeni ng/surveillance test (Colonoscopy, Sigmoidoscopy or CT Colonography) Colorectal cancer screening/surveillance will b e stopped. Reason: adv age Patient /es/ Emily FIGUEROA Nurse Practitioner Signed: 12/16/2020 13:24
--- OUTSIDE RECORDS SUMMARY | 2021-11-11 08:48 | External Medical Summary | Encounter Summary ---
:1939 Author Organization [facility] Address [address] [place] [address] Care Team Providers Name Role Phone EMILY [...] Shanks BC OF PREFERRED UNIVE Jan 24, [id number] [phone] DEREK NN, PATIENT [place] PROVIDER RSITY [phone] 0 JAYLA ORGANIZAT OF ION (PPO) [place] 22367 Oct 24, [id number] [phone] MARILYNNALEX, PATIENT [facility] 200256 5258 JAYLA CAREMARK PRESCRIPT [id number] Apr 26, [id number] [phone] MARILYNNKoby SANTOS, PATIENT [id number] ION 9 2013 520 550 JAYLA CAREMARK PRESCRIPT [id number] Apr 26, [id number] [phone] KITTY SANTOS, PATIENT [id number] ION 9 2013 82 550 JAYLA MEDICARE MEDICARE PART Jun 24, PART A [id number] TOBI, PATIENT (WNR) (M) A 2004 [id number] 1213 JAYLA MEDICARE MEDICARE PART Jun 24, PART B [id number] TOBI, PATIENT (WNR) (M) B 2004 [id number] 1213 JAYLA MEDICARE MEDICARE PART Jun 24, PART A [id number] TOBI, PATIENT (WNR) (M) A 2004 64A 8431 JAYLA MEDICARE MEDICARE PART Jun 24, PART B [id number] TOBI, PATIENT (WNR) (M) B 2004 64A 8431 JAYLA MARTINS RETIREE WASHI Oct 24, [id number] TOBI, PATIENT BS UDWW [facility] 2002 7 [id number] [facility] RX PRESCRIPT Apr 26, [id number] [phone] MARILYNN JOHNSON, PATIENT SERVICES [place] [address] 2012 7 [id number] [place] Selected Encounter This section includes the information on record at [place] for the Encounter. Date/Time Encounter Type Encounter Description Reason Provider Source Dec 11, 2020 12:15 Outpatient Encounter COMMUNITY CARE PM CONSULT IHE Encounter Template Text not used by [place] Plan of Treatment: Future Appointments (+ 6 months) and Future Tests (+/- 45 days) The Plan of Treatment section includes future care activities for the patient from all [place] treatmentfacilities. This section includes future appointments and future orders which are active, pending orscheduled.Future Appointments This section includes appointments that were scheduled to occur 6 months from the date of the Encounter, up to a maximum of 20 appointments. The data comes from all [place] treatment facilities. Appointment Date/Time Appointment Type Appointment Facili ty Name Dec 17, 2020 08:30 AM AMBULATORY - NONE [facility] Dec 23, 2020 01:00 PM AMBULATORY - NONE [facility] Dec 25, 2020 12:20 PM AMBULATORY - NONE [facility] Jan 08, 2021 03:30 PM AMBULATORY - MEDICINE [facility] Feb 11, 2021 08:30 AM AMBULATORY - MEDICINE [facility] Feb 18, 2021 02:00 PM AMBULATORY - MEDICINE [facility] Feb 26, 2021 10:10 AM AMBULATORY - NONE [facility] Mar 03, 2021 11:15 AM AMBULATORY - MEDICINE [facility] Mar 05, 2021 02:30 PM AMBULATORY - NONE [facility] Mar 14, 2021 03:45 PM AMBULATORY - MEDICINE [facility] Apr 09, 2021 11:00 AM AMBULATORY - MEDICINE [facility] Apr 11, 2021 11:00 AM AMBULATORY - MEDICINE [facility] Apr 14, 2021 09:00 AM AMBULATORY - MEDICINE [facility] May 15, 2021 12:30 PM AMBULATORY - MEDICINE [facility] Encounter Notes: All associated encounter notes This section contains the clinical notes associated to the Encounter. Date/Time Encounter Note(s) Provider Source Dec 11, 2020 12:15 PM NONVA CONSULT: IDALMIS BRIONES LOCAL TITLE: COMMUNITY CARE-CONSULT RESULT NOTE [facility] STANDARD TITLE: NONVA CONSULT DATE OF NOTE: DEC 11, 2020@12:15 ENTRY DATE: DEC 18, 2020@12:16:40 AUTHOR: IDALMIS BRIONES EXP COSIGNER: URGENCY: STATUS: COMPLETED The following Non VA Care consult has be en completed. See scanned document for report. NON VA Care Consult Results Radiology Comment: MRI /es/ IDALMIS BRIONES MARKETING INTELLIGENCE ANALYST Signed: 12/18/2020 12:17
--- OUTSIDE RECORDS SUMMARY | 2021-11-11 08:48 | External Medical Summary | Encounter Summary ---
:1940 Author Organization Department [facility] Address [address] [place] [address] Care Team Providers Name Role Phone EMILY [...] Shanks BC OF PREFERRED UNIVE Jan 24, [id number] [phone] DEREK NN, PATIENT [place] PROVIDER RSITY [id number] [phone] JAYLA ORGANIZAT OF ION (PPO) [place] [id number] Oct 24, [id number] MARILYNNALEX, PATIENT [facility] [id number] JAYLA CAREMARK PRESCRIPT [id number] Apr 26, [id number] [phone] MARILYNNKoby SANTOS, PATIENT [id number] ION 9 [id number] JAYLA CAREMARK PRESCRIPT [id number] Apr 26, [id number] [phone] KITTY SANTOS, PATIENT [id number] ION 9 2013 82 550 JAYLA MEDICARE MEDICARE PART Jun 24, PART A [id number] TOBI, PATIENT (WNR) (M) A 2004 [id number] 1213 JAYLA MEDICARE MEDICARE PART Jun 24, PART B [id number] TOBI, PATIENT (WNR) (M) B 2004 [id number] 1213 JAYLA MEDICARE MEDICARE PART Jun 24, PART A [id number] TOBI, PATIENT (WNR) (M) A 2004 64A 8431 JAYLA MEDICARE MEDICARE PART Jun 24, PART B [id number] TOBI, PATIENT (WNR) (M) B 2004 64A 8431 JAYLA MARTINS RETIREE WASHI Oct 24, [id number] TOBI, PATIENT BS UDWW [facility] 2002 [id number] [facility] [place] ST RX PRESCRIPT Apr 26, [id number] [phone] MARILYNN JOHNSON, PATIENT SERVICES [place] [address] 2012 [id number] [place] Selected Encounter This section includes the information on record at CT for the Encounter. Date/Time Encounter Type Encounter Reason Provider Source Description Dec 04, 2020 HC PRO PHONE TELEPHONE/MEDICIN ICD-10-CM G47.33 JOSE ANGEL LIANG 11:22 AM CALL 5-10 MIN E Obstructive sleep apnea (adult) (pediatric) with Provider Comments: Obstructive sleep apnea of adult ([facility] [id number]) IHE Encounter Template Text not used by CT Assessments - Encounter Diagnoses This section includes the primary and secondary diagnoses documented for the Encounter. Date/Time Primary/Secondary Diagnosis Name Provider Source Diagnosis Dec 04, 2020 PRIMARY Obstructive sleep NATIVIDAD LIANG 11:22 AM apnea (adult) [facility] (pediatric) Plan of Treatment: Future Appointments (+ 6 months) and Future Tests (+/- 45 days) The Plan of Treatment section includes future care activities for the patient from all [place] treatmentfacilities. This section includes future appointments and future orders which are active, pending orscheduled.Future Appointments This section includes appointments that were scheduled to occur 6 months from the date of the Encounter, up to a maximum of 20 appointments. The data comes from all CT treatment facilities. Appointment Date/Time Appointment Type Appointment Facili ty Name Dec 11, 2020 08:00 AM AMBULATORY - NONE [facility] Dec 17, 2020 08:30 AM AMBULATORY - NONE [facility] Dec 23, 2020 01:00 PM AMBULATORY - NONE [facility] Dec 25, 2020 12:20 PM AMBULATORY - NONE MODESTA KobyYaquelin [facility] Jan 08, 2021 03:30 PM AMBULATORY - MEDICINE [facility] Feb 11, 2021 08:30 AM AMBULATORY - MEDICINE [facility] Feb 18, 2021 02:00 PM AMBULATORY - MEDICINE [facility] Feb 26, 2021 10:10 AM AMBULATORY - NONE [facility]STA [facility] Mar 03, 2021 11:15 AM AMBULATORY - MEDICINE [facility] Mar 05, 2021 02:30 PM AMBULATORY - NONE MODESTA KobyYaquelin [facility] Mar 14, 2021 03:45 PM AMBULATORY - MEDICINE [facility] Apr 09, 2021 11:00 AM AMBULATORY - MEDICINE [facility] Apr 11, 2021 11:00 AM AMBULATORY - MEDICINE [facility] Apr 14, 2021 09:00 AM AMBULATORY - MEDICINE [facility] May 15, 2021 12:30 PM AMBULATORY - MEDICINE [facility] Encounter Notes: All associated encounter notes This section contains the clinical notes associated to the Encounter. Date/Time Encounter Note(s) Provider Source Dec 04, 2020 11:22 AM RESPIRATORY THERAPY EDUCATION NOTE: NATIVIDAD LIANG LOCAL TITLE: RESPIRATORY SUPPLIES [facility] STANDARD TITLE: RESPIRATORY THERAPY EDUCATION NO TE DATE OF NOTE: DEC 04, 2020@11:22 ENTRY DATE: DEC 04, 2020@11:22:08 AUTHOR: NATIVIDAD LIANG EXP COSIGNER: URGENCY: STATUS: COMPLETED Airtouch F20 mask sent via special order. /martha/ NATIVIDAD LIANG CONCRETE FORM SETTER Signed: 12/04/2020 11:22
--- OUTSIDE RECORDS SUMMARY | 2021-11-11 08:48 | External Medical Summary | Encounter Summary ---
:1940 Author Organization [facility] Address [address] [place] [address] Care Team Providers Name Role Phone EMILY [...] Shanks BC OF PREFERRED UNIVE Jan 24, [id number] [phone] DEREK NN, PATIENT [place] PROVIDER RSITY [phone] [phone] JAYLA ORGANIZAT OF ION (PPO) [place] [id number] Oct 24, [id number] [phone] MARILYNNALEX, PATIENT [facility] 200256 5258 JAYLA CAREMARK PRESCRIPT [id number] Apr 26, [id number] [phone] MARILYNNKoby SANTOS, PATIENT [id number] ION 9 [phone] JAYLA CAREMARK PRESCRIPT [id number] Apr 26, [id number] [phone] KITTY SANTOS, PATIENT [id number] ION 9 2013 82 550 JAYLA MEDICARE MEDICARE PART Jun 24, PART A [id number] [phone] TOBI, PATIENT (WNR) (M) A 2004 [id number] [id number] JAYLA MEDICARE MEDICARE PART Jun 24, PART B [id number] TOBI, PATIENT (WNR) (M) B 2004 [id number] 1213 JAYLA MEDICARE MEDICARE PART Jun 24, PART A [id number] TOBI, PATIENT (WNR) (M) A 2004 64A 8431 JAYLA MEDICARE MEDICARE PART Jun 24, PART B [id number] TOBI, PATIENT (WNR) (M) B 2004 64A 8431 JAYLA MARTINS RETIREE WASHI Oct 24, [id number] TOBI, PATIENT BS UDWW [facility] 2002 7 [id number] [facility] RX PRESCRIPT Apr 26, [id number] [phone] MARILYNN JOHNSON, PATIENT SERVICES [place] [address] 2012 7 [id number] 1 JAYLA Selected Encounter This section includes the information on record at [place] for the Encounter. Date/Time Encounter Type Encounter Description Reason Provider Source Dec 17, 2020 01:55 Outpatient Encounter COMMUNITY CARE PM CONSULT IHE [...] 01:00 PM AMBULATORY - NONE [facility] Dec 25, 2020 12:20 PM AMBULATORY - NONE [facility] Jan 08, 2021 03:30 PM [facility]UL[facility]ORY [facility]INE [facility] Feb 11, 2021 08:30 AM [facility]ULATORY - [facility] Feb 18, 2021 02:00 PM AMBULATORY - MEDICINE [facility] Feb 26, 2021 10:10 AM AMBULATORY - NONE [facility] Mar 03, 2021 11:15 AM AMBULATORY - MEDICINE [facility] Mar 05, 2021 02:30 PM AMBULATORY - NONE [facility] Mar 14, 2021 03:45 PM AMBULATORY - MEDICINE [facility] Apr 09, 2021 11:00 AM AMBULATORY - MEDICINE [facility] Apr 11, 2021 11:00 AM AMBULATORY - MEDICINE [facility] Apr 14, 2021 09:00 AM AMBULATORY - MEDICINE [facility] May 15, 2021 12:30 PM AMBULATORY - MEDICINE [facility] Jun 19, 2021 07:30 AM AMBULATORY - NONE MODESTA MCKAYT [facility] Encounter Notes: All associated encounter notes This section contains the clinical notes associated to the Encounter. Date/Time Encounter Note(s) Provider Source Dec 17, 2020 01:55 PM NONVA CONSULT: IDALMIS BRIONES LOCAL TITLE: COMMUNITY CARE-CONSULT RESULT NOTE [facility] STANDARD TITLE: NONVA CONSULT DATE OF NOTE: DEC 17, 2020@13:55 ENTRY DATE: JAN 14, 2021@13:55:28 AUTHOR: IDALMIS BRIONES EXP COSIGNER: URGENCY: STATUS: COMPLETED The following Non VA Care consult has be en completed. See scanned document for report. NON VA Care Consult Results Pulmonology /es/ IDALMIS BRIONES CAREER TECHNICAL COUNSELOR Signed: 01/14/2021 13:55
--- OUTSIDE RECORDS SUMMARY | 2021-11-11 08:48 | External Medical Summary | Encounter Summary ---
:1940 Author Organization [facility] Address [address] [place] [address] Support Name Relationship Address Phone ERNIE BRITTON Unavailable [address] [facility] [phone] [place] [address] ERNIE BRITTON Unavailable [address] [place] [phone] [place] [address] Insurance Providers: All historical and current Section [...] Name to Policy Number Shanks BC OF [facility] UNIVE Jan 24, [id number] [phone] DEREK NN, PATIENT [place] PROVIDER [facility] [id number] JAYLA ORGANIZAT OF ION (PPO) [facility] RETI[facility] [id number] Oct 24, [id number] TOBI, PATIENT [facility] 2002 7 [id number] JAYLA CAREMARK PRESCRIPT [id number] Apr 26, [id number] [phone] MARILYNNKoby SANTOS, PATIENT [id number] ION 9 [phone] JAYLA CAREMARK PRESCRIPT [id number] Apr 26, [id number] [phone] MARILYNNKoby SANTOS, PATIENT [id number] ION 9 2013 82 550 JAYLA MEDICARE MEDICARE PART Jun 24, PART A [id number] [phone] TOBI, PATIENT (WNR) (M) A 2004 [id number] 1213 JAYLA MEDICARE MEDICARE PART Jun 24, PART B [id number] MARILYNNALEX, PATIENT (WNR) (M) B 2004 [id number] 1213 [place] MEDICARE MEDICARE PART Jun 24, PART A [id number] TOBI, PATIENT (WNR) (M) A 2004 64A 8431 JAYLA MEDICARE MEDICARE PART Jun 24, PART B [id number] TOBI, PATIENT (WNR) (M) B 2004 64A 8431 JAYLA MARTINS RETIREE T[place] Oct 24, [id number] [phone] TOBI, PATIENT BS UDWW [facility] 2002 7 [id number] [facility] RE* [facility] RX PRESCRIPT Apr 26, [id number] [phone] MARILYNN JOHNSON, PATIENT SERVICES [place] [address] 2012 7 [id number] 1 JAYLA Selected Encounter This section includes the information on record at [place] for the Encounter. Date/Time Encounter Type Encounter Description Reason Provider Source Dec 11, 2020 12:00 Outpatient Encounter COMMUNITY CARE PM CONSULT IHE Encounter Template Text not used by [place] Plan of Treatment: Future Appointments (+ 6 months) and Future Tests (+/- 45 days) The Plan of Treatment section includes future care activities for the patient from all [place] treatmentfacilities. This section includes future appointments and future orders which are active, pending orscheduled.Future Appointments This section includes appointments that were scheduled to occur 6 months from the date of the Encounter, up to a maximum of 20 appointments. The data comes from all [place] treatment facilities. Appointment Date/Time Appointment Type Appointment Facili ty Name Dec 17, 2020 08:30 AM AMBULATORY - NONE MODESTA GARCES [facility] Dec 23, 2020 01:00 PM AMBULATORY - NONE MODESTA GARCES [facility] Dec 25, 2020 12:20 PM AMBULATORY - NONE MODESTA GARCES [facility] Jan 08, 2021 03:30 PM AMBULATORY - MEDICINE [facility] Feb 11, 2021 08:30 AM AMBULATORY - MEDICINE [facility] Feb 18, 2021 02:00 PM AMBULATORY - MEDICINE [facility] Feb 26, 2021 10:10 AM AMBULATORY - NONE MODESTA GARCES [facility] Mar 03, 2021 11:15 AM AMBULATORY - MEDICINE [facility] Mar 05, 2021 02:30 PM AMBULATORY - NONE MODESTA GARCES [facility] Mar 14, 2021 03:45 PM AMBULATORY - MEDICINE [facility] Apr 09, 2021 11:00 AM AMBULATORY - MEDICINE [facility] Apr 11, 2021 11:00 AM AMBULATORY - MEDICINE [facility] Apr 14, 2021 09:00 AM AMBULATORY - MEDICINE [facility] May 15, 2021 12:30 PM AMBULATORY - MEDICINE [facility] Encounter Notes: All associated encounter notes This section contains the clinical notes associated to the Encounter. Date/Time Encounter Note(s) Provider Source Dec 11, 2020 12:00 PM NONVA CONSULT: TALI TIAN LOCAL TITLE: COMMUNITY CARE-CONSULT RESULT NOTE [facility] STANDARD TITLE: NONVA CONSULT DATE OF NOTE: DEC 11, 2020@12:00 ENTRY DATE: JAN 19, 2021@19:29:50 AUTHOR: TALI TIAN EXP COSIGNER: URGENCY: STATUS: COMPLETED The following Non VA Care consult has been comp leted. See scanned document for report. NON VA Care Consult Results LOCATED WITHIN [facility] CECELIA HASTINGS MD DOS: 12/11/20 /martha/ TALI TIAN Signed: 01/19/2021 19:30
--- OUTSIDE RECORDS SUMMARY | 2021-11-11 08:48 | External Medical Summary | Encounter Summary ---
:1940 Author Organization [facility] Address [address] [place] [address] Care Team Providers Name Role Phone EMILY [...] Shanks BC OF PREFERRED UNIVE Jan 24, [id number] [phone] DEREK NN, PATIENT [place] PROVIDER RSITY [id number] 0 JAYLA ORGANIZAT OF ION (PPO) [place] 99360 Oct 24, [id number] MARILYNNALEX, PATIENT [facility] 200256 5258 JAYLA CAREMARK PRESCRIPT [id number] Apr 26, [id number] [phone] MARILYNNKoby SANTOS, PATIENT [id number] ION 9 2013 [id number] 550 JAYLA CAREMARK PRESCRIPT [id number] Apr 26, [id number] [phone] KITTY SANTOS, PATIENT [id number] ION 9 2013 82 550 JAYLA MEDICARE MEDICARE PART Jun 24, PART A [id number] TOBI, PATIENT (WNR) (M) A 2004 [id number] 1213 JAYLA MEDICARE MEDICARE PART Jun 24, PART B [id number] TOBI, PATIENT (WNR) (M) B 2004 [id number] 1213 JAYLA MEDICARE MEDICARE PART Jun 24, PART A [id number] TOBI, PATIENT (WNR) (M) A 2004 64A 8431 JAYLA MEDICARE MEDICARE PART Jun 24, PART B [id number] TOBI, PATIENT (WNR) (M) B 2004 64A 8431 JAYLA MARTINS RETIREE WASHI Oct 24, [id number] TOBI, PATIENT BS UDWW [facility] 2002 7 [id number] [facility] RX PRESCRIPT Apr 26, [id number] [phone] MARILYNN JOHNSON, PATIENT SERVICES [place] [address] 2012 7 [id number] 1 JAYLA Selected Encounter This section includes the information on record at [place] for the Encounter. Date/Time Encounter Type Encounter Description Reason Provider Source Dec 02, 2020 01:24 Outpatient Encounter COMMUNITY CARE PM CONSULT IHE Encounter Template Text not used by [place] Plan of Treatment: Future Appointments (+ 6 months) and Future Tests (+/- 45 days) The Plan of Treatment section includes future care activities for the patient from all [place] treatmentfacilities. This section includes future appointments and future orders which are active, pending orscheduled.Future Appointments This section includes appointments that were scheduled to occur 6 months from the date of the Encounter, up to a maximum of 20 appointments. The data comes from all [place] treatment facilities. Appointment Date/Time Appointment Type Appointment Facili ty Name Dec 11, 2020 08:00 AM AMBULATORY - NONE [facility]STA [facility] Dec 17, 2020 08:30 AM AMBULATORY - NONE [facility]STA GARCES [facility] Dec 23, 2020 01:00 PM AMBULATORY - NONE [facility]STA GARCES [facility] Dec 25, 2020 12:20 PM AMBULATORY - NONE MODESTA GARCES [facility] Jan 08, 2021 03:30 PM AMBULATORY - MEDICINE [facility] Feb 11, 2021 08:30 AM AMBULATORY - MEDICINE [facility] Feb 18, 2021 02:00 PM AMBULATORY - MEDICINE [facility] Feb 26, 2021 10:10 AM AMBULATORY - NONE [facility]DESTA GARCES [facility] Mar 03, 2021 11:15 AM AMBULATORY - MEDICINE [facility] Mar 05, 2021 02:30 PM AMBULATORY - NONE MODESTA KobyYaquelin [facility] Mar 14, 2021 03:45 PM AMBULATORY - MEDICINE [facility] Apr 09, 2021 11:00 AM AMBULATORY - MEDICINE [facility] Apr 11, 2021 11:00 AM AMBULATORY - MEDICINE [facility] Apr 14, 2021 09:00 AM [facility]ULATORY [facility]INE [facility] May 15, 2021 12:30 PM AMBULATORY - MEDICINE [facility] Encounter Notes: All associated encounter notes This section contains the clinical notes associated to the Encounter. Date/Time Encounter Note(s) Provider Source Dec 02, 2020 01:24 PM ADMINISTRATIVE NOTE: SOPHY MILLER LOCAL TITLE: TELEPHONE CONTACT CALL CENTER AD[facility] N [facility] STANDARD TITLE: ADMINISTRATIVE NOTE DATE OF NOTE: DEC 02, 2020@13:24:28 ENTRY DATE: DEC 02, 2020@13:26:05 AUTHOR: SOPHY MILLER EXP COSIGNER: URGENCY: STATUS: COMPLETED The following identifiers were used to verify th is patient: . SSN. The patient, JAYLA BRITTON ([id number] ) called the call center. Contact Type of call: V20 MISSED WARM TRANSFER. Comments: [place] attempted to return call to [facility], after two tries the line was busy, and is requesting call back. Author: SOPHY MILLER Evaluation/Management Code: HC PRO PHONE CALL 5- 10 MIN ([id number]). Starting at: 12/02/2020 @ 1:24:28 PM Ending at: 12/02/2020 @ 1:25:27 PM Length: 0 minutes. Caller Area: [address] Chief Complaint: Not applicable to call. Caller Response: V20 RETURN CALL Caller/ verbalize understanding; acknowle dges message. Patient's Email Address: Class Code: Other specified counseling. /martha/ SOPHY MILLER/[facility] CALL CENTER Signed: 12/02/2020 13:26 Receipt Acknowledged By: 12/02/2020 13:31 /martha/ LINN ARECHIGA RN
--- OUTSIDE RECORDS SUMMARY | 2021-11-11 08:49 | External Medical Summary | Encounter Summary ---
:1939 Author Organization [facility] Address [address] [place] [address] Care Team Providers Name Role Phone EMILY [...] Shanks BC OF PREFERRED UNIVE Jan 24, [id number] [phone] DEREK NN, PATIENT [place] [facility] [id number] [phone] JAYLA ORGANIZAT OF ION (PPO) [place] 35038 Oct 24, [id number] MARILYNNALEX, PATIENT [facility] 200256 5258 JAYLA CAREMARK PRESCRIPT [id number] Apr 26, [id number] [phone] MARILYNNKoby SANTOS, PATIENT [id number] ION 9 2013 [id number] 550 JAYLA CAREMARK PRESCRIPT [id number] Apr 26, [id number] [phone] MARILYNNKoby SANTOS, PATIENT [id number] ION 9 2013 82 550 JAYLA MEDICARE MEDICARE PART Jun 24, PART A [id number] TOBI, PATIENT (WNR) (M) A 2004 [id number] 1213 JAYLA MEDICARE MEDICARE PART Jun 24, PART B [id number] 800 [id number] TOBI, PATIENT (WNR) (M) B 2004 [id number] 1213 [place] MEDICARE MEDICARE PART Jun 24, PART A [id number] TOBI, PATIENT (WNR) (M) A 2004 64A 8431 JAYLA MEDICARE MEDICARE PART Jun 24, PART B [id number] TOBI, PATIENT (WNR) (M) B 2004 64A 8431 JAYLA MARTINS RETIREZeynep FU Oct 24, [id number] TOBI, PATIENT BS UDWW [facility] 2002 7 [id number] [facility] CT ST RX PRESCRIPT Apr 26, [id number] [phone] MARILYNN JOHNSON, PATIENT SERVICES [place] [address] 2012 [id number] [place] Selected Encounter This section includes the information on record at [place] for the Encounter. Date/Time Encounter Type Encounter Reason Provider Source Description Dec 02, 2020 HC PRO PHONE TELEPHONE PRIMARY ICD-10-CM Z71.89 RD ARECHIGA 01:30 PM CALL 5-10 MIN CARE Other specified counseling with Provider Comments: Counseling,Oth Specified IHE Encounter Template Text not used by [place] Assessments - Encounter Diagnoses This section includes the primary and secondary diagnoses documented for the Encounter. Date/Time Primary/Secondary Diagnosis Name Provider Source Diagnosis Dec 02, 2020 PRIMARY Other specified LINN ARECHIGA [facility] 01:30 PM counseling CLINIC Plan of Treatment: Future Appointments [...] 08:00 AM AMBULATORY - NONE MODESTA GARCES [facility] Dec 17, 2020 08:30 AM AMBULATORY - NONE MODESTA GARCES [facility] Dec 23, 2020 01:00 PM AMBULATORY - NONE MODESTA GARCES [facility] Dec 25, 2020 12:20 PM AMBULATORY - NONE MODESTA GARCES [facility] Jan 08, 2021 03:30 PM AMBULATORY - MEDICINE [facility] Feb 11, 2021 08:30 AM AMBULATORY - MEDICINE [facility] Feb 18, 2021 02:00 PM AMBULATORY - MEDICINE [facility] Feb 26, 2021 10:10 AM AMBULATORY - NONE MODESTA ANNMAINE [facility] Mar 03, 2021 11:15 AM AMBULATORY - MEDICINE [facility] Mar 05, 2021 02:30 PM AMBULATORY - NONE MODESTA Zuñiga [facility] Mar 14, 2021 03:45 PM AMBULATORY - MEDICINE [facility] Apr 09, 2021 11:00 AM AMBULATORY - MEDICINE [facility] Apr 11, 2021 11:00 AM AMBULATORY - MEDICINE [facility] Apr 14, 2021 09:00 AM AMBULATORY - MEDICINE [facility] May 15, 2021 12:30 PM AMBULATORY MEDICINE [facility] Social History: Smoking Status (Most current) and Tobacco Use (All prior to encounter date) This section includes the most current, and the historical, smoking and tobacco-related health factors from the [place] facility where the Encounter took place.Current Smoking Status This section includes the most current smoking, or tobacco-related health factor, from the [place] facility where the Encounter took place. Date/Time Current Smoking Status Comment Facility Feb 13, 2020 09:00 AM [place]-TOBACCO FORMER USER [facility] Tobacco Use History This section includes a history of the smoking, or tobacco- related health factors, that were collected on or before the date of the Encounter. The data comes from the [place] facility where the Encounter took place. Date/Time Smoking Status/Tobacco Use Comment [facility] it Feb 13, 2020 09:00 AM [place]-TOBACCO QUIT 15 YRS OR MORE [facility] Encounter Notes: All associated encounter notes This section contains the clinical notes associated to the Encounter. Date/Time Encounter Note(s) Provider Source Dec 02, 2020 01:35 PM TEAM TELEPHONE ENCOUNTER NOTE: LINN ARECHIGA [facility] LOCAL TITLE: CARE MANAGEMENT TELEPHONE NOTE STANDARD TITLE: TEAM TELEPHONE ENCOUNTER NOTE DATE OF NOTE: DEC 02, 2020@13:35 ENTRY DATE: DEC 02, 2020@13:35:52 AUTHOR: LINN ARECHIGA EXP COSIGNER: URGENCY: STATUS: COMPLETED call to vet see cc note vet questioned about how long he needs to quaran michael with covid advised per cdc is 10 days and no fever. per vet has not ever had a fever, currently just has a lot of phlegm. vet appreciative of call /es/ LINN ARECHIGA RN Signed: 12/02/2020 13:36
--- OUTSIDE RECORDS SUMMARY | 2021-11-11 08:50 | External Medical Summary | Encounter Summary ---
:1940 Author Organization [facility] Address [address] [place] [address] Care Team Providers Name Role Phone EMILY [...] Shanks BC OF PREFERRED UNIVE Jan 24, [id number] [phone] DEREK NN, PATIENT [place] [facility] [phone] 0 JAYLA ORGANIZAT OF ION (PPO) [place] [id number] Oct 24, [id number] [phone] MARILYNNALEX, PATIENT [facility] 200256 5258 JAYLA CAREMARK PRESCRIPT [id number] Apr 26, [id number] [phone] MARILYNNKoby SANTOS, PATIENT [id number] ION 9 2013 [id number] 550 JAYLA CAREMARK PRESCRIPT [id number] Apr 26, [id number] [phone] MARILYNNKoby SANTOS, PATIENT [id number] ION 9 2013 82 550 JAYLA MEDICARE MEDICARE PART Jun 24, PART A [id number] TOBI, PATIENT (WNR) (M) A 2004 [id number] 1213 JAYLA MEDICARE MEDICARE PART Jun 24, PART B [id number] TOBI, PATIENT (WNR) (M) B 2004 [id number] 1213 [place] MEDICARE MEDICARE PART Jun 24, PART A [id number] TOBI, PATIENT (WNR) (M) A 2004 64A 8431 JAYLA MEDICARE MEDICARE PART Jun 24, PART B [id number] TOBI, PATIENT (WNR) (M) B 2004 64A 8431 JAYLA MARTINS RETIREE TANK Oct 24, [id number] TOBI, PATIENT BS UDWW [facility] 2002 7 [id number] [facility] [place] ST RX PRESCRIPT Apr 26, [id number] [phone] MARILYNN JOHNSON, PATIENT SERVICES [place] [address] 2012 [id number] [place] Selected Encounter This section includes the information on record at [place] for the Encounter. Date/Time Encounter Type Encounter Reason Provider Source Description Nov 27, 2020 HC PRO PHONE TELEPHONE PRIMARY ICD-10-CM Z71.89 RD ARECHIGA 11:30 AM CALL 5-10 MIN CARE Other specified counseling with Provider Comments: Counseling,Oth Specified IHE Encounter Template Text not used by [place] Assessments - Encounter Diagnoses This section includes the primary and secondary diagnoses documented for the Encounter. Date/Time Primary/Secondary Diagnosis Name Provider Source Diagnosis Nov 27, 2020 PRIMARY Other specified LINN ARECHIGA [facility] 11:30 AM counseling CLINIC Plan of Treatment: Future Appointments (+ 6 months) and Future Tests (+/- 45 days) The Plan of Treatment section includes future care activities for the patient from all [place] treatmentfacilities. This section includes future appointments and future orders which are active, pending orscheduled.Future Appointments This section includes appointments that were scheduled to occur 6 months from the date of the Encounter, up to a maximum of 20 appointments. The data comes from all [place] treatment facilities. Appointment Date/Time Appointment Type Appointment Facili ty Name Dec 02, 2020 01:30 PM AMBULATORY - MEDICINE [facility] CLIN IC Dec 11, 2020 08:00 AM AMBULATORY - NONE MODESTA GARCES [facility] Dec 17, 2020 08:30 AM AMBULATORY - NONE MODESTA GARCES [facility] Dec 23, 2020 01:00 PM AMBULATORY - NONE MODESTA GARCES [facility] Dec 25, 2020 12:20 PM AMBULATORY - NONE MODESTA GARCES [facility] Jan 08, 2021 03:30 PM AMBULATORY - MEDICINE [facility] CLIN IC Feb 11, 2021 08:30 AM AMBULATORY - MEDICINE [facility] CLIN IC Feb 18, 2021 02:00 PM AMBULATORY - MEDICINE [facility] CLIN IC Feb 26, 2021 10:10 AM AMBULATORY - NONE MODESTA GARCES [facility] Mar 03, 2021 11:15 AM AMBULATORY - MEDICINE [facility] CLIN IC Mar 05, 2021 02:30 PM AMBULATORY - NONE MODESTA BARRETOEMANUEL [facility] Mar 14, 2021 03:45 PM AMBULATORY - MEDICINE [facility] CLIN IC Apr 09, 2021 11:00 AM AMBULATORY - MEDICINE [facility] CLIN IC Apr 11, 2021 11:00 AM AMBULATORY - MEDICINE [facility] CLIN IC Apr 14, 2021 09:00 AM AMBULATORY - MEDICINE [facility] CLIN IC May 15, 2021 12:30 PM AMBULATORY - MEDICINE [facility] CLIN IC Social History: Smoking Status (Most current) and Tobacco Use (All prior to encounter date) This section includes the most current, and the historical, smoking and tobacco-related health factors from the [place] facility where the Encounter took place.Current Smoking Status This section includes the most current smoking, or tobacco-related health factor, from the [place] facility where the Encounter took place. Date/Time Current Smoking Status Comment Facility Feb 13, 2020 09:00 AM [place]-TOBACCO FORMER USER [place] [facility] Tobacco Use History This section includes a history of the smoking, or tobacco- related health factors, that were collected on or before the date of the Encounter. The data comes from the [place] facility where the Encounter took place. Date/Time Smoking Status/Tobacco Use Comment Diamond mathew Feb 13, 2020 09:00 AM [place]-TOBACCO QUIT 15 YRS OR MORE [facility] Encounter Notes: All associated encounter notes This section contains the clinical notes associated to the Encounter. Date/Time Encounter Note(s) Provider Source Nov 27, 2020 11:39 AM TEAM TELEPHONE ENCOUNTER NOTE: LINN ARECHIGA [facility] LOCAL TITLE: CARE MANAGEMENT TELEPHONE NOTE STANDARD TITLE: TEAM TELEPHONE ENCOUNTER NOTE DATE OF NOTE: NOV 27, 2020@11:39 ENTRY DATE: NOV 27, 2020@11:39:19 AUTHOR: LINN ARECHIGA EXP COSIGNER: URGENCY: STATUS: COMPLETED call to vet per vet, tested positive with covid even though he had his vaccine and they offered him iv infusion regeneron but he decline s to do this. also checked that he had refills of his apixaban and confirmed to him he does. vet is starting to feel better with home remedie s. appreciative of call /es/ LINN ARECHIGA RN Signed: 11/27/2020 11:40
--- OUTSIDE RECORDS SUMMARY | 2021-11-11 08:50 | External Medical Summary | Encounter Summary ---
:1940 Author Organization [facility] Address [address] [place] [address] Care Team Providers Name Role Phone EMILY [...] Shanks BC OF PREFERRED UNIVE Jan 24, [id number] [phone] DEREK NN, PATIENT [place] PROVIDER RSITY [phone] 0 JAYLA ORGANIZAT OF ION (PPO) [place] 31722 Oct 24, [id number] [phone] MARILYNNALEX, PATIENT [facility] 200256 5258 JAYLA CAREMARK PRESCRIPT [id number] Apr 26, [id number] [phone] MARILYNNKoby SANTSO, PATIENT [id number] ION 9 [phone] JAYLA CAREMARK PRESCRIPT [id number] Apr 26, [id number] [phone] KITTY SANTOS, PATIENT [id number] ION 9 2013 82 550 JAYLA MEDICARE MEDICARE PART Jun 24, PART A [id number] TOBI, PATIENT (WNR) (M) A 2004 [id number] 1213 [place] MEDICARE MEDICARE PART Jun 24, PART B [id number] TOBI, PATIENT (WNR) (M) B 2004 [id number] 1213 [place] MEDICARE MEDICARE PART Jun 24, PART A [id number] TOBI, PATIENT (WNR) (M) A 2004 64A 8431 JAY[place] MEDICARE MEDICARE PART Jun 24, PART B [id number] TOBI, PATIENT (WNR) (M) B 2004 64A 8431 JAYLA MARTINS RETIREE MICHELEI Oct 24, [id number] [phone] TOBI, PATIENT BS UDWW [facility] 2002 7 [id number] [facility] [place] ST RX PRESCRIPT Apr 26, [id number] [phone] MARILYNN JOHNSON, PATIENT SERVICES [place] [address] 2012 [id number] [place] Selected Encounter This section includes the information on record at [place] for the Encounter. Date/Time Encounter Type Encounter Description Reason Provider Source Nov 15, 2020 08:32 Outpatient Encounter COMMUNITY CARE AM CONSULT IHE [...] Date/Time Appointment Type Appointment Facili ty Name Nov 27, 2020 11:30 AM AMBULATORY - MEDICINE [facility] CLIN IC Dec 02, 2020 01:30 PM AMBULATORY - MEDICINE [facility] CL[facility] IC Dec 11, 2020 08:00 AM AMBULATORY - NONE MODESTA GARCES [facility] Dec 17, 2020 08:30 AM AMBULATORY - NONE MODESTA GARCES [facility] Dec 23, 2020 01:00 PM AMBULATORY - NONE MODESTA GARCES [facility] Dec 25, 2020 12:20 PM AMBULATORY - NONE MODESTA GARCES [facility] Jan 08, 2021 03:30 PM AMBULATORY - MEDICINE [facility] CLIN IC Feb 11, 2021 08:30 AM AMBULATORY - MEDICINE [facility] CL[facility] IC Feb 18, 2021 02:00 PM AMBULATORY - MEDICINE [facility] CL[facility] IC Feb 26, 2021 10:10 AM AMBULATORY - NONE MODESTA KobyYaquelin GARCES [facility] Mar 03, 2021 11:15 AM AMBULATORY - MEDICINE [facility] CLIN IC Mar 05, 2021 02:30 PM AMBULATORY - NONE MODESTA MYaquelin GARCES [facility] Mar 14, 2021 03:45 PM AMBULATORY - MEDICINE [facility] CL[facility] IC Apr 09, 2021 11:00 AM AMBULATORY - MEDICINE [facility] IC Apr 11, 2021 11:00 AM AMBULATORY - MEDICINE [facility] IC Apr 14, 2021 09:00 AM AMBULATORY - MEDICINE [facility] CL[facility] IC May 15, 2021 12:30 PM AMBULATORY - MEDICINE [facility] IC Encounter Notes: All associated encounter notes This section contains the clinical notes associated to the Encounter. Date/Time Encounter Note(s) Provider Source Nov 15, 2020 08:32 AM ADMINISTRATIVE NOTE: RAINE DEE LOCAL TITLE: TELEPHONE CONTACT CALL CENTER [facility] STANDARD TITLE: ADMINISTRATIVE NOTE DATE OF NOTE: NOV 15, 2020@08:32:38 ENTRY DATE: NOV 15, 2020@08:34:33 AUTHOR: RAINE DEE EXP COSIGNER: URGENCY: STATUS: COMPLETED The following identifiers were used to verify th is patient: . SSN. OUTSIDE PROVIDER called in for MARILYNNALEXJAYLA ([id number]) Phone: . Contact Type of call: V20 COVID-19 SYMPTOM. Comments: Ligia at [phone] is requesting "clarification of a medication written for the patient by Dr. Jose Miguel henriquez." Author: RAINE DEE Evaluation/Management Code: HC PRO PHONE CALL 5- 10 MIN ([phone]). Starting at: 11/15/2020 @ 8:32:38 AM Ending at: 11/15/2020 @ 8:34:24 AM Length: 1 minutes. Caller Area: [address] Chief Complaint: Not applicable to call. Caller Response: V20 RETURN CALL Caller/ verbalize understanding; acknowle dges message. Patient's Email Address: Class Code: Other specified counseling. /martha/ RAINE DEE/EDUARDO Data Migration Consultant Signed: 11/15/2020 08:34 Receipt Acknowledged By: * AWAITING SIGNATURE * LINN ARECHIGA
--- OUTSIDE RECORDS SUMMARY | 2021-11-11 08:50 | External Medical Summary | Encounter Summary ---
:1939 Author Organization Department [facility] Address [address] [place] [address] Care Team Providers Name Role Phone EMILY [...] Shanks BC OF PREFERRED UNIVE Jan 24, [id number] [phone] MARILYNNADRIANA NN, PATIENT [place] [facility] [phone] 0 JAYLA ORGANIZAT OF ION (PPO) [place] 08061 Oct 24, [id number] [phone] MARILYNNALEX, PATIENT [facility] 200256 5258 JAYLA CAREMARK PRESCRIPT [id number] Apr 26, [id number] [phone] KITTY SANTOS, PATIENT [id number] ION 9 2013 [id number] 550 JAYLA CAREMARK PRESCRIPT [id number] Apr 26, [id number] [phone] KITTY SANTOS, PATIENT [id number] ION 9 2013 82 550 JAYLA MEDICARE MEDICARE PART Jun 24, PART A [id number] TOBI, PATIENT (WNR) (M) A 2004 [id number] 1213 JAYLA MEDICARE MEDICARE PART Jun 24, PART B [id number] TOBI, PATIENT (WNR) (M) B 2004 [id number] 1213 JAYLA MEDICARE MEDICARE PART Jun 24, PART A [id number] TOBI, PATIENT (WNR) (M) A 2004 64A 8431 JAYLA MEDICARE MEDICARE PART Jun 24, PART B [id number] TOBI, PATIENT (WNR) (M) B 2004 64A 8431 JAYLA MARTINS RETIREE TANK Oct 24, [id number] TOBI, PATIENT BS UDWW [facility] 2002 7 [id number] [facility] RX PRESCRIPT [id number] Apr 26, [id number] [phone] MARILYNN JOHNSON, PATIENT SERVICES [place] [address] 2012 7 [id number] 1 [place] Selected Encounter This section includes the information on record at [place] for the Encounter. Date/Time Encounter Type Encounter Reason Provider Source Description Nov 13, 2020 OFFICE O/P EST PRIMARY ICD-10-CM Z71.9 LINN ARECHIGA 03:45 PM MINIMAL PROB CARE/MEDICINE Counseling, unspecified with Provider Comments: Counseling,Unspec IHE Encounter Template Text not used by [place] Assessments - Encounter Diagnoses This section includes the primary and secondary diagnoses documented for the Encounter. Date/Time Primary/Secondary Diagnosis Name Provider Source Diagnosis Nov 13, 2020 PRIMARY CounselingGENI SHERRI S [facility] 04:09 PM unspecified CLINIC Plan of Treatment: Future Appointments (+ 6 months) and Future Tests (+/- 45 days) The Plan of Treatment section includes future care activities for the patient from all [place] treatmentfacilities. This section includes future appointments and future orders which are active, pending orscheduled.Future Appointments This section includes appointments that were scheduled to occur 6 months from the date of the Encounter, up to a maximum of 20 appointments. The data comes from all [place] treatment facilities. Appointment Date/Time Appointment Type Appointment Facili ty Name Nov 27, 2020 11:30 AM AMBULATORY - MEDICINE [facility] CLIN IC Dec 02, 2020 01:30 PM AMBULATORY - MEDICINE [facility] CLIN IC Dec 11, 2020 08:00 AM AMBULATORY - NONE MODESTA GARCES [facility] Dec 17, 2020 08:30 AM AMBULATORY - NONE MODESTA GARCES [facility] Dec 23, 2020 01:00 PM AMBULATORY - NONE MODESTA GARCES [facility] Dec 25, 2020 12:20 PM AMBULATORY - NONE MODESTA GARCES [facility] Jan 08, 2021 03:30 PM AMBULATORY - MEDICINE [facility] CLIN IC Feb 11, 2021 08:30 AM AMBULATORY - MEDICINE [facility] CLIN IC Feb 18, 2021 02:00 PM AMBULATORY - MEDICINE [facility] CLIN IC Feb 26, 2021 10:10 AM AMBULATORY - NONE MODESTA GARCES [facility] Mar 03, 2021 11:15 AM AMBULATORY - MEDICINE [facility] CLIN IC Mar 05, 2021 02:30 PM AMBULATORY - NONE MODESTA GARCES [facility] Mar 14, 2021 03:45 PM AMBULATORY - MEDICINE [facility] CLIN IC Apr 09, 2021 11:00 AM AMBULATORY - MEDICINE [facility] CLIN IC Apr 11, 2021 11:00 AM AMBULATORY - MEDICINE [facility] CLIN IC Apr 14, 2021 09:00 AM AMBULATORY - MEDICINE [facility] CLIN IC May 15, 2021 12:30 PM AMBULATORY - MEDICINE [facility] CLIN IC Social History: Smoking Status (Most current) and Tobacco Use (All prior to encounter date) This section includes the most current, and the historical, smoking and tobacco-related health factors from the [place] facility where the Encounter took place.Current Smoking Status This section includes the most current smoking, or tobacco-related health factor, from the [place] facility where the Encounter took place. Date/Time Current Smoking Status Comment Facility Feb 13, 2020 09:00 AM [place]-TOBACCO FORMER USER [facility] Tobacco Use History This section includes a history of the smoking, or tobacco- related health factors, that were collected on or before the date of the Encounter. The data comes from the [place] facility where the Encounter took place. Date/Time Smoking Status/Tobacco Use Comment [facility] Feb 13, 2020 09:00 AM [place]-TOBACCO QUIT 15 YRS OR MORE [facility] Encounter Notes: All associated encounter notes This section contains the clinical notes associated to the Encounter. Date/Time Encounter Note(s) Provider Source Nov 13, 2020 04:07 PM NURSING NOTE: LINN ARECHIGA [facility] LOCAL TITLE: WALK-IN NOTE STANDARD TITLE: NURSING NOTE DATE OF NOTE: NOV 13, 2020@16:07 ENTRY DATE: NOV 13, 2020@16:07:26 AUTHOR: LINN ARECHIGA EXP COSIGNER: URGENCY: STATUS: COMPLETED Patient identification is confirmed by full name , date of and social security number prior to interview and examinati on. Hand washing is completed prior to interview and examination. Age:80 Chief complaint:QUESTION ABOUT MRI AUTH THAT IS NOW BUT IS SCHEDULED FOR THIS WEDNESDAY. IN HOUSE MSA ASSISTED. ALSO REQUESTED LORAZEPAM FOR SEDATION FOR MRI. COVERING PCP WROTE HARD SCRIPT AND WAS GIVEN TO VET WITH HERITAGE TO FILL AT PHARMACY. Allergies:IVAN SEPULVEDA /martha/ LINN ARECHIGA RN Signed: 11/13/2020 16:09
--- OUTSIDE RECORDS SUMMARY | 2021-11-11 08:50 | External Medical Summary | Encounter Summary ---
:1939 Author Organization Department [facility] Address [address] [place] [address] Care Team Providers Name Role Phone EMILY [...] Shanks BC OF PREFERRED UNIVE Jan 24, [id number] [phone] DEREK NN, PATIENT [place] PROVIDER RSITY [phone] 0 JAYLA ORGANIZAT OF ION (PPO) [place] 82765 Oct 24, [id number] [phone] MARILYNNALEX, PATIENT [facility] 200256 5258 JAYLA CAREMARK PRESCRIPT [id number] Apr 26, [id number] [phone] MARILYNNKoby SANTOS, PATIENT [id number] ION 9 2013 520 550 JAYLA CAREMARK PRESCRIPT [id number] Apr 26, [id number] [phone] MARILYNNKoby SANTOS, PATIENT [id number] ION 9 2013 82 550 JAYLA MEDICARE MEDICARE PART Jun 24, PART A [id number] TOBI, PATIENT (WNR) (M) A 2004 [id number] 1213 JAYLA MEDICARE MEDICARE PART Jun 24, PART B [id number] 800 [id number] TOBI, PATIENT (WNR) (M) B 2004 [id number] 1213 JAYLA MEDICARE MEDICARE PART Jun 24, PART A [id number] TOBI, PATIENT (WNR) (M) A 2004 64A 8431 JAYLA MEDICARE MEDICARE PART Jun 24, PART B [id number] TOBI, PATIENT (WNR) (M) B 2004 64A 8431 JAYLA MARTINS RETIREE WASHI Oct 24, [id number] TOBI, PATIENT BS UDWW [facility] 2002 7 [id number] [facility] RX PRESCRIPT Apr 26, [id number] [phone] MARILYNN JOHNSON, PATIENT SERVICES [place] [address] 2012 [id number] [place] Selected Encounter This section includes the information on record at [place] for the Encounter. Date/Time Encounter Type Encounter Description Reason Provider Source Nov 13, 2020 12:18 Outpatient Encounter PRIMARY CARE/MEDICINE PM IHE Encounter [...] 27, 2020 11:30 AM AMBULATORY - MEDICINE [facility] CLIN IC Dec 02, 2020 01:30 PM AMBULATORY - MEDICINE [facility] CL[facility] IC Dec 11, 2020 08:00 AM AMBULATORY - NONE MODESTA AGRCES [facility] Dec 17, 2020 08:30 AM AMBULATORY - NONE MODESTA GARCES [facility] Dec 23, 2020 01:00 PM AMBULATORY - NONE MODESTA GARCES [facility] Dec 25, 2020 12:20 PM AMBULATORY - NONE MODESTA GARCES [facility] Jan 08, 2021 03:30 PM AMBULATORY - MEDICINE [facility] CLIN IC Feb 11, 2021 08:30 AM AMBULATORY - MEDICINE [facility] CL[facility] IC Feb 18, 2021 02:00 PM AMBULATORY - MEDICINE [facility] CL[facility] IC Feb 26, 2021 10:10 AM AMBULATORY - NONE MODESTA BARRETOEMANUEL [facility] Mar 03, 2021 11:15 AM AMBULATORY - MEDICINE [facility] CL[facility] IC Mar 05, 2021 02:30 PM AMBULATORY - NONE MODESTA Zuñiga MILI [facility] Mar 14, 2021 03:45 PM AMBULATORY - MEDICINE [facility] IC Apr 09, 2021 11:00 AM AMBULATORY - MEDICINE [facility] Apr 11, 2021 11:00 AM AMBULATORY - MEDICINE [facility] Apr 14, 2021 09:00 AM AMBULATORY - MEDICINE [facility] IC May 15, 2021 12:30 PM AMBULATORY - MEDICINE [facility] CL[facility] IC Encounter Notes: All associated encounter notes This section contains the clinical notes associated to the Encounter. Date/Time Encounter Note(s) Provider Source Nov 13, 2020 12:18 PM NONVA NOTE: LUDWIG LEUNG [facility] LOCAL TITLE: OUTSIDE MEDICAL RECORDS STANDARD TITLE: NONVA NOTE DATE OF NOTE: NOV 13, 2020@12:18 ENTRY DATE: NOV 13, 2020@12:18:33 AUTHOR: LUDWIG LEUNG EXP COSIGNER: URGENCY: STATUS: COMPLETED Outside Provider: [employer] licensed physical therapy assistant apy 11/12/20 CAROLINA Nixon ordering Initial evaluation notes. Jasbir Streeter DPT /martha/ LUDWIG LEUNG Signed: 11/13/2020 12:20
--- OUTSIDE RECORDS SUMMARY | 2021-11-11 08:50 | External Medical Summary ---
:1940 Author Organization Department [facility] Address [address] [place] [address] Care Team Providers Name Role Phone EMILY [...] Shanks BC OF PREFERRED UNIVE Jan 24, [id number] [phone] DEREK NN, PATIENT [place] PROVIDER RSITY [phone] 0 JAYLA ORGANIZAT OF ION (PPO) [place] 16840 Oct 24, [id number] [phone] MARILYNNALEX, PATIENT [facility] 200256 5258 JAYLA CAREMARK PRESCRIPT [id number] Apr 26, [id number] [phone] MARILYNNKoby SANTOS, PATIENT [id number] ION 9 2013 [id number] 550 JAYLA CAREMARK PRESCRIPT [id number] Apr 26, [id number] [phone] MARILYNNKoby SANTOS, PATIENT [id number] ION 9 2013 82 550 JAYLA MEDICARE MEDICARE PART Jun 24, PART A [id number] TOBI, PATIENT (WNR) (M) A 2004 [id number] 1213 JAYLA MEDICARE MEDICARE PART Jun 24, PART B [id number] 800 [id number] TOBI, PATIENT (WNR) (M) B 2004 [id number] 1213 JAYLA MEDICARE MEDICARE PART Jun 24, PART A [id number] TOBI, PATIENT (WNR) (M) A 2004 64A 8431 JAYLA MEDICARE MEDICARE PART Jun 24, PART B [id number] TOBI, PATIENT (WNR) (M) B 2004 64A 8431 JAYLA MARTINS RETIREE WASHI Oct 24, [id number] TOBI, PATIENT BS UDWW [facility] 2002 7 [id number] [facility] RX PRESCRIPT Apr 26, [id number] [phone] MARILYNN JOHNSON, PATIENT SERVICES [place] [address] 2012 7 [id number] 1 [place] Selected Encounter This section includes the information on record at [place] for the Encounter. Date/Time Encounter Type Encounter Description Reason Provider Source Nov 13, 2020 03:55 Outpatient Encounter PRIMARY CARE/MEDICINE PM IHE Encounter Template Text not used by [place] Plan of Treatment: Future Appointments (+ 6 [...] 27, 2020 11:30 AM AMBULATORY - MEDICINE [facility] Dec 02, 2020 01:30 PM AMBULATORY - MEDICINE [facility] Dec 11, 2020 08:00 AM AMBULATORY - NONE MODESTA GARCES [facility] Dec 17, 2020 08:30 AM AMBULATORY - NONE MODESTA GARCES [facility] Dec 23, 2020 01:00 PM AMBULATORY - NONE MODESTA GARCES [facility] Dec 25, 2020 12:20 PM AMBULATORY - NONE MODESTA GARCES [facility] Jan 08, 2021 03:30 PM AMBULATORY - MEDICINE [facility] Feb 11, 2021 08:30 AM AMBULATORY - MEDICINE [facility] Feb 18, 2021 02:00 PM AMBULATORY - MEDICINE [facility] Feb 26, 2021 10:10 AM AMBULATORY - NONE MODESTA MYaquelin [facility] Mar 03, 2021 11:15 AM AMBULATORY - MEDICINE [facility] Mar 05, 2021 02:30 PM AMBULATORY - NONE MODESTA MYaquelin [facility] Mar 14, 2021 03:45 PM AMBULATORY - [...] Encounter Note(s) Provider Source Nov 13, 2020 04:03 PM PHYSICIAN NOTE: RM GUIDRY [facility] LOCAL TITLE: PHYSICIAN NOTE STANDARD TITLE: PHYSICIAN NOTE DATE OF NOTE: NOV 13, 2020@16:03 ENTRY DATE: NOV 13, 2020@16:03:47 AUTHOR: RM GUIDRY EXP COSIGNER: URGENCY: STATUS: COMPLETED Note reviewed, chart reviewed. Covering for [facility] P[facility] currently on [facility]. [place] scheduled to undergo MRI, requesting med ication to help him relax so that he can complete the study. Rx provided for lorazapam 0.25mg x 1 prior to MR I. /martha/ RM GUIDRY MD, FACP STAFF PHYSICIAN Signed: 11/13/2020 16:06
--- OUTSIDE RECORDS SUMMARY | 2021-11-11 08:51 | External Medical Summary | Encounter Summary ---
:1940 Author Organization [facility] Address [address] [place] [id number] Care Team Providers Name Role Phone EMILY [...] Shanks BC OF PREFERRED UNIVE Jan 24, [id number] [phone] DEREK NN, PATIENT [place] PROVIDER RSITY [id number] [phone] JAYLA ORGANIZAT OF ION (PPO) [place] [id number] Oct 24, [id number] MARILYNNALEX, PATIENT [facility] 200256 5258 JAYLA CAREMARK PRESCRIPT [id number] Apr 26, [id number] [phone] MARILYNNKoby SANTOS, PATIENT [id number] ION 9 2013 [id number] JAYLA CAREMARK PRESCRIPT [id number] Apr 26, [id number] [phone] KITTY SANTOS, PATIENT [id number] ION 9 2013 82 550 JAYLA MEDICARE MEDICARE PART Jun 24, PART A [id number] TOBI, PATIENT (WNR) (M) A 2004 [id number] 1213 JAYLA MEDICARE MEDICARE PART Jun 24, PART B [id number] TOBI, PATIENT (WNR) (M) B 2004 [id number] 1213 JAYLA MEDICARE MEDICARE PART Jun 24, PART A [id number] TOBI, PATIENT (WNR) (M) A 2004 64A 8431 JAYLA MEDICARE MEDICARE PART Jun 24, PART B [id number] TOBI, PATIENT (WNR) (M) B 2004 64A 8431 JAYLA MARTINS RETIREE MICHELEI Oct 24, [id number] TOBI, PATIENT BS UDWW [facility] [id number] [facility] [place] ST RX PRESCRIPT Apr 26, [id number] [phone] MARILYNN JOHNSON, PATIENT SERVICES [place] [address] 2012 [id number] 1 JAYLA Selected Encounter This section includes the information on record at [place] for the Encounter. Date/Time Encounter Type Encounter Description Reason Provider Source Nov 12, 2020 08:00 Outpatient Encounter COMMUNITY CARE AM CONSULT IHE Encounter Template Text not used by [place] Plan of Treatment: Future Appointments (+ 6 [...] Appointment Type Appointment Facili ty Name Nov 13, 2020 03:45 PM AMBULATORY - MEDICINE [facility] Nov 27, 2020 11:30 AM AMBULATORY - MEDICINE [facility] Dec 02, 2020 01:30 PM AMBULATORY - MEDICINE [facility] Dec 11, 2020 08:00 AM AMBULATORY - NONE [facility] Dec 17, 2020 08:30 AM AMBULATORY - NONE [facility] Dec 23, 2020 01:00 PM AMBULATORY - NONE [facility] Dec 25, 2020 12:20 PM AMBULATORY - NONE [facility] Jan 08, 2021 03:30 PM AMBULATORY - MEDICINE [facility] Feb 11, 2021 08:30 AM AMBULATORY - MEDICINE [facility] Feb 18, 2021 02:00 PM AMBULATORY - MEDICINE [facility] Feb 26, 2021 10:10 AM AMBULATORY - NONE [facility] Mar 03, 2021 11:15 AM AMBULATORY - MEDICINE [facility] Mar 05, 2021 02:30 PM AMBULATORY - NONE [facility] Mar 14, 2021 03:45 PM AMBULATORY - MEDICINE [facility] Apr 09, 2021 11:00 AM AMBULATORY - MEDICINE [facility] Apr 11, 2021 11:00 AM AMBULATORY - MEDICINE [facility] Apr 14, 2021 09:00 AM AMBULATORY - MEDICINE [facility] May 15, 2021 12:30 PM AMBULATORY - MEDICINE [facility] Encounter Notes: All associated encounter notes This section contains the clinical notes associated to the Encounter. Date/Time Encounter Note(s) Provider Source Nov 12, 2020 07:44 AM NONVA CONSULT: KERRIE ANGUIANO LOCAL TITLE: COMMUNITY CARE-CONSULT RESULT NOTE [facility] STANDARD TITLE: NONVA CONSULT DATE OF NOTE: NOV 12, 2020@07:44 ENTRY DATE: DEC 10, 2020@07:44:17 AUTHOR: KERRIE ANGUIANO EXP COSIGNER: URGENCY: STATUS: COMPLETED The following Non VA Care consult has be en completed. See scanned document for report. NON VA Care Consult Results Rehabilitation Comment: PEAK PERFORMANCE/ POC /es/ G NICKO ANGUIANO Health Information Cold Type Artist Signed: 12/10/2020 07:45
--- OUTSIDE RECORDS SUMMARY | 2021-11-11 08:51 | External Medical Summary | Encounter Summary ---
:1940 Author Organization [facility] Address [address] [place] [id number] Care Team Providers Name Role Phone EMILY [...] Shanks BC OF PREFERRED UNIVE Jan 24, [id number] [phone] DEREK NN, PATIENT [place] PROVIDER RSITY [phone] [phone] JAYLA ORGANIZAT OF ION (PPO) [place] [id number] Oct 24, [id number] [phone] MARILYNNALEX, PATIENT [facility] 200256 5258 JAYLA CAREMARK PRESCRIPT [id number] Apr 26, [id number] [phone] MARILYNNKoby SANTOS, PATIENT [id number] ION 9 2013 [id number] JAYLA CAREMARK PRESCRIPT [id number] Apr 26, [id number] [phone] KITTY SANTOS, PATIENT [id number] ION 9 2013 82 550 JAYLA MEDICARE MEDICARE PART Jun 24, PART A [id number] TOBI, PATIENT (WNR) (M) A 2004 [id number] 1213 JAYLA MEDICARE MEDICARE PART Jun 24, PART B [id number] 800 [id number] TOBI, PATIENT (WNR) (M) B 2004 [id number] 1213 JAYLA MEDICARE MEDICARE PART Jun 24, PART A [id number] TOBI, PATIENT (WNR) (M) A 2004 64A 8431 JAYLA MEDICARE MEDICARE PART Jun 24, PART B [id number] TOBI, PATIENT (WNR) (M) B 2004 64A 8431 JAYLA MARTINS RETIREE MICHELEI Oct 24, [id number] [phone] TOBI, PATIENT BS UDWW [facility] 2002 7 [id number] [facility]* IN ST RX PRESCRIPT Apr 26, [id number] [phone] MARILYNN JOHNSON, PATIENT SERVICES [place] [address] 2012 7 [id number] 1 JAYLA Selected Encounter This section includes the information on record at [place] for the Encounter. Date/Time Encounter Type Encounter Description Reason Provider Source Nov 12, 2020 12:00 Outpatient Encounter COMMUNITY CARE PM CONSULT IHE Encounter Template Text not used by [place] Plan of Treatment: Future Appointments (+ 6 [...] 13, 2020 03:45 PM AMBULATORY - MEDICINE [facility] Nov 27, 2020 11:30 AM AMBULATORY - MEDICINE [facility] Dec 02, 2020 01:30 PM AMBULATORY - MEDICINE [facility] Dec 11, 2020 08:00 AM AMBULATORY - NONE [facility] Dec 17, 2020 08:30 AM AMBULATORY - NONE [facility] Dec 23, 2020 01:00 PM AMBULATORY - NONE [facility] Dec 25, 2020 12:20 PM AMBULATORY - NONE [facility] Jan 08, 2021 03:30 PM AMBULATORY - MEDICINE [facility] Feb 11, 2021 08:30 AM AMBULATORY - MEDICINE [facility] Feb 18, 2021 02:00 PM AMBULATORY - MEDICINE [facility] Feb 26, 2021 10:10 AM [facility]ORY [facility]ONE [facility] Mar 03, 2021 11:15 AM AMBULATORY - MEDICINE [facility] Mar 05, 2021 02:30 PM [facility]UL[facility]ORY - NONE [facility] Mar 14, 2021 03:45 PM AMBULATORY - MEDICINE [facility] Apr 09, 2021 11:00 AM AMBULATORY - MEDICINE [facility] Apr 11, 2021 11:00 AM AMBULATORY - MEDICINE [facility] Apr 14, 2021 09:00 AM AMBULATORY - MEDICINE [facility] May 15, 2021 12:30 PM AMBULATORY - MEDICINE [facility] Encounter Notes: All associated encounter notes This section contains the clinical notes associated to the Encounter. Date/Time Encounter Note(s) Provider Source Nov 12, 2020 12:00 PM NONVA CONSULT: CLEVELAND KOEHLER LOCAL TITLE: COMMUNITY CARE-CONSULT RESULT NOTE [facility] STANDARD TITLE: NONVA CONSULT DATE OF NOTE: NOV 12, 2020@12:00 ENTRY DATE: DEC 17, 2020@07:16:08 AUTHOR: CLEVELAND KOEHLER EXP COSIGNER: URGENCY: STATUS: COMPLETED The following Non VA Care consult has been compl eted. See scanned document for report. NON VA Care Consult Results PEAK PERFORMANCE PHYSICAL THERAPY IZABEL EDWARDS DPT DOS: 11/12/2020 /martha/ CLEVELAND KOEHLER CONTRACT SCANNER-ISSU Signed: 12/17/2020 07:16
--- OUTSIDE RECORDS SUMMARY | 2021-11-11 08:55 | External Medical Summary | Encounter Summary ---
:1940 Author Organization [facility] Address [address] [place] [address] Care Team Providers Name Role Phone EMILY [...] Shanks BC OF PREFERRED UNIVE Jan 24, [id number] [phone] DEREK NN, PATIENT [place] PROVIDER RSITY [id number] [phone] JAYLA ORGANIZAT OF ION (PPO) [place] [id number] Oct 24, [id number] [phone] MARILYNNALEX, PATIENT [facility] 200256 5258 JAYLA CAREMARK PRESCRIPT [id number] Apr 26, [id number] [phone] MARILYNNKoby SANTOS, PATIENT [id number] ION 9 2013 [id number] 550 JAYLA CAREMARK PRESCRIPT [id number] Apr 26, [id number] [phone] KITTY SANTOS, PATIENT [id number] ION 9 2013 82 550 JAYLA MEDICARE MEDICARE PART Jun 24, PART A [id number] TOBI, PATIENT (WNR) (M) A 2004 [id number] 1213 JAYLA MEDICARE MEDICARE PART Jun 24, PART B [id number] 800 [id number] TOBI, PATIENT (WNR) (M) B 2004 [id number] 1213 JAYLA MEDICARE MEDICARE PART Jun 24, PART A [id number] TOBI, PATIENT (WNR) (M) A 2004 64A 8431 JAYLA MEDICARE MEDICARE PART Jun 24, PART B [id number] TOBI, PATIENT (WNR) (M) B 2004 64A 8431 JAYLA MARTINS RETIREE WASHI Oct 24, [id number] TOBI, PATIENT BS UDWW [facility] 2002 7 [id number] [facility] [place] ST RX PRESCRIPT [id number] Apr 26, [id number] [phone] MARILYNN JOHNSON, PATIENT SERVICES [place] [address] 2012 7 [id number] 1 JAYLA Selected Encounter This section includes the information on record at [place] for the Encounter. Date/Time Encounter Type Encounter Description Reason Provider Source Jun 25, 2021 01:04 Outpatient Encounter COMMUNITY CARE PM CONSULT IHE Encounter Template Text not used by [place] Plan of Treatment: Future Appointments (+ 6 months) and Future Tests (+/- 45 days) The Plan of Treatment section includes future care activities for the patient from all [place] [facility]. This section includes future appointments and future orders which are active, pending orscheduled.Future Appointments This section includes appointments that were scheduled to occur 6 months from the date of the Encounter, up to a maximum of 20 appointments. The data comes from all [place] treatment facilities. Appointment Date/Time Appointment Type Appointment Facili ty Name Jul 07, 2021 09:00 AM AMBULATORY - NONE [facility] Jul 07, 2021 03:00 PM AMBULATORY - MEDICINE [facility] Jul 22, 2021 03:00 PM AMBULATORY - NONE [facility] Sep 29, 2021 09:00 AM AMBULATORY - NONE [facility] Active, Pending, and Scheduled Orders This section [...] Consult Order COMMUNITY CARE-ALLERGY STELLA VIVEROS Cons Process Description Writer's Choice [facility] Encounter Notes: All associated encounter notes This section contains the clinical notes associated to the Encounter. Date/Time Encounter Note(s) Provider Source Jun 25, 2021 01:04 PM ADMINISTRATIVE NOTE: VENICE BILLINGSLEY LOCAL TITLE: TELEPHONE CONTACT CALL CENTER ADMI N [facility] STANDARD TITLE: ADMINISTRATIVE NOTE DATE OF NOTE: JUN 25, 2021@13:04:15 ENTRY DATE: JUN 25, 2021@13:06:23 AUTHOR: VENICE BILLINGSLEY EXP COSIGNER: URGENCY: STATUS: COMPLETED TELEPHONE CONTACT CALL CENTER ADMIN Has ADD ENDA The following identifiers were used to verify th is patient: . SSN. The patient, JAYLA BRITTON ([id number] ) called the call center. Contact Type of call: V20 PACT MSG. Comments: [place] requesting a c/b from team. stat ed he had surgery on his back about 1 month ago, but is still having pain on h is hips. Please advise. Author: VENICE BILLINGSLEY Evaluation/Management Code: HC PRO PHONE CALL 5- 10 MIN ([phone]). Starting at: 06/25/2021 @ 1:04:15 PM Ending at: 06/25/2021 @ 1:05:17 PM Length: 1 minutes. Caller Area: [address] Chief Complaint: Not applicable to call. Caller Response: V20 RETURN CALL Caller/ verbalize understanding; acknowle dges message. Patient's Email Address: Class Code: Other specified counseling. /martha/ VENICE BILLINGSLEY/[facility] Signed: 06/25/2021 13:06 Receipt Acknowledged By: 06/25/2021 13:33 /martha/ COLTON HICKS 06/25/2021 ADDENDUM STATUS: COMPLETED forwarding to the [facility] for review. /martha/ COLTON HICKS Signed: 06/25/2021 13:34 Receipt Acknowledged By: 06/25/2021 13:35 /es/ LINN ARECHIGA RN 06/25/2021 ADDENDUM STATUS: COMPLETED LMTRC ON MACHINE /martha/ LINN ARECHIGA RN Signed: 06/25/2021 13:37 07/07/2021 ADDENDUM STATUS: COMPLETED call to vet states is seeing his surgeon for a follo w up related to the above complaint of on going pain post surgery. vet requests also for a consult to an television producer to see what kind of triggers might be aggravating his copd etc. advised would placed a consult for this. vet will follow up with his napper fixer for on going breathing issues. /martha/ LINN ARECHIGA RN Signed: 07/07/2021 15:25 Receipt Acknowledged By: * AWAITING SIGNATURE * EMILY ROSALES
--- OUTSIDE RECORDS SUMMARY | 2021-11-11 08:55 | External Medical Summary | Encounter Summary ---
:1940 Author Organization [facility] Address [address] [address] Care Team Providers Name Role Phone EMILY [...] Shanks BC OF PREFERRED UNIVE Jan 24, [id number] [phone] DEREK NN, PATIENT [place] PROVIDER RSITY [id number] [phone] JAYLA ORGANIZAT OF ION (PPO) [place] 36574 Oct 24, [id number] [phone] MARILYNNALEX, PATIENT [facility] 200256 5258 JAYLA CAREMARK PRESCRIPT [id number] Apr 26, [id number] [phone] MARILYNNKoby SANTOS, PATIENT [id number] ION 9 2013 [id number] 550 JAYLA CAREMARK PRESCRIPT [id number] Apr 26, [id number] [phone] KITTY SANTOS, PATIENT [id number] ION 9 2013 82 550 JAYLA MEDICARE MEDICARE PART Jun 24, PART A [id number] TOBI, PATIENT (WNR) (M) A 2004 [id number] 1213 JAYLA MEDICARE MEDICARE PART Jun 24, PART B [id number] 800 [id number] TOBI, PATIENT (WNR) (M) B 2004 [id number] 1213 JAYLA MEDICARE MEDICARE PART Jun 24, PART A [id number] TOBI, PATIENT (WNR) (M) A 2004 64A 8431 JAYLA MEDICARE MEDICARE PART Jun 24, PART B [id number] TOBI, PATIENT (WNR) (M) B 2004 64A 8431 JAYLA MARTINS RETIREE WASHI Oct 24, [id number] TOBI, PATIENT BS UDWW [facility] 2002 7 [id number] [facility]* [place] ST RX PRESCRIPT [id number] Apr 26, [id number] [phone] MARILYNN JOHNSON, PATIENT SERVICES [place] [address] 2012 7 [id number] 1 JAYLA Selected Encounter This section includes the information on record at [place] for the Encounter. Date/Time Encounter Type Encounter Description Reason Provider Source Jul 03, 2021 01:03 Outpatient Encounter COMMUNITY CARE PM CONSULT IHE Encounter Template Text not used by [place] Plan of Treatment: Future Appointments (+ 6 months) and Future Tests (+/- 45 days) The Plan of Treatment section includes future care activities for the patient from all [place] [facility] This section includes future appointments and future [...] 09:00 AM AMBULATORY - NONE [facility] Jul 07, 2021 03:00 PM [facility] Jul 22, 2021 03:00 PM AMBULATORY - NONE [facility] Sep 29, 2021 09:00 AM AMBULATORY - NONE [facility] Active, Pending, and Scheduled Orders This section [...] Consult Order COMMUNITY CARE-ALLERGY STELLA VIVEROS Cons Research Compliance Specialist's Choice [facility] Encounter Notes: All associated encounter notes This section contains the clinical notes associated to the Encounter. Date/Time Encounter Note(s) Provider Source Jul 03, 2021 01:04 ADMINISTRATIVE NOTE: LULU WHALEY LOCAL TITLE: ADMINISTRATIVE NOTE [facility] STANDARD TITLE: ADMINISTRATIVE NOTE DATE OF NOTE: JUL 03, 2021@13:04 ENTRY DATE: JUL 03, 2021@13:04:32 AUTHOR: LULU WHALEY EXP COSIGNER: URGENCY: STATUS: COMPLETED Called to schedule R TC 02/20/2022. Left voicemail asking to call to schedule. Letter sent. If the calls back to schedule please alert clinic [facility] to schedule. /martha/ LULU WHALEY, MPH Advanced Access Specialist Signed: 07/03/2021 13:04 Jul 03, 2021 01:03 ADMINISTRATIVE NOTE: LULU WHALEY LOCAL TITLE: ADMINISTRATIVE NOTE [facility] STANDARD TITLE: ADMINISTRATIVE NOTE DATE OF NOTE: JUL 03, 2021@13:03 ENTRY DATE: JUL 03, 2021@13:03:28 AUTHOR: LULU WHALEY EXP COSIGNER: URGENCY: STATUS: COMPLETED [facility] [address] [place] [address], [address] [place] [address] Date: JUL 03, 2021 JAYLA BRITTON [address] [facility] [place], [place] [address] Dear JAYLA BRITTON, Our records indicate that it is time for you to schedule an appointment with your primary care provider at the [place]. A primary care provider is responsible for coordinating medical care for their assigned patients. This coordination of care includes routine office visits, health p romotion, chronic disease maintenance, and referrals to specialists as sonny cleaning, as well as providing medications associated with VA medical care. We have attempted to contact you by telephone to verify that you are interested in scheduling a follow up vis it with your VA Primary Care provider. Since we have been unable to contact you directl y, we would like you to contact us. If we do not hear from you by Feb, we wi ll assume you are not currently interested in a follow up appointment at the [place] and will remove you from our schedulin g list. Please [facility] at the following number: select scheduling option from [employer] e menu. Our hours are Wednesday thru Wednesday 8:00am-4:30 pm. and closed on Federal holidays. We look forward to serving you, [facility] Pr jesús Care Team /martha/ LULU WHALEY, MPH Advanced Access Specialist Signed: 07/03/2021 13:04
--- OUTSIDE RECORDS SUMMARY | 2021-11-11 08:56 | External Medical Summary | Encounter Summary ---
:1940 Author Organization [facility] rs Address [address] [place] [address] Care Team Providers Name Role Phone EMILY [...] Shanks BC OF PREFERRED UNIVE Jan 24, [id number] [phone] MARILYNNADRIANA NN, PATIENT [place] [facility] [id number] [phone] CARLOS MANUEL ORGANIZAT OF ION (PPO) [place] [id number] Oct 24, [id number] [phone] MARILYNNALEX, PATIENT [facility] [phone] CARLOS MANUEL CAREMARK PRESCRIPT [id number] Apr 26, [id number] [phone] KITTY SANTOS, PATIENT [id number] ION 9 2013 [id number] CARLOS MANUEL CAREMARK PRESCRIPT [id number] Apr 26, [id number] [phone] KITTY SANTOS, PATIENT [id number] ION 9 2013 82 550 CARLOS MANUEL MEDICARE MEDICARE PART Jun 24, PART A [id number] TOBI, PATIENT (WNR) (M) A 2004 [id number] CARLOS MANUEL MEDICARE MEDICARE PART Jun 24, PART B [id number] TOBI, PATIENT (WNR) (M) B 2004 [id number] CARLOS MANUEL MEDICARE MEDICARE PART Jun 24, PART A [id number] TOBI, PATIENT (WNR) (M) A 2004 64A 8431 CARLOS MANUEL MEDICARE MEDICARE PART Jun 24, PART B [id number] TOBI, PATIENT (WNR) (M) B 2004 64A [id number] CARLOS MANUEL MARTINS RETIREE WASHI Oct 24, [id number] [phone] TOBI, PATIENT BS UDWW [facility] 2002 7 [id number] [facility] RE* [place] ST RX PRESCRIPT [id number] Apr 26, [id number] [phone] MARILYNN JOHNSON, PATIENT SERVICES [place] [address] 2012 [id number] CARLOS MANUEL Selected Encounter This section includes the information on record at [place] for the Encounter. Date/Time Encounter Type Encounter Description Reason Provider Source Jul 09, 2021 11:59 Outpatient Encounter ADMIN PAT ACTIVTIES AM (MASNONCT) IHE Encounter Template Text not used by [place] Plan of Treatment: Future Appointments (+ 6 months) and Future Tests (+/- 45 days) The Plan of Treatment section includes future care activities for the patient from all [place] treatmentfacilities. This section includes future appointments and future orders which are active, pending orscheduled.Future Appointments This section includes appointments that were scheduled to occur 6 months from the date of the Encounter, up to a maximum of 20 appointments. The data comes from all [place] treatment facilities. Appointment Date/Time Appointment Type Appointment Facili ty Name Jul 22, 2021 03:00 PM AMBULATORY - NONE MODESTA GARCES [facility] Sep 29, 2021 09:00 AM AMBULATORY - NONE MODESTA GARCES [facility] Active, Pending, and Scheduled Orders This section includes a listing of several types of active, pending, and scheduled orders, including clinic medications orders, diagnostic test orders, procedure orders and consult orders; where the start date of the order is 45 days before the date of the Encounter or 45 days after the date of the Encounter. The data comes from all PR treatment facilities. Test Date/Time Test Type Test Details Facility Name Jul 07, 2021 11:09 PM Consult Order COMMUNITY CARE-ALLERGY STELLA VIVEROS [facility] Child Adolescent Psychiatrist's Choice [facility] Encounter Notes: All associated encounter notes This section contains the clinical notes associated to the Encounter. Date/Time Encounter Note(s) Provider Source Jul 09, 2021 11:59 AM PHARMACY TELEPHONE ENCOUNTER NOTE: BINU JOHNSTON LOCAL TITLE: CLINICAL PHARMACIST TELEPHONE NOTE [place] [facility] STANDARD TITLE: PHARMACY TELEPHONE ENCOUNTER NOT E DATE OF NOTE: JUL 09, 2021@11:59 ENTRY DATE: JUL 09, 2021@11:59:40 AUTHOR: BINU JOHNSTON EXP COSIGNER: MARIE RODRIGUEZ URGENCY: STATUS: COMPLETED CLINICAL PHARMACIST TELEPHONE NOTE Has ADDE NDA Patient visit conducted with PGY1 pharmacy resid ent Dr. Binu Johnston with 's verbal consent prior to visit. Note wa s reviewed for accuracy with any edits made by preceptor/resident ginny or to signing. Entry of this note into the electronic health record indicates p receptor agreement with assessment and plan. Patient name and were verified before the st art of today's telephone visit. SITUATION/BACKGROUND Reason for visit: Patient has been flagged for evaluation of tripl e therapy conversion from fluticasone/umeclidinium/vilanterol(Trelegy) to budesonide/glycopyrrolate/ formoterol(Breztri) for COPD. This formulary con version process has been approved by the Pharmacy and Therapeutics Commit vanna. COPD Medications: - ALBUTEROL INHL,ORAL 90MCG/ACTUAT INHALE 2 PUFF S BY MOUTH FOUR TIMES A DAY NEEDED FOR BREATHING, WHEEZING - TRELEGY ELLIPTA 100/62.5/25MCG INH 30D INHALE ONE INHALATION INHALATION EVERY MORNING FOR COPD. RINSE MOUTH AFTER USE. Hx of COPD? (Y) Currently using Fluticasone/Umeclidinium/Vilante rol (Trelegy)? (Y) - Prescription has recently . Adherence: Uses every day. Tolerability/Efficacy: "Works great" Concerns: Pt has no concerns as long as it works as well as his fluticasone/umeclidinium/vilanterol (Trelegy) in [facility]. Discussed with the patient that he should let his provider know if the new inhaler does not work as well and we can convert back to the previous inhaler. ASSESSMENT/PLAN: Patient qualifies for conversion to the local fo rmulary preferred agent Budesonide/Glycopyrrolate/Formoterol. No contrai ndications to new therapy were identified. Medication education including proper priming and inhaler technique were provided. All questions from the patient were answered. Encouraged patient to reach out to outpatient armacy and/or his PCP if he has further questions. ATTN PCP 1) Send order request to PR PCP for conversion f rom fluticasone/umeclidinium/ vilanterol(Trelegy) to budesonide/glycopyrrolat e/formoterol(Breztri). - budesonide 160/glycopyrrolate 9/formoterol 4. 8 mcg (Breztri) inhale two puffs twice daily. 2) If PCP is in agreement wi th this change, will send patient letter explaining reason for conversion. Time spent: 25 minutes Clinical Reminders Done Today PBM PharmD Pharmacotherapy Rem V11: PHARMACIST INTERVENTIONS: CHRONIC OBSTRUCTIVE PULMONARY DISEASE (COPD) Nonpharmacologic intervention made Medication monitoring, no dosage change require d, continue to monitor and assess Nonpharmacologic intervention made for other di sease state not listed /martha/ BINU JOHNSTON, PHARMD Gas Desulfurizer Signed: 07/09/2021 15:47 /es/ OSWALDO RODRIGUEZ CHIEF OF PHARMACY SERVICES Cosigned: 07/09/2021 15:48 Receipt Acknowledged By: 07/09/2021 23:57 /es/ Emily FIGUEROA Nurse Practitioner 07/10/2021 ADDENDUM STATUS: COMPLETED Patient Letter Sent 07/10/2021 Carlos Manuel [place] [address] [place] [address] Dear Mr. Britton, The [place] Pharmacy would like to inform you of a ch luis in the preferred triple therapy inhaler for chronic obstructive pulmonar y disease (COPD). Triple therapy inhalers are used to improve symptoms of COPD, reduce the frequency and severity of exacerbations, and improve p atient's exercise tolerance. According to currently available evide nce, no single triple therapy inhaler medication has been shown to be more effective than the others. Your current medication, Fluticasone/Umeclidinium /Vilanterol (Trelegy?) is being switched to Budesonide/ Glycopyrrolate/Formoterol (B reztri?). We have notified your doctor of this change. -- Please finish the remaining supply of your Fluticasone/Umeclidinium/Jason anterol (Trelegy?) inhaler before starting your new prescription of Budesonide/Glycopyrrolate/Formot julio (Breztri?) -- The new directions for the Budesonide/Glycopy rrolate/Formoterol (Breztri?) inhaler may be different than your pr evious prescription. Please read the instructions on the prescription label carefully. -- It is a good idea to tell any other doctors y ou see about this change, so they can update your medication records. The goal of the [facility] is to assure that you receive the best results possible from your medi cations. We look forward to serving you. If you have any concerns or questions about this change you may reach the pharmacy at [phone] and selecting option 2 to speak to a call person or [phone] and selecting option 2 to speak to a call person. The pharmacy hours are 9:00 am ? 4:30 pm Wednesday thru Wednesday; closed weekends and holidays. Thank you for your attention to this matter. Sincerely, [facility] Pharmacy /martha/ BINU JOHNSTON, PHARMD Gas Desulfurizer Signed: 07/10/2021 14:25 /martha/ OSWALDO RODRIGUEZ CHIEF OF PHARMACY SERVICES Cosigned: 2021 11:47 2021 ADDENDUM STATUS: COMPLETED Attending provider, Dr. Oswaldo Rodriguez, Pharm .D. I, Oswaldo Rodriguez, PharmD, directly supervise d this patient encounter by: (x) consultation and discussion with the residen t regarding findings and management plan (x)careful review of all findings, notes, diagno stic testing and management plans related to this visit I have reviewed and concurred with all findings, including the assessment and plan. /martha/ OSWALDO RODRIGUEZ CHIEF OF PHARMACY SERVICES Signed: 2021 11:48
--- OUTSIDE RECORDS SUMMARY | 2021-11-11 08:56 | External Medical Summary | Encounter Summary ---
:1940 Author Organization [facility] Address [address] [place] [address] Support Name Relationship Address Phone ERNIE BRITTON Unavailable [address] [facility] [phone] [place] [address] ERNIE BRITTON Unavailable [address] [place] [phone] [place] [address] Insurance Providers: All historical and current Section [...] Name to Policy Number Shanks BC OF [facility] UNIVE Jan 24, [id number] [phone] DEREK NN, PATIENT [place] PROVIDER [facility] [id number] JAYLA ORGANIZAT OF ION (PPO) [facility] [place] [id number] Oct 24, [id number] TOBI, PATIENT [facility] 2002 7 [id number] JAYLA CAREMARK PRESCRIPT [id number] Apr 26, [id number] [phone] MARILYNNKoby SANTOS, PATIENT [id number] ION 9 2013 [id number] JAYLA CAREMARK PRESCRIPT [id number] Apr 26, [id number] [phone] MARILYNNKoby SANTOS, PATIENT [id number] ION 9 2013 82 550 JAYLA MEDICARE MEDICARE PART Jun 24, PART A [id number] [phone] TOBI, PATIENT (WNR) (M) A 2004 [id number] JAYLA MEDICARE MEDICARE PART Jun 24, PART B [id number] [phone] MARILYNNALEX, PATIENT (WNR) (M) B 2004 [id number] 1213 [place] MEDICARE MEDICARE PART Jun 24, PART A [id number] TOBI, PATIENT (WNR) (M) A 2004 64A 8431 JAYLA MEDICARE MEDICARE PART Jun 24, PART B [id number] TOBI, PATIENT (WNR) (M) B 2004 64A 8431 JAYLA MARTINS RETIREE TANK Oct 24, [id number] TOBI, PATIENT BS UDWW [facility] 2002 7 [id number] [facility] RE* [place] ST RX PRESCRIPT [id number] Apr 26, [id number] [phone] MARILYNN JOHNSON, PATIENT SERVICES [place] [address] 2012 7 [id number] 1 JAYLA Selected Encounter This section includes the information on record at [place] for the Encounter. Date/Time Encounter Type Encounter Description Reason Provider Source Jul 07, 2021 09:00 Outpatient Encounter COMMUNITY CARE AM CONSULT IHE [...] 03:00 PM AMBULATORY - NONE MODESTA GARCES [facility] Sep 29, 2021 09:00 AM AMBULATORY - NONE MODESTA GARCES [facility] Active, Pending, and Scheduled Orders This section [...] 11:09 PM Consult Order [facility] Encounter Notes: All associated encounter notes This section contains the clinical notes associated to the Encounter. Date/Time Encounter Note(s) Provider Source Jul 07, 2021 11:00 AM NONVA CONSULT: KERRIE ANGUIANO LOCAL TITLE: COMMUNITY CARE-CONSULT RESULT NOTE [facility] STANDARD TITLE: NONVA CONSULT DATE OF NOTE: JUL 07, 2021@11:00 ENTRY DATE: JUL 11, 2021@11:00:52 AUTHOR: KERRIE ANGUIANO EXP COSIGNER: URGENCY: STATUS: COMPLETED The following Non VA Care consult has be en completed. See scanned document for report. NON VA Care Consult Results Podiatry Comment: NURIA BRUCE DPM /martha/ Katie ANGUIANO Health Information Coffee Grinder Signed: 07/11/2021 11:01
--- OUTSIDE RECORDS SUMMARY | 2021-11-11 08:56 | External Medical Summary | Encounter Summary ---
:1939 Author Organization [facility] rs Address [address] [place] [address] 19777 Support Name Relationship Address Phone ERNIE BRITTON Unavailable [address] [facility] [phone] [facility] [place] [address] ERNIE BRITTON Unavailable [address] [facility] [phone] [place] [address] Insurance Providers: All historical and current Section [...] Shanks BC OF PREFERRED UNIVE Jan 24, [id number] [phone] DEREK NN, PATIENT [place] [facility] [id number] 0 JAYLA ORGANIZAT OF ION (PPO) [facility] [place] [id number] Oct 24, [id number] TOBI, PATIENT [id number] [id number] JAYLA CAREMARK PRESCRIPT [id number] Apr 26, [id number] [phone] KITTY SANTOS, PATIENT [id number] ION 9 2013 [id number] 550 JAYLA CAREMARK PRESCRIPT [id number] Apr 26, [id number] [phone] KITTY SANTOS, PATIENT [id number] ION 9 2013 82 550 JAYLA MEDICARE MEDICARE PART Jun 24, PART A [id number] TOBI, PATIENT (WNR) (M) A 2004 [id number] 1213 JAYLA MEDICARE MEDICARE PART Jun 24, PART B [id number] [phone] TOBI, PATIENT (WNR) (M) B 2004 [id number] 1213 [place] MEDICARE MEDICARE PART Jun 24, PART A [id number] TOBI, PATIENT (WNR) (M) A 2004 64A 8431 JAYLA MEDICARE MEDICARE PART Jun 24, PART B [id number] TOBI, PATIENT (WNR) (M) B 2004 64A 8431 JAYLA MARTINS RETIREZeynep FU Oct 24, [id number] TOBI, PATIENT BS [facility]DWW [facility] 2002 7 [id number] [facility] RE* [place] ST RX PRESCRIPT [id number] Apr 26, [id number] [phone] MARILYNN JOHNSON, PATIENT SERVICES [place] [address] [id number] 1 JAYLA Selected Encounter This section includes the information on record at [place] for the Encounter. Date/Time Encounter Type Encounter Reason Provider Source Description Jul 07, 2021 OFFICE O/P EST TELEPHONE PRIMARY ICD-10-CM Z71.9 KATIE ARECHIGA 03:00 PM MINIMAL PROB CARE Counseling, unspecified with Provider Comments: Counseling,Unspec IHE Encounter Template Text not used by VA Assessments - Encounter Diagnoses This section includes the primary and secondary diagnoses documented for the Encounter. Date/Time Primary/Secondary Diagnosis Name Provider Source Diagnosis Jul 07, 2021 PRIMARY Counseling, LINN ARECHIGA [place] 03:00 PM unspecified CLINIC Plan of Treatment: Future [...] 03:00 PM AMBULATORY - NONE MODESTA GARCES [facility] Sep 29, 2021 09:00 AM AMBULATORY - NONE MODESTA GARCES [facility] Active, Pending, and Scheduled Orders This [...] Consult Order COMMUNITY CARE-ALLERGY STELLA VIVEROS Cons Signs And Displays Sales Representative's Choice [facility] Social History: Smoking Status (Most current) and Tobacco Use (All prior to encounter date) This section includes the most current, and the historical, smoking and tobacco-related health factors from the PR facility where the Encounter took place.Current Smoking Status This section includes the most current smoking, or tobacco-related health factor, from the PR facility where the Encounter took place. Date/Time Current Smoking Status Comment Facility Feb 18, 2021 02:00 PM VA-TOBACCO FORMER USER [facility] Tobacco Use History This section includes a history of the smoking, or tobacco- related health factors, that were collected on or before the date of the Encounter. The data comes from the PR facility where the Encounter took place. Date/Time Smoking Status/Tobacco Use Comment Diamond padgett Feb 18, 2021 02:00 PM PR-TOBACCO QUIT 15 YRS OR MORE [facility] Feb 13, 2020 09:00 AM VA-TOBACCO FORMER USER [facility] Feb 13, 2020 09:00 AM PR-TOBACCO QUIT 15 YRS OR MORE [facility]
--- OUTSIDE RECORDS SUMMARY | 2021-11-11 08:56 | External Medical Summary | Encounter Summary ---
:1939 Author Organization [facility] Address [address] [place] [address] 89835 Support Name Relationship Address Phone ERNIE BRITTON Unavailable [address] [facility] [phone] [place] [address] ERNIE BRITTON Unavailable [address] [place] [phone] [place] [address] Insurance Providers: All historical and current Section [...] Name to Policy Number Shanks BC OF [facility] UNIVE Jan 24, [id number] [phone] DEREK NN, PATIENT [place] PROVIDER [facility] [id number] JAYLA ORGANIZAT OF ION (PPO) [facility] [place] [id number] Oct 24, [id number] TOBI, PATIENT [facility] 2002 7 [id number] JAYLA CAREMARK PRESCRIPT [id number] Apr 26, [id number] [phone] KITTY SANTOS, PATIENT [id number] ION 9 2013 [id number] JAYLA CAREMARK PRESCRIPT [id number] Apr 26, [id number] [phone] MARILYNNKoby SANTOS, PATIENT [id number] ION 9 2013 82 550 JAYLA MEDICARE MEDICARE PART Jun 24, PART A [id number] TOBI, PATIENT (WNR) (M) A 2004 [id number] 1213 JAYLA MEDICARE MEDICARE PART Jun 24, PART B [id number] MARILYNNALEX, PATIENT (WNR) (M) B 2004 [id number] 1213 [place] MEDICARE MEDICARE PART Jun 24, PART A [id number] TOBI, PATIENT (WNR) (M) A 2004 64A 8431 JAYLA MEDICARE MEDICARE PART Jun 24, PART B [id number] TOBI, PATIENT (WNR) (M) B 2004 64A 8431 JAYLA MARTINS RETIREE TANK Oct 24, [id number] TOBI, PATIENT BS UDWW [facility] 2002 7 [id number] [facility] RE* [place] ST RX PRESCRIPT [id number] Apr 26, [id number] [phone] MARILYNN JOHNSON, PATIENT SERVICES [place] [address] 2012 [id number] 1 JAYLA Selected Encounter This section includes the information on record at [place] for the Encounter. Date/Time Encounter Type Encounter Description Reason Provider Source Dec 25, 2020 09:00 Outpatient Encounter [facility] CONSULT IHE Encounter Template Text not used [...] 03:30 PM AMBULATORY - MEDICINE [facility] Feb 11, 2021 08:30 AM AMBULATORY - MEDICINE [facility] Feb 18, 2021 02:00 PM AMBULATORY - MEDICINE [facility] Feb 26, 2021 10:10 AM AMBULATORY - NONE MODESTA GARCES [facility] Mar 03, 2021 11:15 AM AMBULATORY - MEDICINE [facility] Mar 05, 2021 02:30 PM AMBULATORY - NONE MODESTA GARCES [facility] Mar 14, 2021 03:45 PM AMBULATORY - MEDICINE [facility] Apr 09, 2021 11:00 AM AMBULATORY - MEDICINE [facility] Apr 11, 2021 11:00 AM AMBULATORY - MEDICINE [facility] Apr 14, 2021 09:00 AM AMBULATORY - MEDICINE [facility] May 15, 2021 12:30 PM AMBULATORY - MEDICINE [facility] Jun 19, 2021 07:30 AM AMBULATORY - NONE MODESTA GARCES [facility]
--- OUTSIDE RECORDS SUMMARY | 2021-11-11 08:57 | External Medical Summary ---
:1939 Author Care Team Providers Name Role Phone EMILY ROSALES SHERLY Primary Care Provider [phone] CHOCO JIMENEZ DO General Surgeon [phone] ANDRE PADRON MD Machine Oiler [phone] Allergies Code Code System Name Reaction Severity Status Onset NKDA Medications Name Status Start Date Stop Date AeroChamber Z-Stat Plus-Flow Signal Completed 10/08/2020 albuterol sulf 90 mcg/actuation breath activated powder inhaler, sensor Active Not available Inhale 2 puffs every 4 hours by inhalation route as needed. apixaban 5 mg tablet Active Not availab le Take 1 tablet twice a day by oral route. atorvastatin 40 mg tablet Active Not av ailable Take 1 tablet every day by oral route. cephalexin 250 mg capsule Active Not av ailable TAKE 3 CAPSULES BY MOUTH TWICE DAILY FOR 10 DAYS cetirizine 10 mg capsule Completed 021 Take 1 capsule by oral route. cetirizine 10 mg tablet Active Not avai lable Take 1 tablet every day by oral route. Glucosamine Chondroitin Completed 10/09/19 21 hydrochlorothiazide 12.5 mg capsule Completed 10/08/2020 Take 1 capsule every day by oral route. hydrochlorothiazide 25 mg tablet Active Not available Take 1 tablet every day by oral route. losartan 100 mg tablet Active Not avail able Take 0.5 tablets every day by oral route. magnesium oxide 420 mg tablet Active No t available Take by oral route. Multi Vitamin Active Not available omeprazole 20 mg capsule,delayed release Active Not available Take 1 capsule every day by oral route. potassium Active Not available prednisone 10 mg tablet Completed 10/09/19 21 TAKE 2 TABLETS BY MOUTH ONCE DAILY terazosin 5 mg capsule Completed Take 1 capsule every day by oral route at bedtime. timolol maleate 0.5 % eye drops Active Not available INSTILL 1 DROP INTO RIGHT EYE IN THE MORNING tramadol 50 mg tablet Completed 10/08/2020 TAKE 1 TABLET BY MOUTH EVERY 6 HOURS NEEDED FOR PAIN Trelegy Ellipta 100 mcg-62.5 mcg-25 mcg powder for inhalation Ac tive Not available Inhale 1 puff every day by inhalation route. Vitamin D3 Active Not available Problems None recorded. Procedures Date Name Performed by 10/08/2020 Electrocardiogram [facility] [address] [place] [address] (Work [address]) 10/08/2020 US, Echocardiogram, Transthoracic, [facility] (Imaging) Complete, W/ Color Flow [address] [place] [address] (Work Place) Results Lab Results None recorded. Past Encounters 11/07/2020 Chronic Atrial Fibrillation; Essential H ypertension; Mixed Hyperlipidemia Andre Padron MD: [address] [place] [address], [place] [address], Ph. 10/08/2020 Chronic Atrial Fibrillation; Essential H ypertension; Mixed Hyperlipidemia Andre Padron MD: [address] [place] [address], [place] [address], Ph. 08/21/2020 Right Inguinal Pain Choco Jimenez, DO: [address] [facility], [facility] [address], [place] [address], Ph. Social History Tobacco Smoking Status Former Smoker (3 or more packs per N otes: Quit in 1981) Vaccine List None recorded. Plan of Care Reminders Provider Appointments None recorded. Lab None recorded. Referral None recorded. Procedures None recorded. Surgeries None recorded. Imaging None recorded. Vitals 11/07/2020 09:00AM CARDIO-ESTABLISHED PATIENT Height Weight BMI Blood Pressure 5 ft 7 in 200 lbs 31.3 kg/m2 114/70 mm[Hg] 10/08/2020 03:00PM CARDIO- NEW PATIENT Height Weight BMI Blood Pressure 5 ft 7 in 202.8 lbs 31.8 kg/m2 140/102 mm[Hg] 08/21/2020 10:00AM New Patient 15 Height Weight BMI Blood Pressure 5 ft 7 in 206 lbs 32.3 kg/m2 136/80 mm[Hg]
--- OUTSIDE RECORDS SUMMARY | 2021-11-11 08:57 | External Medical Summary | Encounter Summary ---
:1940 Author Organization [facility] Address [address] [place] [address] Care Team Providers Name Role Phone EMILY [...] Shanks BC OF PREFERRED UNIVE Jan 24, [id number] [phone] DEREK NN, PATIENT [place] PROVIDER RSITY [phone] JAYLA ORGANIZAT OF ION (PPO) [place] RETIREE [id number] Oct 24, [id number] [phone] MARILYNNALEX, PATIENT [facility] [id number] JAYLA CAREMARK PRESCRIPT [id number] Apr 26, [id number] [phone] MARILYNNKoby SANTOS, PATIENT [id number] ION 9 [phone] JAYLA CAREMARK PRESCRIPT [id number] Apr 26, [id number] [phone] KITTY SANTOS, PATIENT [id number] ION 9 [phone] JAYLA MEDICARE MEDICARE PART Jun 24, PART A [id number] TOBI, PATIENT (WNR) (M) A [id number] JAYLA MEDICARE MEDICARE PART Jun 24, PART B [id number] TOBI, PATIENT (WNR) (M) B 2004 [id number] JAYLA MEDICARE MEDICARE PART Jun 24, PART A [id number] TOBI, PATIENT (WNR) (M) A 2004 [id number] JAYLA MEDICARE MEDICARE PART Jun 24, PART B [id number] TOBI, PATIENT (WNR) (M) B 2004 [id number] JAYLA MARTINS RETIREE WASHI Oct 24, [id number] [phone] TOBI, PATIENT BS UDWW [facility] 2002 [id number] [facility] [place] [facility] RX PRESCRIPT Apr 26, [id number] [phone] MARILYNN JOHNSON, PATIENT SERVICES [place] [id number] [phone] [id number] [phone] JAYLA Selected Encounter This section includes the information on record at [facility] for the Encounter. Date/Time Encounter Type Encounter Description Reason Provider Source Jun 09, 2021 12:00 Outpatient Encounter COMMUNITY CARE PM CONSULT IHE Encounter Template Text not used by [facility] Plan of Treatment: Future Appointments (+ 6 [...] AMBULATORY - NONE MODESTA GARCES [facility] Jul 07, 2021 09:00 AM AMBULATORY - NONE MODESTA GARCES [facility] Jul 07, 2021 03:00 PM AMBULATORY - MEDICINE [facility] Jul 22, 2021 03:00 PM AMBULATORY - NONE MODESTA GARCES [facility] Sep 29, 2021 09:00 AM AMBULATORY - NONE MODESTA GARCES [facility] Active, Pending, and Scheduled Orders This section includes a listing of several types of active, pending, and scheduled orders, including clinic medications orders, diagnostic test orders, procedure orders and consult orders; where the start date of the order is 45 days before the date of the Encounter or 45 days after the date of the Encounter. The data comes from all [facility] treatment facilities. Test Date/Time Test Type Test Details Facility Name Jul 07, 2021 11:09 PM Consult Order COMMUNITY CARE-ALLERGY STELLA VIVEROS Cons Disaster Response Director's Choice [facility] Encounter Notes: All associated encounter notes This section contains the clinical notes associated to the Encounter. Date/Time Encounter Note(s) Provider Source Jun 09, 2021 12:00 PM NONVA CONSULT: TALI TIAN LOCAL TITLE: COMMUNITY CARE-CONSULT RESULT NOTE [facility] STANDARD TITLE: NONVA CONSULT DATE OF NOTE: JUN 09, 2021@12:00 ENTRY DATE: 2021@14:14:23 AUTHOR: TALI TIAN EXP COSIGNER: URGENCY: STATUS: COMPLETED See scanned report in [facility]. NON [facility] Care Consult Results [facility] PA-C DOS: 06/09/21 The following Non VA Care consult has be en completed. See scanned document for report. /martha/ TALI TIAN Signed: 2021 14:14
[2021-11-11] MEDS ORDERED: LIDOCAINE W/EPI 2% 20 ML VIAL ONE (10:19)
[2021-11-11] MEDS ORDERED: MAGNESIUM SULFATE 2 GM/50 ML BAG IV ONE (10:19)
[2021-11-11] MEDS ORDERED: fentaNYL 100 MCG/2 ML VIAL IV ONE (10:19)
[2021-11-11] MEDS ORDERED: ONDANSETRON 4 MG/2 ML VIAL ONE (10:19)
[2021-11-11] MEDS ORDERED: ROCURONIUM 10 MG/ML ML IV ONE (10:19)
[2021-11-11] MEDS ORDERED: DEXAMETHASONE 10 MG/ML VIAL ONE (10:19)
[2021-11-11] MEDS ORDERED: KETAMINE 50 MG/ML Syringe (ANEST) IV ONE (10:19)
[2021-11-11] MEDS ORDERED: PHENYLephrine 1 MG/10 ML SYRINGE (ANEST) ONE (10:19)
[2021-11-11] MEDS ORDERED: ROPIVACAINE HCL/PF 30 ML VIAL IJ ONE (10:19)
[2021-11-11] MEDS ORDERED: GLYCOPYRROLATE 0.2 MG/ML VIAL IV ONE (10:19)
[2021-11-11] MEDS ORDERED: PROPOFOL 200 MG/20 ML VIAL IV ONE (10:19)
[2021-11-11] MEDS ORDERED: LIDOCAINE HCL/PF 100 MG/5 ML SYRINGE IV ONE (10:19)
[2021-11-11] MEDS ORDERED: cefTRIAXone 1 GM VIAL IV SCH (10:30)
[2021-11-11] MEDS ORDERED: PROMETHAZINE 25 MG/ML VIAL IM PRN (12:15)
[2021-11-11] MEDS ORDERED: MEPERIDINE 50 MG/ML VIAL IM PRN (12:15)
[2021-11-11] MEDS ORDERED: MEPERIDINE 25 MG/ML VIAL IV PRN (12:15)
[2021-11-11] MEDS ORDERED: ACETAMINOPHEN 1,000 MG/100 ML BAG IV ONE (12:15)
[2021-11-11] MEDS ORDERED: fentaNYL 100 MCG/2 ML VIAL IV PRN (12:15)
[2021-11-11] MEDS ORDERED: ONDANSETRON 4 MG/2 ML VIAL IV PRN ×2 (12:15→13:56)
[2021-11-11] MEDS ORDERED: NALOXONE HCL 0.4 MG/ML VIAL IV PRN (12:15)
[2021-11-11] MEDS ORDERED: PROMETHAZINE 25 MG/ML VIAL IV PRN (12:15)
[2021-11-11] MEDS ORDERED: METHOCARBAMOL 1,000 MG/10 ML VIAL IV PRN (12:15)
[2021-11-11] MEDS ORDERED: LACTATED RINGERS 1,000 ML IV SCH (12:15)
[2021-11-11] MEDS ORDERED: morphine 2 MG/ML VIAL IV PRN (12:15)
[2021-11-11] MEDS ORDERED: LACTATED RINGERS 250 ML IV PRN (12:15)
[2021-11-11] MEDS ORDERED: IPRATROPIUM/ALBUTEROL 3 ML AMPUL.NEB NEB PRN (12:15)
[2021-11-11] MEDS ORDERED: LABETALOL 5 MG/ML ML IV PRN (12:15)
[2021-11-11] MEDS ORDERED: METOCLOPRAMIDE 10 MG/2 ML VIAL IV PRN (12:15)
--- NOTE | 2021-11-11 13:51 | Operative Note ---
Brief Operative Note Date of procedure: 11/11/21 Pre-op diagnosis: Right distal ureteral tumor Post-op diagnosis: same Procedure: Cystoscopy, right distal ureterectomy, right ureteroneocystostomy. Grafts/Implants: Yes (6 Cameroonian by 24 cm right ureteral stent with no string) Anesthesia: GETA Findings: 2 to 3 cm right distal ureteral tumor. Proximal margin negative for frozen section. Complications: none Surgeon: [employer] Consultant: Judd Maier Estimated blood loss (cc): 75 Specimens Removed/Pathology: other (Right proximal ureteral edge for frozen section, right ureteral mass for permanent) Condition: stable Disposition: PACU Operative Note Operative Note: After obtaining informed consent from the patient, he was brought to the operating was placed supine on the operating table. General anesthesia was provided. He was prepped in the usual sterile fashion. The flexible cystoscope was then passed per urethra and into the bladder. The bladder was inspected and was seen to be free of tumors and stones both right and left ureteral orifices were identified in the normal anatomic positions. The cystoscope was then removed leaving the bladder full. The patient was then reprepped and draped in usual sterile fashion. An 18 Cameroonian Pace catheter was placed in the balloon was inflated with 10 mL of sterile water. Attention was directed to the midline. An incision was made periumbilical and down through the midline of the lower abdomen. This was carried down through subcutaneous tissues using electro cautery. The bladder was then identified. The peritoneum was not entered we dissected the right retroperitoneal space until we identified the right ureter with mass. The right ureter proximal to the mass was extremely dilated. The right ureteral mass was dissected free. The proximal right ureter was dissected free as proximal as we can go creating length. The vas was divided. Once the right ureter was dissected free we clamped the tumor mass both distally and proximally with both clips and 0 silk ties. We then excised the ureter with the mass and marked at the proximal end with a long suture and sent it for frozen section. We awaited frozen section which came back showing no malignancy at the proximal margin. We then opened the bladder in the midline. Both right and left ureteral orifices were identified. A 5 Cameroonian feeding tube was passed through the right ureteral orifice and was sutured in place using a 2-0 silk suture. I then used electrocautery to cauterize around the right distal ureter and then a tenotomy scissors to free the ureter through the muscular portion of the bladder. I then pulled the free ureter proximally through the extra portion of the bladder and passed off the table as a specimen for pathologic examination. The posterior bladder opening where the right ureter used to be was then closed using a running 2-0 Monocryl suture. The Pace catheter was left in place. We began by trimming the end of the right distal ureter that remained. We spatulated the ureter posteriorly. I then created a 1 cm opening in the anterior bladder. There did not appear to be any tension with the ureter reaching the bladder. With a finger in the bladder I treated the small opening. I passed a 2-0 Monocryl suture through the crook of the posterior ureter and anastomosed it to the opening in the bladder. Another 2-0 Monocryl suture was placed in the distal portion of the bladder cystotomy. I then placed interrupted 2-0 Monocryl sutures between the 2 sutures placed until there was only a small opening remaining in the anastomosis. At that point we passed a 0.8 Cameroonian sensor wire through the right ureter and Philly into the bladder. A 6 Cameroonian by 24 cm right ureteral stent was passed over the wire and into the right kidney. The wire was removed and the distal portion of the stent was placed in the bladder. The anastomosis was completed until the needle cystotomy was closed. At that point we then closed the anterior bladder and 1 large layer using a 2-0 Monocryl suture in a running stitch. The 18 Cameroonian Pace catheter was then removed and a new 20 Cameroonian Pace catheter was placed. The balloon was inflated with 20 mL of sterile water and was in the bladder. The bladder was then filled and no leak was seen. At that point we inspected for hemostasis and there was excellent hemostasis. The wound was irrigated using sterile water. The wound was then closed by closing the fascia in the midline using an oh looped PDS 1 starting from cephalad and 1 starting from caudad and tying them in the middle. The subcutaneous tissue was then reanastomosed using interrupted 2- 0 Vicryl sutures. The wound was again irrigated. The wound was anesthetized using a mixture of half, 1% plain lidocaine and half, 0.5% plain Marcaine. The wound was then closed using melissa. A dressing was applied. The patient was then awakened and returned to the recovery in stable condition. There were no complications. Blood loss was approximately 75 mL.
[2021-11-11] MEDS ORDERED: BISACODYL 10 MG SUPP.RECT PR PRN (13:56)
[2021-11-11] MEDS ORDERED: ALBUTEROL SULFATE 200 PUFF INHALER INH PRN (14:01)
[2021-11-11] MEDS ORDERED: CETIRIZINE 10 MG TABLET PO PRN (14:01)
[2021-11-11] MEDS: DEXTROSE 5%-1/2NS W/20MEQ KCL 1,000 ML IV SCH (15:10)
[2021-11-11] MEDS: 0.9 % SODIUM CHLORIDE 10 ML SYRINGE IV SCH ×2 (15:17→21:25)
[2021-11-11] MEDS: FLUTICASONE UMECLIDIN VILANTER INH SCH (15:17)
[2021-11-11] MEDS: OXYBUTYNIN CHLORIDE 5 MG TABLET PO SCH ×2 (15:17→21:24)
[2021-11-11] MEDS: cefTRIAXone 1 GM VIAL IV SCH ×4 (15:48→16:00)
[2021-11-11] MEDS: HYDROmorphone 1 MG/ML SYRINGE IV PRN ×2 (16:25→18:27)
[2021-11-11] MEDS ORDERED: CPAP SCH (17:00)
[2021-11-11] MEDS: TERAZOSIN 5 MG CAPSULE PO SCH (21:23)
[2021-11-11] MEDS: traMADol 50 MG TABLET PO SCH (21:24)
[2021-11-11] MEDS: OMEPRAZOLE 20 MG CAPSULE PO SCH (21:24)
[2021-11-11] MEDS: TIMOLOL 0.5% OPHTH DROPS BOTTLE 5ML OU SCH (21:26)
[2021-11-12] MEDS: HYDROcodone/APAP 5/325MG TABLET PO PRN ×2 (03:59→08:08)
[2021-11-12] MEDS: DEXTROSE 5%-1/2NS W/20MEQ KCL 1,000 ML IV SCH ×2 (04:45→17:57)
[2021-11-12] MEDS: 0.9 % SODIUM CHLORIDE 10 ML SYRINGE IV SCH ×3 (04:49→20:47)
[2021-11-12 06:44] LABS: Hematocrit 42.1 % (40.1-51.0); Hemoglobin 14.5 g/dL (13.7-17.5); Mean Cell Volume 90.7 fL (80.0-100.0); Mean Corpuscular HGB Conc 34.4 g/dL (31.0-36.0); Mean Platelet Volume 9.2 fL (7.4-10.4); Platelet Count 129 K/mcL (140-440); RBC 4.64 M/mcL (4.63-6.08); Red Cell Distribution Width 13.4 % (11.5-14.5); WBC 14.4 K/mcL (4.5-11.0)
[2021-11-12 06:59] LABS: Blood Urea Nitrogen 14 mg/dL (8-23); Calcium 8.6 mg/dL (8.6-10.4); Carbon Dioxide 23 mmol/L (22-30); Chloride 99 mmol/L (96-108); Glomerular Filtration Rate 70; Glucose 174 mg/dL (70-105)
--- NOTE | 2021-11-12 07:38 | Urology Progress Note ---
SUBJECTIVE Subjective Patient information: Note initiated : 11/12/21 at 7:34 am Service Date, if different from initiated Date: [] Patient: Jose Guadalupe Mims 81 y/o M admitted on 11/11/21 for Right Partial Ureteroscopy with Ureteral Reimplant. 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 He is doing well this morning. He has no current complaints. His pain is well controlled. He has not really eaten anything. He did ambulate 1 time yesterday afternoon Constitutional Vitals: Vital Signs Temp Pulse Resp BP Pulse Ox O2 Del Method O2 Flow Rate 97.4 F 96 H 18 124/76 89 L CPAP 2 11/12/21 03:33 11/12/21 03:33 11/12/21 03:33 11/12/21 03:33 11/12/21 03:33 11/12/21 03:33 11/12/21 06:36 Period Temp Pulse Resp BP Sys/Garcia Pulse Ox O2 Del Method O2 Flow Rate Last 24 Hr 95.6 F-97.6 F 61-96 12-20 95-154/66-97 83-100 CPAP-Room Air 2-6 Intake and Output 11/11/21 11/12/21 11/12/21 21:59 05:59 13:59 Intake Total 2500 1400 Output Total 475 1200 Balance 2024 200 Weight 89.312 kg Intake & Output: Intake & Output 11/11/21 11/12/21 11/12/21 21:59 05:59 13:59 Intake Total 2500 1400 Output Total 475 1200 Balance 2024 200 Weight 89.312 kg Intake: IV 100 1000 Dextrose 5%-1/2Ns W/20Meq KCl 1 1000 ,000 ml @ 75 mls/hr IV .[id number] [facility] Rx#:[id number] Oral 400 IV - Manual Only 2400 Output: Urine Catheter Amount 400 1200 Estimated Blood Loss 75 Other: Urine Appearance Clear Hematuria Uretheral (Pace) Clear Urine Color Bright Red Bright Red Uretheral (Pace) Bright Red Urine Odor Normal General appearance: average body habitus and no acute distress Respiratory Respiratory exam: Present normal respiratory exam Cardiovascular Cardiovascular exam: Present normal rate and rhythm GI/Abdominal GI/Abdominal exam: Present normal bowel sounds and soft Additional comments: The abdomen is soft, nontender but distended. He reports that the amount of distention is the way he usually is at home. Still, he reports that he has not passed gas. Expanded Exam Urine Color: Pale and Red Brown Neurological Exam Neurological exam: Present alert and oriented X3 Psychiatric Psychiatric exam: Present normal affect A/P Narrative A/P Narrative: Alfredo is doing well postoperative day #1 status post right distal ureterectomy with right ureteral reimplantation. We discussed that I would like him to walk today. I would like him to limit food and liquids until he begins to pass gas. Otherwise he appears to be doing well. I will continue antibiotics today. Time Spent With Patient Time: Total time spent is greater than 50% in coordination of care (as documented) at patient's floor/unit and/or counseling patient: Total time spent with greater than 50% in coordination of care (as documented) at patient's floor/unit and/or counseling patient:: less than 15 minutes
[2021-11-12] MEDS ORDERED: ceFAZolin 2 GM in DEXTROSE 5% IN WATER 50 ML IV SCH (07:45)
[2021-11-12] MEDS: traMADol 50 MG TABLET PO SCH ×2 (08:34→20:47)
[2021-11-12] MEDS: EZETIMIBE 10 MG TABLET PO SCH (08:34)
[2021-11-12] MEDS: HYDROCHLOROTHIAZIDE 25 MG TABLET PO SCH (08:34)
[2021-11-12] MEDS: MAGNESIUM OXIDE 400 MG TABLET PO SCH (08:34)
[2021-11-12] MEDS: ATORVASTATIN 40 MG TABLET PO SCH (08:34)
[2021-11-12] MEDS: OMEPRAZOLE 20 MG CAPSULE PO SCH ×2 (08:34→19:26)
[2021-11-12] MEDS: LOSARTAN 50 MG TABLET PO SCH (08:34)
[2021-11-12] MEDS: TIMOLOL 0.5% OPHTH DROPS BOTTLE 5ML OU SCH ×2 (08:35→19:26)
[2021-11-12] MEDS: BUDESONIDE GLYCOPYR FORMOTEROL INH SCH (08:35)
[2021-11-12] MEDS: ceFAZolin 1 GM VIAL IV SCH ×3 (08:43→20:47)
[2021-11-12] MEDS ORDERED: OXYBUTYNIN CHLORIDE 5 MG TABLET PO PRN (09:30)
[2021-11-12] MEDS: OXYBUTYNIN CHLORIDE 5 MG TABLET PO SCH (09:58)
[2021-11-12] MEDS: FLUTICASONE UMECLIDIN VILANTER INH SCH (13:50)
[2021-11-12] MEDS: TERAZOSIN 5 MG CAPSULE PO SCH (20:47)
[2021-11-13] MEDS: DEXTROSE 5%-1/2NS W/20MEQ KCL 1,000 ML IV SCH ×3 (02:46→16:14)
[2021-11-13] MEDS: HYDROcodone/APAP 5/325MG TABLET PO PRN (03:31)
[2021-11-13] MEDS: MAGNESIUM HYDROXIDE 30 ML ORAL.SUSP PO PRN (03:32)
[2021-11-13] MEDS: ceFAZolin 1 GM VIAL IV SCH ×2 (05:18→13:26)
[2021-11-13] MEDS: 0.9 % SODIUM CHLORIDE 10 ML SYRINGE IV SCH ×3 (05:18→22:00)
[2021-11-13 08:13] LABS: Basophils # (Auto) 0.01 K/mcL (0.00-0.30); Basophils % (Auto) 0.1 % (0.0-2.0); Eosinophils # (Auto) 0.01 K/mcL (0.00-0.70); Eosinophils % (Auto) 0.1 % (0.0-7.0); Hematocrit 41.3 % (40.1-51.0); Hemoglobin 14.2 g/dL (13.7-17.5); Lymphocytes # (Auto) 1.14 K/mcL (1.50-4.80); Lymphocytes % (Auto) 8.8 % (15.5-49.0); Mean Cell Volume 90.2 fL (80.0-100.0); Mean Corpuscular HGB Conc 34.4 g/dL (31.0-36.0); Mean Platelet Volume 9.2 fL (7.4-10.4); Monocytes # (Auto) 1.08 K/mcL (0.10-0.90); Monocytes % (Auto) 8.4 % (1.0-12.0); Neutrophils % (Auto) 82.1 % (38.0-78.0); Platelet Count 131 K/mcL (140-440); RBC 4.58 M/mcL (4.63-6.08); Red Cell Distribution Width 13.7 % (11.5-14.5); WBC 12.9 K/mcL (4.5-11.0)
[2021-11-13 08:32] LABS: Blood Urea Nitrogen 15 mg/dL (8-23); Calcium 8.6 mg/dL (8.6-10.4); Carbon Dioxide 28 mmol/L (22-30); Chloride 100 mmol/L (96-108); Glomerular Filtration Rate 79; Glucose 125 mg/dL (70-105)
[2021-11-13] MEDS: LOSARTAN 50 MG TABLET PO SCH (08:51)
[2021-11-13] MEDS: OMEPRAZOLE 20 MG CAPSULE PO SCH ×2 (08:52→20:35)
[2021-11-13] MEDS: MAGNESIUM OXIDE 400 MG TABLET PO SCH (08:52)
[2021-11-13] MEDS: traMADol 50 MG TABLET PO SCH ×2 (08:52→20:35)
[2021-11-13] MEDS: EZETIMIBE 10 MG TABLET PO SCH (08:52)
[2021-11-13] MEDS: HYDROCHLOROTHIAZIDE 25 MG TABLET PO SCH (08:52)
[2021-11-13] MEDS: ATORVASTATIN 40 MG TABLET PO SCH (08:52)
[2021-11-13] MEDS: TIMOLOL 0.5% OPHTH DROPS BOTTLE 5ML OU SCH ×2 (08:57→21:21)
[2021-11-13] MEDS: BUDESONIDE GLYCOPYR FORMOTEROL INH SCH (09:05)
[2021-11-13] MEDS: FLUTICASONE UMECLIDIN VILANTER INH SCH (13:36)
[2021-11-13] MEDS: TERAZOSIN 5 MG CAPSULE PO SCH (20:34)
[2021-11-13] MEDS: DOCUSATE SODIUM 100 MG CAPSULE PO SCH (21:18)
[2021-11-14] MEDS: ceFAZolin 1 GM VIAL IV SCH ×3 (00:17→15:53)
[2021-11-14] MEDS: MAGNESIUM HYDROXIDE 30 ML ORAL.SUSP PO PRN (00:22)
[2021-11-14] MEDS: 0.9 % SODIUM CHLORIDE 10 ML SYRINGE IV SCH ×2 (05:33→15:54)
[2021-11-14] MEDS: DEXTROSE 5%-1/2NS W/20MEQ KCL 1,000 ML IV SCH ×2 (05:42→10:45)
--- NOTE | 2021-11-14 07:42 | Urology Progress Note ---
SUBJECTIVE Subjective Patient information: Note initiated : 11/14/21 at 7:39 am Service Date, if different from initiated Date: [] Patient: Jose Guadalupe Mims 81 y/o M admitted on 11/11/21 for Right Partial Ureteroscopy with Ureteral Reimplant. Chief Complaint: Euclid is an 81-year-old male who is postoperative day #3 status post right distal ureterectomy with right ureteral reimplantation. 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 This morning he continues to complain of incisional pain. He has been passing gas and has had a bowel movement. He is tolerating food. He is ambulating with a walker. His pain is fairly well controlled. Constitutional Vitals: Vital Signs Temp Pulse Resp BP Pulse Ox O2 Del Method O2 Flow Rate 99.6 F H 61 16 156/101 92 2 11/14/21 04:35 11/13/21 16:00 11/14/21 04:35 11/14/21 04:35 11/14/21 04:35 11/14/21 04:35 11/14/21 04:35 Period Temp Pulse Resp BP Sys/Garcia Pulse Ox O2 Del Method O2 Flow Rate Last 24 Hr 97.4 F-99.6 F 61-87 16-20 132-156/95-101 91-95 Nasal Cannula- Nasal Cannula, CPAP 2-3 Intake and Output 11/13/21 11/14/21 11/14/21 21:59 05:59 13:59 Intake Total 1360 1000 240 Output Total 1225 450 Balance 135 550 240 Weight 76.884 kg Intake & Output: Intake & Output 11/13/21 11/14/21 11/14/21 21:59 05:59 13:59 Intake Total 1360 1000 240 Output Total 1225 450 Balance 135 550 240 Weight 76.884 kg Intake: IV 1000 1000 Dextrose 5%-1/2Ns W/20Meq KCl 1 1000 1000 ,000 ml @ 75 mls/hr IV .[id number] [facility] Rx#:[id number] Oral 360 240 Output: Urine Catheter Amount 1225 450 Other: Meal Dinner Percent of Meal Consumed 75% Feeding Ability Independent Urine Appearance Clear Hematuria Small Blood Clots Uretheral (Pace) Hematuria Urine Color Blood Tinged Cowlic Uretheral (Pace) Cowlic Stool Size Large Small Stool Color Brown Brown Stool Consistency Soft Loose # Voids 1 # Bowel Movements 1 1 General appearance: average body habitus and no acute distress Respiratory Respiratory exam: Present normal respiratory exam Cardiovascular Cardiovascular exam: Present normal rate and rhythm GI/Abdominal GI/Abdominal exam: Present normal bowel sounds, distended and tenderness Additional comments: The patient has appropriate incisional tenderness. The wound looks good. He has distention which he reports is normal for him. Expanded Exam Urine Color: Red Brown A/P Assessment and plan (1) Urothelial carcinoma of right distal ureter: Status: Acute Narrative A/P Narrative: Is a 89-year-old male who is postoperative day #3 status post right distal ureterectomy with right ureteral reimplantation. He continues to have significant incisional pain. He is otherwise doing well and is walking and has passed gas. He is tolerating a diet. His white blood cell count remains slightly elevated though it is coming down. I am going to repeat his CBC this morning before making a decision as to whether to send him home. Time Spent With Patient Time: Total time spent is greater than 50% in coordination of care (as documented) at patient's floor/unit and/or counseling patient:
--- NOTE | 2021-11-14 07:48 | Urology Progress Note ---
SUBJECTIVE Subjective Patient information: Note initiated : 11/14/21 at 7:45 am Service Date, if different from initiated Date: [] Patient: Jose Guadalupe Mims 81 y/o M admitted on 11/11/21 for Right Partial Ureteroscopy with Ureteral Reimplant. 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 He reports that he is doing well this morning. He continues to have bothersome incisional pain. CBC and BMP remain pending. He is ambulating but has not yet passed gas Constitutional Vitals: Vital Signs Temp Pulse Resp BP Pulse Ox O2 Del Method O2 Flow Rate 99.6 F H 61 16 156/101 92 2 11/14/21 04:35 11/13/21 16:00 11/14/21 04:35 11/14/21 04:35 11/14/21 04:35 11/14/21 04:35 11/14/21 04:35 Period Temp Pulse Resp BP Sys/Garcia Pulse Ox O2 Del Method O2 Flow Rate Last 24 Hr 97.4 F-99.6 F 61-87 16-20 132-156/95-101 91-95 Nasal Cannula- Nasal Cannula, CPAP 2-3 Intake and Output 11/13/21 11/14/21 11/14/21 21:59 05:59 13:59 Intake Total 1360 1000 240 Output Total 1225 450 Balance 135 550 240 Weight 76.884 kg Intake & Output: Intake & Output 11/13/21 11/14/21 11/14/21 21:59 05:59 13:59 Intake Total 1360 1000 240 Output Total 1225 450 Balance 135 550 240 Weight 76.884 kg Intake: IV 1000 1000 Dextrose 5%-1/2Ns W/20Meq KCl 1 1000 1000 ,000 ml @ 75 mls/hr IV .[id number] [facility] Rx#:[id number] Oral 360 240 Output: Urine Catheter Amount 1225 450 Other: Meal Dinner Percent of Meal Consumed 75% Feeding Ability Independent Urine Appearance Clear Hematuria Small Blood Clots Uretheral (Pace) Hematuria Urine Color Blood Tinged Roslyn Red Brown Uretheral (Pace) Roslyn Stool Size Large Small Stool Color Brown Brown Stool Consistency Soft Loose # Voids 1 # Bowel Movements 1 1 General appearance: average body habitus and no acute distress Respiratory Respiratory exam: Present normal respiratory exam Cardiovascular Cardiovascular exam: Present normal rate and rhythm GI/Abdominal GI/Abdominal exam: Present normal bowel sounds, soft, distended and tenderness Additional comments: The patient has mild distention and incisional tenderness that is appropriate for the surgery. Expanded Exam Urine Color: Red Brown A/P Narrative A/P Narrative: Is an 81-year-old male with a history of urothelial carcinoma of the right distal ureter. He is postoperative day #2 status post right distal ureterectomy with right ureteral reimplantation. He remains distended although he is walking. He has not yet passed gas. He is tolerating clears. White blood cell count today is elevated. We will monitor. Time Spent With Patient Time: Total time spent is greater than 50% in coordination of care (as documented) at patient's floor/unit and/or counseling patient: Total time spent with greater than 50% in coordination of care (as documented) at patient's floor/unit and/or counseling patient:: less than 15 minutes
[2021-11-14 08:14] LABS: Basophils # (Auto) 0.01 K/mcL (0.00-0.30); Basophils % (Auto) 0.1 % (0.0-2.0); Eosinophils # (Auto) 0.06 K/mcL (0.00-0.70); Eosinophils % (Auto) 0.6 % (0.0-7.0); Hemoglobin 15.1 g/dL (13.7-17.5); Lymphocytes # (Auto) 1.24 K/mcL (1.50-4.80); Lymphocytes % (Auto) 12.3 % (15.5-49.0); Mean Cell Volume 93.4 fL (80.0-100.0); Mean Corpuscular HGB Conc 33.6 g/dL (31.0-36.0); Mean Platelet Volume 9.4 fL (7.4-10.4); Monocytes % (Auto) 9.9 % (1.0-12.0); Neutrophils % (Auto) 76.8 % (38.0-78.0); Platelet Count 134 K/mcL (140-440); RBC 4.82 M/mcL (4.63-6.08); Red Cell Distribution Width 13.6 % (11.5-14.5); WBC 10.1 K/mcL (4.5-11.0)
[2021-11-14] MEDS ORDERED: SULFAMETHOXAZOLE/TRIMETHOPRIM 1 TABLET PO SCH (09:00)
[2021-11-14] MEDS: BUDESONIDE GLYCOPYR FORMOTEROL INH SCH (10:37)
[2021-11-14] MEDS: DOCUSATE SODIUM 100 MG CAPSULE PO SCH (10:37)
[2021-11-14] MEDS: ATORVASTATIN 40 MG TABLET PO SCH (10:46)
[2021-11-14] MEDS: EZETIMIBE 10 MG TABLET PO SCH (10:46)
[2021-11-14] MEDS: OMEPRAZOLE 20 MG CAPSULE PO SCH (10:46)
[2021-11-14] MEDS: traMADol 50 MG TABLET PO SCH (10:46)
[2021-11-14] MEDS: HYDROCHLOROTHIAZIDE 25 MG TABLET PO SCH (10:47)
[2021-11-14] MEDS: LOSARTAN 50 MG TABLET PO SCH (10:47)
[2021-11-14] MEDS: MAGNESIUM OXIDE 400 MG TABLET PO SCH (10:49)
[2021-11-14] MEDS: TIMOLOL 0.5% OPHTH DROPS BOTTLE 5ML OU SCH (10:50)
--- NOTE | 2021-11-14 11:52 | Discharge Plan ---
Discharge Plan Patient/Caregiver Discharge Instructions Activity: increase activity as tolerated Diet: Regular Diet Activity Restrictions/Additional Instructions: Light activity as tolerated. Discharge home with Pace catheter in place. Provide leg bag and night bag. Teach care. Prescriptions: New hydrocodone-acetaminophen 5-325 mg tablet 1 tab PO Q6H PRN (Reason: pain) Qty: 8 0RF sulfamethoxazole-trimethoprim [Bactrim DS] 800-160 mg tablet 1 tab PO BID Qty: 14 0RF docusate sodium [Stool Softener] 100 mg capsule 100 mg PO BID Qty: 60 0RF oxybutynin chloride 5 mg tablet 5 mg PO TID PRN (Reason: bladder spasms) Qty: 30 0RF Continued Trelegy Ellipta 100-62.5-25 mcg blister with device 1 inh inhalation Q24H Qty: 60 3RF cetirizine 10 mg tablet 5 mg PO QDAY PRN (Reason: ALLERGIES) timolol maleate 0.5 % drops 1 drp OPHTHALMIC DAILY hydrochlorothiazide 25 mg tablet 25 mg PO QDAY ezetimibe 10 mg tablet 10 mg PO QDAY losartan 50 mg tablet 100 mg PO QDAY albuterol sulfate [ProAir HFA] 90 mcg/actuation HFA aerosol inhaler 2 puff INHALATION Q6H PRN (Reason: COPD) multivitamin tablet 1 tab PO QDAY (DME) CPAP Qty: 1 Rx Instructions: As directed Eliquis 5 mg tablet 5 mg PO BID terazosin 5 mg Capsule 5 mg PO QHS atorvastatin 40 mg Tablet 40 mg PO QDAY tramadol 50 mg Tablet 100 mg PO BID cholecalciferol (vitamin D3) [Vitamin D3] 25 mcg (1,000 unit) Capsule 25 mcg PO QDAY Magnesium (oxide/AA chelate) 300 mg Capsule 420 cap PO DAILY Breztri Aerosphere 160-9-4.8 mcg/actuation Hfa Aerosol Inhaler 2 inh INHALATION DAILY Hold Instructions: Order Change Rx Instructions: On hold for the time being. omeprazole 40 mg capsule,delayed release(DR/EC) 40 mg PO DAILY Follow Up Plan Patient Disposition: Home, Self-Care Discharge Orders: Discharge Order (Routine); Ordered 11/14/21 Ordered By: Robe Lu
--- NOTE | 2021-11-14 12:00 | Discharge Summary ---
Discharge Provider Provider IMPORTANT FOLLOW-UP INFORMATION FOR PCP: Patient information: Note initiated : 11/14/21 at 11:57 am Service Date, Patient: Jose Guadalupe Mims 81 y/o M admitted on 11/11/21 for Right Partial Ureteroscopy with Ureteral Reimplant. 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 He did well postoperatively. There were no complications. Postoperatively his white blood cell count pepe slightly and it has now come down to within normal limits. He is currently ambulating with a walker. His pain is controlled with oral pain medications. He is tolerating a diet. 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 Reason for admission: Urothelial carcinoma of the right ureter Procedures: Right distal ureterectomy with right ureteral reimplantation Complications: None Time Spent with Patient Time attestation: Total time spent providing and/or coordinating discharge services: Time spent: Greater than 30 minutes Physical Examination Vital Signs Vital signs: Temp Pulse Resp BP Pulse Ox O2 Del Method O2 Flow Rate 97.1 F 101 H 17 131/89 90 2 11/14/21 08:00 11/14/21 08:00 11/14/21 08:00 11/14/21 08:00 11/14/21 08:00 11/14/21 08:00 11/14/21 10:52 General physical appearance General physical exam: well developed, well nourished and no distress Head Head exam IM: Present atraumatic and normocephalic Cardiovascular Cardiovascular exam IM: Present normal rate and rhythm Respiratory Respiratory exam: normal respiratory effort Abdomen Abdomen: Present soft and distended Genitourinary Genitourinary (Male): Present other (Pace catheter in place.) Psychiatric Psychiatric: Present oriented to time, oriented to person, oriented to place and speech is normal Discharge Plan Patient/Caregiver Discharge Instructions Activity: increase activity as tolerated Diet: Regular Diet Activity Restrictions/Additional Instructions: Light activity as tolerated. Discharge home with Pace catheter in place. Provide leg bag and night bag. Teach care. Prescriptions: New hydrocodone-acetaminophen 5-325 mg tablet 1 tab PO Q6H PRN (Reason: pain) Qty: 8 0RF sulfamethoxazole-trimethoprim [Bactrim DS] 800-160 mg tablet 1 tab PO BID Qty: 14 0RF docusate sodium [Stool Softener] 100 mg capsule 100 mg PO BID Qty: 60 0RF oxybutynin chloride 5 mg tablet 5 mg PO TID PRN (Reason: bladder spasms) Qty: 30 0RF Continued Trelegy Ellipta 100-62.5-25 mcg blister with device 1 inh inhalation Q24H Qty: 60 3RF cetirizine 10 mg tablet 5 mg PO QDAY PRN (Reason: ALLERGIES) timolol maleate 0.5 % drops 1 drp OPHTHALMIC DAILY hydrochlorothiazide 25 mg tablet 25 mg PO QDAY ezetimibe 10 mg tablet 10 mg PO QDAY losartan 50 mg tablet 100 mg PO QDAY albuterol sulfate [ProAir HFA] 90 mcg/actuation HFA aerosol inhaler 2 puff INHALATION Q6H PRN (Reason: COPD) multivitamin tablet 1 tab PO QDAY (DME) CPAP Qty: 1 Rx Instructions: As directed Eliquis 5 mg tablet 5 mg PO BID terazosin 5 mg Capsule 5 mg PO QHS atorvastatin 40 mg Tablet 40 mg PO QDAY tramadol 50 mg Tablet 100 mg PO BID cholecalciferol (vitamin D3) [Vitamin D3] 25 mcg (1,000 unit) Capsule 25 mcg PO QDAY Magnesium (oxide/AA chelate) 300 mg Capsule 420 cap PO DAILY Breztri Aerosphere 160-9-4.8 mcg/actuation Hfa Aerosol Inhaler 2 inh INHALATION DAILY Hold Instructions: Order Change Rx Instructions: On hold for the time being. omeprazole 40 mg capsule,delayed release(DR/EC) 40 mg PO DAILY Follow Up Plan Patient Disposition: Home, Self-Care Discharge Orders: Discharge Order (Routine); Ordered 11/14/21 Ordered By: Robe Lu Pending Pending Pending: Resuscitation Status Resuscitate (Full Code) Diet Regular Diet Start WedNov 11 1355 Hydrocodone Bitart/Acetaminophen (Hydrocodone/Apap 5/325mg Tablet) 1 - 2 tab PO Q4HP PRN; Protocol PRN Reason: Per Pain Protocol Last Admin: 11/13/21 03:31 Dose: 1 tab Documented By: Admin: 11/12/21 08:08 Dose: 2 tab Documented By: Admin: 11/12/21 03:59 Dose: 1 tab Documented By: LIDIA Atorvastatin Calcium (Atorvastatin 40 Mg Tablet) 40 mg PO QDAY [facility] Admin: 11/14/21 10:46 Dose: 40 mg Documented By: Admin: 11/13/21 08:52 Dose: 40 mg Documented By: Admin: 11/12/21 08:34 Dose: 40 mg Documented By: MARLYN Cefazolin Sodium (Cefazolin 1 Gm Vial) 2 gm IV Q8H [facility] Admin: 11/14/21 06:57 Dose: 2 gm Documented By: Admin: 11/14/21 00:17 Dose: 2 gm Documented By: Admin: 11/13/21 13:26 Dose: 2 gm Documented By: Admin: 11/13/21 05:18 Dose: 2 gm Documented By: Admin: 11/12/21 20:47 Dose: 2 gm Documented By: Admin: 11/12/21 14:52 Dose: 2 gm Documented By: Admin: 11/12/21 08:43 Dose: 2 gm Documented By: MARLYN Docusate Sodium (Docusate Sodium 100 Mg Capsule) 100 mg PO BID [facility] Admin: 11/14/21 10:37 Dose: Not Given Documented By: Admin: 11/13/21 21:18 Dose: 100 mg Documented By: YAMILET Ezetimibe (Ezetimibe 10 Mg Tablet) 10 mg PO QDAY [facility] Admin: 11/14/21 10:46 Dose: 10 mg Documented By: Admin: 11/13/21 08:52 Dose: 10 mg Documented By: Admin: 11/12/21 08:34 Dose: 10 mg Documented By: MARLYN Hydrochlorothiazide (Hydrochlorothiazide 25 Mg Tablet) 25 mg PO QDAY [facility] Admin: 11/14/21 10:47 Dose: 25 mg Documented By: Admin: 11/13/21 08:52 Dose: 25 mg Documented By: Admin: 11/12/21 08:34 Dose: 25 mg Documented By: [facility] Hydromorphone HCl (Hydromorphone 1 Mg/Ml Syringe) 0.5 - 2 mg IV Q2HP PRN; Protocol PRN Reason: Per Pain Protocol Last Admin: 11/11/21 18:27 Dose: 1 mg Documented By: Admin: 11/11/21 16:25 Dose: 1 mg Documented By: F Potassium Chloride/Dextrose/Sod Cl (Dextrose 5%-1/2ns W/20meq Kcl) 1,000 mls @ 75 mls/hr IV .[id number] [facility] Last Admin: 11/14/21 10:45 Dose: Not Given Documented By: Admin: 11/14/21 05:42 Dose: 75 mls/hr Documented By: Infusion: 11/14/21 05:42 Dose: 0 mls/hr Documented By: UXGabby Admin: 11/13/21 16:14 Dose: 75 mls/hr Documented By: Infusion: 11/13/21 16:06 Dose: 75 mls/hr Documented By: Admin: 11/13/21 05:18 Dose: Not Given Documented By: Admin: 11/13/21 02:46 Dose: 75 mls/hr Documented By: Infusion: 11/12/21 18:05 Dose: 75 mls/hr Documented By: Admin: 11/12/21 17:57 Dose: Not Given Documented By: Admin: 11/12/21 04:45 Dose: 75 mls/hr Documented By: Infusion: 11/12/21 04:30 Dose: 75 mls/hr Documented By: Admin: 11/11/21 15:10 Dose: 75 mls/hr Documented By: Gabby Losartan Potassium (Losartan 50 Mg Tablet) 100 mg PO QDAY [facility] Admin: 11/14/21 10:47 Dose: 100 mg Documented By: Admin: 11/13/21 08:51 Dose: 100 mg Documented By: Admin: 11/12/21 08:34 Dose: 100 mg Documented By: F Magnesium Hydroxide (Magnesium Hydroxide 30 Ml Oral.Susp) 30 ml PO DAILYP PRN PRN Reason: Constipation Last Admin: 11/14/21 00:22 Dose: 30 ml Documented By: Admin: 11/13/21 03:32 Dose: 30 ml Documented By: LIDIA Magnesium Oxide (Magnesium Oxide 400 Mg Tablet) 400 mg PO DAILY [facility] Last Admin: 11/14/21 10:49 Dose: Not Given Documented By: Admin: 11/13/21 08:52 Dose: 400 mg Documented By: Admin: 11/12/21 08:34 Dose: 400 mg Documented By: MARLYN Omeprazole (Omeprazole 20 Mg Capsule) 40 mg PO BID [facility] Last Admin: 11/14/21 10:46 Dose: 40 mg Documented By: Admin: 11/13/21 20:35 Dose: 40 mg Documented By: Admin: 11/13/21 08:52 Dose: 40 mg Documented By: Admin: 11/12/21 19:26 Dose: Not Given Documented By: Admin: 11/12/21 08:34 Dose: 40 mg Documented By: Admin: 11/11/21 21:24 Dose: Not Given Documented By: LIDIA Oxybutynin Chloride (Oxybutynin Chloride 5 Mg Tablet) 5 mg PO TID PRN PRN Reason: BLADDER SPASMS Last Admin: 11/14/21 11:52 Dose: 5 mg Documented By: BLADIMIR Budesonide-Glycopyr- (Formoterol) 2 dose INH DAILY [facility] Last Admin: 11/14/21 10:37 Dose: Not Given Documented By: Admin: 11/13/21 09:05 Dose: Not Given Documented By: Admin: 11/12/21 08:35 Dose: 2 dose Documented By: MARLYN Fluticasone- (Umeclidin-Vilanter) 1 dose INH Q24H [facility] Last Admin: 11/13/21 13:36 Dose: 1 dose Documented By: Admin: 11/12/21 13:50 Dose: Not Given Documented By: Admin: 11/11/21 15:17 Dose: Not Given Documented By: MARLYN Sodium Chloride (0.9 % Sodium Chloride 10 Ml Syringe) 10 ml IV Q8 [facility] Admin: 11/14/21 05:33 Dose: Not Given Documented By: Admin: 11/13/21 22:00 Dose: Not Given Documented By: Admin: 11/13/21 13:33 Dose: 10 ml Documented By: Admin: 11/13/21 05:18 Dose: Not Given Documented By: Admin: 11/12/21 20:47 Dose: 10 ml Documented By: Admin: 11/12/21 14:57 Dose: Not Given Documented By: Admin: 11/12/21 04:49 Dose: Not Given Documented By: Admin: 11/11/21 21:25 Dose: Not Given Documented By: Admin: 11/11/21 15:17 Dose: Not Given Documented By: MARLYN Terazosin HCl (Terazosin 5 Mg Capsule) 5 mg PO QHS [facility] Admin: 11/13/21 20:34 Dose: 5 mg Documented By: Admin: 11/12/21 20:47 Dose: 5 mg Documented By: Admin: 11/11/21 21:23 Dose: 5 mg Documented By: LIDIA Timolol Maleate (Timolol 0.5% Ophth Drops Bottle 5ml) 1 gtt OU BID [facility] Admin: 11/14/21 10:50 Dose: 1 gtt Documented By: Admin: 11/13/21 21:21 Dose: 1 gtt Documented By: Admin: 11/13/21 08:57 Dose: 1 gtt Documented By: Admin: 11/12/21 19:26 Dose: Not Given Documented By: Admin: 11/12/21 08:35 Dose: 1 gtt Documented By: Admin: 11/11/21 21:26 Dose: Not Given Documented By: LIDIA Tramadol HCl (Tramadol 50 Mg Tablet) 100 mg PO BID [facility] Admin: 11/14/21 10:46 Dose: 100 mg Documented By: Admin: 11/13/21 20:35 Dose: 100 mg Documented By: Admin: 11/13/21 08:52 Dose: 100 mg Documented By: Admin: 11/12/21 20:47 Dose: 100 mg Documented By: Admin: 11/12/21 08:34 Dose: 100 mg Documented By: Admin: 11/11/21 21:24 Dose: 100 mg Documented By: LIDIA Trimethoprim/Sulfamethoxazole (Sulfamethoxazole/Trimethoprim 1 Tablet) 1 tab PO BID [facility]; Protocol Last Admin: 11/14/21 10:46 Dose: 1 tab Documented By: BLADIMIR Shift Summary 11/14/21 03:47 Shift Summary by Roseline Jackson Primary Diagnosis: Right partial ureteroscopy Registration Status: Day of Hospitalization (admit date=day zero): 11-11-2021 Date of Surgery (if applicable): 11-11-2021 Pertinent Medical Dx/Issue(s): COPD, TENISHA, A-fib Interventions (wounds, diuresis, etc): Reinforce as needed, abdominal dressing- CDI, stool softeners, MOM at midnight, will give Suppository in AM. Abdomen rotund, tender, tympanic BTs, not passing gas. Vital Signs with Trends: VSS, diastolic HTN-Hytrin effective O2, liter flow/saturations: 2-3L, keep 89-93%, CPAP at 13 cm H2O at night Vent/Bipap/Cpap: Home C-pap Meds (abo, pain, BP, etc): Scheduled Ultram, Norcos prn-no required during the night. Walked to the ICU et back-tolerated well, but SOB with exertion Lab/Rad (abnormal results):WBCs 12.5 yesterday with significant left shift et absolute neutrophils at 10.7, afebrile but face flushed. Neuro/Mental Status: A&Ox4 Urinary Elimination (Pace out in 24H?; u.o. > 30mL/hr?): Pace in situ, to remain in place for 10 days post op Date of last BM: 11/11, tympanic BTs, gave MOM, Colace et will give Dulcolax suppository in the AM. Abdomen rotund et pt quite uncomfortable. Lines/Tubes: 20g to RFA infusing D5 1/2NS w/ K+20meq at 75 ml/hr Activity: Up with SBA/FWW, walked to the ICU et back. C/O back discomfort from being in bed too long Recommendations/questions for MD: Placed SCDs since Apixaban on hold et pt has hx of Atrial Fib. Expected date of discharge: TBD Discharge Plan (needs, disposition, etc): TBD, possibly tomorrow 11/14?? Will d/c home with family. Initialized on 11/13/21 17:06 - END OF NOTE Initialized on 11/14/21 03:47 - END OF NOTE
[2021-11-14] MEDS: FLUTICASONE UMECLIDIN VILANTER INH SCH (15:53)
== END 2021-11-14 15:40 | disposition home or self-care (01) | DRG 658 ==
LOC: MEDSUR 08:00
PROVIDERS: ADMIT Urology; ATTEND Urology